=== PATIENT | male | born 1955 | race Caucasian/White ===

== ENCOUNTER 2022-07-20 16:48 | Inpatient (IN) | payer BC, SELFPAY ==
--- NOTE | ~2022-07-20 | US_ITS ---
EXAMINATION: ULTRASOUND-GUIDED PARACENTESIS CLINICAL INFORMATION: Ascites COMPARISON: Previous abdominal ultrasound 07/21/2022 TECHNIQUE: Procedure and risks and benefits including bleeding and infection were discussed with the patient and informed consent was obtained. The right lower quadrant was prepped and draped in the usual sterile fashion. The skin and soft tissues were anesthetized with 1% lidocaine plain. Using ultrasound guidance and a 4 [place] one-stick system, access to the ascitic fluid was obtained. 4.9 L of clear yellow fluid was removed. Diagnostic specimen was sent as requested by the ordering physician. FINDINGS: There is a moderate to large amount of ascites. US/US paracentesis abd w/image IMPRESSION: Ultrasound-guided paracentesis.
--- NOTE | ~2022-07-20 | US_ITS ---
EXAMINATION: US VENOUS WITH DOPPLER UPPER EXTREMITY, LEFT CLINICAL INFORMATION: Swelling. COMPARISON: None. TECHNIQUE: Ultrasound of the upper extremity is performed using compression sonography and color and pulse Doppler flow with assessment of augmentation of flow. There is also imaging and Doppler assessment of the jugular and subclavian veins. Spectral analysis with color-flow imaging is performed. FINDINGS: Respiratory variation, normal compression, and augmented flow are noted throughout the upper extremity including the axillary, brachial, cubital, and radial and ulnar veins. There is normal flow in the internal jugular and subclavian veins. There is no visible deep or superficial thrombophlebitis. There is extensive edema of the soft tissues of the arm. US/US venous duplex UE LT IMPRESSION: No DVT demonstrated in the left upper extremity.
--- NOTE | ~2022-07-20 | XR_ITS ---
EXAMINATION: XR CHEST CLINICAL INFORMATION: Shortness of breath COMPARISON: 07/31/2015 TECHNIQUE: 2 views of the chest were obtained. FINDINGS: No significant abnormality is noted involving the heart, lungs, mediastinum, bony thorax or soft tissues. There is blunting of right costophrenic angle and pleural thickening on the right XR/XR chest 2V IMPRESSION: Pleural thickening on the right possibly small pleural effusion.
--- NOTE | ~2022-07-20 | US_ITS ---
EXAMINATION: US ABDOMEN COMPLETE CLINICAL INFORMATION: Abnormal swelling. COMPARISON: No similar priors. TECHNIQUE: Real-time imaging of the abdominal viscera. FINDINGS: PANCREAS: The body and tail are obscured by overlying bowel gas. The visualized head is within normal limits. ABDOMINAL AORTA: The proximal, mid, and distal segments are normal in caliber. INFERIOR VENA CAVA: Visualized portions are normal. LIVER: Cirrhotic morphology of the liver with 2 anechoic well-defined simple appearing cysts measuring 0.6 cm in the left lobe and 1.1 cm in the right lobe. Moderate to large volume of ascites. GALLBLADDER: Layering sludge. Nonspecific gallbladder wall thickening (0.5 cm) in the setting of cirrhosis. Nonspecific pericholecystic free fluid in the setting of ascites. Negative Meier's sign. COMMON BILE DUCT: Normal in caliber measuring 0.4 cm in diameter. RIGHT KIDNEY: Normal. No hydronephrosis. No renal calculi or focal parenchymal lesions. The kidney measures 10.7 cm in maximum dimension. LEFT KIDNEY: Normal. No hydronephrosis. No renal calculi or focal parenchymal lesions. The kidney measures 9.7 cm in maximum dimension. SPLEEN: Normal. The spleen measures 8.9 cm in maximum dimension. FREE FLUID: Moderate to large volume of ascites. Partially imaged right-sided pleural effusion. US/US abdomen complete IMPRESSION: 1. Cirrhotic morphology of the liver with moderate to large volume of ascites. 2. Gallbladder sludge with nonspecific gallbladder wall thickening and pericholecystic free fluid in the setting of cirrhosis and ascites. Negative Meier's sign. 3. Partially imaged right-sided pleural effusion.
--- NOTE | ~2022-07-20 | IR_ITS ---
PROCEDURE: IR INSERTION OF CENTRAL VENOUS CATHETER CLINICAL INFORMATION: Need for dialysis. COMPARISON: None. TECHNIQUE: Ultrasound and fluoroscopic-guided placement of right internal jugular temporary dialysis catheter. All elements of maximal sterile barrier technique followed including use of cap, mask, sterile gown, sterile gloves, a sterile full body drape and hand hygiene. Also followed skin preparation with 2% chlorhexidine for cutaneous antisepsis, and sterile ultrasound preparation with sterile gel and probe cover when applicable. FINDINGS: Informed consent was obtained from the patient's sister prior to the procedure. During this process, the procedure and potential alternatives were explained, along with the intended outcome and benefits. The risks of the procedure, as well as the risk of not doing the procedure, were discussed. The patient's sister was given the opportunity to ask questions regarding the procedure and appeared competent to make medical decisions. A signed consent form which documents this discussion was placed in the medical record. With ultrasound guidance, a needle was placed into the right jugular vein with hardcopy ultrasound image obtained. Guidewire was then placed into the right atrium and a 5 [place] AccuStick catheter placed. Through the AccuStick, a 0.035 inch guidewire was placed and advanced into the inferior vena cava. Following fascial dilatation, a 12 [place] non-tunneled dialysis catheter was placed with tip in the right distal superior vena cava. Catheter was sutured to skin and the 2 dialysis ports were loaded with 1 mL of 1000 units of heparin per milliliter. Patient tolerated the procedure without difficulty. IR/IR cvc insert non tunnel IMPRESSION: Placement of right internal jugular temporary dialysis catheter as described. Fluoroscopy Time: 0.3 minutes. Number of Images: 2. DAP: 54 cGy-cm2.
--- NOTE | ~2022-07-20 | XR_ITS ---
EXAMINATION: XR CHEST CLINICAL INFORMATION: Hypoxia COMPARISON: 07/20/2022 TECHNIQUE: Frontal apical lordotic projection view of the chest was obtained. FINDINGS: EKG leads overlie the chest. Mild bibasilar atelectasis. Blunting of the bilateral costophrenic sulci may be due to trace pleural effusions or pleural parenchymal scarring. Normal pulmonary vasculature. No pulmonary edema. Trace fluid is within normal limits in size. Osteoarthritis is present in the acromioclavicular and glenohumeral joints. Probable chronic left rotator cuff tear. Degenerative spondylosis in the thoracic spine. XR/XR chest 1V IMPRESSION: Mild bibasilar atelectasis. Trace pleural effusions versus pleural parenchymal scarring at the costophrenic sulci. No pulmonary edema. No acute pulmonary findings.
--- NOTE | 2022-07-20 16:51 | ECG_ITS ---
Test Reason : SOB Blood Pressure : / mmHG Vent. Rate : 093 BPM Atrial Rate : 000 BPM P-R Int : 000 ms QRS Dur : 098 ms QT Int : 372 ms P-R-T Axes : 000 015 135 degrees QTc Int : 462 ms Atrial fibrillation Low voltage QRS Nonspecific T wave abnormality Intra-ventricular conduction delay Abnormal ECG When compared with ECG of 30-JUL-2015 22:55, Atrial fibrillation is new Nonspecific T wave abnormality is new Referred By: Yashira Cleaning Electronically Signed By:KEON AC MD
--- NOTE | 2022-07-20 16:51 | ED.SOB ---
HPI - SOB/Dyspnea General Chief Complaint: Dyspnea Stated Complaint: sob ,extremities swollen Time Seen by Provider: 07/20/22 17:49 Related Data Home Medications Medication Instructions Recorded Confirmed naproxen 220 mg-diphenhydramine 25 1 tab PO BEDTIME PRN Pain (Scale 07/21/22 07/21/22 mg tablet (Aleve PM) Score 1-3) Allergies Allergy/AdvReac Type Severity Reaction Status Date / Time No Known Allergies Allergy Verified 07/20/22 16:57 [facility] Past Medical History Medical History Afib Alcoholic cirrhosis HCV (hepatitis C virus) Surgical History (Updated 07/23/22 @ 16:18 by Indu Olson MD) History of orthopedic surgery Social History Social History (Updated 07/23/22 @ 16:21 by Indu Olson MD) Household Members: None Housing: Apartment Do you presently have visiting nurse or other home services: No Alcohol intake: current Alcohol intake frequency: former alcohol drinker Alcohol type: hard liquor Patient Tobacco Use Status: Never used Tobacco Substance Use Type: Marijuana service: No Physical Exam Vital Signs: Vital Signs: Last Vital Signs Temp 98.8 F 07/23/22 17:45 Pulse 86 07/23/22 17:45 Resp 16 07/23/22 17:45 BP 93/42 L 07/23/22 17:45 Pulse Ox 98 07/23/22 17:45 O2 Del Method 07/23/22 17:45 O2 Flow Rate 2 07/23/22 17:45 BMI result Body Mass Index 31.5 Course Reevaluation(s) Reevaluation #1: RME - 67-year-old male presenting to the ED with complaints of cough, shortness of breath, dyspnea on exertion, orthopnea with upper and lower extremity edema over the past 2 weeks worse today. Reports he has a past medical history of HTN and alcoholism although he has been sober for a month. Pt noted to have edema to all 4 extremities/abd distention. Plan: Will obtain labs, chest x-ray, EKG. Patient's vital signs are stable. He will be sent back to the waiting room for further evaluation treatment in the main ED. Time: 16:54 Medications Administered Generic Name Dose Route Start Last Admin Trade Name Freq PRN Reason Stop Dose Admin Folic Acid 5 mg 11/14/22 09:00 07/23/22 08:03 Folic Acid 1 Mg Tablet PO 5 mg DAILY LANDON Administration Furosemide 200 mg/ Sodium 100 mls @ 2.5 mls/hr 07/22/22 12:00 07/23/22 10:36 Chloride IVCONT Infused .Q24H LANDON Infusion 5 MG/HR Albumin Human 100 mls @ 100 mls/hr 07/23/22 10:00 07/23/22 16:24 Kedbumin 25 % IV 07/23/22 22:59 Infused Q6H LANDON Infusion Octreotide Acetate 500 mcg/ 501 mls @ 50.1 mls/hr 07/23/22 10:15 07/23/22 11:57 Sodium Chloride IVCONT 50 mcg/hr .Q10H LANDON 50.1 mls/hr Administration 50 MCG/HR Ceftriaxone Sodium 1 gm/ 50 mls @ 100 mls/hr 07/23/22 11:00 07/23/22 11:05 Sodium Chloride IV Infused Q24H LANDON Infusion Metoprolol Tartrate 25 mg 07/22/22 15:15 07/23/22 08:06 Metoprolol Tartrate 25 Mg Tablet PO Not Given BID LANDON Protocol Midodrine 5 mg 07/23/22 15:00 07/23/22 14:07 Midodrine Hcl 5 Mg Tablet PO 5 mg TID LANDON Administration Pantoprazole Sodium 40 mg 07/23/22 10:15 07/23/22 15:22 Pantoprazole Sodium 40 Mg/10 Ml Vial IVPUSH 40 mg BID@0630,1630 LANDON Administration Sodium Chloride 3 ml 07/21/22 00:00 07/23/22 15:23 0.9 % Sodium Chloride Flush 3 Ml Syringe IVFLUSH 3 ml QSHIFT LANDON Administration Spironolactone 25 mg 07/22/22 12:00 07/23/22 08:03 Spironolactone 25 Mg Tablet PO 25 mg DAILY LANDON Administration Protocol Discontinued Medications Generic Name Dose Route Start Last Admin Trade Name Freq PRN Reason Stop Dose Admin Furosemide 40 mg 07/21/22 00:20 07/22/22 07:40 Furosemide 40 Mg/4 Ml Vial IVPUSH 40 mg BID LANDON Administration Protocol Albumin Human 100 mls @ 100 mls/hr 07/22/22 08:00 07/22/22 10:14 Kedbumin 25 % IV 07/22/22 09:59 Infused Q1H LANDON Infusion Albumin Human 100 mls @ 100 mls/hr 07/22/22 12:00 07/22/22 15:04 Kedbumin 25 % IV 07/22/22 13:59 Infused Q1H LANDON Infusion Phytonadione 10 mg/ Sodium 51 mls @ 51 mls/hr 07/22/22 16:45 07/22/22 19:53 Chloride IV 07/22/22 17:44 Infused ONCE ONE Infusion Lactated Ringer's 1,000 mls @ 50 mls/hr 07/23/22 16:45 07/23/22 18:27 Lr IVCONT Not Given .Q20H LANDON Lorazepam 0.5 mg 07/22/22 12:55 07/22/22 13:01 Lorazepam 0.5 Mg Tablet PO 07/22/22 12:56 0.5 mg ONCE ONE Administration Melatonin 6 mg 07/20/22 23:58 07/21/22 19:57 Melatonin 3 Mg Tablet PO 6 mg BEDTIME PRN Administration Insomnia Phytonadione 10 mg 07/21/22 08:11 07/21/22 08:26 Phytonadione (Vit K1) Oral 10 Mg/Ml Ampul PO 07/21/22 08:12 10 mg ONCE ONE Administration MDM - SOB/Dyspnea Lab Data Result diagrams: 07/23/22 14:57 07/23/22 06:40 Labs: Lab Results 07/20/22 07/20/22 07/20/22 Range/Units 17:19 17:19 17:19 WBC 7.1 (4.8-10.8) X10*3/uL RBC 1.49 L (4.60-5.80) X10*6/uL Hgb 4.0 L* (14.0-18.0) g/dl Hct 14.4 L* (42.0-52.0) % MCV 96.6 (80.0-98.0) fL MCH 26.8 L (27.0-33.0) pg MCHC 27.8 L (31.0-36.0) g/dl RDW 16.9 H (11.0-16.0) % Plt Count 111 L (160-400) X10*3/uL MPV 11.6 (9.4-12.4) fL Immature Gran % (Auto) 0.6 H (0.0-0.4) % Neut % (Auto) 66.9 (45-73) % Lymph % (Auto) 20.0 (20-40) % Caldwell % (Auto) 10.9 (2-11) % Eos % (Auto) 1.0 (0-4) % Baso % (Auto) 0.6 (0-2) % Lymph # (Auto) 1.4 (1.2-4.9) X10*3/uL Caldwell # (Auto) 0.8 (0.1-1.2) X10*3/uL Eos # (Auto) 0.1 (0.0-0.4) X10*3/uL Baso # (Auto) 0.0 (0.0-0.2) X10*3/uL Abs Immat Gran (auto) 0.04 H (0.00-0.03) X10*3/uL Absolute Neuts (auto) 4.7 (2.0-8.3) x10*3/uL Absolute Nucleated RBC 0.020 H (0.0-0.012) X10*3/uL Nucleated RBC % (auto) 0.3 H (0.0-0.2) /100WBC Smear Path Review SEE NOTE Absolute Retic Percent Retic Immature Retic Fraction Retic Hgb Equivalent PT 28.8 H (10.0-13.1) SEC INR 2.4 H (0.9-1.1) Sodium 134 L (135-145) mmol/L Potassium 3.7 (3.3-5.1) mmol/L Chloride 101 (96-108) mmol/L Carbon Dioxide 17 L (22-29) mmol/L Anion Gap 20 (12-20) BUN 27 H (9-16) mg/dL Creatinine 2.28 H (0.5-1.4) mg/dL Estim Creat Clear Calc 36.7 Estimated GFR 29 Random Glucose 126 H (60-115) mg/dL Calcium 7.7 L (8.4-10.2) mg/dL Magnesium 2.0 (1.6-2.6) mg/dL Iron (45-160) mcg/dL TIBC (228-428) mcg/dL % Saturation (15-50) % Unsat Iron Binding ug/dL Total Bilirubin 3.1 H (0.0-1.0) mg/dL Direct Bilirubin (0.0-0.5) mg/dL AST 31 (5-37) U/L ALT 15 (0-40) U/L Alkaline Phosphatase 66 (39-117) U/L Lactate Dehydrogenase (118-273) U/L Troponin I High Sens (<3.5-35.0) ng/L B-Natriuretic Peptide (<100) pg/mL Total Protein 8.4 H (6.5-8.0) g/dL Albumin 1.8 L (3.5-5.0) g/dL Lipase (8-78) U/L Vitamin B12 (200-900) pg/mL Folate (> or = 4.0) ng/mL Ethyl Alcohol mg/dL Blood Type Antibody Screen TRAVIS, Polyspecific Positive TRAVIS Work-up Crossmatch 07/20/22 07/20/22 07/20/22 Range/Units 17:19 17:19 17:19 WBC (4.8-10.8) X10*3/uL RBC (4.60-5.80) X10*6/uL Hgb (14.0-18.0) g/dl Hct (42.0-52.0) % MCV (80.0-98.0) fL MCH (27.0-33.0) pg MCHC (31.0-36.0) g/dl RDW (11.0-16.0) % Plt Count (160-400) X10*3/uL MPV (9.4-12.4) fL Immature Gran % (Auto) (0.0-0.4) % Neut % (Auto) (45-73) % Lymph % (Auto) (20-40) % Caldwell % (Auto) (2-11) % Eos % (Auto) (0-4) % Baso % (Auto) (0-2) % Lymph # (Auto) (1.2-4.9) X10*3/uL Caldwell # (Auto) (0.1-1.2) X10*3/uL Eos # (Auto) (0.0-0.4) X10*3/uL Baso # (Auto) (0.0-0.2) X10*3/uL Abs Immat Gran (auto) (0.00-0.03) X10*3/uL Absolute Neuts (auto) (2.0-8.3) x10*3/uL Absolute Nucleated RBC (0.0-0.012) X10*3/uL Nucleated RBC % (auto) (0.0-0.2) /100WBC Smear Path Review Absolute Retic Percent Retic Immature Retic Fraction Retic Hgb Equivalent PT (10.0-13.1) SEC INR (0.9-1.1) Sodium (135-145) mmol/L Potassium (3.3-5.1) mmol/L Chloride (96-108) mmol/L Carbon Dioxide (22-29) mmol/L Anion Gap (12-20) BUN (9-16) mg/dL Creatinine (0.5-1.4) mg/dL Estim Creat Clear Calc Estimated GFR Random Glucose (60-115) mg/dL Calcium (8.4-10.2) mg/dL Magnesium (1.6-2.6) mg/dL Iron (45-160) mcg/dL TIBC (228-428) mcg/dL % Saturation (15-50) % Unsat Iron Binding ug/dL Total Bilirubin (0.0-1.0) mg/dL Direct Bilirubin (0.0-0.5) mg/dL AST (5-37) U/L ALT (0-40) U/L Alkaline Phosphatase (39-117) U/L Lactate Dehydrogenase (118-273) U/L Troponin I High Sens 11.0 (<3.5-35.0) ng/L B-Natriuretic Peptide 450 H (<100) pg/mL Total Protein (6.5-8.0) g/dL Albumin (3.5-5.0) g/dL Lipase (8-78) U/L Vitamin B12 (200-900) pg/mL Folate (> or = 4.0) ng/mL Ethyl Alcohol < 10 mg/dL Blood Type Antibody Screen TRAVIS, Polyspecific Positive TRAVIS Work-up Crossmatch 07/20/22 07/20/22 07/20/22 Range/Units 17:19 17:19 17:19 WBC (4.8-10.8) X10*3/uL RBC (4.60-5.80) X10*6/uL Hgb (14.0-18.0) g/dl Hct (42.0-52.0) % MCV (80.0-98.0) fL MCH (27.0-33.0) pg MCHC (31.0-36.0) g/dl RDW (11.0-16.0) % Plt Count (160-400) X10*3/uL MPV (9.4-12.4) fL Immature Gran % (Auto) (0.0-0.4) % Neut % (Auto) (45-73) % Lymph % (Auto) (20-40) % Caldwell % (Auto) (2-11) % Eos % (Auto) (0-4) % Baso % (Auto) (0-2) % Lymph # (Auto) (1.2-4.9) X10*3/uL Caldwell # (Auto) (0.1-1.2) X10*3/uL Eos # (Auto) (0.0-0.4) X10*3/uL Baso # (Auto) (0.0-0.2) X10*3/uL Abs Immat Gran (auto) (0.00-0.03) X10*3/uL Absolute Neuts (auto) (2.0-8.3) x10*3/uL Absolute Nucleated RBC (0.0-0.012) X10*3/uL Nucleated RBC % (auto) (0.0-0.2) /100WBC Smear Path Review Absolute Retic Cancelled Percent Retic Cancelled Immature Retic Fraction Cancelled Retic Hgb Equivalent Cancelled PT (10.0-13.1) SEC INR (0.9-1.1) Sodium (135-145) mmol/L Potassium (3.3-5.1) mmol/L Chloride (96-108) mmol/L Carbon Dioxide (22-29) mmol/L Anion Gap (12-20) BUN (9-16) mg/dL Creatinine (0.5-1.4) mg/dL Estim Creat Clear Calc Estimated GFR Random Glucose (60-115) mg/dL Calcium (8.4-10.2) mg/dL Magnesium (1.6-2.6) mg/dL Iron 25 L (45-160) mcg/dL TIBC 289 (228-428) mcg/dL % Saturation 9 L (15-50) % Unsat Iron Binding 264 ug/dL Total Bilirubin (0.0-1.0) mg/dL Direct Bilirubin (0.0-0.5) mg/dL AST (5-37) U/L ALT (0-40) U/L Alkaline Phosphatase (39-117) U/L Lactate Dehydrogenase 144 (118-273) U/L Troponin I High Sens (<3.5-35.0) ng/L B-Natriuretic Peptide (<100) pg/mL Total Protein (6.5-8.0) g/dL Albumin (3.5-5.0) g/dL Lipase (8-78) U/L Vitamin B12 > 2000 H (200-900) pg/mL Folate 3.1 L (> or = 4.0) ng/mL Ethyl Alcohol mg/dL Blood Type Antibody Screen TRAVIS, Polyspecific Positive TRAVIS Work-up Crossmatch 07/20/22 07/20/22 07/20/22 Range/Units 20:54 20:54 22:03 WBC (4.8-10.8) X10*3/uL RBC (4.60-5.80) X10*6/uL Hgb (14.0-18.0) g/dl Hct (42.0-52.0) % MCV (80.0-98.0) fL MCH (27.0-33.0) pg MCHC (31.0-36.0) g/dl RDW (11.0-16.0) % Plt Count (160-400) X10*3/uL MPV (9.4-12.4) fL Immature Gran % (Auto) (0.0-0.4) % Neut % (Auto) (45-73) % Lymph % (Auto) (20-40) % Caldwell % (Auto) (2-11) % Eos % (Auto) (0-4) % Baso % (Auto) (0-2) % Lymph # (Auto) (1.2-4.9) X10*3/uL Caldwell # (Auto) (0.1-1.2) X10*3/uL Eos # (Auto) (0.0-0.4) X10*3/uL Baso # (Auto) (0.0-0.2) X10*3/uL Abs Immat Gran (auto) (0.00-0.03) X10*3/uL Absolute Neuts (auto) (2.0-8.3) x10*3/uL Absolute Nucleated RBC (0.0-0.012) X10*3/uL Nucleated RBC % (auto) (0.0-0.2) /100WBC Smear Path Review Absolute Retic Percent Retic Immature Retic Fraction Retic Hgb Equivalent PT (10.0-13.1) SEC INR (0.9-1.1) Sodium 132 L (135-145) mmol/L Potassium 3.9 (3.3-5.1) mmol/L Chloride 100 (96-108) mmol/L Carbon Dioxide 20 L (22-29) mmol/L Anion Gap 16 (12-20) BUN 26 H (9-16) mg/dL Creatinine 2.18 H (0.5-1.4) mg/dL Estim Creat Clear Calc 38.3 Estimated GFR 30 Random Glucose 101 (60-115) mg/dL Calcium 7.8 L (8.4-10.2) mg/dL Magnesium (1.6-2.6) mg/dL Iron (45-160) mcg/dL TIBC (228-428) mcg/dL % Saturation (15-50) % Unsat Iron Binding ug/dL Total Bilirubin 2.8 H (0.0-1.0) mg/dL Direct Bilirubin 1.8 H (0.0-0.5) mg/dL AST 37 (5-37) U/L ALT 16 (0-40) U/L Alkaline Phosphatase 67 (39-117) U/L Lactate Dehydrogenase (118-273) U/L Troponin I High Sens 9.8 (<3.5-35.0) ng/L B-Natriuretic Peptide (<100) pg/mL Total Protein 8.7 H (6.5-8.0) g/dL Albumin 1.8 L (3.5-5.0) g/dL Lipase 36 (8-78) U/L Vitamin B12 (200-900) pg/mL Folate (> or = 4.0) ng/mL Ethyl Alcohol mg/dL Blood Type B Positive Antibody Screen NEGATIVE TRAVIS, Polyspecific NEGATIVE Positive TRAVIS Work-up TNP Crossmatch See Detail Discharge Plan Discharge Clinical Impression: Anemia Patient Disposition: Admitted As Inpatient Interventions: Admission Worksheet (ED) Last Done: 07/21/22 18:01 Discharge Date/Time: 07/21/22 18:02
[2022-07-20 16:52] VITALS: BP 114/36; PULSE 96; RESP 16; TEMP 36; O2SAT 98; BMI 31.5
[2022-07-20 17:33] LABS: MANUAL DIFF FLAG NO
[2022-07-20 17:35] LABS: Basophils Percent Auto 0.6 % (0-2); Eosinophils Absolute Auto 0.1 X10*3/uL (0.0-0.4); Imm Gran Abs Auto 0.04 X10*3/uL (0.00-0.03); Imm Gran Pct Auto 0.6 % (0.0-0.4); Lymphocytes Absolute Auto 1.4 X10*3/uL (1.2-4.9); Mean Corpuscular HGB Conc 27.8 g/dl (31.0-36.0); Mean Corpuscular Hemoglobin 26.8 pg (27.0-33.0); Mean Corpuscular Volume 96.6 fL (80.0-98.0); Mean Platelet Volume 11.6 fL (9.4-12.4); Monocytes Absolute Auto 0.8 X10*3/uL (0.1-1.2); Monocytes Percent Auto 10.9 % (2-11); NRBC Pct Auto 0.3 /100WBC (0.0-0.2); Neutrophils Absolute Auto 4.7 x10*3/uL (2.0-8.3); Neutrophils Percent Auto 66.9 % (45-73); Platelet Count 111 X10*3/uL (160-400); Red Blood Count 1.49 X10*6/uL (4.60-5.80); Red Cell Distribution Width 16.9 % (11.0-16.0); White Blood Count 7.1 X10*3/uL (4.8-10.8)
[2022-07-20 17:43] LABS: Hematocrit 14.4 % (42.0-52.0)
[2022-07-20 17:46] LABS: INTERNATIONAL NORM RATIO 2.4 (0.9-1.1); Prothrombin Time 28.8 SEC (10.0-13.1)
[2022-07-20 17:51] LABS: Ethanol < 10 mg/dL
[2022-07-20 17:54] LABS: Alanine Aminotransferase 15 U/L (0-40); Albumin Level 1.8 g/dL (3.5-5.0); Alkaline Phosphatase 66 U/L (39-117); Anion Gap 20 (12-20); Aspartate Amino Transferase 31 U/L (5-37); Bilirubin Total 3.1 mg/dL (0.0-1.0); Blood Urea Nitrogen 27 mg/dL (9-16); Calcium 7.7 mg/dL (8.4-10.2); Carbon Dioxide 17 mmol/L (22-29); Chloride 101 mmol/L (96-108); Creatinine Clr Calc Pharmacy 36.7; Estimated Glomerular Filt Rate 29; Glucose Random 126 mg/dL (60-115); Potassium 3.7 mmol/L (3.3-5.1); Sodium 134 mmol/L (135-145); Total Protein 8.4 g/dL (6.5-8.0)
[2022-07-20 18:00] LABS: B Type Natriuretic Peptide 450 pg/mL (<100)
--- NOTE | 2022-07-20 18:23 | ED_ITS ---
HPI - SOB/Dyspnea General Chief Complaint: Dyspnea Stated Complaint: sob ,extremities swollen Time Seen by Provider: 07/20/22 17:49 Source: patient and EMS History of Present Illness HPI Narrative: 67-year-old male with shortness of breath and swelling for an undetermined period of time. The patient has not seen a physician for probably 12/13 years, and called an ambulance this evening because of significant swelling and difficulty breathing. This has been going on for at least several days, progressively worsening. The patient also states that he has had some lightheadedness and dizziness. Denies chest pain or palpitations. MD elicited complaint: shortness of breath Onset (ago): day(s) Context: medication noncompliance Timing: constant and progressively worsening Severity: severe Exacerbating factors: movement Relieving factors: nothing Treatment prior to arrival: none Related Data Previous Rx's Medication Instructions Recorded omeprazole 40 mg capsule,delayed 40 mg PO BID@0630,1630 #14 caps 08/08/22 release spironolactone 25 mg tablet 25 mg PO DAILY #14 tabs 08/08/22 tamsulosin 0.4 mg capsule 0.4 mg PO DAILY #14 caps 08/08/22 walker #1 ea 08/08/22 prednisolone 15 mg/5 mL oral 30 mg (10 mL) PO DAILY 43 days 08/09/22 solution #430 mL walker #1 ea 08/09/22 Allergies Allergy/AdvReac Type Severity Reaction Status Date / Time No Known Allergies Allergy Verified 07/20/22 16:57 Review of Systems Review of Systems: Yes all other systems are reviewed and are negative Constitutional: Constitutional: Denies chills, Denies fever(s) and Reports lethargy Eyes: Eyes: Reports no additional eye complaints ENT: Reports system reviewed and no additional complaints, except as documented and Reports dizziness Cardiovascular: Cardiovascular: Denies chest pain, Denies chest pain at rest, Denies chest pain with activity, Denies rapid heart rate, Reports pedal edema, Reports edema, Reports leg edema, Reports dyspnea and Reports dyspnea on exertion Respiratory: Respiratory: Reports as per HPI, Denies cough, Reports dyspnea and Reports dyspnea on exertion Gastrointestinal: Gastrointestinal: Denies abdominal pain, Denies diarrhea, Denies nausea and Denies vomiting Genitourinary: Genitourinary: Reports no additional male genitourinary complaints Musculoskeletal: Musculoskeletal: Reports muscle weakness, Denies numbness and Denies tingling Neurologic: Denies Abnormal speech present, Denies confusion, Reports dizziness, Denies numbness and Denies tingling Psychiatric: Psychiatric: Denies confusion, Denies depression and Denies hopelessness Hematologic/Lymphatic: Hematologic/Lymphatic: Reports no additional hemat ologic/lymphatic complaints [facility] Past Medical History Attestation statement: The following information was validated with the patient. [facility] Narrative: The patient denies any known past medical history. Medical History (Updated 08/17/22 @ 00:03 by Marcia Paz) Acute on chronic kidney failure Afib Alcoholic cirrhosis Anasarca Coagulopathy Debility HCV (hepatitis C virus) Hematemesis Surgical History History of orthopedic surgery Social History Social History (Updated 07/23/22 @ 16:21 by Indu Olson MD) Household Members: None Housing: Apartment Do you presently have visiting nurse or other home services: No Alcohol intake: current Alcohol intake frequency: other Alcohol type: hard liquor Patient Tobacco Use Status: Never used Tobacco Substance Use Type: Marijuana service: No Physical Exam Vital Signs: Vital Signs: Last Vital Signs Temp 97.8 F 08/09/22 07:25 Pulse 75 08/09/22 07:25 Resp 18 08/09/22 07:25 BP 119/67 08/09/22 07:25 Pulse Ox 99 08/09/22 07:25 O2 Del Method Room Air 08/09/22 07:25 O2 Flow Rate 2 08/05/22 07:15 BMI result Body Mass Index 31.5 Vital signs noted to be normal Const: General: cooperative, acute distress mild and ill appearing; No confusion Nutritional Appearance: Edematous Orientation/consciousness: patient oriented x3 and No confusion HEENT: Head: Yes normal to inspection, Yes normocephalic and Yes atraumatic Ears: hearing grossly normal bilaterally and external ears normal General nose exam: Normal external nose present Face and sinus: Yes normal facial exam Eyes: Conjunctivae: conjunctivae normal Sclerae: sclerae normal Pupils: Equal, round and reactive pupils present EOM: EOMs intact bilaterally Neck: Neck: Yes normal visual inspection and Yes full ROM Chest: Chest palpation & inspection: normal inspection of the chest and no masses Resp: Effort & Inspection: abnormal respiratory effort, no cough, labored (Slightly), no retractions and not tachypneic Cardio: Rate: regular rate Rhythm: regular rhythm GI: Inspection: Yes Abdominal wall edema Percussion: Yes normal to percussion Back/Spine/Pelvis: Cervical Spine: normal cervical lordosis and cervical ROM normal Coccyx: swelling Skin: General skin exam: no rashes or lesions noted, no ecchymosis and pallor Neuro: General: patient oriented x3, No confusion and Unable to assess gait Cranial nerves: Yes CN's II-XII intact bilaterally and Yes Equal, round and reactive pupils present Cognition (Neuro): normal cognition Speech: No Abnormal speech present Gait exam (Neuro): Unable to assess gait Extrem: General: No no pedal edema, No cyanosis and Yes edema Medications Administered Discontinued Medications Generic Name Dose Route Start Last Admin Trade Name Freq PRN Reason Stop Dose Admin Folic Acid 5 mg 07/22/22 09:00 07/26/22 09:00 Folic Acid 1 Mg Tablet PO 5 mg DAILY [facility]ON Administration Folic Acid 5 mg 07/31/22 09:00 08/09/22 07:50 Folic Acid 1 Mg Tablet PO 5 mg DAILY [facility] Administration Furosemide 40 mg 07/21/22 00:20 07/22/22 07:40 Furosemide 40 Mg/4 Ml Vial IVPUSH 40 mg BID [facility]ON Administration Protocol Furosemide 20 mg 08/02/22 18:55 08/02/22 19:15 Furosemide 20 Mg/2 Ml Vial IVPUSH 08/02/22 18:56 20 mg ONCE ONE Administration Protocol Furosemide 40 mg 08/02/22 21:49 08/03/22 01:30 Furosemide 40 Mg/4 Ml Vial IVPUSH 08/02/22 21:50 40 mg ONCE ONE Administration Protocol Heparin Sodium (Porcine) 2,000 unit 07/25/22 12:58 07/25/22 12:58 Heparin Sodium,Porcine 1,000 Unit/Ml Vial IV 07/25/22 12:59 2,000 unit ONCE ONE Administration Albumin Human 100 mls @ 100 mls/hr 07/22/22 08:00 07/22/22 10:14 Kedbumin 25 % IV 07/22/22 09:59 Infused Q1H [facility] Infusion Furosemide 200 mg/ Sodium 100 mls @ 2.5 mls/hr 07/22/22 12:00 07/23/22 10:36 Chloride IVCONT Infused .Q24H [facility] Infusion 5 MG/HR Albumin Human 100 mls @ 100 mls/hr 07/22/22 12:00 07/22/22 15:04 Kedbumin 25 % IV 07/22/22 13:59 Infused Q1H [facility] Infusion Phytonadione 10 mg/ Sodium 51 mls @ 51 mls/hr 07/22/22 16:45 07/22/22 19:53 Chloride IV 07/22/22 17:44 Infused ONCE ONE Infusion Albumin Human 100 mls @ 100 mls/hr 07/23/22 10:00 07/23/22 22:50 Kedbumin 25 % IV 07/23/22 22:59 Infused Q6H [facility] Infusion Octreotide Acetate 500 mcg/ 501 mls @ 50.1 mls/hr 07/23/22 10:15 07/24/22 20:34 Sodium Chloride IVCONT Not Given .Q10H L[facility]ON 50 MCG/HR Ceftriaxone Sodium 1 gm/ 50 mls @ 100 mls/hr 07/23/22 11:00 07/26/22 11:47 Sodium Chloride IV Infused Q24H [facility] Infusion Lactated Ringer's 1,000 mls @ 50 mls/hr 07/23/22 16:45 07/23/22 18:27 Lr IVCONT Not Given .Q20H [facility] Albumin Human 100 mls @ 100 mls/hr 07/24/22 11:15 07/25/22 08:31 Kedbumin 25 % IV 07/25/22 06:14 Infused Q6H [facility] Infusion Octreotide Acetate 500 mcg/ 501 mls @ 50.1 mls/hr 07/24/22 20:30 07/25/22 08:32 Sodium Chloride IVCONT Infused .Q10H [facility] Infusion 50 MCG/HR Albumin Human 100 mls @ 100 mls/hr 07/25/22 08:30 07/26/22 03:55 Kedbumin 25 % IV 07/26/22 03:29 Infused Q6H [facility] Infusion Octreotide Acetate 500 mcg/ 501 mls @ 50.1 mls/hr 07/25/22 15:15 07/25/22 22:49 Sodium Chloride IVCONT Not Given .Q10H [facility] 50 MCG/HR Phytonadione 10 mg/ Sodium 51 mls @ 51 mls/hr 07/25/22 15:22 07/25/22 22:49 Chloride IV 07/25/22 16:21 Infused ONCE ONE Infusion Octreotide Acetate 500 mcg/ 501 mls @ 50.1 mls/hr 07/25/22 22:00 07/26/22 17:26 Sodium Chloride IVCONT Infused .Q10H [facility] Infusion 50 MCG/HR Desmopressin Acetate 20 mcg/ 55 mls @ 100 mls/hr 07/26/22 12:51 07/26/22 14:48 Sodium Chloride IV 07/26/22 13:25 Infused ONCE ONE Infusion Octreotide Acetate 500 mcg/ 501 mls @ 25.05 mls/hr 08/02/22 08:30 08/02/22 12:22 Sodium Chloride IVCONT Infused .Q20H [facility] Infusion 25 MCG/HR Phytonadione 10 mg/ Sodium 51 mls @ 51 mls/hr 08/02/22 22:06 08/03/22 00:53 Chloride IV 08/02/22 23:05 Infused ONCE ONE Infusion Lidocaine HCl 5 ml 07/24/22 16:00 07/24/22 16:57 Lidocaine Hcl 1 % 20 Ml Vial SUBCUT 07/24/22 16:01 5 ml ONCE ONE Administration Lidocaine HCl 10 ml 07/25/22 12:56 07/25/22 12:56 Lidocaine Hcl 1 % Mpf 5 Ml Vial SUBCUT 07/25/22 12:57 10 ml ONCE ONE Administration Lorazepam 0.5 mg 07/22/22 12:55 07/22/22 13:01 Lorazepam 0.5 Mg Tablet PO 07/22/22 12:56 0.5 mg ONCE ONE Administration Lorazepam 0.5 mg 07/26/22 16:40 07/30/22 22:26 Lorazepam 0.5 Mg Tablet PO 0.5 mg Q4H PRN Administration anxiety/restlessness Melatonin 6 mg 07/20/22 23:58 07/21/22 19:57 Melatonin 3 Mg Tablet PO 6 mg BEDTIME PRN Administration Insomnia Melatonin 3 mg 07/30/22 21:00 08/08/22 19:56 Melatonin 3 Mg Tablet PO 3 mg BEDTIME [facility] Administration Metoprolol Tartrate 25 mg 07/22/22 15:15 07/26/22 09:02 Metoprolol Tartrate 25 Mg Tablet PO 25 mg BID [facility] Administration Protocol Midodrine 5 mg 07/23/22 15:00 07/24/22 07:36 Midodrine Hcl 5 Mg Tablet PO 5 mg TID [facility] Administration Midodrine 10 mg 07/24/22 15:00 07/26/22 17:25 Midodrine Hcl 10 Mg Tablet PO Not Given TID [facility] Omeprazole 40 mg 07/25/22 16:30 08/02/22 05:56 Omeprazole 40 Mg Capsule. PO 40 mg BID@0630,1630 [facility] Administration Omeprazole 40 mg 08/04/22 16:30 08/09/22 05:43 Omeprazole 40 Mg Capsule.Dr PO 40 mg BID@0630,1630 [facility] Administration Ondansetron HCl 4 mg 07/20/22 23:58 07/30/22 16:16 Ondansetron Hcl 4 Mg/2 Ml Vial IVPUSH 4 mg Q8H PRN Administration Nausea and Vomiting Pantoprazole Sodium 40 mg 07/23/22 10:15 07/25/22 06:46 Pantoprazole Sodium 40 Mg/10 Ml Vial IVPUSH 40 mg BID@0630,1630 [facility] Administration Pantoprazole Sodium 40 mg 08/02/22 08:30 08/04/22 05:21 Pantoprazole Sodium 40 Mg/10 Ml Vial IVPUSH 40 mg BID@0630,1630 [facility] Administration Phytonadione 10 mg 07/21/22 08:11 07/21/22 08:26 Phytonadione (Vit K1) Oral 10 Mg/Ml Ampul PO 07/21/22 08:12 10 mg ONCE ONE Administration Prednisolone Sodium Phosphate 30 mg 07/28/22 11:55 08/03/22 09:53 Prednisolone Sodium Phosphate 15 Mg/5 Ml Solution PO Not Given DAILY [facility] Prednisone 30 mg 08/03/22 10:40 08/09/22 07:50 Prednisone 10 Mg Tablet PO 30 mg DAILY [facility] Administration Sodium Chloride 3 ml 07/21/22 00:00 08/09/22 07:53 0.9 % Sodium Chloride Flush 3 Ml Syringe IVFLUSH 3 ml QSHIFT [facility] Administration Sodium Chloride 5 ml 07/25/22 16:00 08/09/22 07:55 0.9 % Sodium Chloride Flush 10 Ml Syringe IVFLUSH Not Given QSHIFT [facility] Spironolactone 25 mg 07/22/22 12:00 07/24/22 07:36 Spironolactone 25 Mg Tablet PO 25 mg DAILY [facility] Administration Protocol Spironolactone 25 mg 07/30/22 10:00 08/09/22 07:50 Spironolactone 25 Mg Tablet PO 25 mg DAILY [facility] Administration Protocol Sucralfate 1 gm 07/25/22 11:30 07/26/22 17:25 Sucralfate 1 Gm Tablet PO Not Given QIDACHS [facility] Tamsulosin HCl 0.4 mg 07/24/22 11:15 08/09/22 07:50 Tamsulosin Hcl 0.4 Mg Capsule PO 0.4 mg DAILY [facility] Administration MDM - SOB/Dyspnea Lab Data Lab results narrative: Abnormal labs include a H/H of 4.0 and 14.4, creatinine of 2.28, and INR 2.4, bilirubin 3.1, BNP of 450 08/08/22 05:15 08/08/22 05:15 Labs: Lab Results 07/20/22 07/20/22 07/20/22 Range/Units 17:19 17:19 17:19 WBC 7.1 (4.8-10.8) X10*3/uL RBC 1.49 L (4.60-5.80) X10*6/uL Hgb 4.0 L* (14.0-18.0) g/dl Hct 14.4 L* (42.0-52.0) % MCV 96.6 (80.0-98.0) fL MCH 26.8 L (27.0-33.0) pg MCHC 27.8 L (31.0-36.0) g/dl RDW 16.9 H (11.0-16.0) % Plt Count 111 L (160-400) X10*3/uL MPV 11.6 (9.4-12.4) fL Immature Gran % (Auto) 0.6 H (0.0-0.4) % Neut % (Auto) 66.9 (45-73) % Lymph % (Auto) 20.0 (20-40) % [place] % (Auto) 10.9 (2-11) % Eos % (Auto) 1.0 (0-4) % Baso % (Auto) 0.6 (0-2) % Lymph # (Auto) 1.4 (1.2-4.9) X10*3/uL [place] # (Auto) 0.8 (0.1-1.2) X10*3/uL Eos # (Auto) 0.1 (0.0-0.4) X10*3/uL Baso # (Auto) 0.0 (0.0-0.2) X10*3/uL Abs Immat Gran (auto) 0.04 H (0.00-0.03) X10*3/uL Absolute Neuts (auto) 4.7 (2.0-8.3) x10*3/uL Absolute Nucleated RBC 0.020 H (0.0-0.012) X10*3/uL Nucleated RBC % (auto) 0.3 H (0.0-0.2) /100WBC Smear Path Review SEE NOTE Absolute Retic Percent Retic Immature Retic Fraction Retic Hgb Equivalent Haptoglobin (43-212) mg/dL PT 28.8 H (10.0-13.1) SEC INR 2.4 H (0.9-1.1) Sodium 134 L (135-145) mmol/L Potassium 3.7 (3.3-5.1) mmol/L Chloride 101 (96-108) mmol/L Carbon Dioxide 17 L (22-29) mmol/L Anion Gap 20 (12-20) BUN 27 H (9-16) mg/dL Creatinine 2.28 H (0.5-1.4) mg/dL Estim Creat Clear Calc 36.7 Estimated GFR 29 Random Glucose 126 H (60-115) mg/dL Calcium 7.7 L (8.4-10.2) mg/dL Magnesium 2.0 (1.6-2.6) mg/dL Iron (45-160) mcg/dL TIBC (228-428) mcg/dL % Saturation (15-50) % Unsat Iron Binding ug/dL Total Bilirubin 3.1 H (0.0-1.0) mg/dL Direct Bilirubin (0.0-0.5) mg/dL AST 31 (5-37) U/L ALT 15 (0-40) U/L Alkaline Phosphatase 66 (39-117) U/L Lactate Dehydrogenase (118-273) U/L Troponin I High Sens (<3.5-35.0) ng/L B-Natriuretic Peptide (<100) pg/mL Total Protein 8.4 H (6.5-8.0) g/dL Albumin 1.8 L (3.5-5.0) g/dL Lipase (8-78) U/L Vitamin B12 (200-900) pg/mL Folate (> or = 4.0) ng/mL Ethyl Alcohol mg/dL Blood Type Antibody Screen TRAVIS, Polyspecific Positive TRAVIS Work-up Crossmatch 07/20/22 07/20/22 07/20/22 Range/Units 17:19 17:19 17:19 WBC (4.8-10.8) X10*3/uL RBC (4.60-5.80) X10*6/uL Hgb (14.0-18.0) g/dl Hct (42.0-52.0) % MCV (80.0-98.0) fL MCH (27.0-33.0) pg MCHC (31.0-36.0) g/dl RDW (11.0-16.0) % Plt Count (160-400) X10*3/uL MPV (9.4-12.4) fL Immature Gran % (Auto) (0.0-0.4) % Neut % (Auto) (45-73) % Lymph % (Auto) (20-40) % [place] % (Auto) (2-11) % Eos % (Auto) (0-4) % Baso % (Auto) (0-2) % Lymph # (Auto) (1.2-4.9) X10*3/uL [place] # (Auto) (0.1-1.2) X10*3/uL Eos # (Auto) (0.0-0.4) X10*3/uL Baso # (Auto) (0.0-0.2) X10*3/uL Abs Immat Gran (auto) (0.00-0.03) X10*3/uL Absolute Neuts (auto) (2.0-8.3) x10*3/uL Absolute Nucleated RBC (0.0-0.012) X10*3/uL Nucleated RBC % (auto) (0.0-0.2) /100WBC Smear Path Review Absolute Retic Percent Retic Immature Retic Fraction Retic Hgb Equivalent Haptoglobin (43-212) mg/dL PT (10.0-13.1) SEC INR (0.9-1.1) Sodium (135-145) mmol/L Potassium (3.3-5.1) mmol/L Chloride (96-108) mmol/L Carbon Dioxide (22-29) mmol/L Anion Gap (12-20) BUN (9-16) mg/dL Creatinine (0.5-1.4) mg/dL Estim Creat Clear Calc Estimated GFR Random Glucose (60-115) mg/dL Calcium (8.4-10.2) mg/dL Magnesium (1.6-2.6) mg/dL Iron (45-160) mcg/dL TIBC (228-428) mcg/dL % Saturation (15-50) % Unsat Iron Binding ug/dL Total Bilirubin (0.0-1.0) mg/dL Direct Bilirubin (0.0-0.5) mg/dL AST (5-37) U/L ALT (0-40) U/L Alkaline Phosphatase (39-117) U/L Lactate Dehydrogenase (118-273) U/L Troponin I High Sens 11.0 (<3.5-35.0) ng/L B-Natriuretic Peptide 450 H (<100) pg/mL Total Protein (6.5-8.0) g/dL Albumin (3.5-5.0) g/dL Lipase (8-78) U/L Vitamin B12 (200-900) pg/mL Folate (> or = 4.0) ng/mL Ethyl Alcohol < 10 mg/dL Blood Type Antibody Screen TRAVIS, Polyspecific Positive TRAVIS Work-up Crossmatch 07/20/22 07/20/22 07/20/22 Range/Units 17:19 17:19 17:19 WBC (4.8-10.8) X10*3/uL RBC (4.60-5.80) X10*6/uL Hgb (14.0-18.0) g/dl Hct (42.0-52.0) % MCV (80.0-98.0) fL MCH (27.0-33.0) pg MCHC (31.0-36.0) g/dl RDW (11.0-16.0) % Plt Count (160-400) X10*3/uL MPV (9.4-12.4) fL Immature Gran % (Auto) (0.0-0.4) % Neut % (Auto) (45-73) % Lymph % (Auto) (20-40) % [place] % (Auto) (2-11) % Eos % (Auto) (0-4) % Baso % (Auto) (0-2) % Lymph # (Auto) (1.2-4.9) X10*3/uL [place] # (Auto) (0.1-1.2) X10*3/uL Eos # (Auto) (0.0-0.4) X10*3/uL Baso # (Auto) (0.0-0.2) X10*3/uL Abs Immat Gran (auto) (0.00-0.03) X10*3/uL Absolute Neuts (auto) (2.0-8.3) x10*3/uL Absolute Nucleated RBC (0.0-0.012) X10*3/uL Nucleated RBC % (auto) (0.0-0.2) /100WBC Smear Path Review Absolute Retic Cancelled Percent Retic Cancelled Immature Retic Fraction Cancelled Retic Hgb Equivalent Cancelled Haptoglobin 40 L (43-212) mg/dL PT (10.0-13.1) SEC INR (0.9-1.1) Sodium (135-145) mmol/L Potassium (3.3-5.1) mmol/L Chloride (96-108) mmol/L Carbon Dioxide (22-29) mmol/L Anion Gap (12-20) BUN (9-16) mg/dL Creatinine (0.5-1.4) mg/dL Estim Creat Clear Calc Estimated GFR Random Glucose (60-115) mg/dL Calcium (8.4-10.2) mg/dL Magnesium (1.6-2.6) mg/dL Iron 25 L (45-160) mcg/dL TIBC 289 (228-428) mcg/dL % Saturation 9 L (15-50) % Unsat Iron Binding 264 ug/dL Total Bilirubin (0.0-1.0) mg/dL Direct Bilirubin (0.0-0.5) mg/dL AST (5-37) U/L ALT (0-40) U/L Alkaline Phosphatase (39-117) U/L Lactate Dehydrogenase 144 (118-273) U/L Troponin I High Sens (<3.5-35.0) ng/L B-Natriuretic Peptide (<100) pg/mL Total Protein (6.5-8.0) g/dL Albumin (3.5-5.0) g/dL Lipase (8-78) U/L Vitamin B12 (200-900) pg/mL Folate (> or = 4.0) ng/mL Ethyl Alcohol mg/dL Blood Type Antibody Screen TRAVIS, Polyspecific Positive TRAVIS Work-up Crossmatch 07/20/22 07/20/22 07/20/22 Range/Units 17:19 20:54 20:54 WBC (4.8-10.8) X10*3/uL RBC (4.60-5.80) X10*6/uL Hgb (14.0-18.0) g/dl Hct (42.0-52.0) % MCV (80.0-98.0) fL MCH (27.0-33.0) pg MCHC (31.0-36.0) g/dl RDW (11.0-16.0) % Plt Count (160-400) X10*3/uL MPV (9.4-12.4) fL Immature Gran % (Auto) (0.0-0.4) % Neut % (Auto) (45-73) % Lymph % (Auto) (20-40) % [place] % (Auto) (2-11) % Eos % (Auto) (0-4) % Baso % (Auto) (0-2) % Lymph # (Auto) (1.2-4.9) X10*3/uL [place] # (Auto) (0.1-1.2) X10*3/uL Eos # (Auto) (0.0-0.4) X10*3/uL Baso # (Auto) (0.0-0.2) X10*3/uL Abs Immat Gran (auto) (0.00-0.03) X10*3/uL Absolute Neuts (auto) (2.0-8.3) x10*3/uL Absolute Nucleated RBC (0.0-0.012) X10*3/uL Nucleated RBC % (auto) (0.0-0.2) /100WBC Smear Path Review Absolute Retic Percent Retic Immature Retic Fraction Retic Hgb Equivalent Haptoglobin (43-212) mg/dL PT (10.0-13.1) SEC INR (0.9-1.1) Sodium 132 L (135-145) mmol/L Potassium 3.9 (3.3-5.1) mmol/L Chloride 100 (96-108) mmol/L Carbon Dioxide 20 L (22-29) mmol/L Anion Gap 16 (12-20) BUN 26 H (9-16) mg/dL Creatinine 2.18 H (0.5-1.4) mg/dL Estim Creat Clear Calc 38.3 Estimated GFR 30 Random Glucose 101 (60-115) mg/dL Calcium 7.8 L (8.4-10.2) mg/dL Magnesium (1.6-2.6) mg/dL Iron (45-160) mcg/dL TIBC (228-428) mcg/dL % Saturation (15-50) % Unsat Iron Binding ug/dL Total Bilirubin 2.8 H (0.0-1.0) mg/dL Direct Bilirubin 1.8 H (0.0-0.5) mg/dL AST 37 (5-37) U/L ALT 16 (0-40) U/L Alkaline Phosphatase 67 (39-117) U/L Lactate Dehydrogenase (118-273) U/L Troponin I High Sens 9.8 (<3.5-35.0) ng/L B-Natriuretic Peptide (<100) pg/mL Total Protein 8.7 H (6.5-8.0) g/dL Albumin 1.8 L (3.5-5.0) g/dL Lipase 36 (8-78) U/L Vitamin B12 > 2000 H (200-900) pg/mL Folate 3.1 L (> or = 4.0) ng/mL Ethyl Alcohol mg/dL Blood Type Antibody Screen TRAVIS, Polyspecific Positive TRAVIS Work-up Crossmatch 07/20/22 Range/Units 22:03 WBC (4.8-10.8) X10*3/uL RBC (4.60-5.80) X10*6/uL Hgb (14.0-18.0) g/dl Hct (42.0-52.0) % MCV (80.0-98.0) fL MCH (27.0-33.0) pg MCHC (31.0-36.0) g/dl RDW (11.0-16.0) % Plt Count (160-400) X10*3/uL MPV (9.4-12.4) fL Immature Gran % (Auto) (0.0-0.4) % Neut % (Auto) (45-73) % Lymph % (Auto) (20-40) % [place] % (Auto) (2-11) % Eos % (Auto) (0-4) % Baso % (Auto) (0-2) % Lymph # (Auto) (1.2-4.9) X10*3/uL [place] # (Auto) (0.1-1.2) X10*3/uL Eos # (Auto) (0.0-0.4) X10*3/uL Baso # (Auto) (0.0-0.2) X10*3/uL Abs Immat Gran (auto) (0.00-0.03) X10*3/uL Absolute Neuts (auto) (2.0-8.3) x10*3/uL Absolute Nucleated RBC (0.0-0.012) X10*3/uL Nucleated RBC % (auto) (0.0-0.2) /100WBC Smear Path Review Absolute Retic Percent Retic Immature Retic Fraction Retic Hgb Equivalent Haptoglobin (43-212) mg/dL PT (10.0-13.1) SEC INR (0.9-1.1) Sodium (135-145) mmol/L Potassium (3.3-5.1) mmol/L Chloride (96-108) mmol/L Carbon Dioxide (22-29) mmol/L Anion Gap (12-20) BUN (9-16) mg/dL Creatinine (0.5-1.4) mg/dL Estim Creat Clear Calc Estimated GFR Random Glucose (60-115) mg/dL Calcium (8.4-10.2) mg/dL Magnesium (1.6-2.6) mg/dL Iron (45-160) mcg/dL TIBC (228-428) mcg/dL % Saturation (15-50) % Unsat Iron Binding ug/dL Total Bilirubin (0.0-1.0) mg/dL Direct Bilirubin (0.0-0.5) mg/dL AST (5-37) U/L ALT (0-40) U/L Alkaline Phosphatase (39-117) U/L Lactate Dehydrogenase (118-273) U/L Troponin I High Sens (<3.5-35.0) ng/L B-Natriuretic Peptide (<100) pg/mL Total Protein (6.5-8.0) g/dL Albumin (3.5-5.0) g/dL Lipase (8-78) U/L Vitamin B12 (200-900) pg/mL Folate (> or = 4.0) ng/mL Ethyl Alcohol mg/dL Blood Type B Positive Antibody Screen NEGATIVE TRAVIS, Polyspecific NEGATIVE Positive TRAVIS Work-up TNP Crossmatch See Detail Imaging Data Chest x-ray: Radiologist's impression: IMPRESSION: Pleural thickening on the right possibly small pleural effusion. ECG Data Attestation: I personally reviewed and interpreted this ECG as follows: ECG interpretation date: 07/20/22 ECG interpretation time: 18:00 Prior ECG tracings: available for review Interpretation: Atrial fibrillation at a rate of 93, with a normal axis and no ST-T-wave changes. Compared to her previous EKG from 2015, the atrial fibrillation is new Discharge Plan Discharge Clinical Impression: Anemia Patient Disposition: Admitted As Inpatient Interventions: Admission Worksheet (ED) Last Done: 07/21/22 18:01 Discharge Date/Time: 07/21/22 18:02
[2022-07-20 21:19] LABS: Troponin-I High Sensitivity 9.8 ng/L (<3.5-35.0)
[2022-07-20 21:20] LABS: Alanine Aminotransferase 16 U/L (0-40); Albumin Level 1.8 g/dL (3.5-5.0); Alkaline Phosphatase 67 U/L (39-117); Anion Gap 16 (12-20); Aspartate Amino Transferase 37 U/L (5-37); Bilirubin Direct 1.8 mg/dL (0.0-0.5); Bilirubin Total 2.8 mg/dL (0.0-1.0); Blood Urea Nitrogen 26 mg/dL (9-16); Calcium 7.8 mg/dL (8.4-10.2); Carbon Dioxide 20 mmol/L (22-29); Chloride 100 mmol/L (96-108); Creatinine Clr Calc Pharmacy 38.3; Estimated Glomerular Filt Rate 30; Glucose Random 101 mg/dL (60-115); Lipase 36 U/L (8-78); Potassium 3.9 mmol/L (3.3-5.1); Sodium 132 mmol/L (135-145); Total Protein 8.7 g/dL (6.5-8.0)
[2022-07-20 23:09] VITALS: BP 118/51; PULSE 87; RESP 16; TEMP 36.5
[2022-07-20 23:11] VITALS: BP 118/51; PULSE 89; RESP 18; TEMP 36.5; O2SAT 98
[2022-07-20 23:25] VITALS: BP 105/54; PULSE 84; RESP 16; TEMP 36.5
[2022-07-21] VITALS (13 sets, daily range): BP systolic 107–130; BP diastolic 35–71; PULSE 73–85; RESP 13–18; TEMP 36.4–36.6; O2SAT 93–96; BMI 31.6
--- NOTE | 2022-07-21 00:03 | PM.IMHP ---
History of Present Illness Date of Service: 07/21/22 Chief Complaint: Edema This is a 67-year-old male who is not on any prescription medications and has not seen a doctor in over 15 years, presents to the emergency department for evaluation of dyspnea and generalized swelling. Patient states he does not know of any significant medical history and was never on any prescription medications. He presents today for dyspnea, worse with exertion and progressive in onset. He states he feels short of breath after walking for short distance. He has also noticed progressively worse swelling of his bilateral upper and lower extremities. Patient denies fever, chills, chest discomfort, palpitations, abdominal pain, changes in urinary or bowel habits. He denies hematemesis, hematuria, melena or hematochezia. States this has never happened to him before. Denies history of hypertension, diabetes, cancer, stroke, CHF or any other pertinent past medical history. He does have orthopnea and PND. Does have history of alcoholism but has been sober for over a month. In the ER, patient's Hb found to be 4 Review of Systems Constitutional: Constitutional: Reports fatigue Cardiovascular: Cardiovascular: Reports Abdominal Distension, Reports edema, Reports dyspnea on exertion and Reports orthopnea Respiratory: Respiratory: Reports dyspnea on exertion Endocrine: Endocrine: Reports fatigue Hematologic/Lymphatic: Hematologic/Lymphatic: Reports no additional hematologic/lymphatic complaints PMFSH Social History Advance Directives: No Advance Directives Information Provided: No Meds Allergies Allergy/AdvReac Type Severity Reaction Status Date / Time No Known Allergies Allergy Verified 07/20/22 16:57 Physical Exam Vital Signs and Narrative: Vital Signs: Last Vital Signs Temp 97.7 F 07/20/22 23:25 Pulse 84 07/20/22 23:25 Resp 16 07/20/22 23:25 BP 105/54 L 07/20/22 23:25 Pulse Ox 98 07/20/22 23:11 O2 Del Method 07/20/22 16:52 BMI result Body Mass Index 31.5 Middle-aged male lying in bed in no distress Neck supple Regular rate and rhythm, S1-S2 heard Regular breath sounds bilaterally, no wheezing or crackles appreciated Abdomen firm and distended with pre-sacral edema Patient is awake, alert and oriented to self, place, time and person ; no focal motor deficit Psych: Normal mood Significant +2 extremity edema Results Labs CBC and Chem 7: 07/20/22 17:19 07/20/22 20:54 Labs: Laboratory Results - last 24 hr 07/20/22 07/20/22 07/20/22 17:19 17:19 17:19 MCV 96.6 MCH 26.8 L MCHC 27.8 L RDW 16.9 H Plt Count 111 L MPV 11.6 Immature Gran % (Auto) 0.6 H Neut % (Auto) 66.9 Lymph % (Auto) 20.0 [place] % (Auto) 10.9 Eos % (Auto) 1.0 Baso % (Auto) 0.6 Lymph # (Auto) 1.4 [place] # (Auto) 0.8 Eos # (Auto) 0.1 Baso # (Auto) 0.0 Abs Immat Gran (auto) 0.04 H Absolute Neuts (auto) 4.7 Absolute Nucleated RBC 0.020 H Nucleated RBC % (auto) 0.3 H PT 28.8 H INR 2.4 H Anion Gap 20 Estim Creat Clear Calc 36.7 Estimated GFR 29 Random Glucose 126 H Calcium 7.7 L Magnesium 2.0 Total Bilirubin 3.1 H Direct Bilirubin AST 31 ALT 15 Alkaline Phosphatase 66 Troponin I High Sens B-Natriuretic Peptide Total Protein 8.4 H Albumin 1.8 L Lipase Ethyl Alcohol Blood Type Antibody Screen Crossmatch 07/20/22 07/20/22 07/20/22 17:19 17:19 17:19 MCV MCH MCHC RDW Plt Count MPV Immature Gran % (Auto) Neut % (Auto) Lymph % (Auto) [place] % (Auto) Eos % (Auto) Baso % (Auto) Lymph # (Auto) [place] # (Auto) Eos # (Auto) Baso # (Auto) Abs Immat Gran (auto) Absolute Neuts (auto) Absolute Nucleated RBC Nucleated RBC % (auto) PT INR Anion Gap Estim Creat Clear Calc Estimated GFR Random Glucose Calcium Magnesium Total Bilirubin Direct Bilirubin AST ALT Alkaline Phosphatase Troponin I High Sens 11.0 B-Natriuretic Peptide 450 H Total Protein Albumin Lipase Ethyl Alcohol < 10 Blood Type Antibody Screen Crossmatch 07/20/22 07/20/22 07/20/22 20:54 20:54 22:03 MCV MCH MCHC RDW Plt Count MPV Immature Gran % (Auto) Neut % (Auto) Lymph % (Auto) [place] % (Auto) Eos % (Auto) Baso % (Auto) Lymph # (Auto) [place] # (Auto) Eos # (Auto) Baso # (Auto) Abs Immat Gran (auto) Absolute Neuts (auto) Absolute Nucleated RBC Nucleated RBC % (auto) PT INR Anion Gap 16 Estim Creat Clear Calc 38.3 Estimated GFR 30 Random Glucose 101 Calcium 7.8 L Magnesium Total Bilirubin 2.8 H Direct Bilirubin 1.8 H AST 37 ALT 16 Alkaline Phosphatase 67 Troponin I High Sens 9.8 B-Natriuretic Peptide Total Protein 8.7 H Albumin 1.8 L Lipase 36 Ethyl Alcohol Blood Type B Positive Antibody Screen NEGATIVE Crossmatch See Detail Imaging Radiologist's Impressions: Impressions Chest X-Ray 07/20/22 18:00 IMPRESSION: Pleural thickening on the right possibly small pleural effusion. Assessment and Plan (1) Anemia: Status: Acute (2) Anasarca: Status: Acute (3) Coagulopathy: Status: Acute Plan This is a 67-year-old male who is not on any prescription medications and has not seen a doctor in over 15 years, presents to the emergency department for evaluation of dyspnea and generalized swelling. #. Symptomatic anemia -Unclear etiology and unspecified chronicity. No evidence of blood loss. Stool Occult blood test pending. MCV normal, will rule out hemolysis. Ordered iron panel, vitamin B12, folate, haptoglobin, retic count, LDH, Tab test. Smear review pending. UA pending. 3 unit pRBC ordered in the ER. Monitor H&H. Specialist consult based on work up #. Anasarca -concern for CHF, ordered lasix 40mg IV BID. Ordered echo. UA pending to look for proteinuria. Ultrasound abdomen to rule out cirrhosis/liver disease. TSH pending. -dose have hypoalbuminemia #. Elevated creatinine -unclear baseline. YADI versus CKD. Monitor creatinine and urine output with Lasix. Avoid nephrotoxins. #. Thrombocytopenia - workup as above with ultrasound abdomen to look at spleen and rule out hemolysis. Also has h/o alcoholism which can lower platelets #. Coagulopathy -hepatic congestion vs liver disease. Monitor INR DVT prophylaxis: Hold anticoagulation is INR is supratherapuetic Low sodium diet with ensure Full code Admit as inpatient and will require two night minimum hospital stay for evaluation of generalized swelling and severe anemia. Quality Stroke Does the patient have a stroke diagnosis?: No VTE Prior VTE?: No VTE Risk Level:: Medical - moderate - high VTE Device Contraindication: Treatment Not Indicated VTE Drug Contraindication: Treatment Not Indicated
[2022-07-21 00:46] LABS: Iron 25 mcg/dL (45-160); Lactate Dehydrogenase 144 U/L (118-273); Percent Iron Saturation 9 % (15-50); Total Iron Binding Capacity 289 mcg/dL (228-428); Unsaturated Iron Binding 264 ug/dL
[2022-07-21 02:17] LABS: COVID-19 Test Negative (Negative); IDNOW Serial# 16C4AD1C
[2022-07-21] MEDS: 0.9 % Sodium Chloride Flush 3 ML SYRINGE IVFLUSH ×4 (02:29→19:39)
--- NOTE | 2022-07-21 03:19 | PC.NURSE ---
Phil Kendall Patient iv infiltrated needs 2 more units of RBC's cannot get another IV. Also needs lasix 40mg iv push. Awaiting response
--- NOTE | 2022-07-21 03:59 | PC.NURSE ---
Assumed care of patient. IV access not established. Blood not hung at this time. Lasix not given at this time. Delay in med administration and blood transfusion due to difficulty obtaining IV access. Provider notified and currently waiting for provider to obtain IV access.
[2022-07-21] MEDS: Furosemide 40 MG/4 ML VIAL IVPUSH ×3 (04:24→19:39)
--- NOTE | 2022-07-21 04:32 | PC.NURSE ---
Spoke to provider and instructed to give Lasix first and follow with blood transfusion.
--- NOTE | 2022-07-21 04:33 | PC.NURSE ---
Administered lasix per MAR
--- NOTE | 2022-07-21 04:47 | PC.NURSE ---
Pt bed linen changed. Pt gown changed and pericare given. Pt placed on Condom Catheter. Pt given warm blankets and call hannah.
--- NOTE | 2022-07-21 05:33 | PC.NURSE ---
Pt was bladder scanned. Bladder scan showed the pt was reatining 411 mL. Hospitalist notified via [employer].
--- NOTE | 2022-07-21 05:37 | PC.NURSE ---
Three minute delay in transfusion due to need for second nurse for verification.
--- NOTE | 2022-07-21 05:40 | PC.NURSE ---
Addendum entered by Gali Huffman 07/21/22 06:20: Hospitalist notified via [employer]. Original Note: Pt voided ([place] cath) 200mL
--- NOTE | 2022-07-21 05:47 | PC.NURSE ---
Pt denies SOB, cough, or chest pain. Pt states he is experiencing some anxiety due to being in the hospital.
[2022-07-21 06:26] LABS: Appearance Urine Clear; Color Urine Dark Yellow; Glucose Urine UA Negative (Negative); Leukocyte Esterase Urine Small (1+) (Negative); Nitrite Urine Negative (Negative); Specific Gravity - Urine 1.015 (1.005-1.025); UMIC TRIGGER UACC YES; Urine Blood Moderate (2+) (Negative); Urine Ketones Trace mg/dL (Negative); Urine Protein Negative (Neg-Trace)
--- NOTE | 2022-07-21 06:31 | PC.NURSE ---
Addendum entered by Gali Huffman 07/21/22 06:34: Pt is weeping from upper extremities due to third spacing. Pos CMS, 4+ pitting edema; blood is still transfusing at this time. VS remain stable, pt is showing no signs of respiratory distress. Provider is aware. Original Note: Pt is weeping from upper extremities due to third spacing. Pos CMS, 4+ pitting edema; blood is still transfusing at this time. VS remain stable, pt is showing no signs of respiratory distress.
[2022-07-21 06:38] LABS: Bacteria Urine None Seen (None Seen); Granular Casts Urine Present; UACC Culture Trigger YES
[2022-07-21 06:41] LABS: Amphetamine Screen Urine Not Detected (Not Detect); Barbiturates, Urine Not Detected (Not Detect); Benzodiazepines Screen Urine Not Detected (Not Detect); Cannabinoid Screen Urine POSITIVE (Not Detect); Cocaine Screen Urine Not Detected (Not Detect); Fentanyl, urine Not Detected (Not Detect); Opiate Screen Urine Not Detected (Not Detect); Phencyclidine Screen Urine Not Detected (Not Detect)
[2022-07-21 06:43] LABS: INTERNATIONAL NORM RATIO 2.2 (0.9-1.1); Prothrombin Time 26.3 SEC (10.0-13.1)
[2022-07-21 07:02] LABS: Alanine Aminotransferase 15 U/L (0-40); Albumin Level 1.8 g/dL (3.5-5.0); Alkaline Phosphatase 66 U/L (39-117); Anion Gap 14 (12-20); Aspartate Amino Transferase 46 U/L (5-37); Bilirubin Total 4.9 mg/dL (0.0-1.0); Blood Urea Nitrogen 27 mg/dL (9-16); Calcium 7.7 mg/dL (8.4-10.2); Carbon Dioxide 22 mmol/L (22-29); Chloride 101 mmol/L (96-108); Creatinine Clr Calc Pharmacy 37.6; Estimated Glomerular Filt Rate 30; Glucose Random 91 mg/dL (60-115); Potassium 4.2 mmol/L (3.3-5.1); Sodium 133 mmol/L (135-145); Total Protein 8.6 g/dL (6.5-8.0)
--- NOTE | 2022-07-21 07:44 | PHA.MEDREC ---
Pharmacy Consult ? Medication Reconciliation Pharmacy has completed the medication reconciliation.Spoke with patient- he is currently not taking any maintence medications. He takes Aleve PM if needed at night
--- NOTE | 2022-07-21 08:00 | PC.NURSE ---
patient a/ox4 . radhaa . heart rate regular at 87 beats per minute . upper air way clear , lower lobes slightly diminished . breathing even and unlaboraded . patient reports a non productive cough at times . bilateral weeping and non pitting edema noted in upper extremities . abdomen distended , belly button protruding . Positive bowel sounds throughout . patient utilizing [place] catheter currently putting out small amount amounts of urine . Patient currently has third unit of R.B.C running , tolerating well no signs or symptoms of reactions noted patient aware of plan of care for admission .
--- NOTE | 2022-07-21 08:00 | HO.PM.IMPN ---
Subjective Subjective Date of Service: 07/21/22 Interval History: f/u symptoamtic anemia, anasarca, coagulopathy interval history: feels better, no sob, Review of Systems no sob swelling in legs Physical Exam Vital Signs: Vital Signs: Last Vital Signs Temp 97.5 F 07/21/22 07:50 Pulse 77 07/21/22 07:50 Resp 16 07/21/22 07:50 BP 125/64 07/21/22 07:50 Pulse Ox 96 07/21/22 04:26 O2 Del Method 07/21/22 04:26 BMI result Body Mass Index 31.5 Const: Other: ?Middle-aged male lying in bed in no distress Neck supple Regular rate and rhythm, S1-S2 heard Regular breath sounds bilaterally, no wheezing or crackles appreciated Abdomen firm and distended with pre-sacral edema Patient is awake, alert and oriented to self, place, time and person ; no focal motor deficit Psych: Normal mood Significant +2 extremity edema Objective Data Active Medications Acetaminophen (Acetaminophen 325 Mg Tablet) 650 mg PO Q6H PRN PRN Reason: Pain, Mild (Pain Scale 1-3) Furosemide (Furosemide 40 Mg/4 Ml Vial) 40 mg IVPUSH BID [facility]; Protocol Last Admin: 07/21/22 04:24 Dose: 40 mg Documented By: REYNA Melatonin (Melatonin 3 Mg Tablet) 6 mg PO BEDTIME PRN PRN Reason: Insomnia Ondansetron HCl (Ondansetron Hcl 4 Mg/2 Ml Vial) 4 mg IVPUSH Q8H PRN PRN Reason: Nausea and Vomiting Sodium Chloride (0.9 % Sodium Chloride Flush 3 Ml Syringe) [facility] Last Admin: 07/21/22 02:29 Dose: 3 ml Documented By: JOSETTE Labs CBC & Chem 7: 07/20/22 17:19 07/21/22 06:32 Labs: Laboratory Results - last 24 hr 07/20/22 07/20/22 07/20/22 17:19 17:19 17:19 MCV 96.6 MCH 26.8 L MCHC 27.8 L RDW 16.9 H Plt Count 111 L MPV 11.6 Immature Gran % (Auto) 0.6 H Neut % (Auto) 66.9 Lymph % (Auto) 20.0 [place] % (Auto) 10.9 Eos % (Auto) 1.0 Baso % (Auto) 0.6 Lymph # (Auto) 1.4 [place] # (Auto) 0.8 Eos # (Auto) 0.1 Baso # (Auto) 0.0 Abs Immat Gran (auto) 0.04 H Absolute Neuts (auto) 4.7 Absolute Nucleated RBC 0.020 H Nucleated RBC % (auto) 0.3 H Absolute Retic Percent Retic Immature Retic Fraction Retic Hgb Equivalent PT 28.8 H INR 2.4 H Anion Gap 20 Estim Creat Clear Calc 36.7 Estimated GFR 29 Random Glucose 126 H Calcium 7.7 L Magnesium 2.0 Iron TIBC % Saturation Unsat Iron Binding Total Bilirubin 3.1 H Direct Bilirubin AST 31 ALT 15 Alkaline Phosphatase 66 Lactate Dehydrogenase Troponin I High Sens B-Natriuretic Peptide Total Protein 8.4 H Albumin 1.8 L Lipase Urine Color Urine Appearance Urine pH Ur Specific [place] Urine Protein Urine Glucose (UA) Urine Ketones Urine Blood Urine Nitrite Ur Leukocyte Esterase Urine RBC Urine WBC Ur Squamous Epith Cells Urine Bacteria Hyaline Casts Granular Casts Urine Opiates Screen Urine Fentanyl Screen Ur Barbiturates Screen Ur Phencyclidine Scrn Ur Amphetamines Screen U Benzodiazepines Scrn Urine Cocaine Screen U Marijuana (THC) Screen Ethyl Alcohol COVID-19 (ROBY) COVID-19 Clin Com Blood Type Antibody Screen TRAVIS, Polyspecific Positive TRAVIS Work-up Crossmatch 07/20/22 07/20/22 07/20/22 17:19 17:19 17:19 MCV MCH MCHC RDW Plt Count MPV Immature Gran % (Auto) Neut % (Auto) Lymph % (Auto) [place] % (Auto) Eos % (Auto) Baso % (Auto) Lymph # (Auto) [place] # (Auto) Eos # (Auto) Baso # (Auto) Abs Immat Gran (auto) Absolute Neuts (auto) Absolute Nucleated RBC Nucleated RBC % (auto) Absolute Retic Percent Retic Immature Retic Fraction Retic Hgb Equivalent PT INR Anion Gap Estim Creat Clear Calc Estimated GFR Random Glucose Calcium Magnesium Iron TIBC % Saturation Unsat Iron Binding Total Bilirubin Direct Bilirubin AST ALT Alkaline Phosphatase Lactate Dehydrogenase Troponin I High Sens 11.0 B-Natriuretic Peptide 450 H Total Protein Albumin Lipase Urine Color Urine Appearance Urine pH Ur Specific [place] Urine Protein Urine Glucose (UA) Urine Ketones Urine Blood Urine Nitrite Ur Leukocyte Esterase Urine RBC Urine WBC Ur Squamous Epith Cells Urine Bacteria Hyaline Casts Granular Casts Urine Opiates Screen Urine Fentanyl Screen Ur Barbiturates Screen Ur Phencyclidine Scrn Ur Amphetamines Screen U Benzodiazepines Scrn Urine Cocaine Screen U Marijuana (THC) Screen Ethyl Alcohol < 10 COVID-19 (ROBY) COVID-19 Clin Com Blood Type Antibody Screen TRAVIS, Polyspecific Positive TRAVIS Work-up Crossmatch 07/20/22 07/20/22 07/20/22 17:19 17:19 20:54 MCV MCH MCHC RDW Plt Count MPV Immature Gran % (Auto) Neut % (Auto) Lymph % (Auto) [place] % (Auto) Eos % (Auto) Baso % (Auto) Lymph # (Auto) [place] # (Auto) Eos # (Auto) Baso # (Auto) Abs Immat Gran (auto) Absolute Neuts (auto) Absolute Nucleated RBC Nucleated RBC % (auto) Absolute Retic Cancelled Percent Retic Cancelled Immature Retic Fraction Cancelled Retic Hgb Equivalent Cancelled PT INR Anion Gap 16 Estim Creat Clear Calc 38.3 Estimated GFR 30 Random Glucose 101 Calcium 7.8 L Magnesium Iron 25 L TIBC 289 % Saturation 9 L Unsat Iron Binding 264 Total Bilirubin 2.8 H Direct Bilirubin 1.8 H AST 37 ALT 16 Alkaline Phosphatase 67 Lactate Dehydrogenase 144 Troponin I High Sens B-Natriuretic Peptide Total Protein 8.7 H Albumin 1.8 L Lipase 36 Urine Color Urine Appearance Urine pH Ur Specific [place] Urine Protein Urine Glucose (UA) Urine Ketones Urine Blood Urine Nitrite Ur Leukocyte Esterase Urine RBC Urine WBC Ur Squamous Epith Cells Urine Bacteria Hyaline Casts Granular Casts Urine Opiates Screen Urine Fentanyl Screen Ur Barbiturates Screen Ur Phencyclidine Scrn Ur Amphetamines Screen U Benzodiazepines Scrn Urine Cocaine Screen U Marijuana (THC) Screen Ethyl Alcohol COVID-19 (ROBY) COVID-19 Clin Com Blood Type Antibody Screen TRAVIS, Polyspecific Positive TRAVIS Work-up Crossmatch 07/20/22 07/20/22 07/21/22 20:54 22:03 01:50 MCV MCH MCHC RDW Plt Count MPV Immature Gran % (Auto) Neut % (Auto) Lymph % (Auto) [place] % (Auto) Eos % (Auto) Baso % (Auto) Lymph # (Auto) [place] # (Auto) Eos # (Auto) Baso # (Auto) Abs Immat Gran (auto) Absolute Neuts (auto) Absolute Nucleated RBC Nucleated RBC % (auto) Absolute Retic Percent Retic Immature Retic Fraction Retic Hgb Equivalent PT INR Anion Gap Estim Creat Clear Calc Estimated GFR Random Glucose Calcium Magnesium Iron TIBC % Saturation Unsat Iron Binding Total Bilirubin Direct Bilirubin AST ALT Alkaline Phosphatase Lactate Dehydrogenase Troponin I High Sens 9.8 B-Natriuretic Peptide Total Protein Albumin Lipase Urine Color Urine Appearance Urine pH Ur Specific [place] Urine Protein Urine Glucose (UA) Urine Ketones Urine Blood Urine Nitrite Ur Leukocyte Esterase Urine RBC Urine WBC Ur Squamous Epith Cells Urine Bacteria Hyaline Casts Granular Casts Urine Opiates Screen Urine Fentanyl Screen Ur Barbiturates Screen Ur Phencyclidine Scrn Ur Amphetamines Screen U Benzodiazepines Scrn Urine Cocaine Screen U Marijuana (THC) Screen Ethyl Alcohol COVID-19 (ROBY) Negative COVID-19 Clin Com See Note Blood Type B Positive Antibody Screen NEGATIVE TRAVIS, Polyspecific NEGATIVE Positive TRAVIS Work-up Not Reportable Crossmatch See Detail 07/21/22 07/21/22 07/21/22 06:18 06:20 06:32 MCV MCH MCHC RDW Plt Count MPV Immature Gran % (Auto) Neut % (Auto) Lymph % (Auto) [place] % (Auto) Eos % (Auto) Baso % (Auto) Lymph # (Auto) [place] # (Auto) Eos # (Auto) Baso # (Auto) Abs Immat Gran (auto) Absolute Neuts (auto) Absolute Nucleated RBC Nucleated RBC % (auto) Absolute Retic Percent Retic Immature Retic Fraction Retic Hgb Equivalent PT INR Anion Gap 14 Estim Creat Clear Calc 37.6 Estimated GFR 30 Random Glucose 91 Calcium 7.7 L Magnesium Iron TIBC % Saturation Unsat Iron Binding Total Bilirubin 4.9 H Direct Bilirubin AST 46 H ALT 15 Alkaline Phosphatase 66 Lactate Dehydrogenase Troponin I High Sens B-Natriuretic Peptide Total Protein 8.6 H Albumin 1.8 L Lipase Urine Color Dark Yellow Urine Appearance Clear Urine pH 5.0 Ur Specific [place] 1.015 Urine Protein Negative Urine Glucose (UA) Negative Urine Ketones Trace Urine Blood Moderate (2+) H Urine Nitrite Negative Ur Leukocyte Esterase Small (1+) H Urine RBC 3-5 H Urine WBC 6-10 H Ur Squamous Epith Cells 3-5 Urine Bacteria None Seen Hyaline Casts 11-20 Granular Casts Present Urine Opiates Screen Not Detected Urine Fentanyl Screen Not Detected Ur Barbiturates Screen Not Detected Ur Phencyclidine Scrn Not Detected Ur Amphetamines Screen Not Detected U Benzodiazepines Scrn Not Detected Urine Cocaine Screen Not Detected U Marijuana (THC) Screen POSITIVE H Ethyl Alcohol COVID-19 (ROBY) COVID-19 Clin Com Blood Type Antibody Screen TRAVIS, Polyspecific Positive TRAVIS Work-up Crossmatch 07/21/22 06:32 MCV MCH MCHC RDW Plt Count MPV Immature Gran % (Auto) Neut % (Auto) Lymph % (Auto) [place] % (Auto) Eos % (Auto) Baso % (Auto) Lymph # (Auto) [place] # (Auto) Eos # (Auto) Baso # (Auto) Abs Immat Gran (auto) Absolute Neuts (auto) Absolute Nucleated RBC Nucleated RBC % (auto) Absolute Retic Percent Retic Immature Retic Fraction Retic Hgb Equivalent PT 26.3 H INR 2.2 H Anion Gap Estim Creat Clear Calc Estimated GFR Random Glucose Calcium Magnesium Iron TIBC % Saturation Unsat Iron Binding Total Bilirubin Direct Bilirubin AST ALT Alkaline Phosphatase Lactate Dehydrogenase Troponin I High Sens B-Natriuretic Peptide Total Protein Albumin Lipase Urine Color Urine Appearance Urine pH Ur Specific [place] Urine Protein Urine Glucose (UA) Urine Ketones Urine Blood Urine Nitrite Ur Leukocyte Esterase Urine RBC Urine WBC Ur Squamous Epith Cells Urine Bacteria Hyaline Casts Granular Casts Urine Opiates Screen Urine Fentanyl Screen Ur Barbiturates Screen Ur Phencyclidine Scrn Ur Amphetamines Screen U Benzodiazepines Scrn Urine Cocaine Screen U Marijuana (THC) Screen Ethyl Alcohol COVID-19 (ROBY) COVID-19 Clin Com Blood Type Antibody Screen TRAVIS, Polyspecific Positive TRAVIS Work-up Crossmatch Assessment and Plan (1) Coagulopathy: Status: Acute (2) Anemia: Status: Acute (3) Anasarca: Status: Acute Plan This is a 67-year-old male who is not on any prescription medications and has not seen a doctor in over 15 years, presents to the emergency department for evaluation of dyspnea and generalized swelling. #. Symptomatic anemia -Unclear etiology and unspecified chronicity. No evidence of blood loss.? Stool Occult blood test pending. MCV normal, will rule out hemolysis. Iron low., vitamin B12, folate (pending), haptoglobin, retic count, Tab margaret, Smear review pending. Being transfused 3 units of RBC--h/h 12/20 --> 7.12/29 now, monitor -GI consult for possible EGD, was taking Naproxen at home #. Anasarca -concern for CHF, ordered lasix 40mg IV BID. Ordered echo. UA pending to look for proteinuria. Ultrasound abdomen to rule out cirrhosis/liver disease. TSH pending. -dose have hypoalbuminemia..Cardiology consult #. Elevated creatinine -unclear baseline.? YADI versus CKD.? Monitor creatinine and urine output with Lasix.? Avoid nephrotoxins. #. Thrombocytopenia - workup as above with ultrasound abdomen to look at spleen and rule out hemolysis. Also has h/o alcoholism which can lower platelets #Cirrhosis of liver--as demonstrated on US of liver, low albumin and high INR, has advanced liver disease -diuretic therapy, GI to assess, should avoid alcohol, optimize nutrition #. Coagulopathy -hepatic congestion vs liver disease. INR 2, guv vitamin K DVT prophylaxis: Hold anticoagulation is INR is supratherapuetic Low sodium diet with ensure Full code Admit as inpatient and will require two night minimum hospital stay for evaluation of generalized swelling and severe anemia. Quality Stroke Does the patient have a stroke diagnosis?: No VTE Prior VTE?: No VTE Risk Level:: Medical - moderate - high VTE Device Contraindication: Treatment Not Indicated VTE Drug Contraindication: Treatment Not Indicated
[2022-07-21] MEDS: Phytonadione (Vit K1) Oral 10 MG/ML AMPUL PO (08:26)
--- NOTE | 2022-07-21 10:08 | MHC.CM.PN ---
Patient reports living by himself, reports still drives. No prior equipment, no prior services. He will call for his own ride at time of D/C. CM to follow.
[2022-07-21 10:58] LABS: Folate 3.1 ng/mL (> or = 4.0); Vitamin B12 > 2000 pg/mL (200-900)
--- NOTE | 2022-07-21 11:00 | P.CONCA_ITS ---
History of Present Illness History of Present Illness Date of Service: 07/21/22 Requesting physician: Cuauhtemoc Junior Chief complaint: Dyspnea Narrative: 67-year-old gentleman was not seen doctor for many many years is presenting way anasarca and shortness of breath. He has been noticed to be anemic with hemoglobin of 4. It appears he has been drinking heavily for long time. He has ascites by examination. He has diffuse edema. He is saying he has been expe riencing shortness of breath. No chest discomfort. No bleeding reported by the patient. He underwent ultrasound of his abdomen which is showing cirrhosis of liver as well as ascites. There is also right-sided pleural effusion noticed. He has an elevated INR. [facility] Social History Social History Alcohol intake: former Smoked in Last 30 Days: No Use of substances other than those prescribed or required for medical reasons: No Advance Directives: No Advance Directives Information Provided: No service: No Meds Allergies Allergy/AdvReac Type Severity Reaction Status Date / Time No Known Allergies Allergy Verified 07/20/22 16:57 Active Medications: Current Medications Acetaminophen (Acetaminophen 325 Mg Tablet) 650 mg PO Q6H PRN PRN Reason: Pain, Mild (Pain Scale 1-3) Furosemide (Furosemide 40 Mg/4 Ml Vial) 40 mg IVPUSH BID [facility]; Protocol Last Admin: 07/21/22 10:44 Dose: 40 mg Melatonin (Melatonin 3 Mg Tablet) 6 mg PO BEDTIME PRN PRN Reason: Insomnia Ondansetron HCl (Ondansetron Hcl 4 Mg/2 Ml Vial) 4 mg IVPUSH Q8H PRN PRN Reason: Nausea and Vomiting Sodium Chloride (0.9 % Sodium Chloride Flush 3 Ml Syringe) 3 ml IVFLUSH QSHIFT [facility] Last Admin: 07/21/22 08:26 Dose: 3 ml Home Medications Medication Instructions Recorded Confirmed Last Taken Type naproxen 220 mg-diphenhydramine 25 1 tab PO BEDTIME PRN Pain (Scale 07/21/22 07/21/22 Unknown History mg tablet (Aleve PM) Score 1-3) Physical Exam Vital Signs: Vital Signs: Last Vital Signs Temp 97.8 F 07/21/22 10:38 Pulse 73 11/13/22 10:38 Resp 16 07/21/22 10:38 BP 129/71 07/21/22 10:38 Pulse Ox 96 07/21/22 04:26 O2 Del Method 07/21/22 04:26 BMI result Body Mass Index 31.5 GENERAL APPEARANCE: in no acute distress, pleasant. NECK: no carotid bruit, no significant jugular venous distention. SKIN: no suspicious lesions, warm and dry. HEART: no murmurs, regular rate and rhythm. LUNGS: clear to auscultation bilaterally. ABDOMEN: Distended, nontender. EXTREMITIES: 2+ edema. PERIPHERAL PULSES: equal. NEUROLOGIC: No gross deficits, AAO X 3 Objective Labs and Meds Result diagrams: 07/21/22 11:27 07/21/22 06:32 Lab results: Laboratory Results - last 24 hr 07/20/22 07/20/22 07/20/22 17:19 17:19 17:19 WBC 7.1 RBC 1.49 L Hgb 4.0 L* Hct 14.4 L* MCV 96.6 MCH 26.8 L MCHC 27.8 L RDW 16.9 H Plt Count 111 L MPV 11.6 Immature Gran % (Auto) 0.6 H Neut % (Auto) 66.9 Lymph % (Auto) 20.0 Leslie % (Auto) 10.9 Eos % (Auto) 1.0 Baso % (Auto) 0.6 Lymph # (Auto) 1.4 Leslie # (Auto) 0.8 Eos # (Auto) 0.1 Baso # (Auto) 0.0 Abs Immat Gran (auto) 0.04 H Absolute Neuts (auto) 4.7 Absolute Nucleated RBC 0.020 H Nucleated RBC % (auto) 0.3 H Absolute Retic Percent Retic Immature Retic Fraction Retic Hgb Equivalent PT 28.8 H INR 2.4 H Sodium 134 L Potassium 3.7 Chloride 101 Carbon Dioxide 17 L Anion Gap 20 BUN 27 H Creatinine 2.28 H Estim Creat Clear Calc 36.7 Estimated GFR 29 Random Glucose 126 H Calcium 7.7 L Magnesium 2.0 Iron TIBC % Saturation Unsat Iron Binding Total Bilirubin 3.1 H Direct Bilirubin AST 31 ALT 15 Alkaline Phosphatase 66 Lactate Dehydrogenase Troponin I High Sens B-Natriuretic Peptide Total Protein 8.4 H Albumin 1.8 L Lipase Vitamin B12 Folate Urine Color Urine Appearance Urine pH Ur Specific [place] Urine Protein Urine Glucose (UA) Urine Ketones Urine Blood Urine Nitrite Ur Leukocyte Esterase Urine RBC Urine WBC Ur Squamous Epith Cells Urine Bacteria Hyaline Casts Granular Casts Urine Opiates Screen Urine Fentanyl Screen Ur Barbiturates Screen Ur Phencyclidine Scrn Ur Amphetamines Screen U Benzodiazepines Scrn Urine Cocaine Screen U Marijuana (THC) Screen Ethyl Alcohol COVID-19 (ROBY) COVID-19 Clin Com Blood Type Antibody Screen TRAVIS, Polyspecific Positive TRAVIS Work-up Crossmatch 07/20/22 07/20/22 07/20/22 17:19 17:19 17:19 WBC RBC Hgb Hct MCV MCH MCHC RDW Plt Count MPV Immature Gran % (Auto) Neut % (Auto) Lymph % (Auto) Leslie % (Auto) Eos % (Auto) Baso % (Auto) Lymph # (Auto) Leslie # (Auto) Eos # (Auto) Baso # (Auto) Abs Immat Gran (auto) Absolute Neuts (auto) Absolute Nucleated RBC Nucleated RBC % (auto) Absolute Retic Percent Retic Immature Retic Fraction Retic Hgb Equivalent PT INR Sodium Potassium Chloride Carbon Dioxide Anion Gap BUN Creatinine Estim Creat Clear Calc Estimated GFR Random Glucose Calcium Magnesium Iron TIBC % Saturation Unsat Iron Binding Total Bilirubin Direct Bilirubin AST ALT Alkaline Phosphatase Lactate Dehydrogenase Troponin I High Sens 11.0 B-Natriuretic Peptide 450 H Total Protein Albumin Lipase Vitamin B12 Folate Urine Color Urine Appearance Urine pH Ur Specific [place] Urine Protein Urine Glucose (UA) Urine Ketones Urine Blood Urine Nitrite Ur Leukocyte Esterase Urine RBC Urine WBC Ur Squamous Epith Cells Urine Bacteria Hyaline Casts Granular Casts Urine Opiates Screen Urine Fentanyl Screen Ur Barbiturates Screen Ur Phencyclidine Scrn Ur Amphetamines Screen U Benzodiazepines Scrn Urine Cocaine Screen U Marijuana (THC) Screen Ethyl Alcohol < 10 COVID-19 (ROBY) COVID-19 Clin Com Blood Type Antibody Screen TRAVIS, Polyspecific Positive TRAVIS Work-up Crossmatch 07/20/22 07/20/22 07/20/22 17:19 17:19 17:19 WBC RBC Hgb Hct MCV MCH MCHC RDW Plt Count MPV Immature Gran % (Auto) Neut % (Auto) Lymph % (Auto) Leslie % (Auto) Eos % (Auto) Baso % (Auto) Lymph # (Auto) Leslie # (Auto) Eos # (Auto) Baso # (Auto) Abs Immat Gran (auto) Absolute Neuts (auto) Absolute Nucleated RBC Nucleated RBC % (auto) Absolute Retic Cancelled Percent Retic Cancelled Immature Retic Fraction Cancelled Retic Hgb Equivalent Cancelled PT INR Sodium Potassium Chloride Carbon Dioxide Anion Gap BUN Creatinine Estim Creat Clear Calc Estimated GFR Random Glucose Calcium Magnesium Iron 25 L TIBC 289 % Saturation 9 L Unsat Iron Binding 264 Total Bilirubin Direct Bilirubin AST ALT Alkaline Phosphatase Lactate Dehydrogenase 144 Troponin I High Sens B-Natriuretic Peptide Total Protein Albumin Lipase Vitamin B12 > 2000 H Folate 3.1 L Urine Color Urine Appearance Urine pH Ur Specific [place] Urine Protein Urine Glucose (UA) Urine Ketones Urine Blood Urine Nitrite Ur Leukocyte Esterase Urine RBC Urine WBC Ur Squamous Epith Cells Urine Bacteria Hyaline Casts Granular Casts Urine Opiates Screen Urine Fentanyl Screen Ur Barbiturates Screen Ur Phencyclidine Scrn Ur Amphetamines Screen U Benzodiazepines Scrn Urine Cocaine Screen U Marijuana (THC) Screen Ethyl Alcohol COVID-19 (ROBY) COVID-19 Clin Com Blood Type Antibody Screen TRAVIS, Polyspecific Positive TRAVIS Work-up Crossmatch 07/20/22 07/20/22 07/20/22 20:54 20:54 22:03 WBC RBC Hgb Hct MCV MCH MCHC RDW Plt Count MPV Immature Gran % (Auto) Neut % (Auto) Lymph % (Auto) Leslie % (Auto) Eos % (Auto) Baso % (Auto) Lymph # (Auto) Leslie # (Auto) Eos # (Auto) Baso # (Auto) Abs Immat Gran (auto) Absolute Neuts (auto) Absolute Nucleated RBC Nucleated RBC % (auto) Absolute Retic Percent Retic Immature Retic Fraction Retic Hgb Equivalent PT INR Sodium 132 L Potassium 3.9 Chloride 100 Carbon Dioxide 20 L Anion Gap 16 BUN 26 H Creatinine 2.18 H Estim Creat Clear Calc 38.3 Estimated GFR 30 Random Glucose 101 Calcium 7.8 L Magnesium Iron TIBC % Saturation Unsat Iron Binding Total Bilirubin 2.8 H Direct Bilirubin 1.8 H AST 37 ALT 16 Alkaline Phosphatase 67 Lactate Dehydrogenase Troponin I High Sens 9.8 B-Natriuretic Peptide Total Protein 8.7 H Albumin 1.8 L Lipase 36 Vitamin B12 Folate Urine Color Urine Appearance Urine pH Ur Specific [place] Urine Protein Urine Glucose (UA) Urine Ketones Urine Blood Urine Nitrite Ur Leukocyte Esterase Urine RBC Urine WBC Ur Squamous Epith Cells Urine Bacteria Hyaline Casts Granular Casts Urine Opiates Screen Urine Fentanyl Screen Ur Barbiturates Screen Ur Phencyclidine Scrn Ur Amphetamines Screen U Benzodiazepines Scrn Urine Cocaine Screen U Marijuana (THC) Screen Ethyl Alcohol COVID-19 (ROBY) COVID-19 Clin Com Blood Type B Positive Antibody Screen NEGATIVE TRAVIS, Polyspecific NEGATIVE Positive TRAVIS Work-up Not Reportable Crossmatch See Detail 07/21/22 07/21/22 07/21/22 01:50 06:18 06:20 WBC RBC Hgb Hct MCV MCH MCHC RDW Plt Count MPV Immature Gran % (Auto) Neut % (Auto) Lymph % (Auto) Leslie % (Auto) Eos % (Auto) Baso % (Auto) Lymph # (Auto) Leslie # (Auto) Eos # (Auto) Baso # (Auto) Abs Immat Gran (auto) Absolute Neuts (auto) Absolute Nucleated RBC Nucleated RBC % (auto) Absolute Retic Percent Retic Immature Retic Fraction Retic Hgb Equivalent PT INR Sodium Potassium Chloride Carbon Dioxide Anion Gap BUN Creatinine Estim Creat Clear Calc Estimated GFR Random Glucose Calcium Magnesium Iron TIBC % Saturation Unsat Iron Binding Total Bilirubin Direct Bilirubin AST ALT Alkaline Phosphatase Lactate Dehydrogenase Troponin I High Sens B-Natriuretic Peptide Total Protein Albumin Lipase Vitamin B12 Folate Urine Color Dark Yellow Urine Appearance Clear Urine pH 5.0 Ur Specific [place] 1.015 Urine Protein Negative Urine Glucose (UA) Negative Urine Ketones Trace Urine Blood Moderate (2+) H Urine Nitrite Negative Ur Leukocyte Esterase Small (1+) H Urine RBC 3-5 H Urine WBC 6-10 H Ur Squamous Epith Cells 3-5 Urine Bacteria None Seen Hyaline Casts 11-20 Granular Casts Present Urine Opiates Screen Not Detected Urine Fentanyl Screen Not Detected Ur Barbiturates Screen Not Detected Ur Phencyclidine Scrn Not Detected Ur Amphetamines Screen Not Detected U Benzodiazepines Scrn Not Detected Urine Cocaine Screen Not Detected U Marijuana (THC) Screen POSITIVE H Ethyl Alcohol COVID-19 (ROBY) Negative COVID-19 Clin Com See Note Blood Type Antibody Screen TRAVIS, Polyspecific Positive TRAVIS Work-up Crossmatch 07/21/22 07/21/22 06:32 06:32 WBC RBC Hgb Hct MCV MCH MCHC RDW Plt Count MPV Immature Gran % (Auto) Neut % (Auto) Lymph % (Auto) Leslie % (Auto) Eos % (Auto) Baso % (Auto) Lymph # (Auto) Leslie # (Auto) Eos # (Auto) Baso # (Auto) Abs Immat Gran (auto) Absolute Neuts (auto) Absolute Nucleated RBC Nucleated RBC % (auto) Absolute Retic Percent Retic Immature Retic Fraction Retic Hgb Equivalent PT 26.3 H INR 2.2 H Sodium 133 L Potassium 4.2 Chloride 101 Carbon Dioxide 22 Anion Gap 14 BUN 27 H Creatinine 2.22 H Estim Creat Clear Calc 37.6 Estimated GFR 30 Random Glucose 91 Calcium 7.7 L Magnesium Iron TIBC % Saturation Unsat Iron Binding Total Bilirubin 4.9 H Direct Bilirubin AST 46 H ALT 15 Alkaline Phosphatase 66 Lactate Dehydrogenase Troponin I High Sens B-Natriuretic Peptide Total Protein 8.6 H Albumin 1.8 L Lipase Vitamin B12 Folate Urine Color Urine Appearance Urine pH Ur Specific [place] Urine Protein Urine Glucose (UA) Urine Ketones Urine Blood Urine Nitrite Ur Leukocyte Esterase Urine RBC Urine WBC Ur Squamous Epith Cells Urine Bacteria Hyaline Casts Granular Casts Urine Opiates Screen Urine Fentanyl Screen Ur Barbiturates Screen Ur Phencyclidine Scrn Ur Amphetamines Screen U Benzodiazepines Scrn Urine Cocaine Screen U Marijuana (THC) Screen Ethyl Alcohol COVID-19 (ROBY) COVID-19 Clin Com Blood Type Antibody Screen TRAVIS, Polyspecific Positive TRAVIS Work-up Crossmatch Imaging Radiologist's impression: Impressions Chest X-Ray 07/20/22 18:00 IMPRESSION: Pleural thickening on the right possibly small pleural effusion. Abdomen Ultrasound 07/21/22 01:15 IMPRESSION: 1. Cirrhotic morphology of the liver with moderate to large volume of ascites. 2. Gallbladder sludge with nonspecific gallbladder wall thickening and pericholecystic free fluid in the setting of cirrhosis and ascites. Negative Meier's sign. 3. Partially imaged right-sided pleural effusion. Assessment and Plan (1) Anasarca: Status: Acute (2) Anemia: Status: Acute Plan 67-year-old gentleman presenting for diffuse anasarca and anemia. His hemoglobin on presentation was for. He is not reporting any bleeding. Has been on diuretics since then. He is whole body overloaded currently. By exam he has ascites and his ultrasound of the abdomen is showing changes consistent with cirrhosis likely due to alcohol use. I think most of his dyspnea is related to anemia anasarca. We will check echocardiogram tomorrow to assess for any cardiomyopathy and pericardial effusion. I think she would be diuresed and GI should see him for liver disease. If creatinine is stable then consider adding some spironolactone. Thank you for allowing me to participate in the care of your patient. Please feel free to contact me if you have any questions. Procedures Date of Service Date of Service: 07/21/22
[2022-07-21 11:32] LABS: MANUAL DIFF FLAG NO
[2022-07-21 11:34] LABS: Basophils Absolute Auto 0.1 X10*3/uL (0.0-0.2); Basophils Percent Auto 0.9 % (0-2); Eosinophils Absolute Auto 0.2 X10*3/uL (0.0-0.4); Eosinophils Percent Auto 3.7 % (0-4); Hematocrit 23.3 % (42.0-52.0); Hemoglobin 7.4 g/dl (14.0-18.0); Imm Gran Abs Auto 0.04 X10*3/uL (0.00-0.03); Imm Gran Pct Auto 0.7 % (0.0-0.4); Immature Retic Fraction 25.1 % (2.3-13.4); Lymphocytes Absolute Auto 1.1 X10*3/uL (1.2-4.9); Lymphocytes Percent Auto 20.6 % (20-40); Mean Corpuscular HGB Conc 31.8 g/dl (31.0-36.0); Mean Corpuscular Hemoglobin 29.6 pg (27.0-33.0); Mean Corpuscular Volume 93.2 fL (80.0-98.0); Mean Platelet Volume 11.4 fL (9.4-12.4); Monocytes Absolute Auto 0.6 X10*3/uL (0.1-1.2); Monocytes Percent Auto 11.1 % (2-11); Neutrophils Absolute Auto 3.4 x10*3/uL (2.0-8.3); Retic HGB Equivalent 27.3 pg (30.0-35.0); Reticulocytes Absolute 0.075 X10*6/uL (0.026-0.095); White Blood Count 5.4 X10*3/uL (4.8-10.8)
[2022-07-21 11:36] LABS: Platelet Count 73 X10*3/uL (160-400)
--- NOTE | 2022-07-21 12:01 | PC.NURSE ---
Provider Dr Junior made aware of patients albumin level 1.8 . no new orders at this time . patient aware of care .
--- NOTE | 2022-07-21 16:07 | PC.NURSE ---
patient tolerating using [place] catheter emptied, 700ml tracy urine . patient is aware of plan of care .
--- NOTE | 2022-07-21 16:25 | PC.NURSE ---
RN to RN given to Kathryn . Patient aware of transfer to floor and plan of care .
[2022-07-21] MEDS: Melatonin 3 MG TABLET 6 MG PO (19:57)
[2022-07-22] VITALS (9 sets, daily range): BP systolic 94–148; BP diastolic 54–72; PULSE 72–128; RESP 18–20; TEMP 36–37.1; O2SAT 91–97
[2022-07-22 06:33] LABS: Thyroid Stimulating Hormone 2.23 uIU/mL (0.32-4.0)
--- NOTE | 2022-07-22 07:00 | CA_ITS ---
Transthoracic Echocardiogram Patient (Last, First, Middle): Tristen Pack, Gender: Male Date of : 1955 Age: 67 Procedure Date: 07/22/2022 Procedure Type: Transthoracic Echocardiogram Location: S3E Height: 177.8 cm Weight: 90.72 kg BSA: 2.09 m2 Heart Rate: 91 bpm BP: 116 / 58 mmHg Guest Service Supervisor: BERNADETTE Referring MD: Kyle Kendall MD Land Appraiser: Onel Joya MD Symptoms: Anasarca Study Quality: Adequate ECG Rhythm: Sinus Conclusions: - 1. Normal LV systolic function with impaired relaxation filling pattern 2. Normal cardiac valvular Dopplers 3. Normal RV systolic pressure with mildly elevated right atrial pressures 4. No gross pericardial effusion Findings Left Ventricle Normal left ventricular size, thickness, and systolic function. The visually estimated ejection fraction is between 60-65%. Spectral Doppler is indicative of an impaired relaxation filling pattern. E/E prime ratio is between 8 and 15 consistent with indeterminate filling pressures. Right Ventricle Normal right ventricular cavity size and systolic function. Atria The left atrium is normal in size. Interatrial shunt cannot be excluded. The right atrium is normal in size. Aortic Valve Normal aortic valve structure and function. There is no aortic valve stenosis. There is no aortic valve regurgitation. Mitral Valve Normal mitral valve structure and function. There is trace mitral valve regurgitation. There is no mitral valve stenosis. Pulmonic Valve The pulmonic valve was not well visualized. Tricuspid Valve Likely normal tricuspid valve structure and function. There is mild tricuspid valve regurgitation. Mildly elevated right atrial pressure. There is no evidence of pulmonary hypertension. Great Vessels All visible segments of the aorta are normal in size. The pulmonary artery was not well visualized. Venous The inferior vena cava is mildly dilated and collapses less than 50% with inspiration. Pericardium/Pleural There is no evidence of pericardial effusion. Prior Study Comparison No prior study available for comparison. Measurements 2D Linear Measurements IVSd: 1.00 0.6-0.9/0.6-1.0 cm LVIDd: 4.68 3.9-5.3/4.2-5.9 cm LVIDd Index: 2.24 2.4-3.2/2.2-3.1 cm/m2 LVIDs: 3.56 2.0-3.6 cm LVPWd: 0.92 0.7-1.1 cm LA Diam: 3.80 2.7-3.8/3.0-4.0 cm LAIDs Index: 1.82 1.5-2.3 cm/m2 LV Mass: 191.58 67-162/88-224 g LV Mass Index: 91.66 43-95/49-115 g/m2 LVOT Diam: 2.20 3.0+(-)1.3 cm 2D Systolic Function EF 4C: 60.20 >55% EF 2C: 66.00 >55% EF BiP: 62.90 >55% Mitral Valve MV Pk E: 0.95 MV PK A: 1.11 MV Decel Time: 105.00 E/A: 0.90 E'Lateral: 12.30 E'Medial: 10.00 E/E' Med: 9.50 E/E' Lat: 7.70 PHT: 31.00 MVA PHT: 7.10 Decel [place]: 9.03 Aortic Valve AoV Pk Siddharth: 1.82 AoV Mn Siddharth: 1.20 AoV VTI: 0.35 AoV Pk Grad: 13.00 Aov Mn Grad: 7.00 SHOLA Cont.VTI: 2.93 LVOT LVOT Pk Siddharth: 1.38 LVOT Mn Siddharth: 0.84 LVOT VTI: 0.27 LVOT Pk Grad: 8.00 LVOT Mn Grad: 4.00 LVOT Diam: 2.20 LVOT Area: 3.80 Diastolic Function MV Pk E: 0.95 MV Pk A: 1.11 E/A: 0.90 E'Medial: 10.00 E/E' Med: 9.50 E' Laterial: 12.30 E/E' Lat: 7.70 Right Ventricle TAPSE (mm): 22.80 TVS' Siddharth: 13.20 Tricuspid Valve TR Pk Siddharth: 2.76 TR Pk Grad: 30.00 RA Press: 8.00 RVSP: 38.00 Great Vessels Aorta Sinus of Valsalva: 3.70 2.0-3.5 cm Ao Asc: 3.70 2.1-3.4 cm Pulmonary Veins Pulm Vein S/D 1.90 Pulmonary Valve PV Pk Siddharth: 0.99 Peak PV Grad: 4.00 Updated in Other Vendor System with Status of Final Onel Joya MD electronically signed on 07/22/2022 4:17:30 PM with status of Final
[2022-07-22] MEDS: Furosemide 40 MG/4 ML VIAL IVPUSH (07:40)
[2022-07-22] MEDS: 0.9 % Sodium Chloride Flush 3 ML SYRINGE IVFLUSH ×2 (07:41→19:35)
[2022-07-22] MEDS: Folic Acid 1 MG TABLET 5 MG PO (08:10)
[2022-07-22] MEDS: Albumin Human 25 % 100 ML IV ×4 (08:10→14:00)
[2022-07-22 10:49] LABS: Alanine Aminotransferase 14 U/L (0-40); Albumin Level 1.6 g/dL (3.5-5.0); Alkaline Phosphatase 66 U/L (39-117); Anion Gap 9 (12-20); Aspartate Amino Transferase 34 U/L (5-37); Bilirubin Total 3.2 mg/dL (0.0-1.0); Blood Urea Nitrogen 25 mg/dL (9-16); Calcium 7.5 mg/dL (8.4-10.2); Carbon Dioxide 26 mmol/L (22-29); Chloride 102 mmol/L (96-108); Creatinine Clr Calc Pharmacy 43.1; Estimated Glomerular Filt Rate 35; Glucose Random 104 mg/dL (60-115); Potassium 3.9 mmol/L (3.3-5.1); Sodium 133 mmol/L (135-145); Total Protein 7.8 g/dL (6.5-8.0)
--- NOTE | 2022-07-22 10:53 | HO.PM.IMPN ---
Subjective Subjective Date of Service: 07/22/22 Interval History: cc: anasraca interval history:minimal improvement Cardiovascular Cardiovascular: Reports no additional cardiovascular complaints Respiratory Respiratory: Reports no additional respiratory complaints Physical Exam Vital Signs: Vital Signs: Last Vital Signs Temp 98 F 07/22/22 07:38 Pulse 82 07/22/22 07:38 Resp 19 07/22/22 07:38 BP 148/72 H 07/22/22 07:38 Pulse Ox 94 07/22/22 07:38 O2 Del Method 07/22/22 07:38 BMI result Body Mass Index 31.6 General: AO X 3, ill appearing, mild jaundice, anasarca Resp: CTA bilateral, no accessory muscles used CVS: S1,S2,RRR GI: soft, non tender, distended Neuro: motor grossly intact, alert Psych: appropriate affect, appropriate insight LUE erythema and swelling Objective Data Active Medications Acetaminophen (Acetaminophen 325 Mg Tablet) 650 mg PO Q6H PRN PRN Reason: Pain, Mild (Pain Scale 1-3) Folic Acid (Folic Acid 1 Mg Tablet) 5 mg PO DAILY [facility] Last Admin: 07/22/22 08:10 Dose: 5 mg Documented By: ONEAL Furosemide (Furosemide 40 Mg/4 Ml Vial) 40 mg IVPUSH BID [facility]; Protocol Last Admin: 07/22/22 07:40 Dose: 40 mg Documented By: ONEAL Ondansetron HCl (Ondansetron Hcl 4 Mg/2 Ml Vial) 4 mg IVPUSH Q8H PRN PRN Reason: Nausea and Vomiting Sodium Chloride (0.9 % Sodium Chloride Flush 3 Ml Syringe) 3 ml IVFLUSH QSHIFT [facility] Last Admin: 07/22/22 07:41 Dose: 3 ml Documented By: ONEAL Labs CBC & Chem 7: 07/21/22 11:27 07/22/22 05:15 Labs: Laboratory Results - last 24 hr 07/20/22 07/20/22 07/21/22 17:19 22:03 11:27 MCV 93.2 MCH 29.6 MCHC 31.8 RDW 15.0 Plt Count 73 L D MPV 11.4 Immature Gran % (Auto) 0.7 H Neut % (Auto) 63.0 Lymph % (Auto) 20.6 Branch % (Auto) 11.1 H Eos % (Auto) 3.7 Baso % (Auto) 0.9 Lymph # (Auto) 1.1 L Branch # (Auto) 0.6 Eos # (Auto) 0.2 Baso # (Auto) 0.1 Abs Immat Gran (auto) 0.04 H Absolute Neuts (auto) 3.4 Absolute Nucleated RBC 0.000 Nucleated RBC % (auto) 0.0 Absolute Retic 0.075 Percent Retic 3.0 H Immature Retic Fraction 25.1 H Retic Hgb Equivalent 27.3 L Anion Gap Estim Creat Clear Calc Estimated GFR Random Glucose Calcium Total Bilirubin AST ALT Alkaline Phosphatase Total Protein Albumin Vitamin B12 > 2000 H Folate 3.1 L TSH Crossmatch See Detail 07/21/22 07/22/22 11:27 05:15 MCV Cancelled MCH Cancelled MCHC Cancelled RDW Cancelled Plt Count Cancelled MPV Cancelled Immature Gran % (Auto) Neut % (Auto) Lymph % (Auto) Branch % (Auto) Eos % (Auto) Baso % (Auto) Lymph # (Auto) Branch # (Auto) Eos # (Auto) Baso # (Auto) Abs Immat Gran (auto) Absolute Neuts (auto) Absolute Nucleated RBC Cancelled Nucleated RBC % (auto) Cancelled Absolute Retic Percent Retic Immature Retic Fraction Retic Hgb Equivalent Anion Gap 9 L Estim Creat Clear Calc 43.1 Estimated GFR 35 Random Glucose 104 Calcium 7.5 L Total Bilirubin 3.2 H AST 34 ALT 14 Alkaline Phosphatase 66 Total Protein 7.8 Albumin 1.6 L Vitamin B12 Folate TSH 2.23 Crossmatch Assessment and Plan (1) Coagulopathy: Status: Acute (2) Anemia: Status: Acute (3) Anasarca: Status: Acute Plan 67-year-old male who is not on any prescription medications and has not seen a doctor in over 15 years, presents to the emergency department for evaluation of dyspnea and generalized swelling. found to have elevated creatinine, liver cirrhosis, severe anemia liver cirrhosis with anasarca likely due to etoh, follow up secondary work up gi following iv lasix, follow up echo elevated creatinine YADI vs CKD IV nephro following - lab work up ordered monitor severe anemia s/p 2 units prbc, hgb improved appropriately monitor dvt prohpylaxis - mechanical due to coagulopathy full code reason for continued hospitalization:iv diuresis Quality Stroke Does the patient have a stroke diagnosis?: No VTE Prior VTE?: No VTE Risk Level:: Medical - moderate - high VTE Device Contraindication: Treatment Not Indicated VTE Drug Contraindication: Treatment Not Indicated
[2022-07-22 11:12] LABS: Creatinine Urine 37.12 mg/dL; Microalbumin Urine < 5.0 mg/L; Total Protein Urine Random < 7 mg/dL (<12)
--- NOTE | 2022-07-22 11:57 | P.PNCA_ITS ---
Subjective Subjective Date of Service: 07/22/22 Principal diagnosis: Elevated BNP and anasarca Interval history: Patient on IV diuresis responding tepid lead to diuretics. Remains significantly volume overloaded. Continues to be short of breath. In atrial fibrillation. Continues to be significantly anemic. Denies any chest pain. Review of Systems Constitutional: Reports no additional constitutional complaints Cardiovascular: Reports Abdominal Distension, Denies chest pain, Reports edema, Denies lightheadedness, Denies Loss of Consciousness, Denies palpitations and Reports dyspnea Respiratory: Reports dyspnea Gastrointestinal: Denies no additional gastrointestinal complaints Genitourinary: Denies no additional male genitourinary complaints Musculoskeletal: Denies no additional musculoskeletal complaints Skin/Breast: Denies system reviewed and no additional complaints, except as docu Denies system reviewed and no additional complaints, except as documented Psychiatric: Denies no additional psychiatric complaints Endocrine: Denies palpitations Physical Exam Vital Signs: Last Vital Signs Temp 98 F 07/22/22 07:38 Pulse 82 07/22/22 07:38 Resp 19 07/22/22 07:38 BP 148/72 H 07/22/22 07:38 Pulse Ox 94 07/22/22 07:38 O2 Del Method 07/22/22 07:38 BMI result Body Mass Index 31.6 Const General: cooperative, in distress mild and respiratory and ill appearing Nutritional Appearance: overweight Orientation/consciousness: patient oriented x3 Neck Neck: Yes trachea midline, Yes supple and Yes JVD Resp Effort & Inspection: decreased respiratory effort Auscultation: crackles and diminished lung sounds Cardio Jugular venous distension: JVD Rhythm: abnormal rhythm irregularly irregular Heart sounds: S1 normal heart sound present, S2 normal heart sound present, no click, no gallops and no murmurs GI Inspection: Yes distended Auscultation: normal bowel sounds Skin General skin exam: no rashes or lesions noted, ecchymosis and other (Redness of the left upper extremity) Neuro General: patient oriented x3 and no focal motor deficits Extrem General: Yes other (Generalized edema) Objective Labs and Meds Result diagrams: 07/21/22 11:27 07/22/22 05:15 Lab results: Laboratory Results - last 24 hr 07/20/22 07/22/22 07/22/22 22:03 05:15 Unknown Sodium 133 L Potassium 3.9 Chloride 102 Carbon Dioxide 26 Anion Gap 9 L BUN 25 H Creatinine 1.94 H Estim Creat Clear Calc 43.1 Estimated GFR 35 Random Glucose 104 Calcium 7.5 L Total Bilirubin 3.2 H AST 34 ALT 14 Alkaline Phosphatase 66 Total Protein 7.8 Albumin 1.6 L TSH 2.23 U Random Total Protein < 7 Ur Random Sodium 94.0 Urine Creatinine 37.12 Urine Microalbumin < 5.0 Microalb/Creat Ratio TNP Crossmatch See Detail Progress Note: A&P Assessment and plan (1) Anasarca: Status: Acute Assessment and Plan: Generalized anasarca with evidence of marked fluid overload in this elderly gentleman with underlying cirrhosis and low albumin as a result most likely cause for it related to long-term alcohol use. Patient present with severe anemia and noted to be in atrial fibrillation. He also has elevated BNP most likely 5th with a component heart failure most likely right-sided heart failure which patient with cirrhosis developed portal pulmonary hypertension. Patient needs an echocardiogram which is currently pending. Agree with IV diuresis although need to closely follow his intake and output chart and high risk for cardiorenal syndrome is possible and this patient well markedly fluid overloaded with aggressive diuresis. Although out consider switching him to 5 mg of Lasix per hour drip. Strict intake and output chart. Continue to monitor renal funct ion closely. Also transfuse him to hematocrit over 30. Also give him albumin infusions to help with diuretic process and avoid cardiorenal syndrome of fully. Also start Aldactone 12.5 mg and gradually uptitrate it. Overall prognosis is guarded. Will continue to follow with you Time Spent With Patient Time: Total time spent is greater than 50% in coordination of care (as documented) at patient's floor/unit and/or counseling patient: Progress Note: Quality Stroke Does the patient have a stroke diagnosis?: No Procedures Date of Service Date of Service: 07/22/22
--- NOTE | 2022-07-22 12:05 | CONS_ITS ---
DATE OF SERVICE: 07/22/2022 REASON FOR CONSULTATION: I was asked to see patient to assist in evaluation and management of patient's renal dysfunction as reflected by creatinine of 2.2, along with generalized anasarca and severe hypoalbuminemic state with an albumin of 1.8, and anasarca. HISTORY OF PRESENT ILLNESS: In summary, the patient is a 67-year-old gentleman who has not had any medical care for over 15 years, presented to the emergency room with increasing shortness of breath and marked swelling of the legs. The patient states this has been going on for the past several weeks if not a bit longer, although he is bit vague about when that swelling developed. He has been on no prescription medications and again has not seen a doctor for over 15 years. He denies any nausea, vomiting, fever, sweats, or chills. No gross hematuria or dysuria. He was markedly anemic on admission, as well as a hemoglobin of 4.5. The patient does have a heavy alcohol history and imaging studies of the abdomen showed a cirrhotic liver. PAST MEDICAL HISTORY: Patient states that he has had no medical problems in the past. Never been on medications. SOCIAL HISTORY: Admits to alcohol use, although a bit vague. FAMILY HISTORY: No family history of significance that he is aware. REVIEW OF SYSTEMS: As noted above. ALLERGIES: HE HAS NO KNOWN DRUG ALLERGIES. CURRENT MEDICATIONS: Include now he is on IV albumin along with Lasix 40 twice a day and folate. PHYSICAL EXAMINATION: VITAL SIGNS: Blood pressure 148/70 with a heart rate in the 80s. He is on room air of 94% saturations. Unclear about his urine output. He does not have a Holly in place. HEENT: Head is atraumatic and normocephalic. Mucous membranes are moist. NECK: Supple. LUNGS: Decreased breath sounds at the bases. CARDIAC: Regular rate and rhythm without rub. ABDOMEN: Obese, soft, nontender, with ascites. EXTREMITIES: Generalized anasarca. SKIN: Shows multiple excoriations. DIAGNOSTIC DATA: He had an abdominal ultrasound, which showed the right kidney to be 10.7 cm, left to be 9.7 cm. No stones or hydro noted. He had moderate to large ascites noted. There is mention made of a right-sided pleural effusion. The liver looked morphologically like cirrhosis. LABORATORY DATA: Labs from yesterday showed hemoglobin 7.4, it was 4.0 on admission. Platelet count 73,000 it was 111,000 on admission. From yesterday, sodium 133, potassium 4.2, chloride 101, bicarb 22, BUN 27, creatinine 2.2, calcium 7.1, total bilirubin 4.9, total protein 8.6, serum albumin 1.8, TSH of 2.23. Urinalysis showed 2+ blood, 1+ leukocytes, showing 3-5 rbc's per high-power field. IMPRESSION: A 67-YEAR-OLD WITH CIRRHOSIS, PRESUMED ALCOHOL-RELATED, ADMITTED TO THE HOSPITAL WITH SEVERE ANEMIA, ANASARCA, SIGNIFICANT RENAL DYSFUNCTION OF UNCLEAR DURATION AND MARKED HYPOALBUMINEMIA. 1. Severe renal dysfunction. Most likely this is chronic kidney disease; however, he may have a component of acute kidney injury. Workup is underway with further serologic and urine studies to evaluate whether this is acute or chronic kidney disease. 2. Anasarca with marked hypoalbuminemic state. Again, workup suggests this is due to cirrhosis and malnutrition. His UA does not show any significant protein; however, serum albumin is so low, we still need to check a urine protein to creatinine ratio to rule out nephrotic syndrome. 3. Severe anemia. Most likely multifactorial with nutritional deficiency as well as question of blood loss. An underlying TMA cannot be ruled out. Further evaluation to look at peripheral smears and LDH and haptoglobin are warranted. 4. Marked hypervolemia with anasarca. He is currently getting IV albumin and Lasix and we will need to monitor his urine output and response to the combination of albumin and Lasix. 5. The question was raised whether this could be hepatorenal syndrome. His blood pressure is not low, which would go against hepatorenal syndrome. We will check urine studies to see if he is sodium avid. We will monitor his renal function and urine output, and at some point may need to add octreotide and even midodrine if his blood pressure starts to drop. SUGGESTIONS: At this time include the following. 1. Urine studies to calculate fractional excretion of sodium. 2. Additional serologies to rule out underlying myeloma. 3. Serologies rule out an acute renal parenchymal injury processes. 4. HDL, haptoglobin, and peripheral smear evaluation to help rule out a TMA. 5. We will follow the patient closely with the team as we sort out the cause of his advanced kidney dysfunction and help to manage his anasarca. MD IRAM Flood/[place] / [id number]
[2022-07-22 12:57] LABS: Lactate Dehydrogenase 177 U/L (118-273)
[2022-07-22] MEDS: Spironolactone 25 MG TABLET PO (12:57)
[2022-07-22] MEDS: LORazepam 0.5 MG TABLET PO (13:01)
[2022-07-22 13:15] LABS: HBS Num1 2.19 mIU/mL (0-7.99); HBc Num1 0.42 S/CO (0.00-0.79); HBsAGNum1 0.26 S/CO (0.00-0.99); Hepatitis B Core Antibody Nonreactive (Nonreactive); Hepatitis B Surface Antigen Negative (Negative); ~HepC Num1 9.77 S/CO (0.00-0.79); ~Hepatitis B Surface Antibody NONREACTIVE (Nonreactive); ~Hepatitis C Antibody Reactive (Nonreactive)
[2022-07-22] MEDS: Furosemide 200 MG in 0.9 % Sodium Chloride 80 ML IVCONT (15:02)
[2022-07-22] MEDS: Metoprolol Tartrate 25 MG TABLET PO (15:52)
--- NOTE | 2022-07-22 16:33 | PM.EVENT ---
Event Note Date of Service: 07/22/22 Event Note: GI consult dictated cirrhosis with ascites, likely related to alcohol anemia, with iron deficiency, multifactorial rec paracentesis follow hct check liver labs should have egd/colon at some point if he agrees (refused colonoscopy in past)
--- NOTE | 2022-07-22 16:50 | PC.NURSE ---
Addendum entered by Nubia Hall RN 07/22/22 18:48: Patient wrang hannah, patient vomited 300ccs coffee ground/black emesis. MD Jamil aware. Patient reports feeling better after vomiting. Original Note: Patient c/o of left arm pain, redness, and +3 pitting edema noted. Provider Omero aware and came to bedside to assess. Patient denies numbness tingling, having limited ROM d/t increased weight. Patient very hard stick for IV and lab draws. Patient has 1 IV access, and IV lasix is running. Provider is aware of this. Patient afib on tele 1teens and 120s, increases with exertion as well as shortness of breath with exertion. Significant anasarca noted. Holly cath placed, d/t voiding small amounts and strict I/O's. Stage 2 on left buttocks with redness, barrier cream applied, repositioned and boosted in bed frequently. Patients arms are weeping and edematous, dressings changed as needed.
[2022-07-22] MEDS: Phytonadione (Vit K1) 10 MG in 0.9 % Sodium Chloride 50 ML 51 MG IV (18:35)
--- NOTE | 2022-07-22 22:27 | MHC.CM.PN ---
Pt asked to complete a HCP. HCP/sister Jeannine Lorenzo ([phone]). Reviewed, completed and signed. Copies given. Uploaded into [employer] and [employer]. Pt also asked for his sister, Jeannine to be added to his contact list and to remove his neighbor. CM to follow for d/c needs.
[2022-07-23] VITALS (18 sets, daily range): BP systolic 84–140; BP diastolic 42–64; PULSE 79–96; RESP 14–20; TEMP 36–37.2; O2SAT 84–98
--- NOTE | 2022-07-23 03:17 | CONS_ITS ---
DATE OF SERVICE: 07/22/2022 REFERRING PHYSICIAN: Cuauhtemoc Junior MD REASON FOR CONSULTATION: Cirrhosis and anemia. HISTORY OF PRESENT ILLNESS: The patient is a 67-year-old man who was admitted to the hospital on July 21 after presenting to the emergency department with complaints of generalized swelling and shortness of breath. He states, over the last several weeks prior to admission, he has noted swelling of his abdomen, lower extremity and upper extremities associated with this. He has had shortness of breath with dyspnea on exertion. He has not noticed any rectal bleeding except for an occasional episode of rectal bright red blood that seems to be associated with a pilonidal cyst. He has never undergone colonoscopy. He does have a history of alcohol abuse and states he last had something to drink approximately 1 month prior to admission. He was evaluated in the emergency department where laboratory studies documented a hematocrit of 14 with a platelet count of 111. INR was elevated at 2.2. Chemistry studies showed elevation of his AST at 46 yesterday, which was up from admission, his bilirubin on admission was 3.1, and he was noted to have renal insufficiency with a creatinine of 2.28. Imaging studies were obtained, which are reviewed including an abdominal ultrasound which shows cirrhotic changes to the liver with moderate amount of ascites. He was transfused a total of 3 units of packed red blood cells with improvement of his hematocrit to 23.3. He has had no reported bleeding since admission. Iron studies were obtained showing a saturation of 9%. PAST MEDICAL HISTORY: Alcohol abuse. CURRENT MEDICATIONS: His current medication list is reviewed in the chart. He denies use of chronic NSAIDs. ALLERGIES: THERE ARE NONE REPORTED. FAMILY HISTORY: This is reviewed with the patient and is noncontributory. SOCIAL HISTORY: He denies substance abuse. REVIEW OF SYSTEMS: SKIN: No pruritus. HEENT: Negative. CARDIOPULMONARY: He denies shortness of breath or chest pain at this time. GASTROINTESTINAL: As above. GENITOURINARY: Negative. NEUROPSYCHIATRIC: Negative. PHYSICAL EXAMINATION: GENERAL: Shows a pleasant male, lying comfortably in bed. VITAL SIGNS: Reviewed in the electronic medical record and are stable. SKIN: Anicteric. EXTREMITIES: Some edema to the lower extremities. He refuses further examination. LABORATORY DATA: Including liver tests, chemistries, CBC, and coagulation studies are reviewed as are his imaging studies. IMPRESSION AND PLAN: Cirrhosis with ascites. His cirrhosis appears likely on the basis of alcohol abuse and I discussed with him the need to avoid alcohol. I would recommend obtaining paracentesis for diagnosis and therapeutic purposes. I would replete his vitamin K stores intravenously and monitor his hematocrit. He does have further studies pending including autoimmune markers and hepatitis serologies. He should, at some point, have upper endoscopy and colonoscopy for further evaluation of his iron-deficiency anemia and to rule out esophageal varices. If he consents for this, this can be done electively as an outpatient. Thanks for asking me to see him. I will follow him in the hospital with you. MD GISSELLE Navarrete/[place] / [id number]
--- NOTE | 2022-07-23 03:23 | PC.NURSE ---
Pt noted at 2100 with BP=98/58 H= 98 on Lasix drip at 5mg/hr, Dr. Penny notified , Metoprolol held as per same .
--- NOTE | 2022-07-23 06:23 | PC.NURSE ---
Pt had scanty hernandez output, noted with large urine saturating sheets and pads, don care done, hernandez flushed and was noted patent.
[2022-07-23 07:11] LABS: Mean Corpuscular HGB Conc 31.4 g/dl (31.0-36.0); Mean Corpuscular Hemoglobin 29.6 pg (27.0-33.0); Mean Corpuscular Volume 94.5 fL (80.0-98.0); Mean Platelet Volume 11.6 fL (9.4-12.4); Red Blood Count 1.99 X10*6/uL (4.60-5.80); Red Cell Distribution Width 15.9 % (11.0-16.0); White Blood Count 9.7 X10*3/uL (4.8-10.8)
[2022-07-23 07:31] LABS: Alanine Aminotransferase 10 U/L (0-40); Albumin Level 2.1 g/dL (3.5-5.0); Alkaline Phosphatase 35 U/L (39-117); Anion Gap 12 (12-20); Aspartate Amino Transferase 23 U/L (5-37); Bilirubin Direct 1.4 mg/dL (0.0-0.5); Bilirubin Total 2.2 mg/dL (0.0-1.0); Blood Urea Nitrogen 33 mg/dL (9-16); Calcium 7.6 mg/dL (8.4-10.2); Carbon Dioxide 25 mmol/L (22-29); Chloride 100 mmol/L (96-108); Creatinine Clr Calc Pharmacy 33.7; Estimated Glomerular Filt Rate 26; Glucose Fasting 88 mg/dL (60-99); Magnesium 1.7 mg/dL (1.6-2.6); Potassium 4.3 mmol/L (3.3-5.1); Sodium 133 mmol/L (135-145); Total Protein 6.2 g/dL (6.5-8.0)
[2022-07-23 07:55] LABS: Hemoglobin 5.9 g/dl (14.0-18.0)
[2022-07-23 07:56] LABS: Hematocrit 18.8 % (42.0-52.0); Platelet Count 63 X10*3/uL (160-400)
[2022-07-23] MEDS: Spironolactone 25 MG TABLET PO (08:03)
[2022-07-23] MEDS: Folic Acid 1 MG TABLET 5 MG PO (08:03)
[2022-07-23] MEDS: 0.9 % Sodium Chloride Flush 3 ML SYRINGE IVFLUSH ×2 (08:04→15:23)
[2022-07-23 08:19] LABS: INTERNATIONAL NORM RATIO 2.8 (0.9-1.1); Prothrombin Time 34.1 SEC (10.0-13.1)
[2022-07-23 10:07] LABS: Complement C3 25 mg/dL (82-185)
[2022-07-23] MEDS: Pantoprazole Sodium 40 MG/10 ML VIAL IVPUSH ×2 (10:24→15:22)
[2022-07-23] MEDS: Albumin Human 25 % 100 ML IV ×3 (10:29→21:49)
[2022-07-23] MEDS: cefTRIAXone sodium 1 GM in 0.9 % Sodium Chloride 50 ML IV (10:29)
--- NOTE | 2022-07-23 11:23 | PM.PNNEP ---
Subjective Subjective Date of Service: 07/23/22 Principal diagnosis: YADI/CKD and anasarca Interval history: Seen and examined Physical Exam Vital Signs: Vital Signs: Last Vital Signs Temp 98.0 F 07/23/22 11:13 Pulse 83 07/23/22 11:13 Resp 18 07/23/22 11:13 BP 98/56 L 07/23/22 11:13 Pulse Ox 95 07/23/22 10:51 O2 Del Method 07/23/22 10:51 BMI result Body Mass Index 31.6 Const: Other: ?Middle-aged male lying in bed in no distress Neck supple Regular rate and rhythm, S1-S2 heard Regular breath sounds bilaterally, no wheezing or crackles appreciated Abdomen firm and distended with pre-sacral edema Patient is awake, alert and oriented to self, place, time and person ; no focal motor deficit Psych: Normal mood Significant +2 extremity edema General: cooperative, acute distress mild, in distress mild and respiratory and ill appearing; No confusion Nutritional Appearance: overweight and Edematous Orientation/consciousness: patient oriented x3 and No confusion HEENT: Head: Yes normal to inspection, Yes normocephalic and Yes atraumatic Ears: hearing grossly normal bilaterally and external ears normal General nose exam: Normal external nose present Face and sinus: Yes normal facial exam Eyes: Conjunctivae: conjunctivae normal Sclerae: sclerae normal Pupils: Equal, round and reactive pupils present EOM: EOMs intact bilaterally Neck: Neck: Yes normal visual inspection, Yes full ROM, Yes trachea midline, Yes supple and Yes JVD Chest: Chest palpation & inspection: normal inspection of the chest and no masses Resp: Effort & Inspection: abnormal respiratory effort, no cough, decreased respiratory effort, labored (Slightly), no retractions and not tachypneic Auscultation: crackles and diminished lung sounds Cardio: Jugular venous distension: JVD Rate: regular rate Rhythm: regular rhythm and abnormal rhythm irregularly irregular Heart sounds: S1 normal heart sound present, S2 normal heart sound present, no click, no gallops and no murmurs GI: Inspection: Yes Abdominal wall edema and Yes distended Percussion: Yes normal to percussion Auscultation: normal bowel sounds Back/Spine/Pelvis: Cervical Spine: normal cervical lordosis and cervical ROM normal Coccyx: swelling Skin: General skin exam: no rashes or lesions noted, ecchymosis, pallor and other (Redness of the left upper extremity) Neuro: General: patient oriented x3, no focal motor deficits, No confusion and Unable to assess gait Cranial nerves: Yes CN's II-XII intact bilaterally and Yes Equal, round and reactive pupils present Cognition (Neuro): normal cognition Speech: No Abnormal speech present Gait exam (Neuro): Unable to assess gait Extrem: Other: L UE maerked swellng/ecchymosis General: No no pedal edema, No cyanosis, Yes edema and Yes other (Generalized edema) Objective Data Labs CBC & Chem 7: 07/23/22 06:40 07/23/22 06:40 Labs: Laboratory Results - last 24 hr 07/20/22 07/20/22 07/22/22 17:19 22:03 11:54 WBC RBC Hgb Hct MCV MCH MCHC RDW Plt Count MPV Absolute Nucleated RBC Nucleated RBC % (auto) Smear Path Review SEE NOTE PT INR Sodium Potassium Chloride Carbon Dioxide Anion Gap BUN Creatinine Estim Creat Clear Calc Estimated GFR Fasting Glucose Calcium Magnesium Total Bilirubin Direct Bilirubin AST ALT Alkaline Phosphatase Lactate Dehydrogenase 177 Total Creatine Kinase 50 Total Protein Albumin Complement C3 Complement C4 Hep Bs Antigen Hep Bs Antibody Hep B Core Total Ab Hepatitis C Ab (EIA) Blood Type B Positive Antibody Screen NEGATIVE TRAVIS, Polyspecific NEGATIVE Positive TRAVIS Work-up TNP Crossmatch See Detail 07/22/22 07/22/22 07/23/22 11:54 11:54 06:40 WBC 9.7 RBC 1.99 L D Hgb 5.9 L* D Hct 18.8 L* MCV 94.5 MCH 29.6 MCHC 31.4 RDW 15.9 Plt Count 63 L MPV 11.6 Absolute Nucleated RBC 0.000 Nucleated RBC % (auto) 0.0 Smear Path Review PT INR Sodium Potassium Chloride Carbon Dioxide Anion Gap BUN Creatinine Estim Creat Clear Calc Estimated GFR Fasting Glucose Calcium Magnesium Total Bilirubin Direct Bilirubin AST ALT Alkaline Phosphatase Lactate Dehydrogenase Total Creatine Kinase Total Protein Albumin Complement C3 25 L Complement C4 <3 L Hep Bs Antigen Negative Hep Bs Antibody NONREACTIVE Hep B Core Total Ab Nonreactive Hepatitis C Ab (EIA) Reactive H Blood Type Antibody Screen TRAVIS, Polyspecific Positive TRAVIS Work-up Crossmatch 07/23/22 07/23/22 06:40 06:40 WBC RBC Hgb Hct MCV MCH MCHC RDW Plt Count MPV Absolute Nucleated RBC Nucleated RBC % (auto) Smear Path Review PT 34.1 H INR 2.8 H Sodium 133 L Potassium 4.3 Chloride 100 Carbon Dioxide 25 Anion Gap 12 BUN 33 H Creatinine 2.48 H Estim Creat Clear Calc 33.7 Estimated GFR 26 Fasting Glucose 88 Calcium 7.6 L Magnesium 1.7 Total Bilirubin 2.2 H Direct Bilirubin 1.4 H AST 23 D ALT 10 Alkaline Phosphatase 35 L D Lactate Dehydrogenase Total Creatine Kinase Total Protein 6.2 L D Albumin 2.1 L Complement C3 Complement C4 Hep Bs Antigen Hep Bs Antibody Hep B Core Total Ab Hepatitis C Ab (EIA) Blood Type Antibody Screen TRAVIS, Polyspecific Positive TRAVIS Work-up Crossmatch Microbiology Microbiology Results: Microbiology 07/21/22 Unknown Urine clean catch - Urine rios top Urine Culture - Final Streptococcus viridans group Procedures Date of Service Date of Service: 07/23/22 Assessment & Plan Assessment and plan (1) Anasarca: Status: Acute Assessment and Plan: 1. YADI on ? CKD: w/u in progress; despite FENa > 1% still ques of HRS--krystal now that BP low; Obs r/o by U/S; other causes of YADI being r/o with sero; doubt TMA depsite low PLTs given LDH not elevated 2. CKD: no old recsbut still suspect component of CKD 3. Anasarca: d/t Liver Cirrhosis; echo result do not point to card cause and no signif Uprot excludes NSyn; Still Low alb state contributing Unclear if he is respondig to diuresis given leaking hernandez 4. LUE swollen/ecchymosis: need top r/o LUE DVT and need to watch for compartment syndrome--ques trauma vs other; consider additional LUE uimaging studies 5. Anemia: decr Hb again--GIB, bleeding into LUE 6. Cirrhosis REC: agree with starting octreotide, IV alb 1 gm/kg per day; ad start mdirdine; U/S LUE; consider urol to place a larger hernandez Willfollow clsoley with team Time Spent With Patient Time: Total time spent is greater than 50% in coordination of care (as documented) at patient's floor/unit and/or counseling patient: Progress Note: Quality Stroke Does the patient have a stroke diagnosis?: No
[2022-07-23] MEDS: Octreotide Acetate 500 MCG in 0.9 % Sodium Chloride 500 ML 50.1 MCG IVCONT ×2 (11:57→21:50)
--- NOTE | 2022-07-23 12:06 | MHC.CM.PN ---
PER PHYSICIAN ROUNDS, PATIENT IS STILL ACUTE NO PLAN FOR DISCHARGE TODAY
[2022-07-23 12:16] LABS: PTHI 72 pg/mL (16-77)
--- NOTE | 2022-07-23 12:31 | PM.PNCARD ---
Subjective Subjective Date of Service: 07/23/22 <JAN Goodson - Last Filed: 07/23/22 12:48> 07/23/22 <Onel Joya MD - Last Filed: 07/23/22 13:27> Principal diagnosis: YADI/CKD and anasarca <JAN Goodson - Last Filed: 07/23/22 12:48> Interval history: Seen at 1030. Today he is observed resting in bed without acute distress. He reports breathing is comfortable at rest but does get short of breath with movement. He has discomfort in his left arm which is worse with any movement. No chest pains, palpitations, dizziness. He believes his abdomen size is normal for him. He has generalized anasarca. Holly catheter in place however nurse reports it is leaking around the meatus. Nurse reports some coffee-ground vomit this a.m. Receiving a blood transfusion at this time. IV Lasix drip infusing at 5 milligrams/hour. traffic monitor specialist showing sinus rhythm with average rate 80s to 90s, more tachycardic at times. <JAN Goodson - Last Filed: 07/23/22 12:48> Review of Systems Review of Systems As above <JAN Goodson - Last Filed: 07/23/22 12:48> Yes all other systems are reviewed and are negative <JAN Goodson - Last Filed: 07/23/22 12:48> Physical Exam Vital Signs: Last Vital Signs Temp 97.2 F 07/23/22 11:43 Pulse 86 07/23/22 11:43 Resp 18 07/23/22 11:43 BP 103/50 L 07/23/22 11:43 Pulse Ox 95 07/23/22 10:51 O2 Del Method 07/23/22 10:51 BMI result Body Mass Index 31.6 <JAN Goodson Last Filed: 07/23/22 12:48> Const Other: Ill-appearing elderly male <JAN Goodson - Last Filed: 07/23/22 12:48> General: cooperative <JAN Goodson - Last Filed: 07/23/22 12:48> Orientation/consciousness: patient oriented x3 <Rahel Vallecillo NP-C - Last Filed: 07/23/22 12:48> Eyes Sclerae: sclerae normal <Rahel YURIY VallecilloC - Last Filed: 07/23/22 12:48> Neck Neck: Yes JVD <Rahel Vallecillo NP-C - Last Filed: 07/23/22 12:48> Resp Other: Short of breath with movement in bed [facility] - Last Filed: 07/23/22 12:48> Effort & Inspection: normal respiratory effort and able to speak in complete sentences <Rahel Avel [employer] AR[employer]ECT-C - Last Filed: 07/23/22 12:48> Auscultation: rales (Noted posteriorly), no rhonchi and no wheezes <Rahel YURIY Vallecillo-C - Last Filed: 07/23/22 12:48> Cardio Jugular venous distension: JVD <Rahel Avel [employer] ARCHITECT-C - Last Filed: 07/23/22 12:48> Rate: regular rate <Rahel YURIY VallecilloC - Last Filed: 07/23/22 12:48> Rhythm: regular rhythm <Rahel YURIY Vallecillo-C - Last Filed: 07/23/22 12:48> Heart sounds: S1 normal heart sound present, S2 normal heart sound present, no gallops, no murmurs and no rubs <Rahel YURIY Vallecillo-C - Last Filed: 07/23/22 12:48> Neuro General: patient oriented x3 <Rahel Vallecillo NPC - Last Filed: 07/23/22 12:48> Extrem Other: Gross pitting edema, generalized anasarca. Left upper extremity with red/ecchymotic appearance from shoulder to fingers. Skin intact, warm, easily palpable radial and ulnar pulse, immediate capillary refill to the nails. <Rahel Vallecillo [employer] ARCHITECT-C - Last Filed: 07/23/22 12:48> Psych Appearance: grossly normal <Rahel Avel [employer] ARCHITECT-C - Last Filed: 07/23/22 12:48> Mental Status: mental status grossly normal <Rahel Avel, [employer] ARCHITECT-C - Last Filed: 07/23/22 12:48> Objective Labs and Meds Result diagrams: : 07/23/22 06:40 07/23/22 06:40 <JAN Goodson - Last Filed: 07/23/22 12:48> Lab results: Laboratory Results - last 24 hr 07/20/22 07/20/22 07/22/22 17:19 22:03 11:54 WBC RBC Hgb Hct MCV MCH MCHC RDW Plt Count MPV Absolute Nucleated RBC Nucleated RBC % (auto) Smear Path Review SEE NOTE PT INR Sodium Potassium Chloride Carbon Dioxide Anion Gap BUN Creatinine Estim Creat Clear Calc Estimated GFR Fasting Glucose Calcium Magnesium Total Bilirubin Direct Bilirubin AST ALT Alkaline Phosphatase Lactate Dehydrogenase 177 Total Creatine Kinase 50 Total Protein Albumin PTH Intact Calcium (PTH Intact) Complement C3 Complement C4 Hep Bs Antigen Hep Bs Antibody Hep B Core Total Ab Hepatitis C Ab (EIA) Blood Type B Positive Antibody Screen NEGATIVE TRAVIS, Polyspecific NEGATIVE Positive TRAVIS Work-up TNP Crossmatch See Detail 07/22/22 07/22/22 07/22/22 11:54 11:54 11:54 WBC RBC Hgb Hct MCV MCH MCHC RDW Plt Count MPV Absolute Nucleated RBC Nucleated RBC % (auto) Smear Path Review PT INR Sodium Potassium Chloride Carbon Dioxide Anion Gap BUN Creatinine Estim Creat Clear Calc Estimated GFR Fasting Glucose Calcium Magnesium Total Bilirubin Direct Bilirubin AST ALT Alkaline Phosphatase Lactate Dehydrogenase Total Creatine Kinase Total Protein Albumin PTH Intact 72 Calcium (PTH Intact) 8.0 L Complement C3 25 L Complement C4 <3 L Hep Bs Antigen Negative Hep Bs Antibody NONREACTIVE Hep B Core Total Ab Nonreactive Hepatitis C Ab (EIA) Reactive H Blood Type Antibody Screen TRAVIS, Polyspecific Positive TRAVIS Work-up Crossmatch 07/23/22 07/23/22 07/23/22 06:40 06:40 06:40 WBC 9.7 RBC 1.99 L D Hgb 5.9 L* D Hct 18.8 L* MCV 94.5 MCH 29.6 MCHC 31.4 RDW 15.9 Plt Count 63 L MPV 11.6 Absolute Nucleated RBC 0.000 Nucleated RBC % (auto) 0.0 Smear Path Review PT 34.1 H INR 2.8 H Sodium 133 L Potassium 4.3 Chloride 100 Carbon Dioxide 25 Anion Gap 12 BUN 33 H Creatinine 2.48 H Estim Creat Clear Calc 33.7 Estimated GFR 26 Fasting Glucose 88 Calcium 7.6 L Magnesium 1.7 Total Bilirubin 2.2 H Direct Bilirubin 1.4 H AST 23 D ALT 10 Alkaline Phosphatase 35 L D Lactate Dehydrogenase Total Creatine Kinase Total Protein 6.2 L D Albumin 2.1 L PTH Intact Calcium (PTH Intact) Complement C3 Complement C4 Hep Bs Antigen Hep Bs Antibody Hep B Core Total Ab Hepatitis C Ab (EIA) Blood Type Antibody Screen TRAVIS, Polyspecific Positive TRAVIS Work-up Crossmatch <JAN Goodson - Last Filed: 07/23/22 12:48> Progress Note: A&P Assessment and plan (1) Anasarca: Status: Acute <JAN Goodson - Last Filed: 07/23/22 12:48> Assessment and Plan: Admit with generalized anasarca with underlying cirrhosis, low albumin most likely related to long-term alcohol use. Also with severe anemia and new finding of atrial fibrillation this admission. He did undergo an echocardiogram yesterday showing EF 60-65%, normal valves and the RVSP mildly increased. His fluid overload does not appear related to cardiac function. He is being diuresed with IV Lasix and being followed by Nephrology, GI, hospitalist. He has received IV albumin, blood transfusions and Aldactone has been added. Fluid balance appears to be still positive. Nurse does report some urine leaking around Holly catheter. He had some coffee-ground emesis this a.m., hemoglobin 5.9. Being transfused currently. His complex medical condition seems to be related mostly to liver cirrhosis. We will sign off. Reconsult if needed during this admission. <JAN Goodson - Last Filed: 07/23/22 12:48> Admit with generalized anasarca with underlying cirrhosis, low albumin most likely related to long-term alcohol use. Also with severe anemia and new finding of atrial fibrillation this admission. He did undergo an echocardiogram yesterday showing EF 60-65%, normal valves and the RVSP mildly increased. His fluid overload does not appear related to cardiac function. He is being diuresed with IV Lasix and being followed by Nephrology, GI, hospitalist. He has received IV albumin, blood transfusions and Aldactone has been added. Fluid balance appears to be still positive. Nurse does report some urine leaking around Holly catheter. He had some coffee-ground emesis this a.m., hemoglobin 5.9. Being transfused currently. His complex medical condition seems to be related mostly to liver cirrhosis. We will sign off. Reconsult if needed during this admission. Patient seen and examined. Case discussed with Rahel Vallecillo. With generalized anasarca related to his cirrhosis rather than any significant cardiac condition. Does not have significant pulmonary hypertension right-sided dysfunction and or LV systolic and diastolic dysfunction. Continue manage fluid status as per hospitalist team. Can continue diuresis along with Aldactone therapy. Close follow-up of her renal function. Consider GI consultation as well. Will sign of the case at this point time. <Onel Joya MD - Last Filed: 07/23/22 13:27> (2) Alcoholic cirrhosis: Status: Acute <JAN Goodson - Last Filed: 07/23/22 12:48> (3) Afib: Status: Acute <JAN Goodson - Last Filed: 07/23/22 12:48> Assessment and Plan: New finding of atrial fibrillation on hall monitor this admission. He has been started on low-dose metoprolol for rate control. traffic monitor specialist currently showing sinus rhythm with average heart rate 80s to 90. No reports of palpitations. He has thrombocytopenia with platelets 63 and significant anemia with hemoglobin 5.9. Anticoagulation is contraindicated at this time. <JAN Goodson - Last Filed: 07/23/22 12:48> New finding of atrial fibrillation on hall monitor this admission. He has been started on low-dose metoprolol for rate control. traffic monitor specialist currently showing sinus rhythm with average heart rate 80s to 90. No reports of palpitations. He has thrombocytopenia with platelets 63 and significant anemia with hemoglobin 5.9. Anticoagulation is contraindicated at this time. Patient noted to atrial fibrillation. Currently in sinus rhythm. Rate is controlled. Not a candidate for oral anticoagulation due to significant GI bleed as well as thrombocytopenia as well as continues use of alcohol. Continue monitor clinically. Will sign of the case at this point time. Thank you for allowing us to partake in his care <Onel Joya MD - Last Filed: 07/23/22 13:27> (4) Anemia: Status: Acute <JAN Goodson - Last Filed: 07/23/22 12:48> Assessment and Plan: As above <JAN Goodson - Last Filed: 07/23/22 12:48> Time Spent With Patient Time: Total time spent is greater than 50% in coordination of care (as documented) at patient's floor/unit and/or counseling patient: 24 <JAN Goodson - Last Filed: 07/23/22 12:48> Progress Note: Quality Stroke Does the patient have a stroke diagnosis?: No <JAN Goodson - Last Filed: 07/23/22 12:48> Procedures Date of Service Date of Service: 07/23/22 <JAN Goodson - Last Filed: 07/23/22 12:48>
[2022-07-23 13:47] LABS: Myeloperoxidase Antibody <1.0 AI; Proteinase 3 PR3 Antibodies <1.0 AI
[2022-07-23] MEDS: Midodrine HCl 5 MG TABLET PO ×2 (14:07→21:49)
--- NOTE | 2022-07-23 14:29 | P.PNIM_ITS ---
Subjective Subjective Date of Service: 07/23/22 Interval History: cc: maria dolores interval history:hematemesis overnight Cardiovascular Cardiovascular: Reports no additional cardiovascular complaints Respiratory Respiratory: Reports no additional respiratory complaints Physical Exam Vital Signs: Vital Signs: Last Vital Signs Temp 97.8 F 07/23/22 14:06 Pulse 93 07/23/22 14:06 Resp 18 07/23/22 14:06 BP 100/51 L 07/23/22 14:06 Pulse Ox 92 07/23/22 14:10 O2 Del Method 07/23/22 14:10 O2 Flow Rate 2 07/23/22 14:10 BMI result Body Mass Index 31.6 Const: Other: Ill-appearing elderly male General: cooperative Orientation/consciousness: patient oriented x3 Eyes: Sclerae: sclerae normal Neck: Neck: Yes JVD Resp: Other: Short of breath with movement in bed Effort & Inspection: normal respiratory effort and able to speak in complete sentences Auscultation: rales (Noted posteriorly), no rhonchi and no wheezes Cardio: Jugular venous distension: JVD Rate: regular rate Rhythm: regular rhythm Heart sounds: S1 normal heart sound present, S2 normal heart sound present, no gallops, no murmurs and no rubs Neuro: General: patient oriented x3 Extrem: Other: Gross pitting edema, generalized anasarca. Left upper extremity with red/ecchymotic appearance from shoulder to fingers. Skin intact, warm, easily palpable radial and ulnar pulse, immediate capillary refill to the nails. Psych: Appearance: grossly normal Mental Status: mental status grossly normal Objective Data Active Medications Folic Acid (Folic Acid 1 Mg Tablet) 5 mg PO DAILY [facility] Last Admin: 07/23/22 08:03 Dose: 5 mg Documented By: ONEAL Furosemide 200 mg/ Sodium (Chloride) 100 mls @ 2.5 mls/hr IVCONT .Q24H [facility] Last Infusion: 07/23/22 10:36 Dose: 0 mg/hr, 0 mls/hr Documented By: ONEAL Albumin Human (Kedbumin 25 %) 100 mls @ 100 mls/hr IV Q6H [facility] Stop: 07/23/22 22:59 Last Infusion: 07/23/22 11:33 Dose: 0 mls/hr Documented By: ONEAL Octreotide Acetate 500 mcg/ (Sodium Chloride) 501 mls @ 50.1 mls/hr IVCONT .Q10H [facility] Last Admin: 07/23/22 11:57 Dose: 50 mcg/hr, 50.1 mls/hr Documented By: ONEAL Ceftriaxone Sodium 1 gm/ (Sodium Chloride) 50 mls @ 100 mls/hr IV Q24H [facility] Last Infusion: 07/23/22 11:05 Dose: 0 mls/hr Documented By: ONEAL Metoprolol Tartrate (Metoprolol Tartrate 25 Mg Tablet) 25 mg PO BID [facility]; Protocol Last Admin: 07/23/22 08:06 Dose: Not Given Documented By: ONEAL Non-Admin Reason: Physician Held Med Midodrine (Midodrine Hcl 5 Mg Tablet) 5 mg PO TID [facility] Last Admin: 07/23/22 14:07 Dose: 5 mg Documented By: ONEAL Ondansetron HCl (Ondansetron Hcl 4 Mg/2 Ml Vial) 4 mg IVPUSH Q8H PRN PRN Reason: Nausea and Vomiting Pantoprazole Sodium (Pantoprazole Sodium 40 Mg/10 Ml Vial) 40 mg IVPUSH BID@0630,1630 [facility] Last Admin: 07/23/22 10:24 Dose: 40 mg Documented By: ONEAL Sodium Chloride (0.9 % Sodium Chloride Flush 3 Ml Syringe) 3 ml IVFLUSH QSHIFT [facility] Last Admin: 07/23/22 08:04 Dose: 3 ml Documented By: ONEAL Spironolactone (Spironolactone 25 Mg Tablet) 25 mg PO DAILY [facility]; Protocol Last Admin: 07/23/22 08:03 Dose: 25 mg Documented By: ONEAL Labs CBC & Chem 7: 07/23/22 06:40 07/23/22 06:40 Labs: Laboratory Results - last 24 hr 07/20/22 07/20/22 07/22/22 17:19 22:03 11:54 MCV MCH MCHC RDW Plt Count MPV Absolute Nucleated RBC Nucleated RBC % (auto) Smear Path Review SEE NOTE PT INR Anion Gap Estim Creat Clear Calc Estimated GFR Fasting Glucose Calcium Magnesium Total Bilirubin Direct Bilirubin AST ALT Alkaline Phosphatase Total Protein Albumin PTH Intact 72 Calcium (PTH Intact) 8.0 L Proteinase 3 (PR3) Ab Myeloperoxidase Ab Complement C3 Complement C4 Hep Bs Antigen Hep Bs Antibody Hep B Core Total Ab Hepatitis C Ab (EIA) Blood Type B Positive Antibody Screen NEGATIVE TRAVIS, Polyspecific NEGATIVE Positive TRAVIS Work-up TNP Crossmatch See Detail 07/22/22 07/22/22 07/22/22 11:54 11:54 11:54 MCV MCH MCHC RDW Plt Count MPV Absolute Nucleated RBC Nucleated RBC % (auto) Smear Path Review PT INR Anion Gap Estim Creat Clear Calc Estimated GFR Fasting Glucose Calcium Magnesium Total Bilirubin Direct Bilirubin AST ALT Alkaline Phosphatase Total Protein Albumin PTH Intact Calcium (PTH Intact) Proteinase 3 (PR3) Ab <1.0 Myeloperoxidase Ab <1.0 Complement C3 25 L Complement C4 <3 L Hep Bs Antigen Negative Hep Bs Antibody NONREACTIVE Hep B Core Total Ab Nonreactive Hepatitis C Ab (EIA) Reactive H Blood Type Antibody Screen TRAVIS, Polyspecific Positive TRAVIS Work-up Crossmatch 07/23/22 07/23/22 07/23/22 06:40 06:40 06:40 MCV 94.5 MCH 29.6 MCHC 31.4 RDW 15.9 Plt Count 63 L MPV 11.6 Absolute Nucleated RBC 0.000 Nucleated RBC % (auto) 0.0 Smear Path Review PT 34.1 H INR 2.8 H Anion Gap 12 Estim Creat Clear Calc 33.7 Estimated GFR 26 Fasting Glucose 88 Calcium 7.6 L Magnesium 1.7 Total Bilirubin 2.2 H Direct Bilirubin 1.4 H AST 23 D ALT 10 Alkaline Phosphatase 35 L D Total Protein 6.2 L D Albumin 2.1 L PTH Intact Calcium (PTH Intact) Proteinase 3 (PR3) Ab Myeloperoxidase Ab Complement C3 Complement C4 Hep Bs Antigen Hep Bs Antibody Hep B Core Total Ab Hepatitis C Ab (EIA) Blood Type Antibody Screen TRAVIS, Polyspecific Positive TRAVIS Work-up Crossmatch Microbiology Microbiology Results: Microbiology 07/21/22 Unknown Urine Culture - Final Urine clean catch - Urine rios top Streptococcus viridans group Assessment and Plan (1) Coagulopathy: Status: Acute (2) Anemia: Status: Acute (3) Anasarca: Status: Acute Plan 67-year-old male who is not on any prescription medications and has not seen a doctor in over 15 years, presents to the emergency department for evaluation of dyspnea and generalized swelling. found to have elevated creatinine, liver cirrhosis, severe anemia liver cirrhosis with anasarca due to etoh, also positive for HCV, continue follow up secondary work up gi following hematemesis with acute on chronic blood loss anemia s/p 2 units, hgb down to 5.9, transfuse another 2 units ppi, octreotide, midodrine, albumin plan for EGD today LUE swelling check US elevated creatinine YADI vs CKD IV nephro following - lab work up ordered monitor dvt prohpylaxis - mechanical due to coagulopathy full code reason for continued hospitalization:active bleed Quality Stroke Does the patient have a stroke diagnosis?: No VTE Prior VTE?: No VTE Risk Level:: Medical - moderate - high VTE Device Contraindication: Treatment Not Indicated VTE Drug Contraindication: Treatment Not Indicated
--- NOTE | 2022-07-23 15:00 | PC.NURSE ---
2 units of RBC's infused 350ccs each. No reaction noted.
[2022-07-23 15:02] LABS: Prot Elec - Albumin 1.9 g/dL (3.8-4.8); Prot Elec - Alpha1 0.2 g/dL (0.2-0.3); Prot Elec - Alpha2 0.3 g/dL (0.5-0.9); Prot Elec - Beta 1 0.4 g/dL (0.4-0.6); Prot Elec - Beta 2 0.5 g/dL (0.2-0.5); Prot Elec - Gamma 4.5 g/dL (0.8-1.7); Prot Elec - Total Protein 7.8 g/dL (6.1-8.1)
[2022-07-23 15:06] LABS: Haptoglobin 30 mg/dL (43-212)
[2022-07-23 15:18] LABS: Hematocrit 25.3 % (42.0-52.0)
--- NOTE | 2022-07-23 16:01 | P.CONAN_ITS ---
HPI - Anesthesia Eval Consult details Narrative: 67 yo male patient for EGD with gold probe PMFSH Active Problems Active Problems: All Active Problems (Updated 07/23/22 @ 16:03 by Indu Olson MD) Afib (Acute) HCV (hepatitis C virus) (Acute) Alcoholic cirrhosis (Acute) Coagulopathy (Acute) Anemia (Acute)- Hgb 4 on admission . Has received 4u PRBCs since admission. 1 unit today for Hgb 5.9 Repeat Hgb 8.0 . INR 2.8 Anasarca (Acute) Hematemesis overnight Past Medical History Medical History Afib Alcoholic cirrhosis HCV (hepatitis C virus) Family History Family history of problems with anesthesia: No Surgical History Surgical History (Updated 07/23/22 @ 16:18 by Indu Olson MD) History of orthopedic surgery History of Problems with Anesthesia: No Social History Social History (Updated 07/23/22 @ 16:21 by Indu Olson MD) Household Members: None Housing: Apartment Do you presently have visiting nurse or other home services: No Alcohol intake: current Alcohol intake frequency: former alcohol drinker Alcohol type: hard liquor Patient Tobacco Use Status: Never used Tobacco Substance Use Type: Marijuana service: No Meds Allergies Allergy/AdvReac Type Severity Reaction Status Date / Time No Known Allergies Allergy Verified 07/20/22 16:57 Active Medications: Current Medications Folic Acid (Folic Acid 1 Mg Tablet) 5 mg PO DAILY [facility] Last Admin: 07/23/22 08:03 Dose: 5 mg Furosemide 200 mg/ Sodium (Chloride) 100 mls @ 2.5 mls/hr IVCONT .Q24H [facility] Last Infusion: 07/23/22 10:36 Dose: Infused Albumin Human (Kedbumin 25 %) 100 mls @ 100 mls/hr IV Q6H [facility] Stop: 07/23/22 22:59 Last Admin: 07/23/22 15:19 Dose: 100 mls/hr Octreotide Acetate 500 mcg/ (Sodium Chloride) 501 mls @ 50.1 mls/hr IVCONT .Q10H [facility] Last Admin: 07/23/22 11:57 Dose: 50 mcg/hr, 50.1 mls/hr Ceftriaxone Sodium 1 gm/ (Sodium Chloride) 50 mls @ 100 mls/hr IV Q24H [facility] Last Infusion: 07/23/22 11:05 Dose: Infused Metoprolol Tartrate (Metoprolol Tartrate 25 Mg Tablet) 25 mg PO BID [facility]; Protocol Last Admin: 07/23/22 08:06 Dose: Not Given Midodrine (Midodrine Hcl 5 Mg Tablet) 5 mg PO TID [facility] Last Admin: 07/23/22 14:07 Dose: 5 mg Ondansetron HCl (Ondansetron Hcl 4 Mg/2 Ml Vial) 4 mg IVPUSH Q8H PRN PRN Reason: Nausea and Vomiting Pantoprazole Sodium (Pantoprazole Sodium 40 Mg/10 Ml Vial) 40 mg IVPUSH BID@0630,1630 [facility] Last Admin: 07/23/22 15:22 Dose: 40 mg Sodium Chloride (0.9 % Sodium Chloride Flush 3 Ml Syringe) 3 ml IVFLUSH QSHIFT [facility] Last Admin: 07/23/22 15:23 Dose: 3 ml Spironolactone (Spironolactone 25 Mg Tablet) 25 mg PO DAILY [facility]; Protocol Last Admin: 07/23/22 08:03 Dose: 25 mg Home Medications Medication Instructions Recorded Confirmed Last Taken Type naproxen 220 mg-diphenhydramine 25 1 tab PO BEDTIME PRN Pain (Scale 07/21/22 07/21/22 Unknown History mg tablet (Aleve PM) Score 1-3) Exam Exam Date and Time: July 23, 2022 1601 Height,Weight and Vital Signs: Height 5 ft 10 in Weight 99.8 kg Last Vital Signs Temp 98.7 F 07/23/22 15:48 Pulse 87 07/23/22 15:48 Resp 18 07/23/22 15:48 BP 96/54 L 07/23/22 15:48 Pulse Ox 96 07/23/22 15:48 O2 Del Method 07/23/22 15:48 O2 Flow Rate 2 07/23/22 14:10 Pertinent Lab Results Pertinent Lab Results: Laboratory Tests 07/20/22 07/20/22 07/20/22 17:19 17:19 17:19 WBC 7.1 RBC 1.49 L Hgb 4.0 L* Hct 14.4 L* MCV 96.6 MCH 26.8 L MCHC 27.8 L RDW 16.9 H Plt Count 111 L MPV 11.6 Immature Gran % (Auto) 0.6 H Neut % (Auto) 66.9 Lymph % (Auto) 20.0 [place] % (Auto) 10.9 Eos % (Auto) 1.0 Baso % (Auto) 0.6 Lymph # (Auto) 1.4 [place] # (Auto) 0.8 Eos # (Auto) 0.1 Baso # (Auto) 0.0 Abs Immat Gran (auto) 0.04 H Absolute Neuts (auto) 4.7 Absolute Nucleated RBC 0.020 H Nucleated RBC % (auto) 0.3 H Smear Path Review SEE NOTE Absolute Retic Percent Retic Immature Retic Fraction Retic Hgb Equivalent Haptoglobin PT 28.8 H INR 2.4 H Sodium 134 L Potassium 3.7 Chloride 101 Carbon Dioxide 17 L Anion Gap 20 BUN 27 H Creatinine 2.28 H Estim Creat Clear Calc 36.7 Estimated GFR 29 Random Glucose 126 H Fasting Glucose Calcium 7.7 L Magnesium 2.0 Iron TIBC % Saturation Unsat Iron Binding Total Bilirubin 3.1 H Direct Bilirubin AST 31 ALT 15 Alkaline Phosphatase 66 Lactate Dehydrogenase Total Creatine Kinase Troponin I High Sens B-Natriuretic Peptide Total Protein 8.4 H Total Protein (PEP) Albumin 1.8 L Albumin (PEP) Gfnvz-7-Fixzeeuyn Gjovi-8-Qisffpzne Qimk-3-Tzkyysmb Cjtc-2-Lzxtuehm Gamma Globulins PEP Interpretation Lipase Vitamin B12 Folate TSH PTH Intact Calcium (PTH Intact) Urine Color Urine Appearance Urine pH Ur Specific [place] Urine Protein Urine Glucose (UA) Urine Ketones Urine Blood Urine Nitrite Ur Leukocyte Esterase Urine RBC Urine WBC Ur Squamous Epith Cells Urine Bacteria Hyaline Casts Granular Casts U Random Total Protein Ur Random Sodium Urine Creatinine Urine Microalbumin Microalb/Creat Ratio Urine Opiates Screen Urine Fentanyl Screen Ur Barbiturates Screen Ur Phencyclidine Scrn Ur Amphetamines Screen U Benzodiazepines Scrn Urine Cocaine Screen U Marijuana (THC) Screen Ethyl Alcohol Proteinase 3 (PR3) Ab Myeloperoxidase Ab Complement C3 Complement C4 COVID-19 ([facility]) COVID-19 Clin Com Hep Bs Antigen Hep Bs Antibody Hep B Core Total Ab Hepatitis C Ab (EIA) Blood Type Antibody Screen TRAVIS, Polyspecific Positive TRAVIS Work-up Crossmatch 07/20/22 07/20/22 07/20/22 17:19 17:19 17:19 WBC RBC Hgb Hct MCV MCH MCHC RDW Plt Count MPV Immature Gran % (Auto) Neut % (Auto) Lymph % (Auto) [place] % (Auto) Eos % (Auto) Baso % (Auto) Lymph # (Auto) [place] # (Auto) Eos # (Auto) Baso # (Auto) Abs Immat Gran (auto) Absolute Neuts (auto) Absolute Nucleated RBC Nucleated RBC % (auto) Smear Path Review Absolute Retic Percent Retic Immature Retic Fraction Retic Hgb Equivalent Haptoglobin PT INR Sodium Potassium Chloride Carbon Dioxide Anion Gap BUN Creatinine Estim Creat Clear Calc Estimated GFR Random Glucose Fasting Glucose Calcium Magnesium Iron TIBC % Saturation Unsat Iron Binding Total Bilirubin Direct Bilirubin AST ALT Alkaline Phosphatase Lactate Dehydrogenase Total Creatine Kinase Troponin I High Sens 11.0 B-Natriuretic Peptide 450 H Total Protein Total Protein (PEP) Albumin Albumin (PEP) Rhote-6-Gondgishe Qocpp-3-Clvzaruln Esht-8-Tfriqruw Miga-0-Duqckwhu Gamma Globulins PEP Interpretation Lipase Vitamin B12 Folate TSH PTH Intact Calcium (PTH Intact) Urine Color Urine Appearance Urine pH Ur Specific [place] Urine Protein Urine Glucose (UA) Urine Ketones Urine Blood Urine Nitrite Ur Leukocyte Esterase Urine RBC Urine WBC Ur Squamous Epith Cells Urine Bacteria Hyaline Casts Granular Casts U Random Total Protein Ur Random Sodium Urine Creatinine Urine Microalbumin Microalb/Creat Ratio Urine Opiates Screen Urine Fentanyl Screen Ur Barbiturates Screen Ur Phencyclidine Scrn Ur Amphetamines Screen U Benzodiazepines Scrn Urine Cocaine Screen U Marijuana (THC) Screen Ethyl Alcohol < 10 Proteinase 3 (PR3) Ab Myeloperoxidase Ab Complement C3 Complement C4 COVID-19 (ROBY) COVID-19 Clin Com Hep Bs Antigen Hep Bs Antibody Hep B Core Total Ab Hepatitis C Ab (EIA) Blood Type Antibody Screen TRAVIS, Polyspecific Positive TRAVIS Work-up Crossmatch 07/20/22 07/20/22 07/20/22 17:19 17:19 17:19 WBC RBC Hgb Hct MCV MCH MCHC RDW Plt Count MPV Immature Gran % (Auto) Neut % (Auto) Lymph % (Auto) [place] % (Auto) Eos % (Auto) Baso % (Auto) Lymph # (Auto) [place] # (Auto) Eos # (Auto) Baso # (Auto) Abs Immat Gran (auto) Absolute Neuts (auto) Absolute Nucleated RBC Nucleated RBC % (auto) Smear Path Review Absolute Retic Cancelled Percent Retic Cancelled Immature Retic Fraction Cancelled Retic Hgb Equivalent Cancelled Haptoglobin PT INR Sodium Potassium Chloride Carbon Dioxide Anion Gap BUN Creatinine Estim Creat Clear Calc Estimated GFR Random Glucose Fasting Glucose Calcium Magnesium Iron 25 L TIBC 289 % Saturation 9 L Unsat Iron Binding 264 Total Bilirubin Direct Bilirubin AST ALT Alkaline Phosphatase Lactate Dehydrogenase 144 Total Creatine Kinase Troponin I High Sens B-Natriuretic Peptide Total Protein Total Protein (PEP) Albumin Albumin (PEP) Sgmku-6-Pmtslaxvg Kckoh-0-Efhihdpgo Wuay-1-Yqbxbwmg Lsic-1-Qsqeroxw Gamma Globulins PEP Interpretation Lipase Vitamin B12 > 2000 H Folate 3.1 L TSH PTH Intact Calcium (PTH Intact) Urine Color Urine Appearance Urine pH Ur Specific [place] Urine Protein Urine Glucose (UA) Urine Ketones Urine Blood Urine Nitrite Ur Leukocyte Esterase Urine RBC Urine WBC Ur Squamous Epith Cells Urine Bacteria Hyaline Casts Granular Casts U Random Total Protein Ur Random Sodium Urine Creatinine Urine Microalbumin Microalb/Creat Ratio Urine Opiates Screen Urine Fentanyl Screen Ur Barbiturates Screen Ur Phencyclidine Scrn Ur Amphetamines Screen U Benzodiazepines Scrn Urine Cocaine Screen U Marijuana (THC) Screen Ethyl Alcohol Proteinase 3 (PR3) Ab Myeloperoxidase Ab Complement C3 Complement C4 COVID-19 (ROBY) COVID-19 Clin Com Hep Bs Antigen Hep Bs Antibody Hep B Core Total Ab Hepatitis C Ab (EIA) Blood Type Antibody Screen TRAVIS, Polyspecific Positive TRAVIS Work-up Crossmatch 07/20/22 07/20/22 07/20/22 20:54 20:54 22:03 WBC RBC Hgb Hct MCV MCH MCHC RDW Plt Count MPV Immature Gran % (Auto) Neut % (Auto) Lymph % (Auto) [place] % (Auto) Eos % (Auto) Baso % (Auto) Lymph # (Auto) [place] # (Auto) Eos # (Auto) Baso # (Auto) Abs Immat Gran (auto) Absolute Neuts (auto) Absolute Nucleated RBC Nucleated RBC % (auto) Smear Path Review Absolute Retic Percent Retic Immature Retic Fraction Retic Hgb Equivalent Haptoglobin PT INR Sodium 132 L Potassium 3.9 Chloride 100 Carbon Dioxide 20 L Anion Gap 16 BUN 26 H Creatinine 2.18 H Estim Creat Clear Calc 38.3 Estimated GFR 30 Random Glucose 101 Fasting Glucose Calcium 7.8 L Magnesium Iron TIBC % Saturation Unsat Iron Binding Total Bilirubin 2.8 H Direct Bilirubin 1.8 H AST 37 ALT 16 Alkaline Phosphatase 67 Lactate Dehydrogenase Total Creatine Kinase Troponin I High Sens 9.8 B-Natriuretic Peptide Total Protein 8.7 H Total Protein (PEP) Albumin 1.8 L Albumin (PEP) Hpkad-7-Nonoodzbq Rtnox-1-Qfuahbqmg Cmqp-9-Ddwzprfg Rbau-0-Babcsyqv Gamma Globulins PEP Interpretation Lipase 36 Vitamin B12 Folate TSH PTH Intact Calcium (PTH Intact) Urine Color Urine Appearance Urine pH Ur Specific [place] Urine Protein Urine Glucose (UA) Urine Ketones Urine Blood Urine Nitrite Ur Leukocyte Esterase Urine RBC Urine WBC Ur Squamous Epith Cells Urine Bacteria Hyaline Casts Granular Casts U Random Total Protein Ur Random Sodium Urine Creatinine Urine Microalbumin Microalb/Creat Ratio Urine Opiates Screen Urine Fentanyl Screen Ur Barbiturates Screen Ur Phencyclidine Scrn Ur Amphetamines Screen U Benzodiazepines Scrn Urine Cocaine Screen U Marijuana (THC) Screen Ethyl Alcohol Proteinase 3 (PR3) Ab Myeloperoxidase Ab Complement C3 Complement C4 COVID-19 ([facility]OBY) COVID-19 Clin Com Hep Bs Antigen Hep Bs Antibody Hep B Core Total Ab Hepatitis C Ab (EIA) Blood Type B Positive Antibody Screen NEGATIVE TRAVIS, Polyspecific NEGATIVE Positive TRAVIS Work-up TNP Crossmatch See Detail 07/21/22 07/21/22 07/21/22 01:50 06:18 06:20 WBC RBC Hgb Hct MCV MCH MCHC RDW Plt Count MPV Immature Gran % (Auto) Neut % (Auto) Lymph % (Auto) [place] % (Auto) Eos % (Auto) Baso % (Auto) Lymph # (Auto) [place] # (Auto) Eos # (Auto) Baso # (Auto) Abs Immat Gran (auto) Absolute Neuts (auto) Absolute Nucleated RBC Nucleated RBC % (auto) Smear Path Review Absolute Retic Percent Retic Immature Retic Fraction Retic Hgb Equivalent Haptoglobin PT INR Sodium Potassium Chloride Carbon Dioxide Anion Gap BUN Creatinine Estim Creat Clear Calc Estimated GFR Random Glucose Fasting Glucose Calcium Magnesium Iron TIBC % Saturation Unsat Iron Binding Total Bilirubin Direct Bilirubin AST ALT Alkaline Phosphatase Lactate Dehydrogenase Total Creatine Kinase Troponin I High Sens B-Natriuretic Peptide Total Protein Total Protein (PEP) Albumin Albumin (PEP) Vqjzv-8-Sjnmaozzr Pqhir-2-Lhtdpfesl Ycpq-3-Ivqiowzi Mjyy-5-Kouplqmr Gamma Globulins PEP Interpretation Lipase Vitamin B12 Folate TSH PTH Intact Calcium (PTH Intact) Urine Color Dark Yellow Urine Appearance Clear Urine pH 5.0 Ur Specific [place] 1.015 Urine Protein Negative Urine Glucose (UA) Negative Urine Ketones Trace Urine Blood Moderate (2+) H Urine Nitrite Negative Ur Leukocyte Esterase Small (1+) H Urine RBC 3-5 H Urine WBC 6-10 H Ur Squamous Epith Cells 3-5 Urine Bacteria None Seen Hyaline Casts 11-20 Granular Casts Present U Random Total Protein Ur Random Sodium Urine Creatinine Urine Microalbumin Microalb/Creat Ratio Urine Opiates Screen Not Detected Urine Fentanyl Screen Not Detected Ur Barbiturates Screen Not Detected Ur Phencyclidine Scrn Not Detected Ur Amphetamines Screen Not Detected U Benzodiazepines Scrn Not Detected Urine Cocaine Screen Not Detected U Marijuana (THC) Screen POSITIVE H Ethyl Alcohol Proteinase 3 (PR3) Ab Myeloperoxidase Ab Complement C3 Complement C4 COVID-19 ([facility]OBY) Negative COVID-19 Clin Com See Note Hep Bs Antigen Hep Bs Antibody Hep B Core Total Ab Hepatitis C Ab (EIA) Blood Type Antibody Screen TRAVIS, Polyspecific Positive TRAVIS Work-up Crossmatch 07/21/22 07/21/22 07/21/22 06:32 06:32 11:27 WBC 5.4 RBC 2.50 L D Hgb 7.4 L D Hct 23.3 L D MCV 93.2 MCH 29.6 MCHC 31.8 RDW 15.0 Plt Count 73 L D MPV 11.4 Immature Gran % (Auto) 0.7 H Neut % (Auto) 63.0 Lymph % (Auto) 20.6 [place] % (Auto) 11.1 H Eos % (Auto) 3.7 Baso % (Auto) 0.9 Lymph # (Auto) 1.1 L [place] # (Auto) 0.6 Eos # (Auto) 0.2 Baso # (Auto) 0.1 Abs Immat Gran (auto) 0.04 H Absolute Neuts (auto) 3.4 Absolute Nucleated RBC 0.000 Nucleated RBC % (auto) 0.0 Smear Path Review Absolute Retic 0.075 Percent Retic 3.0 H Immature Retic Fraction 25.1 H Retic Hgb Equivalent 27.3 L Haptoglobin PT 26.3 H INR 2.2 H Sodium 133 L Potassium 4.2 Chloride 101 Carbon Dioxide 22 Anion Gap 14 BUN 27 H Creatinine 2.22 H Estim Creat Clear Calc 37.6 Estimated GFR 30 Random Glucose 91 Fasting Glucose Calcium 7.7 L Magnesium Iron TIBC % Saturation Unsat Iron Binding Total Bilirubin 4.9 H Direct Bilirubin AST 46 H ALT 15 Alkaline Phosphatase 66 Lactate Dehydrogenase Total Creatine Kinase Troponin I High Sens B-Natriuretic Peptide Total Protein 8.6 H Total Protein (PEP) Albumin 1.8 L Albumin (PEP) Iahsu-5-Fvyhlycfl Qesna-3-Rnojzldyt Wozi-0-Rwgudvga Bnrg-0-Vewngpto Gamma Globulins PEP Interpretation Lipase Vitamin B12 Folate TSH PTH Intact Calcium (PTH Intact) Urine Color Urine Appearance Urine pH Ur Specific [place] Urine Protein Urine Glucose (UA) Urine Ketones Urine Blood Urine Nitrite Ur Leukocyte Esterase Urine RBC Urine WBC Ur Squamous Epith Cells Urine Bacteria Hyaline Casts Granular Casts U Random Total Protein Ur Random Sodium Urine Creatinine Urine Microalbumin Microalb/Creat Ratio Urine Opiates Screen Urine Fentanyl Screen Ur Barbiturates Screen Ur Phencyclidine Scrn Ur Amphetamines Screen U Benzodiazepines Scrn Urine Cocaine Screen U Marijuana (THC) Screen Ethyl Alcohol Proteinase 3 (PR3) Ab Myeloperoxidase Ab Complement C3 Complement C4 COVID-19 ([facility]OBY) COVID-19 Clin Com Hep Bs Antigen Hep Bs Antibody Hep B Core Total Ab Hepatitis C Ab (EIA) Blood Type Antibody Screen TRAVIS, Polyspecific Positive TRAVIS Work-up Crossmatch 07/21/22 07/22/22 07/22/22 11:27 05:15 05:15 WBC Cancelled RBC Cancelled Hgb Cancelled Hct Cancelled MCV Cancelled MCH Cancelled MCHC Cancelled RDW Cancelled Plt Count Cancelled MPV Cancelled Immature Gran % (Auto) Neut % (Auto) Lymph % (Auto) [place] % (Auto) Eos % (Auto) Baso % (Auto) Lymph # (Auto) [place] # (Auto) Eos # (Auto) Baso # (Auto) Abs Immat Gran (auto) Absolute Neuts (auto) Absolute Nucleated RBC Cancelled Nucleated RBC % (auto) Cancelled Smear Path Review Absolute Retic Percent Retic Immature Retic Fraction Retic Hgb Equivalent Haptoglobin PT INR Sodium 133 L Potassium 3.9 Chloride 102 Carbon Dioxide 26 Anion Gap 9 L BUN 25 H Creatinine 1.94 H Estim Creat Clear Calc 43.1 Estimated GFR 35 Random Glucose 104 Fasting Glucose Calcium 7.5 L Magnesium Iron TIBC % Saturation Unsat Iron Binding Total Bilirubin 3.2 H Direct Bilirubin AST 34 ALT 14 Alkaline Phosphatase 66 Lactate Dehydrogenase Total Creatine Kinase Troponin I High Sens B-Natriuretic Peptide Total Protein 7.8 Total Protein (PEP) 7.8 Albumin 1.6 L Albumin (PEP) 1.9 L Wbogy-8-Bevarpiss 0.2 Jxirt-1-Nemgfkcxd 0.3 L Gmxa-7-Cjiujmiz 0.4 Klgr-9-Pztyxfzi 0.5 Gamma Globulins 4.5 H PEP Interpretation SEE NOTE Lipase Vitamin B12 Folate TSH 2.23 PTH Intact Calcium (PTH Intact) Urine Color Urine Appearance Urine pH Ur Specific [place] Urine Protein Urine Glucose (UA) Urine Ketones Urine Blood Urine Nitrite Ur Leukocyte Esterase Urine RBC Urine WBC Ur Squamous Epith Cells Urine Bacteria Hyaline Casts Granular Casts U Random Total Protein Ur Random Sodium Urine Creatinine Urine Microalbumin Microalb/Creat Ratio Urine Opiates Screen Urine Fentanyl Screen Ur Barbiturates Screen Ur Phencyclidine Scrn Ur Amphetamines Screen U Benzodiazepines Scrn Urine Cocaine Screen U Marijuana (THC) Screen Ethyl Alcohol Proteinase 3 (PR3) Ab Myeloperoxidase Ab Complement C3 Complement C4 COVID-19 ([facility]) COVID-19 Clin Com Hep Bs Antigen Hep Bs Antibody Hep B Core Total Ab Hepatitis C Ab (EIA) Blood Type Antibody Screen TRAVIS, Polyspecific Positive TRAVIS Work-up Crossmatch 07/22/22 07/22/22 07/22/22 11:54 11:54 11:54 WBC RBC Hgb Hct MCV MCH MCHC RDW Plt Count MPV Immature Gran % (Auto) Neut % (Auto) Lymph % (Auto) [place] % (Auto) Eos % (Auto) Baso % (Auto) Lymph # (Auto) [place] # (Auto) Eos # (Auto) Baso # (Auto) Abs Immat Gran (auto) Absolute Neuts (auto) Absolute Nucleated RBC Nucleated RBC % (auto) Smear Path Review Absolute Retic Percent Retic Immature Retic Fraction Retic Hgb Equivalent Haptoglobin 30 L PT INR Sodium Potassium Chloride Carbon Dioxide Anion Gap BUN Creatinine Estim Creat Clear Calc Estimated GFR Random Glucose Fasting Glucose Calcium Magnesium Iron TIBC % Saturation Unsat Iron Binding Total Bilirubin Direct Bilirubin AST ALT Alkaline Phosphatase Lactate Dehydrogenase 177 Total Creatine Kinase 50 Troponin I High Sens B-Natriuretic Peptide Total Protein Total Protein (PEP) Albumin Albumin (PEP) Nbzdu-0-Ldcbyurpy Kpuad-2-Zqqxtxznh Rbwg-9-Zzrcinjx Hwvr-0-Vuhtenni Gamma Globulins PEP Interpretation Lipase Vitamin B12 Folate TSH PTH Intact 72 Calcium (PTH Intact) 8.0 L Urine Color Urine Appearance Urine pH Ur Specific [place] Urine Protein Urine Glucose (UA) Urine Ketones Urine Blood Urine Nitrite Ur Leukocyte Esterase Urine RBC Urine WBC Ur Squamous Epith Cells Urine Bacteria Hyaline Casts Granular Casts U Random Total Protein Ur Random Sodium Urine Creatinine Urine Microalbumin Microalb/Creat Ratio Urine Opiates Screen Urine Fentanyl Screen Ur Barbiturates Screen Ur Phencyclidine Scrn Ur Amphetamines Screen U Benzodiazepines Scrn Urine Cocaine Screen U Marijuana (THC) Screen Ethyl Alcohol Proteinase 3 (PR3) Ab <1.0 Myeloperoxidase Ab <1.0 Complement C3 Complement C4 COVID-19 (ROBY) COVID-19 Clin Com Hep Bs Antigen Hep Bs Antibody Hep B Core Total Ab Hepatitis C Ab (EIA) Blood Type Antibody Screen TRAVIS, Polyspecific Positive TRAVIS Work-up Crossmatch 07/22/22 07/22/22 07/22/22 11:54 11:54 Unknown WBC RBC Hgb Hct MCV MCH MCHC RDW Plt Count MPV Immature Gran % (Auto) Neut % (Auto) Lymph % (Auto) [place] % (Auto) Eos % (Auto) Baso % (Auto) Lymph # (Auto) [place] # (Auto) Eos # (Auto) Baso # (Auto) Abs Immat Gran (auto) Absolute Neuts (auto) Absolute Nucleated RBC Nucleated RBC % (auto) Smear Path Review Absolute Retic Percent Retic Immature Retic Fraction Retic Hgb Equivalent Haptoglobin PT INR Sodium Potassium Chloride Carbon Dioxide Anion Gap BUN Creatinine Estim Creat Clear Calc Estimated GFR Random Glucose Fasting Glucose Calcium Magnesium Iron TIBC % Saturation Unsat Iron Binding Total Bilirubin Direct Bilirubin AST ALT Alkaline Phosphatase Lactate Dehydrogenase Total Creatine Kinase Troponin I High Sens B-Natriuretic Peptide Total Protein Total Protein (PEP) Albumin Albumin (PEP) Eujjm-9-Xbwosagjp Plokl-9-Yxvaxqwli Rhcp-5-Zscuxqwm Yiex-4-Bmqfkkiv Gamma Globulins PEP Interpretation Lipase Vitamin B12 Folate TSH PTH Intact Calcium (PTH Intact) Urine Color Urine Appearance Urine pH Ur Specific [place] Urine Protein Urine Glucose (UA) Urine Ketones Urine Blood Urine Nitrite Ur Leukocyte Esterase Urine RBC Urine WBC Ur Squamous Epith Cells Urine Bacteria Hyaline Casts Granular Casts U Random Total Protein < 7 Ur Random Sodium 94.0 Urine Creatinine 37.12 Urine Microalbumin < 5.0 Microalb/Creat Ratio TNP Urine Opiates Screen Urine Fentanyl Screen Ur Barbiturates Screen Ur Phencyclidine Scrn Ur Amphetamines Screen U Benzodiazepines Scrn Urine Cocaine Screen U Marijuana (THC) Screen Ethyl Alcohol Proteinase 3 (PR3) Ab Myeloperoxidase Ab Complement C3 25 L Complement C4 <3 L COVID-19 (ROBY) COVID-19 Clin Com Hep Bs Antigen Negative Hep Bs Antibody NONREACTIVE Hep B Core Total Ab Nonreactive Hepatitis C Ab (EIA) Reactive H Blood Type Antibody Screen TRAVIS, Polyspecific Positive TRAVIS Work-up Crossmatch 07/23/22 07/23/22 07/23/22 06:40 06:40 06:40 WBC 9.7 RBC 1.99 L D Hgb 5.9 L* D Hct 18.8 L* MCV 94.5 MCH 29.6 MCHC 31.4 RDW 15.9 Plt Count 63 L MPV 11.6 Immature Gran % (Auto) Neut % (Auto) Lymph % (Auto) [place] % (Auto) Eos % (Auto) Baso % (Auto) Lymph # (Auto) [place] # (Auto) Eos # (Auto) Baso # (Auto) Abs Immat Gran (auto) Absolute Neuts (auto) Absolute Nucleated RBC 0.000 Nucleated RBC % (auto) 0.0 Smear Path Review Absolute Retic Percent Retic Immature Retic Fraction Retic Hgb Equivalent Haptoglobin PT 34.1 H INR 2.8 H Sodium 133 L Potassium 4.3 Chloride 100 Carbon Dioxide 25 Anion Gap 12 BUN 33 H Creatinine 2.48 H Estim Creat Clear Calc 33.7 Estimated GFR 26 Random Glucose Fasting Glucose 88 Calcium 7.6 L Magnesium 1.7 Iron TIBC % Saturation Unsat Iron Binding Total Bilirubin 2.2 H Direct Bilirubin 1.4 H AST 23 D ALT 10 Alkaline Phosphatase 35 L D Lactate Dehydrogenase Total Creatine Kinase Troponin I High Sens B-Natriuretic Peptide Total Protein 6.2 L D Total Protein (PEP) Albumin 2.1 L Albumin (PEP) Aipck-3-Nvdpzcsnu Xaebi-1-Xsegwawjn Qrck-9-Jeqazwdx Abon-2-Rtnkqxpx Gamma Globulins PEP Interpretation Lipase Vitamin B12 Folate TSH PTH Intact Calcium (PTH Intact) Urine Color Urine Appearance Urine pH Ur Specific [place] Urine Protein Urine Glucose (UA) Urine Ketones Urine Blood Urine Nitrite Ur Leukocyte Esterase Urine RBC Urine WBC Ur Squamous Epith Cells Urine Bacteria Hyaline Casts Granular Casts U Random Total Protein Ur Random Sodium Urine Creatinine Urine Microalbumin Microalb/Creat Ratio Urine Opiates Screen Urine Fentanyl Screen Ur Barbiturates Screen Ur Phencyclidine Scrn Ur Amphetamines Screen U Benzodiazepines Scrn Urine Cocaine Screen U Marijuana (THC) Screen Ethyl Alcohol Proteinase 3 (PR3) Ab Myeloperoxidase Ab Complement C3 Complement C4 COVID-19 (ROBY) COVID-19 Clin Com Hep Bs Antigen Hep Bs Antibody Hep B Core Total Ab Hepatitis C Ab (EIA) Blood Type Antibody Screen TRAVIS, Polyspecific Positive TRAVIS Work-up Crossmatch 07/23/22 14:57 WBC RBC Hgb 8.0 L D Hct 25.3 L D MCV MCH MCHC RDW Plt Count MPV Immature Gran % (Auto) Neut % (Auto) Lymph % (Auto) [place] % (Auto) Eos % (Auto) Baso % (Auto) Lymph # (Auto) [place] # (Auto) Eos # (Auto) Baso # (Auto) Abs Immat Gran (auto) Absolute Neuts (auto) Absolute Nucleated RBC Nucleated RBC % (auto) Smear Path Review Absolute Retic Percent Retic Immature Retic Fraction Retic Hgb Equivalent Haptoglobin PT INR Sodium Potassium Chloride Carbon Dioxide Anion Gap BUN Creatinine Estim Creat Clear Calc Estimated GFR Random Glucose Fasting Glucose Calcium Magnesium Iron TIBC % Saturation Unsat Iron Binding Total Bilirubin Direct Bilirubin AST ALT Alkaline Phosphatase Lactate Dehydrogenase Total Creatine Kinase Troponin I High Sens B-Natriuretic Peptide Total Protein Total Protein (PEP) Albumin Albumin (PEP) Lmsnm-0-Lavrpausd Optvr-6-Duqlcmxns Puom-2-Xpmobgsm Dwcy-5-Dqjpztmm Gamma Globulins PEP Interpretation Lipase Vitamin B12 Folate TSH PTH Intact Calcium (PTH Intact) Urine Color Urine Appearance Urine pH Ur Specific [place] Urine Protein Urine Glucose (UA) Urine Ketones Urine Blood Urine Nitrite Ur Leukocyte Esterase Urine RBC Urine WBC Ur Squamous Epith Cells Urine Bacteria Hyaline Casts Granular Casts U Random Total Protein Ur Random Sodium Urine Creatinine Urine Microalbumin Microalb/Creat Ratio Urine Opiates Screen Urine Fentanyl Screen Ur Barbiturates Screen Ur Phencyclidine Scrn Ur Amphetamines Screen U Benzodiazepines Scrn Urine Cocaine Screen U Marijuana (THC) Screen Ethyl Alcohol Proteinase 3 (PR3) Ab Myeloperoxidase Ab Complement C3 Complement C4 COVID-19 (ROBY) COVID-19 Clin Com Hep Bs Antigen Hep Bs Antibody Hep B Core Total Ab Hepatitis C Ab (EIA) Blood Type Antibody Screen TRAVIS, Polyspecific Positive TRAVIS Work-up Crossmatch Narrative Narrative: Left upper extremity extremely swollen and red Airway Mallampati Class: III (Small mouth) TM Dist: >3cm Neck ROM: Full Loose/Missing/Broken Teeth: Yes (Some missing. Denies broken or loose teeth) Heart: RRR Lungs: CTAB Assessment and Plan Assessment Anesthesia Assessment: Anesthesia Plan Discussed and Chart Reviewed Final Anesthetic Review Family History of Problems with Anesthesia: No History of Problems with Anesthesia: No NPO: Yes ASA Class: IV and Emergency Final Preanesthetic Review: No Changes in Pt Med Stat, Meds/Allgs Chart Reviewed, Consent Obtained/Reviewed and Anes Risks/Benef Reviewed Patient Risk: High Procedure Risk: Intermediate Assessment/Block/Sedation in SS: Assess/Block/Sedation-SS Anesthetic Plan Anesthetic Plan: GA and MAC: Disposition: Standard PACU and Inp. Admit - Standard Bed
--- NOTE | 2022-07-23 16:01 | PM.EVENT ---
Event Note Date of Service: 07/23/22 Event Note: GI pt seen and examined, discussed with Dr Jamil he had a reported episode of hematemesis last pm hct down this am requiring blood transfusion inr worse despite vitamin k ffp ordered plan is for egd later today as he ate breakfast he is aware of risks and benefits and agrees to proceed
--- NOTE | 2022-07-23 17:23 | PM.EVENT ---
Event Note Date of Service: 07/23/22 Event Note: EGD note dictated erosive esophagitis small hiatal hernia mild portal hypertensive gastropathy and gastritis nl duodenum no varices no bleeding rec cont ppi follow hct/inr advance diet
--- NOTE | 2022-07-23 17:26 | P.BOP_ITS ---
Brief Operative Note Date of Service: 07/23/22 Pre-op diagnosis: gi bleed Post-op diagnosis: same Procedure: egd Surgeon: Daljit Tan Anesthesia: MAC Was an Graphic Art Designer used for this Procedure?: No Estimated blood loss (mL): 0 Pathology: none sent Condition: stable Disposition: PACU
--- NOTE | 2022-07-23 22:57 | OP_ITS ---
SURGEON: Daljit Tan MD INDICATIONS: Upper GI bleeding. PREOPERATIVE DIAGNOSIS: POSTOPERATIVE DIAGNOSIS: PROCEDURE PERFORMED: Upper endoscopy on 07/23/22, ESTIMATED BLOOD LOSS: COMPLICATIONS: ANESTHESIA: Monitored anesthesia care. ASSISTANTS: SPECIMENS: DESCRIPTION OF PROCEDURE: History and physical was performed. The risks and benefits of the procedure were explained to the patient. Informed consent was obtained. The patient was placed in the left lateral decubitus position. The Olympus video gastroscope was introduced into the esophagus, stomach, and duodenum. Examination was performed. The scope was removed. He tolerated the procedure well and was taken to recovery in stable condition. FINDINGS: Esophagus: No varices were present. There was erosive esophagitis over the distal 1/3 of the esophagus with no active bleeding. There was a small hiatal hernia. Stomach: The stomach showed mild changes of portal hypertensive gastropathy and some mild gastritis, but no active bleeding. Duodenum: The bulb and second portion were normal. IMPRESSION: 1. Erosive esophagitis. 2. Portal hypertensive gastropathy. 3. Gastritis. RECOMMENDATIONS: 1. Continue supportive care. 2. Proton pump inhibitor. 3. Monitor hematocrit and coagulopathy. MD GISSELLE Navarrete/SOLED[place] / [phone] MTDD
[2022-07-24 03:09] VITALS: BP 101/53; PULSE 77; RESP 14; TEMP 36; O2SAT 98
[2022-07-24] MEDS: Pantoprazole Sodium 40 MG/10 ML VIAL IVPUSH ×2 (05:34→16:52)
[2022-07-24 07:06] VITALS: BP 111/59; PULSE 75; RESP 20; TEMP 37; O2SAT 99
[2022-07-24] MEDS: Spironolactone 25 MG TABLET PO (07:36)
[2022-07-24] MEDS: Folic Acid 1 MG TABLET 5 MG PO (07:36)
[2022-07-24] MEDS: Midodrine HCl 5 MG TABLET PO (07:36)
[2022-07-24] MEDS: Metoprolol Tartrate 25 MG TABLET PO (07:36)
[2022-07-24] MEDS: Octreotide Acetate 500 MCG in 0.9 % Sodium Chloride 500 ML 50.1 MCG IVCONT ×2 (07:37→22:31)
[2022-07-24] MEDS: 0.9 % Sodium Chloride Flush 3 ML SYRINGE IVFLUSH ×3 (07:37→20:08)
[2022-07-24 08:46] LABS: Hematocrit 24.3 % (42.0-52.0); Hemoglobin 7.4 g/dl (14.0-18.0); Mean Corpuscular HGB Conc 30.5 g/dl (31.0-36.0); Mean Corpuscular Hemoglobin 28.4 pg (27.0-33.0); Mean Corpuscular Volume 93.1 fL (80.0-98.0); Mean Platelet Volume 12.5 fL (9.4-12.4); Red Blood Count 2.61 X10*6/uL (4.60-5.80); Red Cell Distribution Width 18.6 % (11.0-16.0); White Blood Count 8.7 X10*3/uL (4.8-10.8)
[2022-07-24 08:49] LABS: Platelet Count 52 X10*3/uL (160-400)
[2022-07-24 08:51] LABS: Haptoglobin 40 mg/dL (43-212)
[2022-07-24 08:53] LABS: INTERNATIONAL NORM RATIO 2.3 (0.9-1.1); Prothrombin Time 26.8 SEC (10.0-13.1)
[2022-07-24 09:27] LABS: Alanine Aminotransferase 8 U/L (0-40); Albumin Level 2.8 g/dL (3.5-5.0); Alkaline Phosphatase 40 U/L (39-117); Anion Gap 12 (12-20); Aspartate Amino Transferase 17 U/L (5-37); Bilirubin Direct 1.6 mg/dL (0.0-0.5); Bilirubin Total 3.4 mg/dL (0.0-1.0); Blood Urea Nitrogen 43 mg/dL (9-16); Calcium 7.9 mg/dL (8.4-10.2); Carbon Dioxide 26 mmol/L (22-29); Chloride 99 mmol/L (96-108); Creatinine Clr Calc Pharmacy 24.8; Estimated Glomerular Filt Rate 18; Glucose Fasting 124 mg/dL (60-99); Potassium 4.3 mmol/L (3.3-5.1); Sodium 133 mmol/L (135-145); Total Protein 6.5 g/dL (6.5-8.0)
--- NOTE | 2022-07-24 10:57 | PM.PNNEP ---
Subjective Subjective Date of Service: 07/24/22 Principal diagnosis: YADI/CKD and anasarca Interval history: Seen and examined, events noted SCr signif incr past 24 hrs UOP??--hernandez leak Physical Exam Vital Signs: Vital Signs: Last Vital Signs Temp 98.6 F 07/24/22 07:06 Pulse 75 07/24/22 07:06 Resp 20 07/24/22 07:06 BP 111/59 L 07/24/22 07:06 Pulse Ox 99 07/24/22 07:06 O2 Del Method 07/24/22 07:06 O2 Flow Rate 2 07/24/22 07:06 BMI result Body Mass Index 31.6 Const: Other: ?Middle-aged male lying in bed in no distress Neck supple Regular rate and rhythm, S1-S2 heard Regular breath sounds bilaterally, no wheezing or crackles appreciated Abdomen firm and distended with pre-sacral edema Patient is awake, alert and oriented to self, place, time and person ; no focal motor deficit Psych: Normal mood Significant +2 extremity edema General: cooperative, acute distress mild, in distress mild and respiratory and ill appearing; No confusion Nutritional Appearance: overweight and Edematous Orientation/consciousness: patient oriented x3 and No confusion HEENT: Head: Yes normal to inspection, Yes normocephalic and Yes atraumatic Ears: hearing grossly normal bilaterally and external ears normal General nose exam: Normal external nose present Face and sinus: Yes normal facial exam Eyes: Conjunctivae: conjunctivae normal Sclerae: sclerae normal Pupils: Equal, round and reactive pupils present EOM: EOMs intact bilaterally Neck: Neck: Yes normal visual inspection, Yes full ROM, Yes trachea midline, Yes supple and Yes JVD Chest: Chest palpation & inspection: normal inspection of the chest and no masses Resp: Effort & Inspection: abnormal respiratory effort, no cough, decreased respiratory effort, labored (Slightly), no retractions and not tachypneic Auscultation: crackles and diminished lung sounds Cardio: Jugular venous distension: JVD Rate: regular rate Rhythm: regular rhythm and abnormal rhythm irregularly irregular Heart sounds: S1 normal heart sound present, S2 normal heart sound present, no click, no gallops and no murmurs GI: Inspection: Yes Abdominal wall edema and Yes distended Percussion: Yes normal to percussion Auscultation: normal bowel sounds Back/Spine/Pelvis: Cervical Spine: normal cervical lordosis and cervical ROM normal Coccyx: swelling Skin: General skin exam: no rashes or lesions noted, ecchymosis, pallor and other (Redness of the left upper extremity) Neuro: General: patient oriented x3, no focal motor deficits, No confusion and Unable to assess gait Cranial nerves: Yes CN's II-XII intact bilaterally and Yes Equal, round and reactive pupils present Cognition (Neuro): normal cognition Speech: No Abnormal speech present Gait exam (Neuro): Unable to assess gait Extrem: Other: L UE maerked swellng/ecchymosis General: No no pedal edema, No cyanosis, Yes edema and Yes other (Generalized edema) Objective Data Labs CBC & Chem 7: 07/24/22 08:31 07/24/22 08:31 Labs: Laboratory Results - last 24 hr 07/20/22 07/20/22 07/22/22 17:19 22:03 05:15 WBC RBC Hgb Hct MCV MCH MCHC RDW Plt Count MPV Absolute Nucleated RBC Nucleated RBC % (auto) Haptoglobin 40 L PT INR Sodium Potassium Chloride Carbon Dioxide Anion Gap BUN Creatinine Estim Creat Clear Calc Estimated GFR Fasting Glucose Calcium Total Bilirubin Direct Bilirubin AST ALT Alkaline Phosphatase Total Protein Total Protein (PEP) 7.8 Albumin Albumin (PEP) 1.9 L Kdjzm-1-Gtmgotgmx 0.2 Djstm-6-Mccibzapn 0.3 L Nvhf-2-Mblbqdbw 0.4 Vtpn-1-Veulkqtj 0.5 Gamma Globulins 4.5 H PEP Interpretation SEE NOTE PTH Intact Calcium (PTH Intact) Proteinase 3 (PR3) Ab Myeloperoxidase Ab Blood Type B Positive Antibody Screen NEGATIVE TRAVIS, Polyspecific NEGATIVE Positive TRAVIS Work-up TNP Crossmatch See Detail 07/22/22 07/22/22 07/23/22 11:54 11:54 14:57 WBC RBC Hgb 8.0 L D Hct 25.3 L D MCV MCH MCHC RDW Plt Count MPV Absolute Nucleated RBC Nucleated RBC % (auto) Haptoglobin 30 L PT INR Sodium Potassium Chloride Carbon Dioxide Anion Gap BUN Creatinine Estim Creat Clear Calc Estimated GFR Fasting Glucose Calcium Total Bilirubin Direct Bilirubin AST ALT Alkaline Phosphatase Total Protein Total Protein (PEP) Albumin Albumin (PEP) Ilwro-5-Ybxqikzrx Dfala-1-Pxsnphrln Gskr-1-Weshsjdy Oxkl-9-Ilgvqhqq Gamma Globulins PEP Interpretation PTH Intact 72 Calcium (PTH Intact) 8.0 L Proteinase 3 (PR3) Ab <1.0 Myeloperoxidase Ab <1.0 Blood Type Antibody Screen TRAVIS, Polyspecific Positive TRAVIS Work-up Crossmatch 07/24/22 07/24/22 07/24/22 08:31 08:31 08:31 WBC 8.7 RBC 2.61 L D Hgb 7.4 L Hct 24.3 L MCV 93.1 MCH 28.4 MCHC 30.5 L RDW 18.6 H Plt Count 52 L MPV 12.5 H Absolute Nucleated RBC 0.000 Nucleated RBC % (auto) 0.0 Haptoglobin PT 26.8 H INR 2.3 H Sodium 133 L Potassium 4.3 Chloride 99 Carbon Dioxide 26 Anion Gap 12 BUN 43 H Creatinine 3.37 H Estim Creat Clear Calc 24.8 Estimated GFR 18 Fasting Glucose 124 H D Calcium 7.9 L Total Bilirubin 3.4 H Direct Bilirubin 1.6 H AST 17 ALT 8 Alkaline Phosphatase 40 Total Protein 6.5 Total Protein (PEP) Albumin 2.8 L D Albumin (PEP) Dnoos-7-Pbcjzkxzy Tztyv-8-Dpqcvrbmr Wdwb-5-Uqlmmvec Xxvd-4-Vuwgqrxj Gamma Globulins PEP Interpretation PTH Intact Calcium (PTH Intact) Proteinase 3 (PR3) Ab Myeloperoxidase Ab Blood Type Antibody Screen TRAVIS, Polyspecific Positive TRAVIS Work-up Crossmatch Microbiology Microbiology Results: Microbiology 07/21/22 Unknown Urine clean catch - Urine rios top Urine Culture - Final Streptococcus viridans group Procedures Date of Service Date of Service: 07/24/22 Assessment & Plan Assessment and plan (1) Anasarca: Status: Acute Assessment and Plan: 1. YADI: signif incr Scr past 24 hrs 2.3--> 3.3 is concerning and most c/w HRS type 1 Other poss: Obs: r/o by hernandez and no hydro on u/s multifact ATN TMA: despite low PLTs and low Hapto the LDH is not elevated and no shistocytesd makes this unlikley 2. CKD: no old recs but still suspect component of CKD 3. Anasarca: d/t Liver Cirrhosis; echo result do not point to card cause and no signif Uprot excludes NSyn; Still Low alb state contributing Unclear if he is respondig to diuresis given leaking hernandez 4. LUE swollen/ecchymosis; DVT r/o 5. Anemia: decr Hb again--GIB, bleeding into LUE 6. Cirrhosis REC: hold diuretics; cont octreotide, IV alb 1 gm/kg per day; mdirdine; consider urol to place a larger hernandez will follow clsoley with team Willfollow clsoley with team Time Spent With Patient Time: Total time spent is greater than 50% in coordination of care (as documented) at patient's floor/unit and/or counseling patient: Progress Note: Quality Stroke Does the patient have a stroke diagnosis?: No
[2022-07-24 10:58] VITALS: BP 105/54; PULSE 60; RESP 19; TEMP 35.5; O2SAT 100
[2022-07-24 11:12] VITALS: BMI 31.6
[2022-07-24] MEDS: Tamsulosin HCL 0.4 MG CAPSULE PO (11:39)
[2022-07-24] MEDS: cefTRIAXone sodium 1 GM in 0.9 % Sodium Chloride 50 ML IV (11:39)
--- NOTE | 2022-07-24 11:55 | HO.PM.IMPN ---
Subjective Subjective Date of Service: 07/24/22 Interval History: the patient was seen and evaluated this morning Laying in bed, feels little better with decreased swelling in his lower extremities Creatinine continue to increase No reported other overnight events. Systemic review: No fever, chills or weakness No chest pain, palpitation Improving shortness of breath or coughing No abdominal pain, nausea or vomiting No urinary symptoms No reported rash Physical Exam Vital Signs: Vital Signs: Last Vital Signs Temp 96 F L 07/24/22 10:58 Pulse 60 07/24/22 10:58 Resp 19 07/24/22 10:58 BP 105/54 L 07/24/22 10:58 Pulse Ox 100 07/24/22 10:58 O2 Del Method 07/24/22 10:58 O2 Flow Rate 2 07/24/22 10:58 BMI result Body Mass Index 31.6 Const: Other: Constitutional : Awake, interactive, not in distress Neck : Normal inspection, Supple Cardiovascular : RRR, no JVP, no lower extremity edema Respiratory : Fair bilateral air entry, no crackles, wheezes or rhonchi Gastrointestinal: soft, lax, Normal bowel sounds, distended abdomen with no tenderness Skin : Warm, Dry Neurological : Alert & oriented x3, No focal deficit Objective Data Active Medications Folic Acid (Folic Acid 1 Mg Tablet) 5 mg PO DAILY [facility] Last Admin: 07/24/22 07:36 Dose: 5 mg Documented By: ARNALDO Octreotide Acetate 500 mcg/ (Sodium Chloride) 501 mls @ 50.1 mls/hr IVCONT .Q10H [facility] Last Admin: 07/24/22 07:37 Dose: 50 mcg/hr, 50.1 mls/hr Documented By: ARNALDO Ceftriaxone Sodium 1 gm/ (Sodium Chloride) 50 mls @ 100 mls/hr IV Q24H [facility] Last Admin: 07/24/22 11:39 Dose: 100 mls/hr Documented By: ARNALDO Albumin Human (Kedbumin 25 %) 100 mls @ 100 mls/hr IV Q6H [facility] Stop: 07/25/22 06:14 Metoprolol Tartrate (Metoprolol Tartrate 25 Mg Tablet) 25 mg PO BID [facility]; Protocol Last Admin: 07/24/22 07:36 Dose: 25 mg Documented By: ARNALDO Midodrine (Midodrine Hcl 10 Mg Tablet) 10 mg PO TID [facility] Ondansetron HCl (Ondansetron Hcl 4 Mg/2 Ml Vial) 4 mg IVPUSH Q8H PRN PRN Reason: Nausea and Vomiting Pantoprazole Sodium (Pantoprazole Sodium 40 Mg/10 Ml Vial) 40 mg IVPUSH BID@0630,1630 [facility] Last Admin: 07/24/22 05:34 Dose: 40 mg Documented By: KALPANA Sodium Chloride (0.9 % Sodium Chloride Flush 3 Ml Syringe) 3 ml IVFLUSH QSHIFT [facility] Last Admin: 07/24/22 07:37 Dose: 3 ml Documented By: ARNALDO Tamsulosin HCl (Tamsulosin Hcl 0.4 Mg Capsule) 0.4 mg PO DAILY [facility] Last Admin: 07/24/22 11:39 Dose: 0.4 mg Documented By: ARNALDO Labs CBC & Chem 7: 07/24/22 08:31 07/24/22 08:31 Labs: Laboratory Results - last 24 hr 07/20/22 07/20/22 07/22/22 17:19 22:03 05:15 MCV MCH MCHC RDW Plt Count MPV Absolute Nucleated RBC Nucleated RBC % (auto) Haptoglobin 40 L PT INR Anion Gap Estim Creat Clear Calc Estimated GFR Fasting Glucose Calcium Total Bilirubin Direct Bilirubin AST ALT Alkaline Phosphatase Total Protein Total Protein (PEP) 7.8 Albumin Albumin (PEP) 1.9 L Tcxrw-9-Bxisdvjsb 0.2 Okkbk-6-Aoevdtsuc 0.3 L Hlvj-9-Qxqcwznj 0.4 Lazv-1-Xjxsudbe 0.5 Gamma Globulins 4.5 H PEP Interpretation SEE NOTE PTH Intact Calcium (PTH Intact) Proteinase 3 (PR3) Ab Myeloperoxidase Ab Blood Type B Positive Antibody Screen NEGATIVE TRAVIS, Polyspecific NEGATIVE Positive TRAVIS Work-up TNP Crossmatch See Detail 07/22/22 07/22/22 07/24/22 11:54 11:54 08:31 MCV 93.1 MCH 28.4 MCHC 30.5 L RDW 18.6 H Plt Count 52 L MPV 12.5 H Absolute Nucleated RBC 0.000 Nucleated RBC % (auto) 0.0 Haptoglobin 30 L PT INR Anion Gap Estim Creat Clear Calc Estimated GFR Fasting Glucose Calcium Total Bilirubin Direct Bilirubin AST ALT Alkaline Phosphatase Total Protein Total Protein (PEP) Albumin Albumin (PEP) Jmari-3-Htsastoeo Zzrhj-5-Gzgswlpmn Cwvk-5-Chrbnych Vqke-1-Dffkexaj Gamma Globulins PEP Interpretation PTH Intact 72 Calcium (PTH Intact) 8.0 L Proteinase 3 (PR3) Ab <1.0 Myeloperoxidase Ab <1.0 Blood Type Antibody Screen TRAVIS, Polyspecific Positive TRAVIS Work-up Crossmatch 07/24/22 07/24/22 08:31 08:31 MCV MCH MCHC RDW Plt Count MPV Absolute Nucleated RBC Nucleated RBC % (auto) Haptoglobin PT 26.8 H INR 2.3 H Anion Gap 12 Estim Creat Clear Calc 24.8 Estimated GFR 18 Fasting Glucose 124 H D Calcium 7.9 L Total Bilirubin 3.4 H Direct Bilirubin 1.6 H AST 17 ALT 8 Alkaline Phosphatase 40 Total Protein 6.5 Total Protein (PEP) Albumin 2.8 L D Albumin (PEP) Jyups-3-Effftkkhc Hfgpp-3-Oqnrmwqct Spkq-4-Vdnrbgec Hdpc-2-Avdpzxhb Gamma Globulins PEP Interpretation PTH Intact Calcium (PTH Intact) Proteinase 3 (PR3) Ab Myeloperoxidase Ab Blood Type Antibody Screen TRAVIS, Polyspecific Positive TRAVIS Work-up Crossmatch Assessment and Plan (1) Alcoholic cirrhosis: Status: Acute (2) Coagulopathy: Status: Acute (3) Anasarca: Status: Acute Plan 67-year-old male who is not on any prescription medications and has not seen a doctor in over 15 years, presents to the emergency department for evaluation of dyspnea and generalized swelling. found to have elevated creatinine, liver cirrhosis, severe anemia Anasarca 2/2 liver cirrhosis due to etoh, also positive for HCV continue follow up secondary work up GI input appreciated Restrict fluid intake Hold Lasix drip for worsening kidney function hematemesis with acute on chronic blood loss anemia s/p for units, Hb 7.4 EGD showed evidence of erosive esophagitis and atrophic gastritis Continue IV ceftriaxone Continue ppi, octreotide, midodrine, albumin LUE swelling Negative Doppler for DVT YADI on CKD IV nephro following - hold Lasix for now Monitor intake and output Stage II right buttock to pressure injury Foam dressing applied dvt prohpylaxis mechanical due to coagulopathy full code reason for continued hospitalization: Anasarca on IV Lasix, hematemesis on after it diet, worsened with kidney injury pending safe discharge plan Quality Stroke Does the patient have a stroke diagnosis?: No VTE Prior VTE?: No VTE Risk Level:: Medical - moderate - high VTE Device Contraindication: Treatment Not Indicated VTE Drug Contraindication: Treatment Not Indicated
[2022-07-24] MEDS: Albumin Human 25 % 100 ML IV ×3 (12:15→23:34)
[2022-07-24 12:59] VITALS: BP 105/54; PULSE 60; O2SAT 94
--- NOTE | 2022-07-24 14:00 | MHC.CM.PN ---
Per MD rounds, no plan for d/c today. CM will continue to follow for d/c planning needs.
[2022-07-24] MEDS: Midodrine HCl 10 MG TABLET PO ×2 (15:26→20:08)
--- NOTE | 2022-07-24 15:30 | PM.GIPN ---
Subjective Subjective Date of Service: 07/24/22 Interval History: no complaints of hematemesis Critical Care Time (minutes): 0 Physical Exam Vital Signs: Vital Signs: Last Vital Signs Temp 96 F L 07/24/22 10:58 Pulse 60 07/24/22 12:59 Resp 19 07/24/22 10:58 BP 105/54 L 07/24/22 12:59 Pulse Ox 94 07/24/22 12:59 O2 Del Method 07/24/22 10:58 O2 Flow Rate 2 07/24/22 10:58 BMI result Body Mass Index 31.6 GI: Other: abdomen is soft and nontender Objective Data Labs CBC & Chem 7: 07/24/22 08:31 07/24/22 08:31 Labs: Laboratory Results - last 24 hr 07/20/22 07/20/22 07/24/22 17:19 22:03 08:31 WBC 8.7 RBC 2.61 L D Hgb 7.4 L Hct 24.3 L MCV 93.1 MCH 28.4 MCHC 30.5 L RDW 18.6 H Plt Count 52 L MPV 12.5 H Absolute Nucleated RBC 0.000 Nucleated RBC % (auto) 0.0 Haptoglobin 40 L PT INR Sodium Potassium Chloride Carbon Dioxide Anion Gap BUN Creatinine Estim Creat Clear Calc Estimated GFR Fasting Glucose Calcium Total Bilirubin Direct Bilirubin AST ALT Alkaline Phosphatase Total Protein Albumin Blood Type B Positive Antibody Screen NEGATIVE TRAVIS, Polyspecific NEGATIVE Positive TRAVIS Work-up TNP Crossmatch See Detail 07/24/22 07/24/22 08:31 08:31 WBC RBC Hgb Hct MCV MCH MCHC RDW Plt Count MPV Absolute Nucleated RBC Nucleated RBC % (auto) Haptoglobin PT 26.8 H INR 2.3 H Sodium 133 L Potassium 4.3 Chloride 99 Carbon Dioxide 26 Anion Gap 12 BUN 43 H Creatinine 3.37 H Estim Creat Clear Calc 24.8 Estimated GFR 18 Fasting Glucose 124 H D Calcium 7.9 L Total Bilirubin 3.4 H Direct Bilirubin 1.6 H AST 17 ALT 8 Alkaline Phosphatase 40 Total Protein 6.5 Albumin 2.8 L D Blood Type Antibody Screen TRAVIS, Polyspecific Positive TRAVIS Work-up Crossmatch Microbiology Microbiology Results: Microbiology 07/21/22 Unknown Urine clean catch - Urine rios top Urine Culture - Final Streptococcus viridans group Procedures Date of Service Date of Service: 11/16/22 Progress Note: A&P Assessment and plan (1) Hematemesis: Status: Acute Assessment and Plan: gi bleeding appears to have stopped inr stabilized does not need octreotide from gi standpoint paracentesis pending. Time Spent With Patient Time: Total time spent is greater than 50% in coordination of care (as documented) at patient's floor/unit and/or counseling patient: Quality Stroke Does the patient have a stroke diagnosis?: No VTE Prior VTE?: No VTE Risk Level:: Medical - moderate - high VTE Device Contraindication: Treatment Not Indicated VTE Drug Contraindication: Treatment Not Indicated
--- NOTE | 2022-07-24 16:04 | HO.RADPN ---
RADIOLOGY Narrative Narrative: RUQ paracentesis using 4 fr catheter. Clear yellow fluid removed. Diagnostic specimen sent.
--- NOTE | 2022-07-24 16:15 | HO.POSTANES ---
Post Anesthesia Evaluation Post Anesthesia Evaluation Vital Signs: Vital Signs Temp Pulse Resp BP Pulse Ox O2 Del Method O2 Flow Rate 07/24/22 12:59 60 105/54 L 94 07/24/22 10:58 96 F L 60 19 105/54 L 100 Nasal Cannula 2 07/24/22 07:06 98.6 F 75 20 111/59 L 99 Nasal Cannula 2 Anesthesia: Monitored Mental Status: Awake Pain Control: Satisfactory Nausea/Vomiting: None Hydration: Adequate Anesthesia-Related Issues: No Anes. Related Issues
[2022-07-24] MEDS: Lidocaine HCl 1 % 20 ML VIAL 5 ML SUBCUT (16:57)
[2022-07-24 17:16] LABS: MN% 74.6 %; PMN% 25.4 %; WBC Peritoneal Fluid 0.062 X10*3/uL
[2022-07-24 17:25] LABS: RBC Peritoneal Fluid < 0.002 X10*6/uL
[2022-07-24 18:20] LABS: BF Shift QC OK YES; Lymphocyte Peritoneal Fl 22 %; Monocytes Peritoneal Fl 35 %; Neutrophils Peritoneal Fluid 20 %; Other Peritioneal Fl 23 %
[2022-07-24 19:26] VITALS: BP 98/50; PULSE 61; RESP 18; TEMP 37; O2SAT 98
[2022-07-24 20:41] LABS: Albumin Peritoneal Fluid 0.7 GM/DL
[2022-07-25] VITALS: BP 97/52; PULSE 57; RESP 18; TEMP 36.1; O2SAT 100
[2022-07-25] MEDS: Pantoprazole Sodium 40 MG/10 ML VIAL IVPUSH (06:46)
[2022-07-25] MEDS: Albumin Human 25 % 100 ML IV ×3 (06:54→14:39)
[2022-07-25 07:11] LABS: Hematocrit 27.3 % (42.0-52.0); Hemoglobin 8.2 g/dl (14.0-18.0); Mean Corpuscular Hemoglobin 28.6 pg (27.0-33.0); Mean Corpuscular Volume 95.1 fL (80.0-98.0); Red Blood Count 2.87 X10*6/uL (4.60-5.80); Red Cell Distribution Width 18.7 % (11.0-16.0); White Blood Count 8.6 X10*3/uL (4.8-10.8)
[2022-07-25 07:17] LABS: Platelet Count 51 X10*3/uL (160-400)
[2022-07-25 07:27] LABS: Alanine Aminotransferase 8 U/L (0-40); Alkaline Phosphatase 38 U/L (39-117); Aspartate Amino Transferase 15 U/L (5-37); Bilirubin Direct 1.2 mg/dL (0.0-0.5); Total Protein 6.7 g/dL (6.5-8.0)
--- NOTE | 2022-07-25 07:27 | PC.NURSE ---
Pt's LANDON dose of Metoprolol at bedtime was not given due to low blood pressure of 98/50. This nurse notified the MD Heller of the pt's low blood pressure. This nure held the Metoprolol. Will continue to monitor the pt's blood pressure.
[2022-07-25 07:30] LABS: Anion Gap 10 (12-20); Blood Urea Nitrogen 51 mg/dL (9-16); Calcium 7.8 mg/dL (8.4-10.2); Carbon Dioxide 29 mmol/L (22-29); Chloride 99 mmol/L (96-108); Creatinine Clr Calc Pharmacy 19.8; Estimated Glomerular Filt Rate 14; Glucose Random 113 mg/dL (60-115); Potassium 4.1 mmol/L (3.3-5.1); Sodium 134 mmol/L (135-145)
--- NOTE | 2022-07-25 07:37 | PC.NURSE ---
pt's IV to the right AC started to leak early this morning around 05:15. This nurse asked fellow colleague to look for a new site but was unable to find one. The pt's left arm was off limit due to swollen, redness, and weeping. This nurse notified the nursing kennel supervisor of the situation. The nursing kennel supervisor was able to get a new IV to the pt's left foot at 06:30. This nurse notified the MD Heller of the situation and how the nursing kennel supervisor was able to get one to the foot. This nurse suggested to the MD about a possible PICC line for the pt. Will continue to monitor the pt's new IV.
[2022-07-25 07:50] VITALS: BP 99/52; PULSE 58; RESP 20; TEMP 36.3; O2SAT 99
[2022-07-25] MEDS: Folic Acid 1 MG TABLET 5 MG PO (08:15)
[2022-07-25] MEDS: Tamsulosin HCL 0.4 MG CAPSULE PO (08:15)
[2022-07-25] MEDS: Midodrine HCl 10 MG TABLET PO ×3 (08:15→21:27)
[2022-07-25] MEDS: 0.9 % Sodium Chloride Flush 3 ML SYRINGE IVFLUSH ×3 (08:16→21:41)
[2022-07-25] MEDS: Octreotide Acetate 500 MCG in 0.9 % Sodium Chloride 500 ML 50.1 MCG IVCONT ×2 (08:20→22:44)
--- NOTE | 2022-07-25 10:06 | PM.PNNEP ---
Subjective Subjective Date of Service: 07/25/22 Principal diagnosis: YADI/CKD and anasarca Interval history: Seen adsundar huston, thong noted SCr cont to incr daily Physical Exam Vital Signs: Vital Signs: Last Vital Signs Temp 97.3 F 07/25/22 07:50 Pulse 58 07/25/22 07:50 Resp 20 07/25/22 07:50 BP 99/52 L 07/25/22 07:50 Pulse Ox 99 07/25/22 07:50 O2 Del Method 07/25/22 07:50 O2 Flow Rate 2 07/25/22 07:50 BMI result Body Mass Index 31.6 Const: Other: ?Middle-aged male lying in bed in no distress Neck supple Regular rate and rhythm, S1-S2 heard Regular breath sounds bilaterally, no wheezing or crackles appreciated Abdomen firm and distended with pre-sacral edema Patient is awake, alert and oriented to self, place, time and person ; no focal motor deficit Psych: Normal mood Significant +2 extremity edema General: cooperative, acute distress mild, in distress mild and respiratory and ill appearing; No confusion Nutritional Appearance: overweight and Edematous Orientation/consciousness: patient oriented x3 and No confusion HEENT: Head: Yes normal to inspection, Yes normocephalic and Yes atraumatic Ears: hearing grossly normal bilaterally and external ears normal General nose exam: Normal external nose present Face and sinus: Yes normal facial exam Eyes: Conjunctivae: conjunctivae normal Sclerae: sclerae normal Pupils: Equal, round and reactive pupils present EOM: EOMs intact bilaterally Neck: Neck: Yes normal visual inspection, Yes full ROM, Yes trachea midline, Yes supple and Yes JVD Chest: Chest palpation & inspection: normal inspection of the chest and no masses Resp: Effort & Inspection: abnormal respiratory effort, no cough, decreased respiratory effort, labored (Slightly), no retractions and not tachypneic Auscultation: crackles and diminished lung sounds Cardio: Jugular venous distension: JVD Rate: regular rate Rhythm: regular rhythm and abnormal rhythm irregularly irregular Heart sounds: S1 normal heart sound present, S2 normal heart sound present, no click, no gallops and no murmurs GI: Inspection: Yes Abdominal wall edema and Yes distended Percussion: Yes normal to percussion Auscultation: normal bowel sounds Back/Spine/Pelvis: Cervical Spine: normal cervical lordosis and cervical ROM normal Coccyx: swelling Skin: General skin exam: no rashes or lesions noted, ecchymosis, pallor and other (Redness of the left upper extremity) Neuro: General: patient oriented x3, no focal motor deficits, No confusion and Unable to assess gait Cranial nerves: Yes CN's II-XII intact bilaterally and Yes Equal, round and reactive pupils present Cognition (Neuro): normal cognition Speech: No Abnormal speech present Gait exam (Neuro): Unable to assess gait Extrem: Other: L UE maerked swellng/ecchymosis General: No no pedal edema, No cyanosis, Yes edema and Yes other (Generalized edema) Objective Data Labs CBC & Chem 7: 07/25/22 06:07 07/25/22 06:07 Labs: Laboratory Results - last 24 hr 07/22/22 07/24/22 07/24/22 10:00 16:00 16:00 WBC RBC Hgb Hct MCV MCH MCHC RDW Plt Count MPV Absolute Nucleated RBC Nucleated RBC % (auto) PT INR Sodium Potassium Chloride Carbon Dioxide Anion Gap BUN Creatinine Estim Creat Clear Calc Estimated GFR Random Glucose Calcium Total Bilirubin Direct Bilirubin AST ALT Alkaline Phosphatase Total Protein Albumin Peritoneal WBC 0.062 Peritoneal RBC < 0.002 Periton Neutrophils 20 Periton Lymphocytes 22 Peritoneal Monocytes 35 Peritoneal Other Cells 23 Peritoneal Albumin 0.7 Urine Immunofixation SEE NOTE 07/25/22 07/25/22 07/25/22 06:07 06:07 06:07 WBC 8.6 RBC 2.87 L Hgb 8.2 L Hct 27.3 L MCV 95.1 MCH 28.6 MCHC 30.0 L RDW 18.7 H Plt Count 51 L MPV 12.0 Absolute Nucleated RBC 0.000 Nucleated RBC % (auto) 0.0 PT INR Sodium 134 L Potassium 4.1 Chloride 99 Carbon Dioxide 29 Anion Gap 10 L BUN 51 H Creatinine 4.22 H* Estim Creat Clear Calc 19.8 Estimated GFR 14 Random Glucose 113 Calcium 7.8 L Total Bilirubin 3.0 H Direct Bilirubin 1.2 H AST 15 ALT 8 Alkaline Phosphatase 38 L Total Protein 6.7 Albumin 3.0 L Peritoneal WBC Peritoneal RBC Periton Neutrophils Periton Lymphocytes Peritoneal Monocytes Peritoneal Other Cells Peritoneal Albumin Urine Immunofixation 07/25/22 06:07 WBC RBC Hgb Hct MCV MCH MCHC RDW Plt Count MPV Absolute Nucleated RBC Nucleated RBC % (auto) PT 24.0 H INR 2.0 H Sodium Potassium Chloride Carbon Dioxide Anion Gap BUN Creatinine Estim Creat Clear Calc Estimated GFR Random Glucose Calcium Total Bilirubin Direct Bilirubin AST ALT Alkaline Phosphatase Total Protein Albumin Peritoneal WBC Peritoneal RBC Periton Neutrophils Periton Lymphocytes Peritoneal Monocytes Peritoneal Other Cells Peritoneal Albumin Urine Immunofixation Microbiology Microbiology Results: Microbiology 07/24/22 16:00 Ascites Fluid Gram Stain - Final 07/24/22 16:00 Ascites Fluid Anaerobic Culture - Preliminary No growth to date. 07/24/22 16:00 Ascites Fluid Body Fluid Culture - Preliminary No growth to date. 07/21/22 Unknown Urine clean catch - Urine rios top Urine Culture - Final Streptococcus viridans group Procedures Date of Service Date of Service: 07/25/22 Assessment & Plan Assessment and plan (1) Anasarca: Status: Acute Assessment and Plan: 1. YADI: signif incr Scr past 48 hrs 2.3--> 3.3 ---> 4.4 is concerning and most c/w HRS type 1 Other poss: Obs: r/o by hernandez and no hydro on u/s multifact ATN TMA: despite low PLTs and low Hapto the LDH is not elevated and no shistocytes makes this unlikley 2. CKD: no old recs but still suspect component of CKD 3. Anasarca: d/t Liver Cirrhosis; echo result do not point to card cause and no signif Uprot excludes NSyn; Still Low alb state contributing Unclear if he is respondig to diuresis given leaking hernandez 4. LUE swollen/ecchymosis; DVT r/o 5. Anemia: decr Hb again--GIB, bleeding into LUE 6. Cirrhosis Disc: overall grim prognosis given HRS 1 not responding to med treatemnt and now consideration for LAYER OUT PLATE GLASS---jessica will need LAYER OUT PLATE GLASS in next 24-72 hrs if cont full aggressive care so therefore needs a temp HD catheter placed by IR tomorrow Also ok to place PIC line in RUE given severity of his medical issues its doubtful he will survive long enough to be a candidate for AVF REC: cont ot hold diuretics; cont octreotide, IV alb 1 gm/kg per day; mdirdine; no need for LAYER OUT PLATE GLASS today but ask IR to place temp HD catheter 07/26 and will re-eval for possible LAYER OUT PLATE GLASS in am D/W Hosp team will follow clsoley with team Time Spent With Patient Time: Total time spent is greater than 50% in coordination of care (as documented) at patient's floor/unit and/or counseling patient: Progress Note: Quality Stroke Does the patient have a stroke diagnosis?: No
--- NOTE | 2022-07-25 10:26 | PM.GIPN ---
Subjective Subjective Date of Service: 07/25/22 Interval History: no c/o abd pain Critical Care Time (minutes): 0 Physical Exam Vital Signs: Vital Signs: Last Vital Signs Temp 97.3 F 07/25/22 07:50 Pulse 58 07/25/22 07:50 Resp 20 07/25/22 07:50 BP 99/52 L 07/25/22 07:50 Pulse Ox 99 07/25/22 07:50 O2 Del Method 07/25/22 07:50 O2 Flow Rate 2 07/25/22 07:50 BMI result Body Mass Index 31.6 GI: Other: abdomen is soft and nontender Objective Data Labs CBC & Chem 7: 07/25/22 06:07 07/25/22 06:07 Labs: Laboratory Results - last 24 hr 07/22/22 07/24/22 07/24/22 10:00 16:00 16:00 WBC RBC Hgb Hct MCV MCH MCHC RDW Plt Count MPV Absolute Nucleated RBC Nucleated RBC % (auto) PT INR Sodium Potassium Chloride Carbon Dioxide Anion Gap BUN Creatinine Estim Creat Clear Calc Estimated GFR Random Glucose Calcium Total Bilirubin Direct Bilirubin AST ALT Alkaline Phosphatase Total Protein Albumin Peritoneal WBC 0.062 Peritoneal RBC < 0.002 Periton Neutrophils 20 Periton Lymphocytes 22 Peritoneal Monocytes 35 Peritoneal Other Cells 23 Peritoneal Albumin 0.7 Urine Immunofixation SEE NOTE 07/25/22 07/25/22 07/25/22 06:07 06:07 06:07 WBC 8.6 RBC 2.87 L Hgb 8.2 L Hct 27.3 L MCV 95.1 MCH 28.6 MCHC 30.0 L RDW 18.7 H Plt Count 51 L MPV 12.0 Absolute Nucleated RBC 0.000 Nucleated RBC % (auto) 0.0 PT INR Sodium 134 L Potassium 4.1 Chloride 99 Carbon Dioxide 29 Anion Gap 10 L BUN 51 H Creatinine 4.22 H* Estim Creat Clear Calc 19.8 Estimated GFR 14 Random Glucose 113 Calcium 7.8 L Total Bilirubin 3.0 H Direct Bilirubin 1.2 H AST 15 ALT 8 Alkaline Phosphatase 38 L Total Protein 6.7 Albumin 3.0 L Peritoneal WBC Peritoneal RBC Periton Neutrophils Periton Lymphocytes Peritoneal Monocytes Peritoneal Other Cells Peritoneal Albumin Urine Immunofixation 07/25/22 06:07 WBC RBC Hgb Hct MCV MCH MCHC RDW Plt Count MPV Absolute Nucleated RBC Nucleated RBC % (auto) PT 24.0 H INR 2.0 H Sodium Potassium Chloride Carbon Dioxide Anion Gap BUN Creatinine Estim Creat Clear Calc Estimated GFR Random Glucose Calcium Total Bilirubin Direct Bilirubin AST ALT Alkaline Phosphatase Total Protein Albumin Peritoneal WBC Peritoneal RBC Periton Neutrophils Periton Lymphocytes Peritoneal Monocytes Peritoneal Other Cells Peritoneal Albumin Urine Immunofixation Microbiology Microbiology Results: Microbiology 07/24/22 16:00 Ascites Fluid Gram Stain - Final 07/24/22 16:00 Ascites Fluid Anaerobic Culture - Preliminary No growth to date. 07/24/22 16:00 Ascites Fluid Body Fluid Culture - Preliminary No growth to date. 07/21/22 Unknown Urine clean catch - Urine rios top Urine Culture - Final Streptococcus viridans group Procedures Date of Service Date of Service: 07/25/22 Progress Note: A&P Assessment and plan (1) Alcoholic cirrhosis: Status: Acute Plan s/p paracentesis, no SBP by cell counts SAAG is c/w cirrhosis renal function deteriorating continue supportive care. Time Spent With Patient Time: Total time spent is greater than 50% in coordination of care (as documented) at patient's floor/unit and/or counseling patient: Quality Stroke Does the patient have a stroke diagnosis?: No VTE Prior VTE?: No VTE Risk Level:: Medical - moderate - high VTE Device Contraindication: Treatment Not Indicated VTE Drug Contraindication: Treatment Not Indicated
[2022-07-25] MEDS: cefTRIAXone sodium 1 GM in 0.9 % Sodium Chloride 50 ML IV (10:32)
[2022-07-25 11:26] LABS: PEU-Protein Creat Ratio Rand 0.085 (0.025-0.148); PEU-Rand. Prot/Creat Ratio 85 mg/g creat (25-148); PEU-Random Ur. Gamma Globulin 0 %; PEU-Random Urine A1 Globulin 0 %; PEU-Random Urine A2 Globulin 0 %; PEU-Random Urine Albumin 100 %; PEU-Random Urine Beta Globulin 0 %; PEU-Random Urine Creatinine 47 mg/dL (20-320); PEU-Random Urine Protein 4 mg/dL (5-25)
[2022-07-25 12:25] LABS: IgA 858 mg/dL (70-320); IgG 4624 mg/dL (600-1540); IgM 282 mg/dL (50-300)
[2022-07-25] MEDS: Lidocaine HCl 1 % MPF 5 ML VIAL 10 ML SUBCUT (12:56)
[2022-07-25] MEDS: Heparin Sodium,Porcine 1,000 UNIT/ML VIAL 2000 UNIT IV (12:58)
--- NOTE | 2022-07-25 14:54 | HO.PM.IMPN ---
Subjective Subjective Date of Service: 07/25/22 Interval History: the patient was seen and evaluated this morning Laying in bed, decreased swelling in his lower extremities Creatinine continue to increase with almost no urine output No reported other overnight events. Systemic review: No fever, chills or weakness No chest pain, palpitation Improving shortness of breath or coughing No abdominal pain, nausea or vomiting No urinary symptoms LE swelling Physical Exam Vital Signs: Vital Signs: Last Vital Signs Temp 97.3 F 07/25/22 07:50 Pulse 58 07/25/22 07:50 Resp 20 07/25/22 07:50 BP 99/52 L 07/25/22 07:50 Pulse Ox 99 07/25/22 07:50 O2 Del Method 07/25/22 07:50 O2 Flow Rate 2 07/25/22 07:50 BMI result Body Mass Index 31.6 Const: Other: Constitutional : Awake, interactive, not in distress Neck : Normal inspection, Supple Cardiovascular : RRR, no JVP, +2 lower extremity edema Respiratory : Fair bilateral air entry, no crackles, wheezes or rhonchi Gastrointestinal: soft, lax, Normal bowel sounds, distended abdomen with no tenderness Skin : Warm, Dry Neurological : Alert & oriented to self and place, No focal deficit Objective Data Active Medications Folic Acid (Folic Acid 1 Mg Tablet) 5 mg PO DAILY [facility] Last Admin: 07/25/22 08:15 Dose: 5 mg Documented By: JESUS Ceftriaxone Sodium 1 gm/ (Sodium Chloride) 50 mls @ 100 mls/hr IV Q24H [facility] Last Infusion: 07/25/22 11:09 Dose: 0 mls/hr Documented By: JESUS Albumin Human (Kedbumin 25 %) 100 mls @ 100 mls/hr IV Q6H [facility] Stop: 07/26/22 03:29 Last Admin: 07/25/22 14:39 Dose: 100 mls/hr Documented By: JESUS Metoprolol Tartrate (Metoprolol Tartrate 25 Mg Tablet) 25 mg PO BID [facility]; Protocol Last Admin: 07/25/22 08:04 Dose: Not Given Documented By: JESUS Non-Admin Reason: Decreased Heart Rate Midodrine (Midodrine Hcl 10 Mg Tablet) 10 mg PO TID [facility] Last Admin: 07/25/22 14:39 Dose: 10 mg Documented By: JESUS Omeprazole (Omeprazole 40 Mg Capsule.Dr) 40 mg PO BID@0630,1630 [facility] Ondansetron HCl (Ondansetron Hcl 4 Mg/2 Ml Vial) 4 mg IVPUSH Q8H PRN PRN Reason: Nausea and Vomiting Sodium Chloride (0.9 % Sodium Chloride Flush 3 Ml Syringe) 3 ml IVFLUSH QSHIFT [facility] Last Admin: 07/25/22 08:16 Dose: 3 ml Documented By: JESUS Sucralfate (Sucralfate 1 Gm Tablet) 1 gm PO QIDACHS [facility] Last Admin: 07/25/22 13:58 Dose: Not Given Documented By: JESUS Non-Admin Reason: In IR Tamsulosin HCl (Tamsulosin Hcl 0.4 Mg Capsule) 0.4 mg PO DAILY [facility] Last Admin: 07/25/22 08:15 Dose: 0.4 mg Documented By: JESUS Labs CBC & Chem 7: 07/25/22 06:07 07/25/22 06:07 Labs: Laboratory Results - last 24 hr 07/20/22 07/22/22 07/22/22 22:03 05:15 10:00 MCV MCH MCHC RDW Plt Count MPV Absolute Nucleated RBC Nucleated RBC % (auto) PT INR Anion Gap Estim Creat Clear Calc Estimated GFR Random Glucose Calcium Total Bilirubin Direct Bilirubin AST ALT Alkaline Phosphatase Total Protein Albumin U [place] Prot/Creat Ratio 0.085 Ur Creatinine mg/dL 47 U Total Protein mg/dL 4 L Protein/Creatinin Ratio 85 Urine Albumin (%) 100 U Gkmlu-0-Nvrmcoeu (%) 0 U Ayssw-4-Lkrzylsc (%) 0 U Beta Globulin (%) 0 U Gamma Globulin (%) 0 Urine PEP Interpret SEE NOTE Peritoneal WBC Peritoneal RBC Periton Neutrophils Periton Lymphocytes Peritoneal Monocytes Peritoneal Other Cells Peritoneal Albumin IgG Total 4624 H IgA Total 858 H IgM 282 [place] Interpretation Urine Immunofixation SEE NOTE Blood Type B Positive Antibody Screen NEGATIVE TRAVIS, Polyspecific NEGATIVE Positive TRAVIS Work-up TNP Crossmatch See Detail 07/24/22 07/24/22 07/25/22 16:00 16:00 06:07 MCV MCH MCHC RDW Plt Count MPV Absolute Nucleated RBC Nucleated RBC % (auto) PT INR Anion Gap Estim Creat Clear Calc Estimated GFR Random Glucose Calcium Total Bilirubin 3.0 H Direct Bilirubin 1.2 H AST 15 ALT 8 Alkaline Phosphatase 38 L Total Protein 6.7 Albumin 3.0 L U [place] Prot/Creat Ratio Ur Creatinine mg/dL U Total Protein mg/dL Protein/Creatinin Ratio Urine Albumin (%) U Xzufo-5-Mueyxefc (%) U Csuvu-4-Hskqpior (%) U Beta Globulin (%) U Gamma Globulin (%) Urine PEP Interpret Peritoneal WBC 0.062 Peritoneal RBC < 0.002 Periton Neutrophils 20 Periton Lymphocytes 22 Peritoneal Monocytes 35 Peritoneal Other Cells 23 Peritoneal Albumin 0.7 IgG Total IgA Total IgM [place] Interpretation Urine Immunofixation Blood Type Antibody Screen TRAVIS, Polyspecific Positive TRAVIS Work-up Crossmatch 07/25/22 07/25/22 07/25/22 06:07 06:07 06:07 MCV 95.1 MCH 28.6 MCHC 30.0 L RDW 18.7 H Plt Count 51 L MPV 12.0 Absolute Nucleated RBC 0.000 Nucleated RBC % (auto) 0.0 PT 24.0 H INR 2.0 H Anion Gap 10 L Estim Creat Clear Calc 19.8 Estimated GFR 14 Random Glucose 113 Calcium 7.8 L Total Bilirubin Direct Bilirubin AST ALT Alkaline Phosphatase Total Protein Albumin U [place] Prot/Creat Ratio Ur Creatinine mg/dL U Total Protein mg/dL Protein/Creatinin Ratio Urine Albumin (%) U Fkajk-7-Uokgcesd (%) U Axtay-2-Rmewzedc (%) U Beta Globulin (%) U Gamma Globulin (%) Urine PEP Interpret Peritoneal WBC Peritoneal RBC Periton Neutrophils Periton Lymphocytes Peritoneal Monocytes Peritoneal Other Cells Peritoneal Albumin IgG Total IgA Total IgM [place] Interpretation Urine Immunofixation Blood Type Antibody Screen TRAVIS, Polyspecific Positive TRAVIS Work-up Crossmatch Microbiology Microbiology Results: Microbiology 07/24/22 16:00 Gram Stain - Final Ascites Fluid Anaerobic Culture - Preliminary No growth to date. Body Fluid Culture - Preliminary No growth to date. Assessment and Plan (1) Hematemesis: Status: Acute (2) Acute on chronic kidney failure: Status: Acute (3) Alcoholic cirrhosis: Status: Acute (4) Anasarca: Status: Acute Plan 67-year-old male who is not on any prescription medications and has not seen a doctor in over 15 years, presents to the emergency department for evaluation of dyspnea and generalized swelling. found to have elevated creatinine, liver cirrhosis, severe anemia YADI on CKD IV 2/2 HRS Creatinine continue to worsen, anuric at this point Placement of dialysis catheter with a plan for dialysis tomorrow Nephro following - hold Lasix for now Monitor intake and output Anasarca 2/2 liver cirrhosis due to etoh, also positive for HCV continue follow up secondary work up GI input appreciated , SAAG is c/w cirrhosis Restrict fluid intake Hold Lasix for worsening kidney function hematemesis with acute on chronic blood loss anemia s/p for units, Hb 8.2 EGD showed evidence of erosive esophagitis and atrophic gastritis Continue IV ceftriaxone Continue ppi, octreotide, midodrine Continue albumin LUE swelling Negative Doppler for DVT Stage II right buttock to pressure injury Foam dressing applied dvt prohpylaxis mechanical due to coagulopathy full code reason for continued hospitalization: Anasarca on IV Lasix, hematemesis on after it diet, worsened with kidney injury pending safe discharge plan Quality Stroke Does the patient have a stroke diagnosis?: No VTE Prior VTE?: No VTE Risk Level:: Medical - moderate - high VTE Device Contraindication: Treatment Not Indicated VTE Drug Contraindication: Treatment Not Indicated
[2022-07-25 15:36] VITALS: BP 99/52; PULSE 59; RESP 16; TEMP 36.4; O2SAT 93
[2022-07-25 15:41] VITALS: BP 99/52; PULSE 59; O2SAT 90
[2022-07-25] MEDS: Phytonadione (Vit K1) 10 MG in 0.9 % Sodium Chloride 50 ML 51 MG IV (16:11)
[2022-07-25 18:15] VITALS: BP 113/56; PULSE 61; RESP 16; TEMP 36.4; O2SAT 97
[2022-07-25 18:32] LABS: ANA Titer 2 1:40 titer; Anti Nuclear Antibody Screen POSITIVE (NEGATIVE); Anti Nuclear Antibody Titer 1:40 titer
[2022-07-25] MEDS: Omeprazole 40 MG CAPSULE.DR PO (18:57)
[2022-07-25] MEDS: Sucralfate 1 GM TABLET PO ×2 (18:58→21:27)
[2022-07-25] MEDS: Metoprolol Tartrate 25 MG TABLET PO (21:27)
[2022-07-25] MEDS: 0.9 % Sodium Chloride Flush 10 ML SYRINGE 5 ML IVFLUSH (21:41)
[2022-07-25 23:55] VITALS: BP 113/55; PULSE 62; RESP 18; TEMP 36.1; O2SAT 95
[2022-07-26] VITALS (8 sets, daily range): BP systolic 99–134; BP diastolic 52–88; PULSE 55–98; RESP 18–20; TEMP 36.1–37; O2SAT 96–98
[2022-07-26] MEDS: Albumin Human 25 % 100 ML IV (02:44)
[2022-07-26 06:41] LABS: INTERNATIONAL NORM RATIO 2.2 (0.9-1.1); Prothrombin Time 25.7 SEC (10.0-13.1)
--- NOTE | 2022-07-26 07:23 | PC.NURSE ---
At midnight, the pt's foot IV got pulled out with movement. This nurse notified the nursing eligibility supervisor about the situation. A nurse from the ED came up to assist with finding a new IV for pt. The pt ended up with a new IV to his R AC. This nurse was able to continue his IV Octreoide. Throughout the shift, the pt has been lethargic, restless, resistive to care, pulling out O2, and teley leads. Pt has in room camera and sitter in AM shift. MD Kendall was notifed of the new IV and recent behavior changes to pt. Will continue to moniotr the pt's behavior and new IV site.
[2022-07-26 07:33] LABS: Hemoglobin 7.3 g/dl (14.0-18.0); Mean Corpuscular HGB Conc 30.4 g/dl (31.0-36.0); Mean Corpuscular Hemoglobin 29.3 pg (27.0-33.0); Mean Corpuscular Volume 96.4 fL (80.0-98.0); PLT CLUMP 1; Red Blood Count 2.49 X10*6/uL (4.60-5.80); Red Cell Distribution Width 19.4 % (11.0-16.0)
[2022-07-26 07:34] LABS: Platelet Count 31 X10*3/uL (160-400); White Blood Count 5.7 X10*3/uL (4.8-10.8)
[2022-07-26 07:36] LABS: Alanine Aminotransferase 6 U/L (0-40); Albumin Level 2.9 g/dL (3.5-5.0); Alkaline Phosphatase 33 U/L (39-117); Anion Gap 14 (12-20); Aspartate Amino Transferase 20 U/L (5-37); Bilirubin Direct 1.1 mg/dL (0.0-0.5); Bilirubin Total 3.1 mg/dL (0.0-1.0); Blood Urea Nitrogen 60 mg/dL (9-16); Calcium 7.6 mg/dL (8.4-10.2); Carbon Dioxide 21 mmol/L (22-29); Chloride 102 mmol/L (96-108); Creatinine Clr Calc Pharmacy 18.1; Estimated Glomerular Filt Rate 13; Glucose Random 91 mg/dL (60-115); Potassium 4.6 mmol/L (3.3-5.1); Sodium 132 mmol/L (135-145); Total Protein 6.2 g/dL (6.5-8.0)
[2022-07-26] MEDS: Folic Acid 1 MG TABLET 5 MG PO (09:00)
[2022-07-26] MEDS: Sucralfate 1 GM TABLET PO ×2 (09:02→11:50)
[2022-07-26] MEDS: Midodrine HCl 10 MG TABLET PO (09:02)
[2022-07-26] MEDS: Metoprolol Tartrate 25 MG TABLET PO (09:02)
[2022-07-26] MEDS: Omeprazole 40 MG CAPSULE.DR PO (09:04)
[2022-07-26] MEDS: Tamsulosin HCL 0.4 MG CAPSULE PO (09:04)
[2022-07-26] MEDS: 0.9 % Sodium Chloride Flush 3 ML SYRINGE IVFLUSH ×3 (10:06→20:10)
[2022-07-26] MEDS: cefTRIAXone sodium 1 GM in 0.9 % Sodium Chloride 50 ML IV (11:00)
[2022-07-26] MEDS: Octreotide Acetate 500 MCG in 0.9 % Sodium Chloride 500 ML 50.1 MCG IVCONT (11:44)
--- NOTE | 2022-07-26 12:33 | MHC.CM.PN ---
PATIENT STILL ACUTE NO PLAN FOR DC.
--- NOTE | 2022-07-26 13:16 | P.PNIM_ITS ---
Subjective Subjective Date of Service: 07/26/22 Interval History: the patient was seen and evaluated this morning Patient looks comfortable, having breakfast with assistance Creatinine continue to increase with no urine output Dialysis catheter had to be removed for excessive bleeding per IR No reported other overnight events. Systemic review: No fever, chills or weakness No chest pain, palpitation Improving shortness of breath or coughing No abdominal pain, nausea or vomiting No urinary symptoms LE swelling Physical Exam Vital Signs: Vital Signs: Last Vital Signs Temp 97 F 07/26/22 12:02 Pulse 55 07/26/22 12:02 Resp 18 07/26/22 12:02 BP 105/52 L 07/26/22 12:02 Pulse Ox 98 07/26/22 12:02 O2 Del Method 07/26/22 12:02 O2 Flow Rate 2 07/26/22 12:02 BMI result Body Mass Index 31.6 Const: Other: Constitutional : Awake, interactive, not in distress Neck : Normal inspection, Supple, dialysis catheter site covered with dressing Cardiovascular : RRR, no JVP, +2 lower extremity edema Respiratory : Fair bilateral air entry, no crackles, wheezes or rhonchi Gastrointestinal: soft, lax, Normal bowel sounds, distended abdomen with no tenderness Skin : Warm, Dry Neurological : Alert & oriented to self and place, No focal deficit Objective Data Active Medications Folic Acid (Folic Acid 1 Mg Tablet) 5 mg PO DAILY ON LICENSE OF [facility] Last Admin: 07/26/22 09:00 Dose: 5 mg Documented By: YANIRA Ceftriaxone Sodium 1 gm/ (Sodium Chloride) 50 mls @ 100 mls/hr IV Q24H ON LICENSE OF [facility] Last Infusion: 07/26/22 11:47 Dose: 0 mls/hr Documented By: ARNALDO Octreotide Acetate 500 mcg/ (Sodium Chloride) 501 mls @ 50.1 mls/hr IVCONT .Q10H [facility] Last Admin: 07/26/22 11:44 Dose: 50 mcg/hr, 50.1 mls/hr Documented By: ARNALDO Desmopressin Acetate 20 mcg/ (Sodium Chloride) 55 mls @ 100 mls/hr IV ONCE ONE Stop: 07/26/22 13:25 Metoprolol Tartrate (Metoprolol Tartrate 25 Mg Tablet) 25 mg PO BID ON LICENSE OF [facility]; Protocol Last Admin: 07/26/22 09:02 Dose: 25 mg Documented By: YANIRA Midodrine (Midodrine Hcl 10 Mg Tablet) 10 mg PO TID ON LICENSE OF [facility] Last Admin: 07/26/22 09:02 Dose: 10 mg Documented By: YANIRA Omeprazole (Omeprazole 40 Mg Capsule.Dr) 40 mg PO BID@0630,1630 ON LICENSE OF [facility] Last Admin: 07/26/22 09:04 Dose: 40 mg Documented By: YANIRA Ondansetron HCl (Ondansetron Hcl 4 Mg/2 Ml Vial) 4 mg IVPUSH Q8H PRN PRN Reason: Nausea and Vomiting Sodium Chloride (0.9 % Sodium Chloride Flush 3 Ml Syringe) 3 ml IVFLUSH [facility] Last Admin: 07/26/22 10:06 Dose: 3 ml Documented By: ARNALDO Sodium Chloride (0.9 % Sodium Chloride Flush 10 Ml Syringe) 5 ml IVFLUSH [facility] Last Admin: 07/26/22 10:06 Dose: Not Given Documented By: ARNALDO Non-Admin Reason: no central port Sucralfate (Sucralfate 1 Gm Tablet) 1 gm PO QIDACHS ON LICENSE OF [facility] Last Admin: 07/26/22 11:50 Dose: 1 gm Documented By: ARNALDO Tamsulosin HCl (Tamsulosin Hcl 0.4 Mg Capsule) 0.4 mg PO DAILY ON LICENSE OF [facility] Last Admin: 07/26/22 09:04 Dose: 0.4 mg Documented By: YANIRA Labs CBC & Chem 7: 07/26/22 05:58 07/26/22 05:58 Labs: Laboratory Results - last 24 hr 07/22/22 07/22/22 07/22/22 05:15 10:00 11:54 MCV MCH MCHC RDW Plt Count MPV Absolute Nucleated RBC Nucleated RBC % (auto) PT INR Anion Gap Estim Creat Clear Calc Estimated GFR Random Glucose Calcium Magnesium Total Bilirubin Direct Bilirubin AST ALT Alkaline Phosphatase Total Protein Albumin Abnorm Protein Band 1 TNP Abnorm Protein Band 2 TNP Abnorm Protein Band 3 TNP U Abnormal Prot Band 1 TNP U Abnormal Prot Band 2 TNP U Abnormal Prot Band 3 TNP JENN Screen POSITIVE A JENN Titer 1:40 H JENN Titer 2 1:40 H JENN Titer 3 TNP JENN Pattern A JENN Pattern 2 A JENN Pattern 3 TNP 07/26/22 07/26/22 07/26/22 05:58 05:58 05:58 MCV 96.4 MCH 29.3 MCHC 30.4 L RDW 19.4 H Plt Count 31 L D MPV Not Reportable Absolute Nucleated RBC 0.000 Nucleated RBC % (auto) 0.0 PT 25.7 H INR 2.2 H Anion Gap Cancelled Estim Creat Clear Calc Cancelled Estimated GFR Cancelled Random Glucose Cancelled Calcium Cancelled Magnesium Total Bilirubin Direct Bilirubin AST ALT Alkaline Phosphatase Total Protein Albumin Abnorm Protein Band 1 Abnorm Protein Band 2 Abnorm Protein Band 3 U Abnormal Prot Band 1 U Abnormal Prot Band 2 U Abnormal Prot Band 3 JENN Screen JENN Titer JENN Titer 2 JENN Titer 3 JENN Pattern JENN Pattern 2 JENN Pattern 3 07/26/22 05:58 MCV MCH MCHC RDW Plt Count MPV Absolute Nucleated RBC Nucleated RBC % (auto) PT INR Anion Gap 14 Estim Creat Clear Calc 18.1 Estimated GFR 13 Random Glucose 91 Calcium 7.6 L Magnesium 2.0 Total Bilirubin 3.1 H Direct Bilirubin 1.1 H AST 20 ALT 6 Alkaline Phosphatase 33 L Total Protein 6.2 L Albumin 2.9 L Abnorm Protein Band 1 Abnorm Protein Band 2 Abnorm Protein Band 3 U Abnormal Prot Band 1 U Abnormal Prot Band 2 U Abnormal Prot Band 3 JENN Screen JENN Titer JENN Titer 2 JENN Titer 3 JENN Pattern JENN Pattern 2 JENN Pattern 3 Microbiology Microbiology Results: Microbiology 07/24/22 16:00 Gram Stain - Final Ascites Fluid Anaerobic Culture - Preliminary No growth to date. Body Fluid Culture - Preliminary No growth after 1 day Assessment and Plan (1) Acute on chronic kidney failure: Status: Acute (2) Hematemesis: Status: Acute (3) Alcoholic cirrhosis: Status: Acute (4) Anasarca: Status: Acute Plan 67-year-old male who is not on any prescription medications and has not seen a doctor in over 15 years, presents to the emergency department for evaluation of dyspnea and generalized swelling. found to have elevated creatinine, liver cirrhosis, severe anemia YADI on CKD IV Likely a 2/2 HRS Creatinine continue to worsen, anuric at this point Check cryoglobin for low C3-C4 Had a bleeding at the site of dialysis catheter and had to be discontinued overnight by IR, patient need for dialysis per nephrology team Plan for Placement of a 2nd temporary dialysis catheter after extensive discussions with Lise Bates Pavlov, [place] and myself as placing catheter by IR is the safest approach given his high risk of bleeding as he will receive fresh frozen plasma, platelets and desmopressin with a plan to be monitored in ICU for dialysis. Discussed with patient and his HCP who understood and agreed. Monitor intake and output Anasarca 2/2 liver cirrhosis, hepatitis-C infection Pending anti mitochondrial antibodies Low C3-C4, elevated JENN screen GI input appreciated , SAAG is c/w cirrhosis Restrict fluid intake Hold Lasix for worsening kidney function hematemesis with acute on chronic blood loss anemia s/p 4 units, Hb 7.3, no major bleeding but likely dilution and with no urine output EGD showed evidence of erosive esophagitis and atrophic gastritis Continue IV ceftriaxone Continue ppi, octreotide, midodrine Continue albumin LUE swelling Negative Doppler for DVT Stage II right buttock to pressure injury Foam dressing applied dvt prohpylaxis mechanical due to coagulopathy full code reason for continued hospitalization: Anasarca with Yadi I for dialysis, cirrhosis requiring IV medications, pending safe discharge plan Quality Stroke Does the patient have a stroke diagnosis?: No VTE Prior VTE?: No VTE Risk Level:: Medical - moderate - high VTE Device Contraindication: Treatment Not Indicated VTE Drug Contraindication: Treatment Not Indicated
[2022-07-26 13:36] LABS: Mitochondrial Antibodies NEGATIVE (NEGATIVE)
[2022-07-26] MEDS: Desmopressin Acetate 20 MCG in 0.9 % Sodium Chloride 50 ML 100 MCG IV (13:39)
--- NOTE | 2022-07-26 13:58 | MHC.CLN ---
NUTRITION DIET=REGULAR, 1500ML FLUID RESTRICTION, ENSURE CLEAR TID. SUPPLEMENT PROVIDES ADDITIONAL 720 KCALS, 24 G PROTEIN. SUPPLEMENT AND FLUID RESTRICTION PER MD. PATIENT WITH WORSENING BUN AND CR. PLAN FOR PORT PLACEMENT AND START DIALYSIS. SKIN WITH STAGE II TO BUTTOCK. CURRENT INTAKE APPEARS POOR, WITH MOST MEALS 0-25%. FOLLOW FOR INTAKE, LABS, AND SKIN.
--- NOTE | 2022-07-26 14:23 | PM.PNNEP ---
Subjective Subjective Date of Service: 07/26/22 Principal diagnosis: YADI/CKD and anasarca Interval history: Pt seen; friend is at bedside. Events of last night reviewed: IJ mahurkur placed but pt had bleediing from exit site and IR removed it? Pt remains oliguric. Creat up a bit. He is alert, he is oriented to place, person and recognizes his friend Physical Exam Vital Signs: Vital Signs: Last Vital Signs Temp 97 F 07/26/22 12:02 Pulse 55 07/26/22 12:02 Resp 18 07/26/22 12:02 BP 105/52 L 07/26/22 12:02 Pulse Ox 98 07/26/22 12:02 O2 Del Method 07/26/22 12:02 O2 Flow Rate 2 07/26/22 12:02 BMI result Body Mass Index 31.6 Const: Other: Constitutional : Awake, interactive, not in distress Neck : Normal inspection, Supple, dialysis catheter site covered with dressing Cardiovascular : RRR, no JVP, +2 lower extremity edema Respiratory : Fair bilateral air entry, no crackles, wheezes or rhonchi Gastrointestinal: soft, lax, Normal bowel sounds, distended abdomen with no tenderness Skin : Warm, Dry Neurological : Alert & oriented to self and place, No focal deficit General: cooperative, acute distress mild, in distress mild and respiratory and ill appearing; No confusion Nutritional Appearance: overweight and Edematous Orientation/consciousness: patient oriented x3 and No confusion Limitations: No language barrier HEENT: Head: Yes normal to inspection, Yes normocephalic and Yes atraumatic Ears: hearing grossly normal bilaterally and external ears normal General nose exam: Normal external nose present Face and sinus: Yes normal facial exam Eyes: Conjunctivae: conjunctivae normal Sclerae: sclerae normal Pupils: Equal, round and reactive pupils present EOM: EOMs intact bilaterally Neck: Neck: Yes normal visual inspection, Yes full ROM, Yes trachea midline, Yes supple and Yes JVD Chest: Chest palpation & inspection: normal inspection of the chest and no masses Resp: Other: Short of breath with movement in bed Effort & Inspection: abnormal respiratory effort, able to speak in complete sentences, no cough, decreased respiratory effort, labored (Slightly), no retractions and not tachypneic Auscultation: crackles, rales (Noted posteriorly), no rhonchi, no wheezes and diminished lung sounds Cardio: Jugular venous distension: JVD Rate: regular rate Rhythm: regular rhythm and abnormal rhythm irregularly irregular Heart sounds: S1 normal heart sound present, S2 normal heart sound present, no click, no gallops, no murmurs and no rubs GI: Other: abdomen is soft and nontender Inspection: Yes Abdominal wall edema and Yes distended Percussion: Yes normal to percussion Auscultation: normal bowel sounds Back/Spine/Pelvis: Cervical Spine: normal cervical lordosis and cervical ROM normal Coccyx: swelling Skin: General skin exam: no rashes or lesions noted, ecchymosis, pallor and other (Redness of the left upper extremity) Neuro: General: patient oriented x3, no focal motor deficits, No confusion and Unable to assess gait Cranial nerves: Yes CN's II-XII intact bilaterally and Yes Equal, round and reactive pupils present Cognition (Neuro): normal cognition Speech: No Abnormal speech present Gait exam (Neuro): Unable to assess gait Extrem: Other: L UE maerked swellng/ecchymosis Bilateral leg edema General: No no pedal edema, No cyanosis, Yes edema and Yes other (Generalized edema) Psych: Appearance: grossly normal Mental Status: mental status grossly normal Objective Data Labs CBC & Chem 7: 07/26/22 05:58 07/26/22 05:58 Labs: Laboratory Results - last 24 hr 07/22/22 07/22/22 07/22/22 05:15 10:00 11:54 WBC RBC Hgb Hct MCV MCH MCHC RDW Plt Count MPV Absolute Nucleated RBC Nucleated RBC % (auto) PT INR Sodium Potassium Chloride Carbon Dioxide Anion Gap BUN Creatinine Estim Creat Clear Calc Estimated GFR Random Glucose Calcium Magnesium Total Bilirubin Direct Bilirubin AST ALT Alkaline Phosphatase Total Protein Albumin Abnorm Protein Band 1 TNP Abnorm Protein Band 2 TNP Abnorm Protein Band 3 TNP U Abnormal Prot Band 1 TNP U Abnormal Prot Band 2 TNP U Abnormal Prot Band 3 TNP JENN Screen POSITIVE A JENN Titer 1:40 H JENN Titer 2 1:40 H JENN Titer 3 TNP JENN Pattern A JENN Pattern 2 A JENN Pattern 3 TNP Anti-Mitochondrial Ab 07/23/22 07/26/22 07/26/22 06:40 05:58 05:58 WBC 5.7 RBC 2.49 L Hgb 7.3 L Hct 24.0 L MCV 96.4 MCH 29.3 MCHC 30.4 L RDW 19.4 H Plt Count 31 L D MPV Not Reportable Absolute Nucleated RBC 0.000 Nucleated RBC % (auto) 0.0 PT INR Sodium Cancelled Potassium Cancelled Chloride Cancelled Carbon Dioxide Cancelled Anion Gap Cancelled BUN Cancelled Creatinine Cancelled Estim Creat Clear Calc Cancelled Estimated GFR Cancelled Random Glucose Cancelled Calcium Cancelled Magnesium Total Bilirubin Direct Bilirubin AST ALT Alkaline Phosphatase Total Protein Albumin Abnorm Protein Band 1 Abnorm Protein Band 2 Abnorm Protein Band 3 U Abnormal Prot Band 1 U Abnormal Prot Band 2 U Abnormal Prot Band 3 JENN Screen JENN Titer JENN Titer 2 JENN Titer 3 JENN Pattern JENN Pattern 2 JENN Pattern 3 Anti-Mitochondrial Ab NEGATIVE 07/26/22 07/26/22 05:58 05:58 WBC RBC Hgb Hct MCV MCH MCHC RDW Plt Count MPV Absolute Nucleated RBC Nucleated RBC % (auto) PT 25.7 H INR 2.2 H Sodium 132 L Potassium 4.6 Chloride 102 Carbon Dioxide 21 L Anion Gap 14 BUN 60 H Creatinine 4.61 H* Estim Creat Clear Calc 18.1 Estimated GFR 13 Random Glucose 91 Calcium 7.6 L Magnesium 2.0 Total Bilirubin 3.1 H Direct Bilirubin 1.1 H AST 20 ALT 6 Alkaline Phosphatase 33 L Total Protein 6.2 L Albumin 2.9 L Abnorm Protein Band 1 Abnorm Protein Band 2 Abnorm Protein Band 3 U Abnormal Prot Band 1 U Abnormal Prot Band 2 U Abnormal Prot Band 3 JENN Screen JENN Titer JENN Titer 2 JENN Titer 3 JENN Pattern JENN Pattern 2 JENN Pattern 3 Anti-Mitochondrial Ab Microbiology Microbiology Results: Microbiology 07/24/22 16:00 Ascites Fluid Gram Stain - Final 07/24/22 16:00 Ascites Fluid Anaerobic Culture - Preliminary No growth to date. 07/24/22 16:00 Ascites Fluid Body Fluid Culture - Preliminary No growth after 1 day 07/21/22 Unknown Urine clean catch - Urine rios top Urine Culture - Final Streptococcus viridans group Procedures Date of Service Date of Service: 07/26/22 Assessment & Plan Assessment and plan (1) Acute on chronic kidney failure: Status: Acute Assessment and Plan: This pt has cirrhosis with ascites and portal hypertensive, hypersplenism with thrombocytopenia. His UA shows hematuria, pyuria He has very low complements and positive Hep C antibody. DDX includes possible hep C assoc GN/cryoglobulinemia; secondary IgA nephropathy, postinfectious GN (wound), and HRS. Please check urine sodium, creat and cryoglobulins and IgA level He is oliguric. He will likely come to need dialysis though he has no absolute indication at this moment. I agree with getting a line in as we approach the weekend if we can do it safely. Recommend platelet transfusion FFP and DDAVP to optimize coagulation to reduce risk of bleeding (2) Alcoholic cirrhosis: Status: Acute (3) Anasarca: Status: Acute Plan See above Check cryos Check IgA check FeNA Platelets, DDAVP prior to line placement Anticipate need for diaysis tomorrow unless UO improves. Time Spent With Patient Time: Total time spent is greater than 50% in coordination of care (as documented) at patient's floor/unit and/or counseling patient: Progress Note: Quality Stroke Does the patient have a stroke diagnosis?: No
--- NOTE | 2022-07-26 14:42 | PM.GIPN ---
Subjective Subjective Date of Service: 07/26/22 Interval History: states no pain Critical Care Time (minutes): 0 Physical Exam Vital Signs: Vital Signs: Last Vital Signs Temp 97 F 07/26/22 12:02 Pulse 55 07/26/22 12:02 Resp 18 07/26/22 12:02 BP 105/52 L 07/26/22 12:02 Pulse Ox 98 07/26/22 12:02 O2 Del Method 07/26/22 12:02 O2 Flow Rate 2 07/26/22 12:02 BMI result Body Mass Index 31.6 Const: Other: sleepy GI: Other: abdomen is soft and nontender Objective Data Labs CBC & Chem 7: 07/26/22 05:58 07/26/22 05:58 Labs: Laboratory Results - last 24 hr 07/22/22 07/22/22 07/22/22 05:15 10:00 11:54 WBC RBC Hgb Hct MCV MCH MCHC RDW Plt Count MPV Absolute Nucleated RBC Nucleated RBC % (auto) PT INR Sodium Potassium Chloride Carbon Dioxide Anion Gap BUN Creatinine Estim Creat Clear Calc Estimated GFR Random Glucose Calcium Magnesium Total Bilirubin Direct Bilirubin AST ALT Alkaline Phosphatase Total Protein Albumin Abnorm Protein Band 1 TNP Abnorm Protein Band 2 TNP Abnorm Protein Band 3 TNP U Abnormal Prot Band 1 TNP U Abnormal Prot Band 2 TNP U Abnormal Prot Band 3 TNP JENN Screen POSITIVE A JENN Titer 1:40 H JENN Titer 2 1:40 H JENN Titer 3 TNP JENN Pattern A JENN Pattern 2 A JENN Pattern 3 TNP Anti-Mitochondrial Ab 07/23/22 07/26/22 07/26/22 06:40 05:58 05:58 WBC 5.7 RBC 2.49 L Hgb 7.3 L Hct 24.0 L MCV 96.4 MCH 29.3 MCHC 30.4 L RDW 19.4 H Plt Count 31 L D MPV Not Reportable Absolute Nucleated RBC 0.000 Nucleated RBC % (auto) 0.0 PT INR Sodium Cancelled Potassium Cancelled Chloride Cancelled Carbon Dioxide Cancelled Anion Gap Cancelled BUN Cancelled Creatinine Cancelled Estim Creat Clear Calc Cancelled Estimated GFR Cancelled Random Glucose Cancelled Calcium Cancelled Magnesium Total Bilirubin Direct Bilirubin AST ALT Alkaline Phosphatase Total Protein Albumin Abnorm Protein Band 1 Abnorm Protein Band 2 Abnorm Protein Band 3 U Abnormal Prot Band 1 U Abnormal Prot Band 2 U Abnormal Prot Band 3 JENN Screen JENN Titer JENN Titer 2 JENN Titer 3 JENN Pattern JENN Pattern 2 JENN Pattern 3 Anti-Mitochondrial Ab NEGATIVE 07/26/22 07/26/22 05:58 05:58 WBC RBC Hgb Hct MCV MCH MCHC RDW Plt Count MPV Absolute Nucleated RBC Nucleated RBC % (auto) PT 25.7 H INR 2.2 H Sodium 132 L Potassium 4.6 Chloride 102 Carbon Dioxide 21 L Anion Gap 14 BUN 60 H Creatinine 4.61 H* Estim Creat Clear Calc 18.1 Estimated GFR 13 Random Glucose 91 Calcium 7.6 L Magnesium 2.0 Total Bilirubin 3.1 H Direct Bilirubin 1.1 H AST 20 ALT 6 Alkaline Phosphatase 33 L Total Protein 6.2 L Albumin 2.9 L Abnorm Protein Band 1 Abnorm Protein Band 2 Abnorm Protein Band 3 U Abnormal Prot Band 1 U Abnormal Prot Band 2 U Abnormal Prot Band 3 JENN Screen JENN Titer JENN Titer 2 JENN Titer 3 JENN Pattern JENN Pattern 2 JENN Pattern 3 Anti-Mitochondrial Ab Microbiology Microbiology Results: Microbiology 07/24/22 16:00 Ascites Fluid Gram Stain - Final 07/24/22 16:00 Ascites Fluid Anaerobic Culture - Preliminary No growth to date. 07/24/22 16:00 Ascites Fluid Body Fluid Culture - Preliminary No growth after 1 day 07/21/22 Unknown Urine clean catch - Urine rios top Urine Culture - Final Streptococcus viridans group Procedures Date of Service Date of Service: 07/26/22 Progress Note: A&P Assessment and plan (1) Alcoholic cirrhosis: Status: Acute Assessment and Plan: No further gi bleeding ascites culture neg so far, cytology pending if these are negative, start prednisolone 30 mg/daily for alcoholic hepatitis. Time Spent With Patient Time: Total time spent is greater than 50% in coordination of care (as documented) at patient's floor/unit and/or counseling patient: Quality Stroke Does the patient have a stroke diagnosis?: No VTE Prior VTE?: No VTE Risk Level:: Medical - moderate - high VTE Device Contraindication: Treatment Not Indicated VTE Drug Contraindication: Treatment Not Indicated
[2022-07-26] MEDS: 0.9 % Sodium Chloride Flush 10 ML SYRINGE 5 ML IVFLUSH (20:11)
[2022-07-27] VITALS: RESP 17
[2022-07-27 04:00] VITALS: RESP 17
[2022-07-27] MEDS: Omeprazole 40 MG CAPSULE.DR PO ×2 (06:12→16:23)
[2022-07-27 06:55] LABS: INTERNATIONAL NORM RATIO 1.8 (0.9-1.1); Prothrombin Time 21.4 SEC (10.0-13.1)
[2022-07-27 08:00] VITALS: BP 122/58; PULSE 69; RESP 18; TEMP 36.3; O2SAT 98
[2022-07-27] MEDS: Tamsulosin HCL 0.4 MG CAPSULE PO (08:42)
[2022-07-27] MEDS: 0.9 % Sodium Chloride Flush 3 ML SYRINGE IVFLUSH ×3 (08:47→19:54)
[2022-07-27 12:00] VITALS: BP 107/58; TEMP 36.3
--- NOTE | 2022-07-27 12:29 | P.PNIM_ITS ---
Subjective Subjective Date of Service: 07/27/22 Interval History: Seen and evaluated this morning Feels comfortable, reported lower extremity swelling No other overnight events Physical Exam Vital Signs: Vital Signs: Last Vital Signs Temp 97.4 F 07/27/22 08:00 Pulse 69 07/27/22 08:00 Resp 18 07/27/22 08:00 BP 122/58 L 07/27/22 08:00 Pulse Ox 98 07/27/22 08:00 O2 Del Method 07/27/22 08:00 O2 Flow Rate 3 07/27/22 08:00 BMI result Body Mass Index 31.6 Const: Other: Comfort measure only Objective Data Active Medications Lorazepam (Lorazepam 0.5 Mg Tablet) 0.5 mg PO Q4H PRN PRN Reason: anxiety/restlessness Morphine Sulfate (Morphine Sulfate Oral Sherry 10 Mg/5 Ml Solution) 5 mg SUBLI NGUAL Q4H PRN PRN Reason: Pain, Severe (Pain Scale 7-10) Omeprazole (Omeprazole 40 Mg Capsule.Dr) 40 mg PO BID@0630,1630 [facility] Last Admin: 07/27/22 06:12 Dose: 40 mg Documented By: ANI Ondansetron HCl (Ondansetron Hcl 4 Mg/2 Ml Vial) 4 mg IVPUSH Q8H PRN PRN Reason: Nausea and Vomiting Sodium Chloride (0.9 % Sodium Chloride Flush 3 Ml Syringe) 3 ml IVFLUSH [facility] Last Admin: 07/27/22 11:36 Dose: 3 ml Documented By: BETY Sodium Chloride (0.9 % Sodium Chloride Flush 10 Ml Syringe) 5 ml IVFLUSH [facility] Last Admin: 07/27/22 11:36 Dose: Not Given Documented By: BETY Non-Admin Reason: n/a Tamsulosin HCl (Tamsulosin Hcl 0.4 Mg Capsule) 0.4 mg PO DAILY [facility] Last Admin: 07/27/22 08:42 Dose: 0.4 mg Documented By: BETY Labs CBC & Chem 7: 07/26/22 05:58 07/26/22 05:58 Labs: Laboratory Results - last 24 hr 07/20/22 07/23/22 07/26/22 22:03 06:40 13:16 PT INR Anti-Mitochondrial Ab NEGATIVE Blood Type B Positive Antibody Screen NEGATIVE Crossmatch See Detail 07/27/22 06:16 PT 21.4 H INR 1.8 H Anti-Mitochondrial Ab Blood Type Antibody Screen Crossmatch Microbiology Microbiology Results: Microbiology 07/24/22 16:00 Gram Stain - Final Ascites Fluid Anaerobic Culture - Preliminary No growth to date. Body Fluid Culture - Final No growth after 2 days Assessment and Plan (1) Acute on chronic kidney failure: Status: Acute (2) Hematemesis: Status: Acute (3) Alcoholic cirrhosis: Status: Acute (4) Anasarca: Status: Acute Plan 67-year-old male who is not on any prescription medications and has not seen a doctor in over 15 years, presents to the emergency department for evaluation of dyspnea and generalized swelling. found to have elevated creatinine, liver cirrhosis, severe anemia. Treated for anasarca secondary to liver cirrhosis and hepatitis-C infection. Received blood transfusion for blood loss anemia. Developed acute kidney injury on top of CKD stage 4 likely due to an hepatorenal syndrome. Nephrology followed and recommended starting dialysis but his HCP decided not to do dialysis and to go for comfort measures as the patient lacked capacity to take medical decisions. Acute kidney injury on CKD4 in need for dialysis Anasarca secondary to liver cirrhosis, hepatitis-C Blood-loss anemia secondary to GI bleed On comfort measures only now To address capacity issue as the patient more alert by psychiatry team evaluation Morphine for pain Ativan for anxiety To get hospice team evaluation once psych evaluation is done Quality Stroke Does the patient have a stroke diagnosis?: No VTE Prior VTE?: No VTE Risk Level:: Medical - moderate - high VTE Device Contraindication: Treatment Not Indicated VTE Drug Contraindication: Treatment Not Indicated
[2022-07-27 15:34] VITALS: BP 110/54; PULSE 68; RESP 17; TEMP 36.4; O2SAT 97
--- NOTE | 2022-07-27 16:02 | P.CNPS_ITS ---
History of Present Illness Date of Service: 07/27/2022 Chief Complaint: Dyspnea Reason for Consult: Capacity ref dialysis Discussed with referring provider: Yes Sources of Information: patient interviewed and chart reviewed HPI Narrative: As per medicine notes: 67-year-old male who is not on any prescription medications and has not seen a doctor in over 15 years, presents to the emergency department for evaluation of dyspnea and generalized swelling. found to have elevated creatinine, liver cirrhosis, severe anemia.? Treated for anasarca secondary to liver cirrhosis and hepatitis-C infection.? Received blood transfusion for blood loss anemia.? Developed acute kidney injury on top of CKD stage 4 likely due to an hepatorenal syndrome.? Nephrology followed and recommended starting dialysis Patient admitted 07/21/2022. No clear evidence from the chart of delirium her cognitive impairment, however healthcare proxy (sister) was invoked yesterday. Today team feel like patient is understanding of treatment team's recommendations along with risks and benefits of accepting and declining. As per team patient reports wanting to dialysis, which appears to contradict what healthcare proxy believes patient would want. Spoke with team and they report there has been some confusion in the evenings for example confused about where he is, otherwise no notable issues. Reports there has been difficulty with getting access for dialysis- related to medical risk. Patient was working with HOSPICE MANAGER when pattern chart writer went to evaluate him. He was correctly instructing the HOSPICE MANAGER to take blood pressures from his legs rather than his arms. CN 8 was thankful for same as they were not actually aware of that. Patient aware that he has been in the hospital for 5-6 days. Reports he was here because of lots of swelling and difficulty moving. Aware of the date, place, Thanksgiving coming up. Aware of who his healthcare proxy was. Denied depression, paranoia. [place] he was getting good care. Sleep okay. Aware that he was on oxygen because his breathing was impaired and he was able to connect this with limb swelling. Aware that he had liver damage and it was alcohol related. Reports his last drink was approximately 5 weeks ago, which is consistent with the record. Reports longest sobriety has been a few months at a time. Regarding kidneys, aware that they are in failure. Asked about dialysis and he had some understanding of this because a friend's mother had dialysis and aware she had to go for dialysis and number of times per week. When asked his opinion on dialysis is better than the alternative , when asked to clarify . Background lives alone. Single. 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 42-year-old daughter living locally. Great relationship with his sister who is healthcare proxy. Denied any psychiatric history. Reported 1 time getting Ativan when he was in the hospital for anxiety but this was a 1 time thing. Past Psychiatric History: None Medical Evaluation Reviewed: Yes Personal & Social History: retired darkroom worker. Lives alone. Single. 42-year-old daughter living locally. Good relationship with his sister who is his healthcare proxy [facility] Medical History (Updated 07/25/22 @ 15:07 by Linda Robles MD) Afib Alcoholic cirrhosis HCV (hepatitis C virus) Surgical History History of orthopedic surgery Diagnostics Vital Signs (24Hr): Vital Signs - 24 hr 07/26/22 20:25 07/27/22 00:00 07/27/22 04:00 Temperature 97.4 F Pulse Rate 74 Respiratory Rate 18 17 17 Blood Pressure 134/64 Pulse Oximetry 97 Oxygen Delivery Method Room Air Oxygen Flow Rate 07/27/22 08:00 07/27/22 12:00 07/27/22 15:34 Temperature 97.4 F 97.3 F 97.5 F Pulse Rate 69 68 Respiratory Rate 18 17 Blood Pressure 122/58 L 107/58 L 110/54 L Pulse Oximetry 98 97 Oxygen Delivery Method Nasal Cannula Nasal Cannula Oxygen Flow Rate 3 2.0 07/27/22 19:14 Temperature 97.7 F Pulse Rate 69 Respiratory Rate 18 Blood Pressure 114/56 L Pulse Oximetry 98 Oxygen Delivery Method Nasal Cannula Oxygen Flow Rate 2.0 BMI result Body Mass Index 31.6 Labs Results: 07/26/22 05:58 07/26/22 05:58 Labs: Laboratory Results - last 48 hr 07/20/22 07/22/22 07/22/22 22:03 05:15 10:00 WBC RBC Hgb Hct MCV MCH MCHC RDW Plt Count MPV Absolute Nucleated RBC Nucleated RBC % (auto) PT INR Sodium Potassium Chloride Carbon Dioxide Anion Gap BUN Creatinine Estim Creat Clear Calc Estimated GFR Random Glucose Calcium Magnesium Total Bilirubin Direct Bilirubin AST ALT Alkaline Phosphatase Total Protein Albumin Abnorm Protein Band 1 TNP Abnorm Protein Band 2 TNP Abnorm Protein Band 3 TNP U Abnormal Prot Band 1 TNP U Abnormal Prot Band 2 TNP U Abnormal Prot Band 3 TNP JENN Titer 3 JENN Pattern 3 Anti-Mitochondrial Ab Blood Type Antibody Screen Crossmatch See Detail 07/22/22 07/23/22 07/26/22 11:54 06:40 05:58 WBC 5.7 RBC 2.49 L Hgb 7.3 L Hct 24.0 L MCV 96.4 MCH 29.3 MCHC 30.4 L RDW 19.4 H Plt Count 31 L D MPV Not Reportable Absolute Nucleated RBC 0.000 Nucleated RBC % (auto) 0.0 PT INR Sodium Potassium Chloride Carbon Dioxide Anion Gap BUN Creatinine Estim Creat Clear Calc Estimated GFR Random Glucose Calcium Magnesium Total Bilirubin Direct Bilirubin AST ALT Alkaline Phosphatase Total Protein Albumin Abnorm Protein Band 1 Abnorm Protein Band 2 Abnorm Protein Band 3 U Abnormal Prot Band 1 U Abnormal Prot Band 2 U Abnormal Prot Band 3 JENN Titer 3 TNP JENN Pattern 3 TNP Anti-Mitochondrial Ab NEGATIVE Blood Type Antibody Screen Crossmatch 07/26/22 07/26/22 07/26/22 05:58 05:58 05:58 WBC RBC Hgb Hct MCV MCH MCHC RDW Plt Count MPV Absolute Nucleated RBC Nucleated RBC % (auto) PT 25.7 H INR 2.2 H Sodium Cancelled 132 L Potassium Cancelled 4.6 Chloride Cancelled 102 Carbon Dioxide Cancelled 21 L Anion Gap Cancelled 14 BUN Cancelled 60 H Creatinine Cancelled 4.61 H* Estim Creat Clear Calc Cancelled 18.1 Estimated GFR Cancelled 13 Random Glucose Cancelled 91 Calcium Cancelled 7.6 L Magnesium 2.0 Total Bilirubin 3.1 H Direct Bilirubin 1.1 H AST 20 ALT 6 Alkaline Phosphatase 33 L Total Protein 6.2 L Albumin 2.9 L Abnorm Protein Band 1 Abnorm Protein Band 2 Abnorm Protein Band 3 U Abnormal Prot Band 1 U Abnormal Prot Band 2 U Abnormal Prot Band 3 JENN Titer 3 JENN Pattern 3 Anti-Mitochondrial Ab Blood Type Antibody Screen Crossmatch 07/26/22 07/27/22 13:16 06:16 WBC RBC Hgb Hct MCV MCH MCHC RDW Plt Count MPV Absolute Nucleated RBC Nucleated RBC % (auto) PT 21.4 H INR 1.8 H Sodium Potassium Chloride Carbon Dioxide Anion Gap BUN Creatinine Estim Creat Clear Calc Estimated GFR Random Glucose Calcium Magnesium Total Bilirubin Direct Bilirubin AST ALT Alkaline Phosphatase Total Protein Albumin Abnorm Protein Band 1 Abnorm Protein Band 2 Abnorm Protein Band 3 U Abnormal Prot Band 1 U Abnormal Prot Band 2 U Abnormal Prot Band 3 JENN Titer 3 JENN Pattern 3 Anti-Mitochondrial Ab Blood Type B Positive Antibody Screen NEGATIVE Crossmatch Imaging Radiology Impressions: ITS Impressions Chest X-Ray 07/20/22 18:00 IMPRESSION: Pleural thickening on the right possibly small pleural effusion. Abdomen Ultrasound 07/21/22 01:15 IMPRESSION: 1. Cirrhotic morphology of the liver with moderate to large volume of ascites. 2. Gallbladder sludge with nonspecific gallbladder wall thickening and pericholecystic free fluid in the setting of cirrhosis and ascites. Negative Meier's sign. 3. Partially imaged right-sided pleural effusion. Venous Duplex 07/23/22 12:26 IMPRESSION: No DVT demonstrated in the left upper extremity. Paracentesis Ultrasound 07/24/22 16:30 IMPRESSION: Ultrasound-guided paracentesis. Insertion Non-Tunneled Catheter 07/25/22 12:54 IMPRESSION: Placement of right internal jugular temporary dialysis catheter as described. Fluoroscopy Time: 0.3 minutes. Number of Images: 2. DAP: 54 cGy-cm2. Mental Status Exam Mental Status Exam Narrative: pleasant. Engaged. Alert and oriented. No cognitive issues noted. Did appear to have an understanding of his current situation. No depression. No evidence of SI HI psychosis agitation or delirium. Medications Medications Current Medications Lorazepam (Lorazepam 0.5 Mg Tablet) 0.5 mg PO Q4H PRN PRN Reason: anxiety/restlessness Morphine Sulfate (Morphine Sulfate Oral Sherry 10 Mg/5 Ml Solution) 5 mg SUBLINGUAL Q4H PRN PRN Reason: Pain, Severe (Pain Scale 7-10) Omeprazole (Omeprazole 40 Mg Capsule.Dr) 40 mg PO BID@0630,1630 [facility] Last Admin: 07/27/22 16:23 Dose: 40 mg Ondansetron HCl (Ondansetron Hcl 4 Mg/2 Ml Vial) 4 mg IVPUSH Q8H PRN PRN Reason: Nausea and Vomiting Sodium Chloride (0.9 % Sodium Chloride Flush 3 Ml Syringe) 3 ml IVFLUSH [facility] Last Admin: 07/27/22 11:36 Dose: 3 ml Sodium Chloride (0.9 % Sodium Chloride Flush 10 Ml Syringe) 5 ml IVFLUSH [facility] Last Admin: 07/27/22 16:18 Dose: Not Given Tamsulosin HCl (Tamsulosin Hcl 0.4 Mg Capsule) 0.4 mg PO DAILY [facility] Last Admin: 07/27/22 08:42 Dose: 0.4 mg Allergies Allergies Allergy/AdvReac Type Severity Reaction Status Date / Time No Known Allergies Allergy Verified 07/20/22 16:57 Assessment & Plan Assessment & Plan (1) Acute on chronic kidney failure: Status: Acute Code(s): N17.9 - Acute kidney failure, unspecified; N18.9 - Chronic kidney disease, unspecified Assessment and Plan: Regarding capacity in dialysis, he does appear to have an understanding around same. Given case complexity, would like to see this on a consistent basis and will re-evaluate tomorrow. Discussed with team. I spent minutes with the patient and/or on the patient floor today, greater than?50% of which was spent counseling/coordinating care. Patient educated on: other (capacity evaluation) Informed Consent: understands
[2022-07-27 19:14] VITALS: BP 114/56; PULSE 69; RESP 18; TEMP 36.5; O2SAT 98
[2022-07-27] MEDS: 0.9 % Sodium Chloride Flush 10 ML SYRINGE 5 ML IVFLUSH (19:53)
[2022-07-28] VITALS (7 sets, daily range): BP systolic 124–165; BP diastolic 59–74; PULSE 74–81; RESP 14–19; TEMP 36.6–36.9; O2SAT 93–96
[2022-07-28] MEDS: Omeprazole 40 MG CAPSULE.DR PO ×2 (05:42→17:30)
[2022-07-28 06:28] LABS: INTERNATIONAL NORM RATIO 1.9 (0.9-1.1); Prothrombin Time 22.9 SEC (10.0-13.1)
[2022-07-28] MEDS: 0.9 % Sodium Chloride Flush 3 ML SYRINGE IVFLUSH ×2 (07:38→15:23)
[2022-07-28] MEDS: Tamsulosin HCL 0.4 MG CAPSULE PO (07:38)
[2022-07-28 09:08] LABS: MANUAL DIFF FLAG NO
[2022-07-28 09:09] LABS: Basophils Percent Auto 0.4 % (0-2); Eosinophils Absolute Auto 0.3 X10*3/uL (0.0-0.4); Eosinophils Percent Auto 5.8 % (0-4); Hemoglobin 7.2 g/dl (14.0-18.0); Imm Gran Abs Auto 0.06 X10*3/uL (0.00-0.03); Imm Gran Pct Auto 1.3 % (0.0-0.4); Lymphocytes Percent Auto 20.4 % (20-40); Mean Corpuscular HGB Conc 31.3 g/dl (31.0-36.0); Mean Corpuscular Hemoglobin 28.8 pg (27.0-33.0); Mean Platelet Volume 11.9 fL (9.4-12.4); Monocytes Absolute Auto 0.7 X10*3/uL (0.1-1.2); Monocytes Percent Auto 14.8 % (2-11); NRBC Pct Auto 0.4 /100WBC (0.0-0.2); Neutrophils Absolute Auto 2.7 x10*3/uL (2.0-8.3); Neutrophils Percent Auto 57.3 % (45-73); Red Cell Distribution Width 19.4 % (11.0-16.0); White Blood Count 4.7 X10*3/uL (4.8-10.8)
[2022-07-28 09:10] LABS: Platelet Count 46 X10*3/uL (160-400)
[2022-07-28 09:21] LABS: Alanine Aminotransferase 10 U/L (0-40); Albumin Level 2.7 g/dL (3.5-5.0); Alkaline Phosphatase 42 U/L (39-117); Anion Gap 13 (12-20); Aspartate Amino Transferase 22 U/L (5-37); Bilirubin Direct 1.1 mg/dL (0.0-0.5); Bilirubin Total 1.9 mg/dL (0.0-1.0); Blood Urea Nitrogen 68 mg/dL (9-16); Calcium 7.7 mg/dL (8.4-10.2); Carbon Dioxide 24 mmol/L (22-29); Chloride 100 mmol/L (96-108); Creatinine Clr Calc Pharmacy 19.1; Estimated Glomerular Filt Rate 14; Glucose Random 124 mg/dL (60-115); Potassium 3.9 mmol/L (3.3-5.1); Sodium 133 mmol/L (135-145); Total Protein 6.7 g/dL (6.5-8.0)
--- NOTE | 2022-07-28 11:32 | HO.PM.IMPN ---
Subjective Subjective Date of Service: 07/28/22 Interval History: The patient was seen and evaluated this morning He was his bed having breakfast Reported feeling overall better Discussed the need of dialysis with him. Patient agrees to do dialysis if it is only way to save his life Discussed goals of care with him as he does not want to be comfort measures at this point and would like to be treated and keep his status as DNR DNI Review of Systems No fever, chills or weakness No chest pain, palpitation Improving shortness of breath or coughing No abdominal pain, nausea or vomiting No urinary symptoms Bilateral LE swelling Physical Exam Vital Signs: Vital Signs: Last Vital Signs Temp 97.7 F 07/27/22 19:14 Pulse 69 07/27/22 19:14 Resp 14 07/28/22 03:29 BP 114/56 L 07/27/22 19:14 Pulse Ox 95 07/28/22 08:00 O2 Del Method 07/28/22 08:00 O2 Flow Rate 2.0 07/27/22 19:14 BMI result Body Mass Index 31.6 Const: Other: Constitutional : Awake, interactive, not in distress Neck : Normal inspection, Supple, dialysis catheter site covered with dressing Cardiovascular : RRR, no JVP, +1 lower extremity edema Respiratory :? Fair bilateral air entry,? no crackles, wheezes or rhonchi Gastrointestinal:? soft, lax, Normal bowel sounds, distended abdomen with no tenderness Skin : Warm, Dry Urology: Scrotal edema Neurological : Alert & oriented to self and place, No focal deficit Objective Data Active Medications Lorazepam (Lorazepam 0.5 Mg Tablet) 0.5 mg PO Q4H PRN PRN Reason: anxiety/restlessness Morphine Sulfate (Morphine Sulfate Oral Sherry 10 Mg/5 Ml Solution) 5 mg SUBLINGUAL Q4H PRN PRN Reason: Pain, Severe (Pain Scale 7-10) Omeprazole (Omeprazole 40 Mg Capsule.) 40 mg PO BID@0630,1630 [facility] Last Admin: 07/28/22 05:42 Dose: 40 mg Documented By: ANI Ondansetron HCl (Ondansetron Hcl 4 Mg/2 Ml Vial) 4 mg IVPUSH Q8H PRN PRN Reason: Nausea and Vomiting Sodium Chloride (0.9 % Sodium Chloride Flush 3 Ml Syringe) 3 ml IVFLUSH QSHIFT [facility] Last Admin: 07/28/22 07:38 Dose: 3 ml Documented By: BETY Sodium Chloride (0.9 % Sodium Chloride Flush 10 Ml Syringe) 5 ml IVFLUSH QSHIFT [facility] Last Admin: 07/28/22 10:15 Dose: Not Given Documented By: BETY Non-Admin Reason: n/a Tamsulosin HCl (Tamsulosin Hcl 0.4 Mg Capsule) 0.4 mg PO DAILY [facility] Last Admin: 07/28/22 07:38 Dose: 0.4 mg Documented By: BETY Labs CBC & Chem 7: 07/28/22 06:12 07/28/22 Unknown Labs: Laboratory Results - last 24 hr 07/28/22 07/28/22 07/28/22 06:12 06:12 Unknown MCV 92.0 MCH 28.8 MCHC 31.3 RDW 19.4 H Plt Count 46 L D MPV 11.9 Immature Gran % (Auto) 1.3 H Neut % (Auto) 57.3 Lymph % (Auto) 20.4 Fisher % (Auto) 14.8 H Eos % (Auto) 5.8 H Baso % (Auto) 0.4 Lymph # (Auto) 1.0 L Fisher # (Auto) 0.7 Eos # (Auto) 0.3 Baso # (Auto) 0.0 Abs Immat Gran (auto) 0.06 H Absolute Neuts (auto) 2.7 Absolute Nucleated RBC 0.020 H Nucleated RBC % (auto) 0.4 H PT 22.9 H INR 1.9 H Anion Gap 13 Estim Creat Clear Calc 19.1 Estimated GFR 14 Random Glucose 124 H Calcium 7.7 L Total Bilirubin 1.9 H Direct Bilirubin 1.1 H AST 22 ALT 10 Alkaline Phosphatase 42 Total Protein 6.7 Albumin 2.7 L Microbiology Microbiology Results: Microbiology 07/24/22 16:00 Gram Stain - Final Ascites Fluid Anaerobic Culture - Preliminary No growth to date. Body Fluid Culture - Final No growth after 2 days Assessment and Plan (1) Acute on chronic kidney failure: Status: Acute (2) Hematemesis: Status: Acute (3) Anasarca: Status: Acute Plan 67-year-old male who is not on any prescription medications and has not seen a doctor in over 15 years, presents to the emergency department for evaluation of dyspnea and generalized swelling. found to have elevated creatinine, liver cirrhosis, severe anemia Capacity evaluation Patient seen by psychiatrist who believe E has capacity to take decisions about his medical care Discussed the need of dialysis with him. Patient agrees to do dialysis if it is only way to save his life Discussed goals of care with him as he does not want to be comfort measures at this point and would like to be treated and keep his status as DNR DNI YADI on CKD IV Likely 2/2 HRS, investigating other possibilities Creatinine stabilized, making small amount of urine Pending cryoglobin for low C3-C4 I\O To discuss with Nephrology about the need of dialysis before placing new line Monitor intake and output Anasarca 2/2 liver cirrhosis, hepatitis-C infection Negative anti mitochondrial antibodies No malignant cells identified ?GI input appreciated , SAAG is c/w cirrhosis, start prednisone 30 mg daily Restrict fluid intake Hold Lasix for worsening kidney function hematemesis with acute on chronic blood loss anemia s/p 4 units, Hb 7.2, no major bleeding but likely dilution and with no urine output EGD showed evidence of erosive esophagitis and atrophic gastritis Continue IV ceftriaxone Continue ppi, octreotide, midodrine Continue albumin LUE swelling Negative Doppler for DVT Stage II right buttock to pressure injury Foam dressing applied dvt prohpylaxis mechanical due to coagulopathy full code reason for continued hospitalization:? Anasarca with Yadi I for possible dialysis pending nephrology follow-up and safe discharge plan Quality Stroke Does the patient have a stroke diagnosis?: No VTE Prior VTE?: No VTE Risk Level:: Medical - moderate - high VTE Device Contraindication: Treatment Not Indicated VTE Drug Contraindication: Treatment Not Indicated
[2022-07-28] MEDS: prednisoLONE sodium phosphate 15 MG/5 ML SOLUTION 30 MG PO (12:49)
--- NOTE | 2022-07-28 12:54 | PM.PSYCN ---
History of Present Illness Date of Service: 07/28/2022 Chief Complaint: Dyspnea Reason for Consult: Capacity Sources of Information: patient interviewed and chart reviewed HPI Narrative: Follow-up consult from 07/27/2022 around capacity evaluation for dialysis. Please see initial consult on 07/27/2022 for more detail in background. Spoke with hospitalist. Patient pleasant with card writer hand and remembered him from yesterday's evaluation without difficulty. Was watching the movie jaws on television with good attention and understanding. Patient continues to express a clear wish for dialysis and understands risks benefits of getting dialysis along with the need for venous access and also the consequences of not accepting dialysis I am not ready to punch out quite yet . Aware that there is a workup regarding same and some additional blood testing. Past Psychiatric History: None [facility] Medical History (Updated 07/25/22 @ 15:07 by Linda Robles MD) Afib Alcoholic cirrhosis HCV (hepatitis C virus) Surgical History History of orthopedic surgery Diagnostics Vital Signs (24Hr): Vital Signs - 24 hr 07/27/22 15:34 07/27/22 19:14 07/28/22 00:00 Temperature 97.5 F 97.7 F Pulse Rate 68 69 Respiratory Rate 17 18 14 Blood Pressure 110/54 L 114/56 L Pulse Oximetry 97 98 Oxygen Delivery Method Nasal Cannula Nasal Cannula Oxygen Flow Rate 2.0 2.0 07/28/22 03:29 07/28/22 08:00 Temperature Pulse Rate Respiratory Rate 14 Blood Pressure Pulse Oximetry 95 Oxygen Delivery Method Room Air Oxygen Flow Rate BMI result Body Mass Index 31.6 Labs Results: 07/28/22 06:12 07/28/22 Unknown Labs: Laboratory Results - last 48 hr 07/20/22 07/23/22 07/26/22 22:03 06:40 13:16 WBC RBC Hgb Hct MCV MCH MCHC RDW Plt Count MPV Immature Gran % (Auto) Neut % (Auto) Lymph % (Auto) Wallace % (Auto) Eos % (Auto) Baso % (Auto) Lymph # (Auto) Wallace # (Auto) Eos # (Auto) Baso # (Auto) Abs Immat Gran (auto) Absolute Neuts (auto) Absolute Nucleated RBC Nucleated RBC % (auto) PT INR Sodium Potassium Chloride Carbon Dioxide Anion Gap BUN Creatinine Estim Creat Clear Calc Estimated GFR Random Glucose Calcium Total Bilirubin Direct Bilirubin AST ALT Alkaline Phosphatase Total Protein Albumin Anti-Mitochondrial Ab NEGATIVE Blood Type B Positive Antibody Screen NEGATIVE Crossmatch See Detail 07/27/22 07/28/22 07/28/22 06:16 06:12 06:12 WBC 4.7 L RBC 2.50 L Hgb 7.2 L Hct 23.0 L MCV 92.0 MCH 28.8 MCHC 31.3 RDW 19.4 H Plt Count 46 L D MPV 11.9 Immature Gran % (Auto) 1.3 H Neut % (Auto) 57.3 Lymph % (Auto) 20.4 Wallace % (Auto) 14.8 H Eos % (Auto) 5.8 H Baso % (Auto) 0.4 Lymph # (Auto) 1.0 L Wallace # (Auto) 0.7 Eos # (Auto) 0.3 Baso # (Auto) 0.0 Abs Immat Gran (auto) 0.06 H Absolute Neuts (auto) 2.7 Absolute Nucleated RBC 0.020 H Nucleated RBC % (auto) 0.4 H PT 21.4 H 22.9 H INR 1.8 H 1.9 H Sodium Potassium Chloride Carbon Dioxide Anion Gap BUN Creatinine Estim Creat Clear Calc Estimated GFR Random Glucose Calcium Total Bilirubin Direct Bilirubin AST ALT Alkaline Phosphatase Total Protein Albumin Anti-Mitochondrial Ab Blood Type Antibody Screen Crossmatch 07/28/22 Unknown WBC RBC Hgb Hct MCV MCH MCHC RDW Plt Count MPV Immature Gran % (Auto) Neut % (Auto) Lymph % (Auto) Wallace % (Auto) Eos % (Auto) Baso % (Auto) Lymph # (Auto) Wallace # (Auto) Eos # (Auto) Baso # (Auto) Abs Immat Gran (auto) Absolute Neuts (auto) Absolute Nucleated RBC Nucleated RBC % (auto) PT INR Sodium 133 L Potassium 3.9 Chloride 100 Carbon Dioxide 24 Anion Gap 13 BUN 68 H Creatinine 4.38 H* Estim Creat Clear Calc 19.1 Estimated GFR 14 Random Glucose 124 H Calcium 7.7 L Total Bilirubin 1.9 H Direct Bilirubin 1.1 H AST 22 ALT 10 Alkaline Phosphatase 42 Total Protein 6.7 Albumin 2.7 L Anti-Mitochondrial Ab Blood Type Antibody Screen Crossmatch Imaging Radiology Impressions: ITS Impressions Chest X-Ray 07/20/22 18:00 IMPRESSION: Pleural thickening on the right possibly small pleural effusion. Abdomen Ultrasound 07/21/22 01:15 IMPRESSION: 1. Cirrhotic morphology of the liver with moderate to large volume of ascites. 2. Gallbladder sludge with nonspecific gallbladder wall thickening and pericholecystic free fluid in the setting of cirrhosis and ascites. Negative Meier's sign. 3. Partially imaged right-sided pleural effusion. Venous Duplex 07/23/22 12:26 IMPRESSION: No DVT demonstrated in the left upper extremity. Paracentesis Ultrasound 07/24/22 16:30 IMPRESSION: Ultrasound-guided paracentesis. Insertion Non-Tunneled Catheter 07/25/22 12:54 IMPRESSION: Placement of right internal jugular temporary dialysis catheter as described. Fluoroscopy Time: 0.3 minutes. Number of Images: 2. DAP: 54 cGy-cm2. Mental Status Exam Mental Status Exam Narrative: Alert. Oriented. Engaged. Organized. Euthymic. No SI. No HI. No cognitive issues. Insight and judgment good Medications Medications Current Medications Lorazepam (Lorazepam 0.5 Mg Tablet) 0.5 mg PO Q4H PRN PRN Reason: anxiety/restlessness Morphine Sulfate (Morphine Sulfate Oral Sherry 10 Mg/5 Ml Solution) 5 mg SUBLINGUAL Q4H PRN PRN Reason: Pain, Severe (Pain Scale 7-10) Omeprazole (Omeprazole 40 Mg Capsule.) 40 mg PO BID@0630,1630 [facility] Last Admin: 07/28/22 05:42 Dose: 40 mg Ondansetron HCl (Ondansetron Hcl 4 Mg/2 Ml Vial) 4 mg IVPUSH Q8H PRN PRN Reason: Nausea and Vomiting Prednisolone Sodium Phosphate (Prednisolone Sodium Phosphate 15 Mg/5 Ml Solution) 30 mg PO DAILY [facility] Last Admin: 07/28/22 12:49 Dose: 30 mg Sodium Chloride (0.9 % Sodium Chloride Flush 3 Ml Syringe) 3 ml IVFLUSH QSHIFT [facility] Last Admin: 07/28/22 07:38 Dose: 3 ml Sodium Chloride (0.9 % Sodium Chloride Flush 10 Ml Syringe) 5 ml IVFLUSH QSHIFT [facility] Last Admin: 07/28/22 10:15 Dose: Not Given Tamsulosin HCl (Tamsulosin Hcl 0.4 Mg Capsule) 0.4 mg PO DAILY [facility] Last Admin: 07/28/22 07:38 Dose: 0.4 mg Allergies Allergies Allergy/AdvReac Type Severity Reaction Status Date / Time No Known Allergies Allergy Verified 07/20/22 16:57 Assessment & Plan Assessment & Plan (1) Acute on chronic kidney failure: Status: Acute Code(s): N17.9 - Acute kidney failure, unspecified; N18.9 - Chronic kidney disease, unspecified Plan Overall patient has expressed a consistent wish around dialysis and has a clear understanding regarding same i.e. has capacity regarding dialysis. No cognitive issues noted and presentation consistent on 07/27 and 07/28. Team will also review MOLST form with patient. Sign off case. Please reconsult if needed. I spent minutes with the patient and/or on the patient floor today, greater than?50% of which was spent counseling/coordinating care.
--- NOTE | 2022-07-28 14:25 | P.PNNP_ITS ---
Subjective Subjective Date of Service: 07/28/22 Principal diagnosis: YADI/CKD and anasarca Interval history: The patient was seen and evaluated this morning He was his bed having breakfast Reported feeling overall better Discussed case yesterday and he was [employer]. Now pt has been deemed competent and is deciding he would accept acute dialysis if indicated. His UA is abnormal arguing against HRS. he is making nearly a liter of urine and at present has no absolute indication for dialysis. Physical Exam Vital Signs: Vital Signs: Last Vital Signs Temp 98.0 F 07/28/22 12:00 Pulse 74 07/28/22 12:00 Resp 16 07/28/22 12:00 BP 124/74 07/28/22 12:00 Pulse Ox 93 07/28/22 12:00 O2 Del Method 07/28/22 12:00 O2 Flow Rate 2.0 07/27/22 19:14 BMI result Body Mass Index 31.6 Const: Other: Constitutional : Awake, interactive, not in distress Neck : Normal inspection, Supple, dialysis catheter site covered with dressing Cardiovascular : RRR, no JVP, +1 lower extremity edema Respiratory :? Fair bilateral air entry,? no crackles, wheezes or rhonchi Gastrointestinal:? soft, lax, Normal bowel sounds, distended abdomen with no tenderness Skin : Warm, Dry Urology: Scrotal edema Neurological : Alert & oriented to self and place, No focal deficit Objective Data Labs CBC & Chem 7: 07/28/22 06:12 07/28/22 Unknown Labs: Laboratory Results - last 24 hr 07/28/22 07/28/22 07/28/22 06:12 06:12 Unknown WBC 4.7 L RBC 2.50 L Hgb 7.2 L Hct 23.0 L MCV 92.0 MCH 28.8 MCHC 31.3 RDW 19.4 H Plt Count 46 L D MPV 11.9 Immature Gran % (Auto) 1.3 H Neut % (Auto) 57.3 Lymph % (Auto) 20.4 [place] % (Auto) 14.8 H Eos % (Auto) 5.8 H Baso % (Auto) 0.4 Lymph # (Auto) 1.0 L [place] # (Auto) 0.7 Eos # (Auto) 0.3 Baso # (Auto) 0.0 Abs Immat Gran (auto) 0.06 H Absolute Neuts (auto) 2.7 Absolute Nucleated RBC 0.020 H Nucleated RBC % (auto) 0.4 H PT 22.9 H INR 1.9 H Sodium 133 L Potassium 3.9 Chloride 100 Carbon Dioxide 24 Anion Gap 13 BUN 68 H Creatinine 4.38 H* Estim Creat Clear Calc 19.1 Estimated GFR 14 Random Glucose 124 H Calcium 7.7 L Total Bilirubin 1.9 H Direct Bilirubin 1.1 H AST 22 ALT 10 Alkaline Phosphatase 42 Total Protein 6.7 Albumin 2.7 L Microbiology Microbiology Results: Microbiology 07/24/22 16:00 Ascites Fluid Gram Stain - Final 07/24/22 16:00 Ascites Fluid Anaerobic Culture - Preliminary No growth to date. 07/24/22 16:00 Ascites Fluid Body Fluid Culture - Final No growth after 2 days 07/21/22 Unknown Urine clean catch - Urine rios top Urine Culture - Final Streptococcus viridans group Procedures Date of Service Date of Service: 07/28/22 Assessment & Plan Assessment and plan (1) Acute on chronic kidney failure: Status: Acute (2) Alcoholic cirrhosis: Status: Acute (3) Anasarca: Status: Acute Plan YADI is nonoliguric with abnormal UA; unclear this is truly HRS. He is Hep C positive. DDX includes possible GN due to hep C vs. IgA His creat is slightly better. Would consider him a dialysis candidate since we are unsure this is HRS. At present, fortunately, there is no absolute indication for dialysis. He agrees to accept it should it come to that. For now, conservative management; no further IVF or albumin, avoid contrast, ne phrotoxins Time Spent With Patient Time: Total time spent is greater than 50% in coordination of care (as documented) at patient's floor/unit and/or counseling patient: Progress Note: Quality Stroke Does the patient have a stroke diagnosis?: No
[2022-07-28 14:31] LABS: Smooth Muscle Antibody 26 U (<20)
[2022-07-28] MEDS: LORazepam 0.5 MG TABLET PO (21:56)
[2022-07-29] VITALS (7 sets, daily range): BP systolic 125–174; BP diastolic 59–82; PULSE 75–85; RESP 16–18; TEMP 36.1–36.4; O2SAT 93–98
[2022-07-29] MEDS: 0.9 % Sodium Chloride Flush 3 ML SYRINGE IVFLUSH ×4 (01:24→21:04)
[2022-07-29] MEDS: Omeprazole 40 MG CAPSULE.DR PO ×2 (05:17→17:03)
[2022-07-29 06:39] LABS: Hematocrit 24.7 % (42.0-52.0); Hemoglobin 7.9 g/dl (14.0-18.0); Mean Corpuscular Hemoglobin 29.4 pg (27.0-33.0); Mean Corpuscular Volume 91.8 fL (80.0-98.0); Mean Platelet Volume 12.5 fL (9.4-12.4); Red Blood Count 2.69 X10*6/uL (4.60-5.80); Red Cell Distribution Width 19.8 % (11.0-16.0); White Blood Count 4.7 X10*3/uL (4.8-10.8)
[2022-07-29 06:40] LABS: Platelet Count 50 X10*3/uL (160-400)
[2022-07-29 07:08] LABS: Alanine Aminotransferase 11 U/L (0-40); Albumin Level 2.7 g/dL (3.5-5.0); Alkaline Phosphatase 43 U/L (39-117); Aspartate Amino Transferase 20 U/L (5-37); Bilirubin Direct 1.1 mg/dL (0.0-0.5); Bilirubin Total 2.1 mg/dL (0.0-1.0); Total Protein 7.2 g/dL (6.5-8.0)
[2022-07-29 07:09] LABS: Anion Gap 12 (12-20); Blood Urea Nitrogen 66 mg/dL (9-16); Calcium 7.8 mg/dL (8.4-10.2); Carbon Dioxide 25 mmol/L (22-29); Chloride 101 mmol/L (96-108); Creatinine Clr Calc Pharmacy 24.3; Estimated Glomerular Filt Rate 18; Glucose Random 128 mg/dL (60-115); Potassium 4.5 mmol/L (3.3-5.1); Sodium 133 mmol/L (135-145)
[2022-07-29] MEDS: Tamsulosin HCL 0.4 MG CAPSULE PO (09:24)
[2022-07-29] MEDS: prednisoLONE sodium phosphate 15 MG/5 ML SOLUTION 30 MG PO (09:24)
--- NOTE | 2022-07-29 10:24 | PM.PNNEP ---
Subjective Subjective Date of Service: 07/30/22 Principal diagnosis: YADI/CKD and anasarca Interval history: Events noted Had dialysis catheter inserted last week and removed due to excessive bleeding Physical Exam Vital Signs: Vital Signs: Last Vital Signs Temp 97.1 F 07/29/22 07:17 Pulse 75 07/29/22 07:17 Resp 18 07/29/22 07:17 BP 138/62 07/29/22 07:17 Pulse Ox 98 07/29/22 07:17 O2 Del Method 07/29/22 07:17 O2 Flow Rate 2.0 07/27/22 19:14 BMI result Body Mass Index 31.6 Const: Other: Constitutional : Awake, interactive, not in distress Neck : Normal inspection, Supple, dialysis catheter site covered with dressing Cardiovascular : RRR, no JVP, +1 lower extremity edema Respiratory :? Fair bilateral air entry,? no crackles, wheezes or rhonchi Gastrointestinal:? soft, lax, Normal bowel sounds, distended abdomen with no tenderness Skin : Warm, Dry Urology: Scrotal edema Neurological : Alert & oriented to self and place, No focal deficit Objective Data Labs CBC & Chem 7: 07/30/22 05:56 07/30/22 05:56 Labs: Laboratory Results - last 24 hr 07/23/22 07/29/22 07/29/22 06:40 05:39 05:39 WBC 4.7 L RBC 2.69 L Hgb 7.9 L Hct 24.7 L MCV 91.8 MCH 29.4 MCHC 32.0 RDW 19.8 H Plt Count 50 L MPV 12.5 H Absolute Nucleated RBC 0.000 Nucleated RBC % (auto) 0.0 PT 23.0 H INR 2.0 H Sodium Potassium Chloride Carbon Dioxide Anion Gap BUN Creatinine Estim Creat Clear Calc Estimated GFR Random Glucose Calcium Total Bilirubin Direct Bilirubin AST ALT Alkaline Phosphatase Total Protein Albumin Mitochondrial AB Titer TNP Anti-Smooth Muscle Ab 26 H 07/29/22 07/29/22 05:39 05:39 WBC RBC Hgb Hct MCV MCH MCHC RDW Plt Count MPV Absolute Nucleated RBC Nucleated RBC % (auto) PT INR Sodium 133 L Potassium 4.5 Chloride 101 Carbon Dioxide 25 Anion Gap 12 BUN 66 H Creatinine 3.44 H Estim Creat Clear Calc 24.3 Estimated GFR 18 Random Glucose 128 H Calcium 7.8 L Total Bilirubin 2.1 H Direct Bilirubin 1.1 H AST 20 ALT 11 Alkaline Phosphatase 43 Total Protein 7.2 Albumin 2.7 L Mitochondrial AB Titer Anti-Smooth Muscle Ab Microbiology Microbiology Results: Microbiology 07/24/22 16:00 Ascites Fluid Gram Stain - Final 07/24/22 16:00 Ascites Fluid Anaerobic Culture - Final NO GROWTH AFTER 5 DAYS 07/24/22 16:00 Ascites Fluid Body Fluid Culture - Final No growth after 2 days 07/21/22 Unknown Urine clean catch - Urine rios top Urine Culture - Final Streptococcus viridans group Procedures Date of Service Date of Service: 07/29/22 Assessment & Plan Assessment and plan (1) Acute on chronic kidney failure: Status: Acute (2) Alcoholic cirrhosis: Status: Acute (3) Anasarca: Status: Acute Plan YADI is nonoliguric with abnormal UA; unclear this is truly HRS. He is Hep C positive. DDX includes possible GN due to hep C vs. IgA His creatinine is slightly better. no absolute indication for dialysis today. He agrees to accept it should it come to that. Agree with conservative management; no further IVF or albumin, avoid contrast, nephrotoxins Keep O > I Watch HCT Progress Note: Quality Stroke Does the patient have a stroke diagnosis?: No
--- NOTE | 2022-07-29 10:49 | MHC.CLN ---
F/U DIET=REGULAR, 1500ML FLUID RESTRICTION, ENSURE CLEAR TID. SUPPLEMENT PROVIDES ADDITIONAL 720 KCALS, 24 G PROTEIN. SUPPLEMENT AND FLUID RESTRICTION PER MD. PER NEPHROLOGY NOTE, NO DIALYSIS AT THIS TIME. SKIN WITH STAGE II TO BUTTOCK. CURRENT INTAKE APPEARS IMPROVED, 50-100%. FOLLOW FOR INTAKE, LABS, AND SKIN.
--- NOTE | 2022-07-29 12:52 | HO.PM.IMPN ---
Subjective Subjective Date of Service: 07/29/22 Interval History: The patient was seen and evaluated this morning He was his bed having breakfast Reported feeling overall better making more urine No clear indication of dialysis now. Patient agrees to do dialysis if it is only way to save his life Review of Systems No fever, chills or weakness No chest pain, palpitation Improving shortness of breath or coughing No abdominal pain, nausea or vomiting No urinary symptoms Bilateral LE swelling Physical Exam Vital Signs: Vital Signs: Last Vital Signs Temp 97.3 F 07/29/22 11:09 Pulse 85 07/29/22 11:09 Resp 18 07/29/22 11:09 BP 142/82 H 07/29/22 11:09 Pulse Ox 95 07/29/22 11:09 O2 Del Method 07/29/22 11:09 O2 Flow Rate 2.0 07/27/22 19:14 BMI result Body Mass Index 31.6 Const: Other: Constitutional : Awake, interactive, not in distress Neck : Normal inspection, Supple, dialysis catheter site covered with dressing Cardiovascular : RRR, no JVP, +1 lower extremity edema Respiratory :? Fair bilateral air entry,? no crackles, wheezes or rhonchi Gastrointestinal:? soft, lax, Normal bowel sounds, distended abdomen with no tenderness Skin : Warm, Dry Urology: Scrotal edema, Neurological : Alert & oriented to self and place, No focal deficit Objective Data Active Medications Lorazepam (Lorazepam 0.5 Mg Tablet) 0.5 mg PO Q4H PRN PRN Reason: anxiety/restlessness Last Admin: 07/28/22 21:56 Dose: 0.5 mg Documented By: VICKI Morphine Sulfate (Morphine Sulfate Oral Sherry 10 Mg/5 Ml Solution) 5 mg SUBLINGUAL Q4H PRN PRN Reason: Pain, Severe (Pain Scale 7-10) Omeprazole (Omeprazole 40 Mg Capsule.Dr) 40 mg PO BID@0630,1630 [facility] Last Admin: 07/29/22 05:17 Dose: 40 mg Documented By: VICKI Ondansetron HCl (Ondansetron Hcl 4 Mg/2 Ml Vial) 4 mg IVPUSH Q8H PRN PRN Reason: Nausea and Vomiting Prednisolone Sodium Phosphate (Prednisolone Sodium Phosphate 15 Mg/5 Ml Solution) 30 mg PO DAILY [facility] Last Admin: 07/29/22 09:24 Dose: 30 mg Documented By: DARRELL Sodium Chloride (0.9 % Sodium Chloride Flush 3 Ml Syringe) 3 ml IVFLUSH QSHIFT [facility] Last Admin: 07/29/22 01:24 Dose: 3 ml Documented By: VICKI Sodium Chloride (0.9 % Sodium Chloride Flush 10 Ml Syringe) 5 ml IVFLUSH QSHIFT [facility] Last Admin: 07/29/22 09:23 Dose: Not Given Documented By: DARRELL Non-Admin Reason: n/a Tamsulosin HCl (Tamsulosin Hcl 0.4 Mg Capsule) 0.4 mg PO DAILY [facility] Last Admin: 07/29/22 09:24 Dose: 0.4 mg Documented By: DARRELL Labs CBC & Chem 7: 07/29/22 05:39 07/29/22 05:39 Labs: Laboratory Results - last 24 hr 07/23/22 07/29/22 07/29/22 06:40 05:39 05:39 MCV 91.8 MCH 29.4 MCHC 32.0 RDW 19.8 H Plt Count 50 L MPV 12.5 H Absolute Nucleated RBC 0.000 Nucleated RBC % (auto) 0.0 PT 23.0 H INR 2.0 H Anion Gap Estim Creat Clear Calc Estimated GFR Random Glucose Calcium Total Bilirubin Direct Bilirubin AST ALT Alkaline Phosphatase Total Protein Albumin Mitochondrial AB Titer TNP Anti-Smooth Muscle Ab 26 H 07/29/22 07/29/22 05:39 05:39 MCV MCH MCHC RDW Plt Count MPV Absolute Nucleated RBC Nucleated RBC % (auto) PT INR Anion Gap 12 Estim Creat Clear Calc 24.3 Estimated GFR 18 Random Glucose 128 H Calcium 7.8 L Total Bilirubin 2.1 H Direct Bilirubin 1.1 H AST 20 ALT 11 Alkaline Phosphatase 43 Total Protein 7.2 Albumin 2.7 L Mitochondrial AB Titer Anti-Smooth Muscle Ab Microbiology Microbiology Results: Microbiology 07/24/22 16:00 Gram Stain - Final Ascites Fluid Anaerobic Culture - Final NO GROWTH AFTER 5 DAYS Body Fluid Culture - Final No growth after 2 days Assessment and Plan (1) Acute on chronic kidney failure: Status: Acute (2) Hematemesis: Status: Acute (3) HCV (hepatitis C virus): Status: Acute (4) Alcoholic cirrhosis: Status: Acute (5) Anasarca: Status: Acute Plan 67-year-old male who is not on any prescription medications and has not seen a doctor in over 15 years, presents to the emergency department for evaluation of dyspnea and generalized swelling. 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, Hep C, IgA related Creatinine improving, making small amount of urine Pending cryoglobin for low C3-C4 I\O No indication for HD at this point nephrology following Monitor intake and output Anasarca 2/2 liver cirrhosis, hepatitis-C infection Negative anti mitochondrial antibodies No malignant cells identified GI input appreciated , SAAG is c/w cirrhosis, start prednisone 30 mg daily Restrict fluid intake Hold Lasix for worsening kidney function Capacity evaluation Patient seen by psychiatrist who believe E has capacity to take decisions about his medical care Discussed goals of care with him as he does not want to be comfort measures at this point and would like to be treated and keep his status as DNR DNI hematemesis with acute on chronic blood loss anemia, stable s/p 4 units, Hb 7.9 EGD showed evidence of erosive esophagitis and atrophic gastritis Finished IV ceftriaxone Continue ppi, DC midodrine DC albumin LUE swelling Negative Doppler for DVT Stage II right buttock to pressure injury Foam dressing applied dvt prohpylaxis mechanical due to coagulopathy full code reason for continued hospitalization:? Anasarca with Yadi I pending progression for possible need of HD , pending PT eval for follow-up and safe discharge plan Quality Stroke Does the patient have a stroke diagnosis?: No VTE Prior VTE?: No VTE Risk Level:: Medical - moderate - high VTE Device Contraindication: Treatment Not Indicated VTE Drug Contraindication: Treatment Not Indicated
--- NOTE | 2022-07-29 13:41 | MHC.CM.PN ---
Addendum entered by Enriqueta Reynoso RN 07/29/22 15:19: REFERRALS UPDATED TO INCLUDE [facility] NO SNF BENEFIT ON HIS FEDERAL INSURANCE Original Note: REFERRAL TO [facility] AND [facility]ILL[facility] IN THE EVENT THAT PATIENT NEEDS STR. PATIENT HAS A FEDERAL INSURANCE WHICH OFTEN DOES NOT HAVE A SNF BENEFIT. CASE MANAGEMENT INQUIRING TO FACILITIES.
--- NOTE | 2022-07-29 14:10 | MHC.CM.PN ---
PATIENT LIVES ALONE. 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 SHE HAS BEEN COVID VACCINATED RELIES ON A WALKER FOR AMBULATION. IMM 07/29 IN CHART PATIENT CURRENTLY UNDERGOING ECHO WITH HELP OF JAVA MANAGER, PATIENT AGREES TO IMM DELIVERY AND T/W SIGNING ON HER BEHALF.
[2022-07-29] MEDS: LORazepam 0.5 MG TABLET PO (21:02)
[2022-07-30] VITALS (7 sets, daily range): BP systolic 131–162; BP diastolic 65–75; PULSE 76–89; RESP 16–20; TEMP 36.1–36.6; O2SAT 92–97
[2022-07-30] MEDS: Omeprazole 40 MG CAPSULE.DR PO ×2 (05:44→16:01)
[2022-07-30 06:49] LABS: Anion Gap 12 (12-20); Blood Urea Nitrogen 65 mg/dL (9-16); Carbon Dioxide 25 mmol/L (22-29); Chloride 102 mmol/L (96-108); Creatinine Clr Calc Pharmacy 31.1; Estimated Glomerular Filt Rate 24; Glucose Random 115 mg/dL (60-115); Hematocrit 24.4 % (42.0-52.0); Hemoglobin 7.7 g/dl (14.0-18.0); Mean Corpuscular HGB Conc 31.6 g/dl (31.0-36.0); Mean Corpuscular Hemoglobin 29.4 pg (27.0-33.0); Mean Corpuscular Volume 93.1 fL (80.0-98.0); Mean Platelet Volume 12.9 fL (9.4-12.4); Potassium 4.5 mmol/L (3.3-5.1); Red Blood Count 2.62 X10*6/uL (4.60-5.80); Red Cell Distribution Width 20.3 % (11.0-16.0); Sodium 134 mmol/L (135-145); White Blood Count 5.7 X10*3/uL (4.8-10.8)
[2022-07-30 06:51] LABS: Alanine Aminotransferase 10 U/L (0-40); Albumin Level 2.6 g/dL (3.5-5.0); Alkaline Phosphatase 42 U/L (39-117); Aspartate Amino Transferase 18 U/L (5-37); Bilirubin Direct 0.9 mg/dL (0.0-0.5); Bilirubin Total 1.8 mg/dL (0.0-1.0); Platelet Count 65 X10*3/uL (160-400); Total Protein 6.9 g/dL (6.5-8.0)
[2022-07-30 07:00] LABS: INTERNATIONAL NORM RATIO 1.9 (0.9-1.1); Prothrombin Time 22.5 SEC (10.0-13.1)
[2022-07-30] MEDS: prednisoLONE sodium phosphate 15 MG/5 ML SOLUTION 30 MG PO (07:42)
[2022-07-30] MEDS: Tamsulosin HCL 0.4 MG CAPSULE PO (07:42)
[2022-07-30] MEDS: 0.9 % Sodium Chloride Flush 3 ML SYRINGE IVFLUSH ×3 (07:43→20:03)
--- NOTE | 2022-07-30 10:36 | P.PNNP_ITS ---
Subjective Subjective Date of Service: 07/31/22 Principal diagnosis: YADI/CKD and anasarca Interval history: Events noted Physical Exam Vital Signs: Vital Signs: Last Vital Signs Temp 97.8 F 07/30/22 07:32 Pulse 79 07/30/22 07:32 Resp 20 07/30/22 07:32 BP 148/69 H 07/30/22 07:32 Pulse Ox 96 07/30/22 07:32 O2 Del Method 07/30/22 07:32 O2 Flow Rate 2.0 07/27/22 19:14 BMI result Body Mass Index 31.6 Const: Other: Constitutional : Awake, interactive, not in distress Neck : Normal inspection, Supple, dialysis catheter site covered with dressing Cardiovascular : RRR, no JVP, +1 lower extremity edema Respiratory :? Fair bilateral air entry,? no crackles, wheezes or rhonchi Gastrointestinal:? soft, lax, Normal bowel sounds, distended abdomen with no t enderness Skin : Warm, Dry Urology: Scrotal edema Neurological : Alert & oriented to self and place, No focal deficit Objective Data Labs CBC & Chem 7: 07/30/22 05:56 07/31/22 06:57 Labs: Laboratory Results - last 24 hr 07/30/22 07/30/22 07/30/22 05:56 05:56 05:56 WBC 5.7 RBC 2.62 L Hgb 7.7 L Hct 24.4 L MCV 93.1 MCH 29.4 MCHC 31.6 RDW 20.3 H Plt Count 65 L D MPV 12.9 H Absolute Nucleated RBC 0.000 Nucleated RBC % (auto) 0.0 PT 22.5 H INR 1.9 H Sodium 134 L Potassium 4.5 Chloride 102 Carbon Dioxide 25 Anion Gap 12 BUN 65 H Creatinine 2.69 H Estim Creat Clear Calc 31.1 Estimated GFR 24 Random Glucose 115 Calcium 8.0 L Total Bilirubin Direct Bilirubin AST ALT Alkaline Phosphatase Total Protein Albumin 07/30/22 05:56 WBC RBC Hgb Hct MCV MCH MCHC RDW Plt Count MPV Absolute Nucleated RBC Nucleated RBC % (auto) PT INR Sodium Potassium Chloride Carbon Dioxide Anion Gap BUN Creatinine Estim Creat Clear Calc Estimated GFR Random Glucose Calcium Total Bilirubin 1.8 H Direct Bilirubin 0.9 H AST 18 ALT 10 Alkaline Phosphatase 42 Total Protein 6.9 Albumin 2.6 L Microbiology Microbiology Results: Microbiology 07/24/22 16:00 Ascites Fluid Gram Stain - Final 07/24/22 16:00 Ascites Fluid Anaerobic Culture - Final NO GROWTH AFTER 5 DAYS 07/24/22 16:00 Ascites Fluid Body Fluid Culture - Final No growth after 2 days 07/21/22 Unknown Urine clean catch - Urine rios top Urine Culture - Final Streptococcus viridans group Procedures Date of Service Date of Service: 07/30/22 Assessment & Plan Assessment and plan (1) Acute on chronic kidney failure: Status: Acute (2) Alcoholic cirrhosis: Status: Acute (3) Anasarca: Status: Acute Plan YADI is nonoliguric with abnormal UA; unclear this is truly HRS. He is Hep C positive. DDX includes possible GN due to hep C vs. IgA His creatinine is rending down ! no absolute indication for dialysis today. He agrees to accept it should it come to that. Agree with conservative management; no further IVF or albumin, avoid contrast, nephrotoxins Keep O > I Watch HCT Time Spent With Patient Time: Total time spent is greater than 50% in coordination of care (as documented) at patient's floor/unit and/or counseling patient: Progress Note: Quality Stroke Does the patient have a stroke diagnosis?: No
[2022-07-30] MEDS: Spironolactone 25 MG TABLET PO (11:18)
--- NOTE | 2022-07-30 11:56 | P.PNIM_ITS ---
Subjective Subjective Date of Service: 07/30/22 Interval History: The patient was seen and evaluated this morning Feels more comfortable Creatinine trending down making more urine No reported other overnight events Review of Systems No fever, chills or weakness No chest pain, palpitation Improving shortness of breath or coughing No abdominal pain, nausea or vomiting No urinary symptoms Bilateral LE swelling Physical Exam Vital Signs: Vital Signs: Last Vital Signs Temp 97.3 F 07/30/22 11:19 Pulse 76 07/30/22 11:19 Resp 18 07/30/22 11:19 BP 131/65 07/30/22 11:19 Pulse Ox 97 07/30/22 11:19 O2 Del Method 07/30/22 11:19 O2 Flow Rate 2.0 07/27/22 19:14 BMI result Body Mass Index 31.6 Const: Other: Constitutional : Awake, interactive, not in distress Neck : Normal inspection, Supple, dialysis catheter site covered with dressing Cardiovascular : RRR, no JVP, +1 lower extremity edema Respiratory :? Fair bilateral air entry,? no crackles, wheezes or rhonchi Gastrointestinal:? soft, lax, Normal bowel sounds, distended abdomen with no tenderness Skin : Warm, Dry Urology: Scrotal edema, Neurological : Alert & oriented to self and place, No focal deficit Objective Data Active Medications Lorazepam (Lorazepam 0.5 Mg Tablet) 0.5 mg PO Q4H PRN PRN Reason: anxiety/restlessness Last Admin: 07/29/22 21:02 Dose: 0.5 mg Documented By: CHRIS Morphine Sulfate (Morphine Sulfate Oral Sherry 10 Mg/5 Ml Solution) 5 mg SUBLINGUAL Q4H PRN PRN Reason: Pain, Severe (Pain Scale 7-10) Omeprazole (Omeprazole 40 Mg Capsule.) 40 mg PO BID@0630,1630 [facility] Last Admin: 07/30/22 05:44 Dose: 40 mg Documented By: CHRIS Ondansetron HCl (Ondansetron Hcl 4 Mg/2 Ml Vial) 4 mg IVPUSH Q8H PRN PRN Reason: Nausea and Vomiting Prednisolone Sodium Phosphate (Prednisolone Sodium Phosphate 15 Mg/5 Ml Solu tion) 30 mg PO DAILY [facility] Last Admin: 07/30/22 07:42 Dose: 30 mg Documented By: DARRELL Sodium Chloride (0.9 % Sodium Chloride Flush 3 Ml Syringe) 3 ml IVFLUSH QSHIFT [facility] Last Admin: 07/30/22 07:43 Dose: 3 ml Documented By: DARRELL Sodium Chloride (0.9 % Sodium Chloride Flush 10 Ml Syringe) 5 ml IVFLUSH QSAKFT [facility] Last Admin: 07/30/22 07:35 Dose: Not Given Documented By: DARRELL Non-Admin Reason: n/a Spironolactone (Spironolactone 25 Mg Tablet) 25 mg PO DAILY [facility]; Protocol Last Admin: 07/30/22 11:18 Dose: 25 mg Documented By: DARRELL Tamsulosin HCl (Tamsulosin Hcl 0.4 Mg Capsule) 0.4 mg PO DAILY [facility] Last Admin: 07/30/22 07:42 Dose: 0.4 mg Documented By: DARRELL Labs CBC & Chem 7: 07/30/22 05:56 07/30/22 05:56 Labs: Laboratory Results - last 24 hr 07/30/22 07/30/22 07/30/22 05:56 05:56 05:56 MCV 93.1 MCH 29.4 MCHC 31.6 RDW 20.3 H Plt Count 65 L D MPV 12.9 H Absolute Nucleated RBC 0.000 Nucleated RBC % (auto) 0.0 PT 22.5 H INR 1.9 H Anion Gap 12 Estim Creat Clear Calc 31.1 Estimated GFR 24 Random Glucose 115 Calcium 8.0 L Total Bilirubin Direct Bilirubin AST ALT Alkaline Phosphatase Total Protein Albumin 07/30/22 05:56 MCV MCH MCHC RDW Plt Count MPV Absolute Nucleated RBC Nucleated RBC % (auto) PT INR Anion Gap Estim Creat Clear Calc Estimated GFR Random Glucose Calcium Total Bilirubin 1.8 H Direct Bilirubin 0.9 H AST 18 ALT 10 Alkaline Phosphatase 42 Total Protein 6.9 Albumin 2.6 L Microbiology Microbiology Results: Microbiology 07/24/22 16:00 Gram Stain - Final Ascites Fluid Anaerobic Culture - Final NO GROWTH AFTER 5 DAYS Body Fluid Culture - Final No growth after 2 days Assessment and Plan (1) Acute on chronic kidney failure: Status: Acute (2) Hematemesis: Status: Acute (3) Alcoholic cirrhosis: Status: Acute (4) Anasarca: Status: Acute Plan 67-year-old male who is not on any prescription medications and has not seen a doctor in over 15 years, presents to the emergency department for evaluation of dyspnea and generalized swelling. 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 Restrict fluid intake Start spironolactone 25 mg daily Capacity evaluation Patient seen by psychiatrist who believe the patient has capacity to take decisions about his medical care Discussed goals of care with him as he does not want to be comfort measures at this point and would like to be treated and keep his status as DNR DNI hematemesis with acute on chronic blood loss anemia, stable s/p 4 units, Hb 7.7 EGD showed evidence of erosive esophagitis and atrophic gastritis Finished IV ceftriaxone Continue ppi, DC midodrine DC albumin LUE swelling Negative Doppler for DVT Stage II right buttock to pressure injury Foam dressing applied dvt prohpylaxis mechanical due to coagulopathy full code reason for continued hospitalization:? Anasarca with Yadi I pending improvement in function, pending PT eval for follow-up and safe discharge plan Quality Stroke Does the patient have a stroke diagnosis?: No VTE Prior VTE?: No VTE Risk Level:: Medical - moderate - high VTE Device Contraindication: Treatment Not Indicated VTE Drug Contraindication: Treatment Not Indicated
--- NOTE | 2022-07-30 15:37 | MHC.CM.PN ---
Addendum entered by Enriqueta Reynoso RN 07/30/22 15:42: [facility] NOT SUCCESSFUL WITH SECURING PAYMENT FOR A BED OFFER. PATIENT MADE AWARE Original Note: [facility] TRYING TO SECURE PAYMENT AND OFFER A BED. LIAISON HAS A CONTACT AT [facility] AND WILL UPDATE CM ONCE SHE HAS AN ANSWER. PATIENT IS AWARE OF PLAN
[2022-07-30] MEDS: ondansetron HCL 4 MG/2 ML VIAL IVPUSH (16:16)
--- NOTE | 2022-07-30 16:53 | PM.GIPN ---
Subjective Subjective Date of Service: 07/30/22 Interval History: feels better Critical Care Time (minutes): 0 Physical Exam Vital Signs: Vital Signs: Last Vital Signs Temp 97.0 F 07/30/22 15:21 Pulse 77 07/30/22 15:21 Resp 16 07/30/22 15:21 BP 141/67 H 07/30/22 15:21 Pulse Ox 96 07/30/22 15:21 O2 Del Method 07/30/22 15:21 O2 Flow Rate 2.0 07/27/22 19:14 BMI result Body Mass Index 31.6 Const: Other: more alert GI: Other: soft with ascites Objective Data Labs CBC & Chem 7: 07/30/22 05:56 07/30/22 05:56 Labs: Laboratory Results - last 24 hr 07/30/22 07/30/22 07/30/22 05:56 05:56 05:56 WBC 5.7 RBC 2.62 L Hgb 7.7 L Hct 24.4 L MCV 93.1 MCH 29.4 MCHC 31.6 RDW 20.3 H Plt Count 65 L D MPV 12.9 H Absolute Nucleated RBC 0.000 Nucleated RBC % (auto) 0.0 PT 22.5 H INR 1.9 H Sodium 134 L Potassium 4.5 Chloride 102 Carbon Dioxide 25 Anion Gap 12 BUN 65 H Creatinine 2.69 H Estim Creat Clear Calc 31.1 Estimated GFR 24 Random Glucose 115 Calcium 8.0 L Total Bilirubin Direct Bilirubin AST ALT Alkaline Phosphatase Total Protein Albumin 07/30/22 05:56 WBC RBC Hgb Hct MCV MCH MCHC RDW Plt Count MPV Absolute Nucleated RBC Nucleated RBC % (auto) PT INR Sodium Potassium Chloride Carbon Dioxide Anion Gap BUN Creatinine Estim Creat Clear Calc Estimated GFR Random Glucose Calcium Total Bilirubin 1.8 H Direct Bilirubin 0.9 H AST 18 ALT 10 Alkaline Phosphatase 42 Total Protein 6.9 Albumin 2.6 L Microbiology Microbiology Results: Microbiology 07/24/22 16:00 Ascites Fluid Gram Stain - Final 07/24/22 16:00 Ascites Fluid Anaerobic Culture - Final NO GROWTH AFTER 5 DAYS 07/24/22 16:00 Ascites Fluid Body Fluid Culture - Final No growth after 2 days 07/21/22 Unknown Urine clean catch - Urine rios top Urine Culture - Final Streptococcus viridans group Procedures Date of Service Date of Service: 07/30/22 Progress Note: A&P Assessment and plan (1) Alcoholic cirrhosis: Status: Acute Assessment and Plan: no further bleeding lfts improving continue supportive care. Time Spent With Patient Time: Total time spent is greater than 50% in coordination of care (as documented) at patient's floor/unit and/or counseling patient: Quality Stroke Does the patient have a stroke diagnosis?: No VTE Prior VTE?: No VTE Risk Level:: Medical - moderate - high VTE Device Contraindication: Treatment Not Indicated VTE Drug Contraindication: Treatment Not Indicated
[2022-07-30] MEDS: Melatonin 3 MG TABLET PO (20:02)
[2022-07-30] MEDS: LORazepam 0.5 MG TABLET PO (22:26)
[2022-07-31 03:13] VITALS: BP 134/60; PULSE 84; RESP 18; TEMP 36.5; O2SAT 92
[2022-07-31] MEDS: Omeprazole 40 MG CAPSULE.DR PO ×2 (06:09→16:52)
[2022-07-31 07:28] VITALS: BP 121/59; PULSE 73; RESP 18; TEMP 36.3; O2SAT 94
[2022-07-31 08:24] LABS: Alanine Aminotransferase 13 U/L (0-40); Albumin Level 2.8 g/dL (3.5-5.0); Alkaline Phosphatase 48 U/L (39-117); Anion Gap 13 (12-20); Aspartate Amino Transferase 22 U/L (5-37); Bilirubin Direct 0.9 mg/dL (0.0-0.5); Bilirubin Total 1.8 mg/dL (0.0-1.0); Blood Urea Nitrogen 65 mg/dL (9-16); Calcium 8.2 mg/dL (8.4-10.2); Carbon Dioxide 25 mmol/L (22-29); Chloride 103 mmol/L (96-108); Estimated Glomerular Filt Rate 26; Glucose Random 94 mg/dL (60-115); Potassium 4.5 mmol/L (3.3-5.1); Sodium 136 mmol/L (135-145); Total Protein 7.4 g/dL (6.5-8.0)
[2022-07-31] MEDS: Tamsulosin HCL 0.4 MG CAPSULE PO (09:28)
[2022-07-31] MEDS: Folic Acid 1 MG TABLET 5 MG PO (09:28)
[2022-07-31] MEDS: 0.9 % Sodium Chloride Flush 3 ML SYRINGE IVFLUSH ×2 (09:29→16:52)
[2022-07-31] MEDS: Spironolactone 25 MG TABLET PO (09:29)
[2022-07-31] MEDS: prednisoLONE sodium phosphate 15 MG/5 ML SOLUTION 30 MG PO (09:29)
[2022-07-31 10:10] VITALS: PULSE 84; O2SAT 92
--- NOTE | 2022-07-31 11:24 | MHC.CLN ---
F/U REVIEW OF SKIN DOCUMENTATION SHOWS WOUND STAGE I TO R BUTTOCK. DIET=REGULAR, ENSURE CLEAR TID, 1500 M FLUID RESTRICTION. INTAKE USUALLY 75-100%. RD TO FOLLOW WEEKLY.
[2022-07-31 11:33] VITALS: BP 129/67; PULSE 73; RESP 18; TEMP 36.3; O2SAT 93
--- NOTE | 2022-07-31 11:48 | MHC.CM.PN ---
PLAN IS HOME FRIDAY WITH NEW NA SERVICES
--- NOTE | 2022-07-31 11:53 | PM.PNNEP ---
Subjective Subjective Date of Service: 08/08/22 Principal diagnosis: YADI/CKD and anasarca Interval history: Events noted Physical Exam Vital Signs: Vital Signs: Last Vital Signs Temp 97.3 F 07/31/22 11:33 Pulse 73 07/31/22 11:33 Resp 18 07/31/22 11:33 BP 129/67 07/31/22 11:33 Pulse Ox 93 07/31/22 11:33 O2 Del Method 07/31/22 11:33 O2 Flow Rate 2.0 07/27/22 19:14 BMI result Body Mass Index 31.6 Const: Other: Constitutional : Awake, interactive, not in distress Neck : Normal inspection, Supple, dialysis catheter site covered with dressing Cardiovascular : RRR, no JVP, +1 lower extremity edema Respiratory :? Fair bilateral air entry,? no crackles, wheezes or rhonchi Gastrointestinal:? soft, lax, Normal bowel sounds, distended abdomen with no tenderness Skin : Warm, Dry Urology: Scrotal edema Neurological : Alert & oriented to self and place, No focal deficit Objective Data Labs CBC & Chem 7: 08/08/22 05:15 08/08/22 05:15 Labs: Laboratory Results - last 24 hr 07/31/22 07/31/22 06:57 06:57 Sodium 136 Potassium 4.5 Chloride 103 Carbon Dioxide 25 Anion Gap 13 BUN 65 H D Creatinine 2.46 H Estim Creat Clear Calc 34.0 Estimated GFR 26 Random Glucose 94 Calcium 8.2 L Total Bilirubin 1.8 H Direct Bilirubin 0.9 H AST 22 ALT 13 Alkaline Phosphatase 48 Total Protein 7.4 Albumin 2.8 L Microbiology Microbiology Results: Microbiology 07/24/22 16:00 Ascites Fluid Gram Stain - Final 07/24/22 16:00 Ascites Fluid Anaerobic Culture - Final NO GROWTH AFTER 5 DAYS 07/24/22 16:00 Ascites Fluid Body Fluid Culture - Final No growth after 2 days 07/21/22 Unknown Urine clean catch - Urine rios top Urine Culture - Final Streptococcus viridans group Procedures Date of Service Date of Service: 08/30/22 Assessment & Plan Assessment and plan (1) Acute on chronic kidney failure: Status: Acute (2) Alcoholic cirrhosis: Status: Acute (3) Anasarca: Status: Acute Plan YADI is nonoliguric with abnormal UA; unclear this is truly HRS. He is Hep C positive. DDX includes possible GN due to hep C Await cryos May need kidney biopsy His creatinine is trending down with steroids no absolute indication for dialysis today. He agrees to accept it should it come to that. Agree with conservative management; no further IVF or albumin, avoid contrast, nephrotoxins Keep O > I Watch HCT Time Spent With Patient Time: Total time spent is greater than 50% in coordination of care (as documented) at patient's floor/unit and/or counseling patient: Progress Note: Quality Stroke Does the patient have a stroke diagnosis?: No
--- NOTE | 2022-07-31 12:50 | P.PNIM_ITS ---
Subjective Subjective Date of Service: 07/31/22 Interval History: cC: weakness, anasarca interval history:still weak but overall much improved Cardiovascular Cardiovascular: Reports no additional cardiovascular complaints Respiratory Respiratory: Reports no additional respiratory complaints Physical Exam Vital Signs: Vital Signs: Last Vital Signs Temp 97.3 F 07/31/22 11:33 Pulse 73 07/31/22 11:33 Resp 18 07/31/22 11:33 BP 129/67 07/31/22 11:33 Pulse Ox 93 07/31/22 11:33 O2 Del Method 07/31/22 11:33 O2 Flow Rate 2.0 07/27/22 19:14 BMI result Body Mass Index 31.6 General: AO X 3, no acute distress Resp: CTA bilateral, no accessory muscles used CVS: S1,S2,RRR GI: soft, non tender, non distended Neuro: motor grossly intact, alert Psych: appropriate affect, appropriate insight LUE edema echymosis most promin Objective Data Active Medications Folic Acid (Folic Acid 1 Mg Tablet) 5 mg PO DAILY [facility] Last Admin: 07/31/22 09:28 Dose: 5 mg Documented By: BETY Lorazepam (Lorazepam 0.5 Mg Tablet) 0.5 mg PO Q4H PRN PRN Reason: anxiety/restlessness Last Admin: 07/30/22 22:26 Dose: 0.5 mg Documented By: JASON Melatonin (Melatonin 3 Mg Tablet) 3 mg PO BEDTIME [facility] Last Admin: 07/30/22 20:02 Dose: 3 mg Documented By: JASON Morphine Sulfate (Morphine Sulfate Oral Sherry 10 Mg/5 Ml Solution) 5 mg SUBLINGUAL Q4H PRN PRN Reason: Pain, Severe (Pain Scale 7-10) Omeprazole (Omeprazole 40 Mg Capsule.Dr) 40 mg PO BID@0630,1630 [facility] Last Admin: 07/31/22 06:09 Dose: 40 mg Documented By: ALEJANDRO Ondansetron HCl (Ondansetron Hcl 4 Mg/2 Ml Vial) 4 mg IVPUSH Q8H PRN PRN Reason: Nausea and Vomiting Last Admin: 07/30/22 16:16 Dose: 4 mg Documented By: DARRELL Prednisolone Sodium Phosphate (Prednisolone Sodium Phosphate 15 Mg/5 Ml Solution) 30 mg PO DAILY [facility] Last Admin: 07/31/22 09:29 Dose: 30 mg Documented By: BETY Sodium Chloride (0.9 % Sodium Chloride Flush 3 Ml [facility]) [facility] Last Admin: 07/31/22 09:29 Dose: 3 ml Documented By: BETY Sodium Chloride (0.9 % Sodium Chloride Flush 10 Ml Syringe) 5 ml IVFLUSH [facility] Last Admin: 07/31/22 09:29 Dose: Not Given Documented By: BETY Non-Admin Reason: No Access Spironolactone (Spironolactone 25 Mg Tablet) 25 mg PO DAILY [facility]; Protocol Last Admin: 07/31/22 09:29 Dose: 25 mg Documented By: BETY Tamsulosin HCl (Tamsulosin Hcl 0.4 Mg Capsule) 0.4 mg PO DAILY [facility] Last Admin: 07/31/22 09:28 Dose: 0.4 mg Documented By: BETY Labs CBC & Chem 7: 07/30/22 05:56 07/31/22 06:57 Labs: Laboratory Results - last 24 hr 07/31/22 07/31/22 06:57 06:57 Anion Gap 13 Estim Creat Clear Calc 34.0 Estimated GFR 26 Random Glucose 94 Calcium 8.2 L Total Bilirubin 1.8 H Direct Bilirubin 0.9 H AST 22 ALT 13 Alkaline Phosphatase 48 Total Protein 7.4 Albumin 2.8 L Assessment and Plan (1) Acute on chronic kidney failure: Status: Acute (2) Hematemesis: Status: Acute (3) Alcoholic cirrhosis: Status: Acute (4) Anasarca: Status: Acute Plan 67-year-old male who is not on any prescription medications and has not seen a doctor in over 15 years, presents to the emergency department for evaluation of dyspnea and generalized swelling. found to have elevated creatinine, liver cirrhosis, severe anemia YADI differential diagnosis includes hepatorenal syndrome vs Glomerulonephritis, (Hep C, IgA related) Creatinine improving since starting prednisilone, making urine Pending cryoglobin for low C3-C4 No indication for HD at this point nephrology following Monitor intake and output Anasarca 2/2 liver cirrhosis, hepatitis-C infection Negative anti mitochondrial antibodies No malignant cells identified GI input appreciated , SAAG is c/w cirrhosis, continue prednisilone 30 mg daily for total of 2 months until 09/27/2022. Restrict fluid intake Start spironolactone 25 mg daily Capacity evaluation Patient seen by psychiatrist who believe the patient has capacity to take decisions about his medical care Discussed goals of care with him as he does not want to be comfort measures at this point and would like to be treated and keep his status as DNR DNI hematemesis with acute on chronic blood loss anemia, stable s/p 4 units, Hb 7.7 EGD showed evidence of erosive esophagitis and atrophic gastritis Finished IV ceftriaxone Continue ppi, DC midodrine DC albumin LUE swelling Negative Doppler for DVT Stage II right buttock to pressure injury Foam dressing applied dvt prohpylaxis mechanical due to coagulopathy full code reason for continued hospitalization:? Anasarca with Yadi I pending improvement in function Quality Stroke Does the patient have a stroke diagnosis?: No VTE Prior VTE?: No VTE Risk Level:: Medical - moderate - high VTE Device Contraindication: Treatment Not Indicated VTE Drug Contraindication: Treatment Not Indicated
[2022-07-31 15:37] VITALS: BP 133/63; PULSE 74; RESP 18; TEMP 36.2; O2SAT 96
[2022-07-31 19:43] VITALS: BP 142/64; PULSE 79; RESP 14; TEMP 36.8; O2SAT 94
[2022-07-31] MEDS: Melatonin 3 MG TABLET PO (21:23)
[2022-08-01] VITALS: BP 127/59; PULSE 76; RESP 16; TEMP 36.6; O2SAT 92
[2022-08-01] MEDS: 0.9 % Sodium Chloride Flush 3 ML SYRINGE IVFLUSH ×4 (00:51→21:01)
[2022-08-01 04:00] VITALS: BP 118/57; PULSE 73; RESP 16; TEMP 36.1; O2SAT 93
[2022-08-01] MEDS: Omeprazole 40 MG CAPSULE.DR PO ×2 (05:30→16:09)
[2022-08-01 05:59] LABS: Hematocrit 26.8 % (42.0-52.0); Hemoglobin 8.3 g/dl (14.0-18.0); Mean Corpuscular Hemoglobin 29.5 pg (27.0-33.0); Mean Corpuscular Volume 95.4 fL (80.0-98.0); Mean Platelet Volume 12.1 fL (9.4-12.4); Platelet Count 76 X10*3/uL (160-400); Red Blood Count 2.81 X10*6/uL (4.60-5.80); Red Cell Distribution Width 21.5 % (11.0-16.0); White Blood Count 6.2 X10*3/uL (4.8-10.8)
[2022-08-01 06:13] LABS: Alanine Aminotransferase 15 U/L (0-40); Albumin Level 2.7 g/dL (3.5-5.0); Alkaline Phosphatase 45 U/L (39-117); Anion Gap 11 (12-20); Aspartate Amino Transferase 22 U/L (5-37); Bilirubin Direct 0.9 mg/dL (0.0-0.5); Bilirubin Total 1.8 mg/dL (0.0-1.0); Blood Urea Nitrogen 64 mg/dL (9-16); Calcium 8.3 mg/dL (8.4-10.2); Carbon Dioxide 25 mmol/L (22-29); Chloride 104 mmol/L (96-108); Estimated Glomerular Filt Rate 29; Glucose Fasting 95 mg/dL (60-99); Magnesium 1.8 mg/dL (1.6-2.6); Potassium 4.7 mmol/L (3.3-5.1); Sodium 135 mmol/L (135-145); Total Protein 7.3 g/dL (6.5-8.0)
[2022-08-01 07:47] VITALS: BP 135/63; PULSE 79; RESP 16; TEMP 36; O2SAT 92
--- NOTE | 2022-08-01 08:04 | PM.PNNEP ---
Subjective Subjective Date of Service: 08/01/22 Principal diagnosis: HASMUKH/CKD and anasarca Interval history: cC: weakness, anasarca interval history:still weak but overall much improved Physical Exam Vital Signs: Vital Signs: Last Vital Signs Temp 96.8 F 08/01/22 07:47 Pulse 79 08/01/22 07:47 Resp 16 08/01/22 07:47 BP 135/63 08/01/22 07:47 Pulse Ox 92 08/01/22 07:47 O2 Del Method 08/01/22 07:47 O2 Flow Rate 2.0 07/27/22 19:14 BMI result Body Mass Index 31.6 Const: Other: Constitutional : Awake, interactive, not in distress Neck : Normal inspection, Supple, dialysis catheter site covered with dressing Cardiovascular : RRR, no JVP, +1 lower extremity edema Respiratory :? Fair bilateral air entry,? no crackles, wheezes or rhonchi Gastrointestinal:? soft, lax, Normal bowel sounds, distended abdomen with no tenderness Skin : Warm, Dry Urology: Scrotal edema Neurological : Alert & oriented to self and place, No focal deficit General: cooperative, acute distress mild, in distress mild and respiratory and ill appearing; No confusion Nutritional Appearance: overweight and Edematous Orientation/consciousness: patient oriented x3 and No confusion Limitations: No language barrier HEENT: Head: Yes normal to inspection, Yes normocephalic and Yes atraumatic Ears: hearing grossly normal bilaterally and external ears normal General nose exam: Normal external nose present Face and sinus: Yes normal facial exam Eyes: Conjunctivae: conjunctivae normal Sclerae: sclerae normal Pupils: Equal, round and reactive pupils present EOM: EOMs intact bilaterally Neck: Neck: Yes normal visual inspection, Yes full ROM, Yes trachea midline, Yes supple and Yes JVD Chest: Chest palpation & inspection: normal inspection of the chest and no masses Resp: Effort & Inspection: abnormal respiratory effort, able to speak in complete sentences, no cough, decreased respiratory effort, labored (Slightly), no retractions and not tachypneic Auscultation: crackles, rales (Noted posteriorly), no rhonchi, no wheezes and diminished lung sounds Cardio: Jugular venous distension: JVD Rate: regular rate Rhythm: regular rhythm and abnormal rhythm irregularly irregular Heart sounds: S1 normal heart sound present, S2 normal heart sound present, no click, no gallops, no murmurs and no rubs GI: Other: soft with ascites Inspection: Yes Abdominal wall edema and Yes distended Percussion: Yes normal to percussion Auscultation: normal bowel sounds Back/Spine/Pelvis: Cervical Spine: normal cervical lordosis and cervical ROM normal Coccyx: swelling Skin: General skin exam: no rashes or lesions noted, ecchymosis, pallor and other (Redness of the left upper extremity) Neuro: General: patient oriented x3, no focal motor deficits, No confusion and Unable to assess gait Cranial nerves: Yes CN's II-XII intact bilaterally and Yes Equal, round and reactive pupils present Cognition (Neuro): normal cognition Speech: No Abnormal speech present Gait exam (Neuro): Unable to assess gait Extrem: General: No no pedal edema, No cyanosis, Yes edema and Yes other (Generalized edema) Psych: Appearance: grossly normal Mental Status: mental status grossly normal Objective Data Labs CBC & Chem 7: 08/01/22 05:16 08/01/22 05:16 Labs: Laboratory Results - last 24 hr 07/31/22 07/31/22 08/01/22 06:57 06:57 05:16 WBC 6.2 RBC 2.81 L Hgb 8.3 L Hct 26.8 L MCV 95.4 MCH 29.5 MCHC 31.0 RDW 21.5 H Plt Count 76 L MPV 12.1 Absolute Nucleated RBC 0.000 Nucleated RBC % (auto) 0.0 Sodium 136 Potassium 4.5 Chloride 103 Carbon Dioxide 25 Anion Gap 13 BUN 65 H D Creatinine 2.46 H Estim Creat Clear Calc 34.0 Estimated GFR 26 Random Glucose 94 Fasting Glucose Calcium 8.2 L Magnesium Total Bilirubin 1.8 H Direct Bilirubin 0.9 H AST 22 ALT 13 Alkaline Phosphatase 48 Total Protein 7.4 Albumin 2.8 L 08/01/22 05:16 WBC RBC Hgb Hct MCV MCH MCHC RDW Plt Count MPV Absolute Nucleated RBC Nucleated RBC % (auto) Sodium 135 Potassium 4.7 Chloride 104 Carbon Dioxide 25 Anion Gap 11 L BUN 64 H Creatinine 2.26 H Estim Creat Clear Calc 37.0 Estimated GFR 29 Random Glucose Fasting Glucose 95 Calcium 8.3 L Magnesium 1.8 Total Bilirubin 1.8 H Direct Bilirubin 0.9 H AST 22 ALT 15 Alkaline Phosphatase 45 Total Protein 7.3 Albumin 2.7 L Microbiology Microbiology Results: Microbiology 07/24/22 16:00 Ascites Fluid Gram Stain - Final 07/24/22 16:00 Ascites Fluid Anaerobic Culture - Final NO GROWTH AFTER 5 DAYS 07/24/22 16:00 Ascites Fluid Body Fluid Culture - Final No growth after 2 days 07/21/22 Unknown Urine clean catch - Urine rios top Urine Culture - Final Streptococcus viridans group Procedures Date of Service Date of Service: 08/01/22 Assessment & Plan Assessment and plan (1) Acute on chronic kidney failure: Status: Acute (2) Hematemesis: Status: Acute (3) Alcoholic cirrhosis: Status: Acute (4) Anasarca: Status: Acute Plan 67-year-old male who is not on any prescription medications and has not seen a doctor in over 15 years, presents to the emergency department for evaluation of dyspnea and generalized swelling. found to have elevated creatinine, liver cirrhosis, severe anemia HASMUKH differential diagnosis includes Creatinine improving since starting prednisolone, making urine Pending cryoglobin for low C3-C4 Anasarca 2/2 liver cirrhosis, hepatitis-C infection Negative anti mitochondrial antibodies No malignant cells identified GI input appreciated , SAAG is c/w cirrhosis, continue prednisilone 30 mg daily for total of 2 months until 09/27/2022. Restrict fluid intake Start spironolactone 25 mg daily reason for continued hospitalization:? Anasarca with Hasmukh improvement in function no evidence of AGN urine benign IEP neg cryo pending Progress Note: Quality Stroke Does the patient have a stroke diagnosis?: No
[2022-08-01] MEDS: Spironolactone 25 MG TABLET PO (08:30)
[2022-08-01] MEDS: Folic Acid 1 MG TABLET 5 MG PO (08:30)
[2022-08-01] MEDS: Tamsulosin HCL 0.4 MG CAPSULE PO (08:31)
[2022-08-01] MEDS: prednisoLONE sodium phosphate 15 MG/5 ML SOLUTION 30 MG PO (08:32)
--- NOTE | 2022-08-01 09:44 | HO.PM.IMPN ---
Subjective Subjective Date of Service: 08/01/22 Interval History: cC: weakness, anasarca interval history:still weak but overall much improved Cardiovascular Cardiovascular: Reports no additional cardiovascular complaints Respiratory Respiratory: Reports no additional respiratory complaints Neurologic Neurologic: Denies Abnormal speech present and Denies confusion Psychiatric Psychiatric: Denies confusion Physical Exam Vital Signs: Vital Signs: Last Vital Signs Temp 96.8 F 08/01/22 07:47 Pulse 79 08/01/22 07:47 Resp 16 08/01/22 07:47 BP 135/63 08/01/22 07:47 Pulse Ox 92 08/01/22 07:47 O2 Del Method 08/01/22 07:47 O2 Flow Rate 2.0 07/27/22 19:14 BMI result Body Mass Index 31.6 Const: Other: Constitutional : Awake, interactive, not in distress Neck : Normal inspection, Supple, dialysis catheter site covered with dressing Cardiovascular : RRR, no JVP, +1 lower extremity edema Respiratory :? Fair bilateral air entry,? no crackles, wheezes or rhonchi Gastrointestinal:? soft, lax, Normal bowel sounds, distended abdomen with no tenderness Skin : Warm, Dry Urology: Scrotal edema Neurological : Alert & oriented to self and place, No focal deficit General: cooperative, acute distress mild, in distress mild and respiratory and ill appearing; No confusion Nutritional Appearance: overweight and Edematous Orientation/consciousness: patient oriented x3 and No confusion Limitations: No language barrier HEENT: Head: Yes normal to inspection, Yes normocephalic and Yes atraumatic Ears: hearing grossly normal bilaterally and external ears normal General nose exam: Normal external nose present Face and sinus: Yes normal facial exam Eyes: Conjunctivae: conjunctivae normal Sclerae: sclerae normal Pupils: Equal, round and reactive pupils present EOM: EOMs intact bilaterally Neck: Neck: Yes normal visual inspection, Yes full ROM, Yes trachea midline, Yes supple and Yes JVD Chest: Chest palpation & inspection: normal inspection of the chest and no masses Resp: Effort & Inspection: abnormal respiratory effort, able to speak in complete sentences, no cough, decreased respiratory effort, labored (Slightly), no retractions and not tachypneic Auscultation: crackles, rales (Noted posteriorly), no rhonchi, no wheezes and diminished lung sounds Cardio: Jugular venous distension: JVD Rate: regular rate Rhythm: regular rhythm and abnormal rhythm irregularly irregular Heart sounds: S1 normal heart sound present, S2 normal heart sound present, no click, no gallops, no murmurs and no rubs GI: Other: soft with ascites Inspection: Yes Abdominal wall edema and Yes distended Percussion: Yes normal to percussion Auscultation: normal bowel sounds Back/Spine/Pelvis: Cervical Spine: normal cervical lordosis and cervical ROM normal Coccyx: swelling Skin: General skin exam: no rashes or lesions noted, ecchymosis, pallor and other (Redness of the left upper extremity) Neuro: General: patient oriented x3, no focal motor deficits, No confusion and Unable to assess gait Cranial nerves: Yes CN's II-XII intact bilaterally and Yes Equal, round and reactive pupils present Cognition (Neuro): normal cognition Speech: No Abnormal speech present Gait exam (Neuro): Unable to assess gait Extrem: General: No no pedal edema, No cyanosis, Yes edema and Yes other (Generalized edema) Psych: Appearance: grossly normal Mental Status: mental status grossly normal Objective Data Active Medications Folic Acid (Folic Acid 1 Mg Tablet) 5 mg PO DAILY [facility] Last Admin: 08/01/22 08:30 Dose: 5 mg Documented By: BETY Melatonin (Melatonin 3 Mg Tablet) 3 mg PO BEDTIME [facility] Last Admin: 07/31/22 21:23 Dose: 3 mg Documented By: VIOLETTA Omeprazole (Omeprazole 40 Mg Capsule.Dr) 40 mg PO BID@0630,1630 [facility] Last Admin: 08/01/22 05:30 Dose: 40 mg Documented By: ALEJANDRO Ondansetron HCl (Ondansetron Hcl 4 Mg/2 Ml Vial) 4 mg IVPUSH Q8H PRN PRN Reason: Nausea and Vomiting Last Admin: 07/30/22 16:16 Dose: 4 mg Documented By: DARRELL Prednisolone Sodium Phosphate (Prednisolone Sodium Phosphate 15 Mg/5 Ml Solution) 30 mg PO DAILY [facility] Last Admin: 08/01/22 08:32 Dose: 30 mg Documented By: BETY Sodium Chloride (0.9 % Sodium Chloride Flush 3 Ml Syringe) 3 ml IVFLUSH QSHIFT [facility] Last Admin: 08/01/22 00:51 Dose: 3 ml Documented By: ALEJANDRO Sodium Chloride (0.9 % Sodium Chloride Flush 10 Ml Syringe) 5 ml IVFLUSH QSHIFT [facility] Last Admin: 08/01/22 00:51 Dose: Not Given Documented By: ALEJANDRO Non-Admin Reason: no dialysis cath Spironolactone (Spironolactone 25 Mg Tablet) 25 mg PO DAILY [facility]; Protocol Last Admin: 08/01/22 08:30 Dose: 25 mg Documented By: BETY Tamsulosin HCl (Tamsulosin Hcl 0.4 Mg Capsule) 0.4 mg PO DAILY [facility] Last Admin: 08/01/22 08:31 Dose: 0.4 mg Documented By: BETY Labs CBC & Chem 7: 08/01/22 05:16 08/01/22 05:16 Labs: Laboratory Results - last 24 hr 08/01/22 08/01/22 05:16 05:16 MCV 95.4 MCH 29.5 MCHC 31.0 RDW 21.5 H Plt Count 76 L MPV 12.1 Absolute Nucleated RBC 0.000 Nucleated RBC % (auto) 0.0 Anion Gap 11 L Estim Creat Clear Calc 37.0 Estimated GFR 29 Fasting Glucose 95 Calcium 8.3 L Magnesium 1.8 Total Bilirubin 1.8 H Direct Bilirubin 0.9 H AST 22 ALT 15 Alkaline Phosphatase 45 Total Protein 7.3 Albumin 2.7 L Assessment and Plan (1) Acute on chronic kidney failure: Status: Acute (2) Hematemesis: Status: Acute (3) Alcoholic cirrhosis: Status: Acute (4) Anasarca: Status: Acute Plan 67-year-old male who is not on any prescription medications and has not seen a doctor in over 15 years, presents to the emergency department for evaluation of dyspnea and generalized swelling. found to have elevated creatinine, liver cirrhosis, severe anemia YADI differential diagnosis includes hepatorenal syndrome vs Glomerulonephritis, (Hep C, IgA related) Creatinine improving since starting prednisilone, making urine Pending cryoglobin for low C3-C4 No indication for HD at this point nephrology following Monitor intake and output Anasarca 2/2 liver cirrhosis, hepatitis-C infection Negative anti mitochondrial antibodies No malignant cells identified GI input appreciated , SAAG is c/w cirrhosis, continue prednisilone 30 mg daily for total of 2 months until 09/27/2022. Restrict fluid intake Started spironolactone 25 mg daily Capacity evaluation Patient seen by psychiatrist who believe the patient has capacity to take decisions about his medical care Discussed goals of care with him as he does not want to be comfort measures at this point and would like to be treated and keep his status as DNR DNI hematemesis with acute on chronic blood loss anemia, stable s/p 4 units, Hb 7.7 EGD showed evidence of erosive esophagitis and atrophic gastritis Finished IV ceftriaxone Continue ppi, DC midodrine LUE swelling Negative Doppler for DVT Stage II right buttock to pressure injury Foam dressing applied dvt prohpylaxis mechanical due to coagulopathy full code reason for continued hospitalization:? Anasarca with Yadi I pending improvement in function Quality Stroke Does the patient have a stroke diagnosis?: No VTE Prior VTE?: No VTE Risk Level:: Medical - moderate - high VTE Device Contraindication: Treatment Not Indicated VTE Drug Contraindication: Treatment Not Indicated
[2022-08-01 11:38] VITALS: BP 125/59; PULSE 77; RESP 18; TEMP 36.1; O2SAT 92
[2022-08-01 16:10] VITALS: BP 127/58; PULSE 81; RESP 17; TEMP 36.3; O2SAT 95
--- NOTE | 2022-08-01 16:11 | PC.NURSE ---
report received from morning RN. Pt A+O, no c/o pain. 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 Call hannah within reach, saftey precautions taken.
[2022-08-01 20:00] VITALS: BP 100/62; PULSE 70; RESP 17; TEMP 36.2; O2SAT 95
[2022-08-01] MEDS: Melatonin 3 MG TABLET PO (21:01)
[2022-08-02] VITALS (19 sets, daily range): BP systolic 89–129; BP diastolic 51–70; PULSE 82–95; RESP 16–20; TEMP 36.1–36.7; O2SAT 89–97
[2022-08-02] MEDS: Omeprazole 40 MG CAPSULE.DR PO (05:56)
[2022-08-02] MEDS: Pantoprazole Sodium 40 MG/10 ML VIAL IVPUSH ×2 (09:01→15:54)
[2022-08-02] MEDS: Octreotide Acetate 500 MCG in 0.9 % Sodium Chloride 500 ML 25.05 MCG IVCONT (09:06)
[2022-08-02] MEDS: 0.9 % Sodium Chloride Flush 3 ML SYRINGE IVFLUSH ×5 (09:07→21:04)
--- NOTE | 2022-08-02 09:44 | HO.PM.IMPN ---
Subjective Subjective Date of Service: 08/02/22 Interval History: cC: weakness, anasarca interval history:coffee ground emesis Cardiovascular Cardiovascular: Reports no additional cardiovascular complaints Respiratory Respiratory: Reports no additional respiratory complaints Neurologic Neurologic: Denies Abnormal speech present and Denies confusion Psychiatric Psychiatric: Denies confusion Physical Exam Vital Signs: Vital Signs: Last Vital Signs Temp 98.0 F 08/02/22 08:00 Pulse 95 08/02/22 08:00 Resp 17 08/02/22 08:00 BP 119/56 L 08/02/22 08:00 Pulse Ox 89 L 08/02/22 08:00 O2 Del Method 08/02/22 08:00 O2 Flow Rate 2.0 08/02/22 08:00 BMI result Body Mass Index 31.6 General: AO X 3, ill appearing, actively vomiting coffee ground Resp: Crackles bilateral, no accessory muscles used CVS: S1,S2,RRR GI: soft, non tender, distended Neuro: motor grossly intact, alert Psych: appropriate affect, appropriate insight lue edema Const: General: No confusion Orientation/consciousness: No confusion Neuro: General: No confusion Speech: No Abnormal speech present Objective Data Active Medications Folic Acid (Folic Acid 1 Mg Tablet) 5 mg PO DAILY [facility] Last Admin: 08/01/22 08:30 Dose: 5 mg Documented By: BETY Octreotide Acetate 500 mcg/ (Sodium Chloride) 501 mls @ 25.05 mls/hr IVCONT .Q20H [facility] Last Admin: 08/02/22 09:06 Dose: 25 mcg/hr, 25.05 mls/hr Documented By: BETY Melatonin (Melatonin 3 Mg Tablet) 3 mg PO BEDTIME [facility] Last Admin: 08/01/22 21:01 Dose: 3 mg Documented By: VICKI Ondansetron HCl (Ondansetron Hcl 4 Mg/2 Ml Vial) 4 mg IVPUSH Q8H PRN PRN Reason: Nausea and Vomiting Last Admin: 07/30/22 16:16 Dose: 4 mg Documented By: DARRELL Pantoprazole Sodium (Pantoprazole Sodium 40 Mg/10 Ml Vial) 40 mg IVPUSH BID@0630,1630 [facility] Last Admin: 08/02/22 09:01 Dose: 40 mg Documented By: BETY Prednisolone Sodium Phosphate (Prednisolone Sodium Phosphate 15 Mg/5 Ml Solution) 30 mg PO DAILY [facility] Last Admin: 08/01/22 08:32 Dose: 30 mg Documented By: BETY Sodium Chloride (0.9 % Sodium Chloride Flush 3 Ml Syringe) 3 ml IVFLUSH [facility] Last Admin: 08/02/22 09:07 Dose: 3 ml Documented By: BETY Sodium Chloride (0.9 % Sodium Chloride Flush 10 Ml Syringe) 5 ml IVFLUSH [facility] Last Admin: 08/02/22 09:07 Dose: Not Given Documented By: BETY Non-Admin Reason: No Access Spironolactone (Spironolactone 25 Mg Tablet) 25 mg PO DAILY [facility]; Protocol Last Admin: 08/01/22 08:30 Dose: 25 mg Documented By: BETY Tamsulosin HCl (Tamsulosin Hcl 0.4 Mg Capsule) 0.4 mg PO DAILY [facility] Last Admin: 08/01/22 08:31 Dose: 0.4 mg Documented By: BETY Labs CBC & Chem 7: 08/01/22 05:16 08/01/22 05:16 Assessment and Plan (1) Acute on chronic kidney failure: Status: Acute (2) Hematemesis: Status: Acute (3) Alcoholic cirrhosis: Status: Acute (4) Anasarca: Status: Acute Plan 67-year-old male who is not on any prescription medications and has not seen a doctor in over 15 years, presents to the emergency department for evaluation of dyspnea and generalized swelling. found to have elevated creatinine, liver cirrhosis, severe anemia hematemesis with acute on chronic blood loss anemia s/p 4 units, prbc EGD 07/23/22 showed evidence of erosive esophagitis and atrophic gastritis Finished IV ceftriaxone now with recurrence restarting iv ppi and octreotide, monitor cbc, gi follow up YADI differential diagnosis includes hepatorenal syndrome vs Glomerulonephritis, (Hep C, IgA related) Creatinine improving since starting prednisilone, making urine Pending cryoglobin for low C3-C4 No indication for HD at this point nephrology following Monitor intake and output Anasarca 2/2 liver cirrhosis, hepatitis-C infection Negative anti mitochondrial antibodies No malignant cells identified GI input appreciated , SAAG is c/w cirrhosis, continue prednisilone 30 mg daily for total of 2 months until 09/27/2022. Restrict fluid intake Started spironolactone 25 mg daily Capacity evaluation Patient seen by psychiatrist who believe the patient has capacity to take decisions about his medical care Discussed goals of care with him as he does not want to be comfort measures at this point and would like to be treated and keep his status as DNR DNI LUE swelling Negative Doppler for DVT Stage II right buttock to pressure injury Foam dressing applied dvt prohpylaxis mechanical due to coagulopathy full code reason for continued hospitalization:?hematemesis Quality Stroke Does the patient have a stroke diagnosis?: No VTE Prior VTE?: No VTE Risk Level:: Medical - moderate - high VTE Device Contraindication: Treatment Not Indicated VTE Drug Contraindication: Treatment Not Indicated
[2022-08-02 10:19] LABS: Mean Corpuscular HGB Conc 31.7 g/dl (31.0-36.0); Mean Corpuscular Hemoglobin 29.7 pg (27.0-33.0); Mean Corpuscular Volume 93.9 fL (80.0-98.0); Mean Platelet Volume 11.5 fL (9.4-12.4); Red Blood Count 2.12 X10*6/uL (4.60-5.80); Red Cell Distribution Width 21.5 % (11.0-16.0); White Blood Count 12.4 X10*3/uL (4.8-10.8)
[2022-08-02 10:23] LABS: Platelet Count 83 X10*3/uL (160-400)
[2022-08-02 10:31] LABS: Hemoglobin 6.3 g/dl (14.0-18.0)
[2022-08-02 10:32] LABS: Hematocrit 19.9 % (42.0-52.0)
[2022-08-02 10:37] LABS: Alanine Aminotransferase 16 U/L (0-40); Albumin Level 2.6 g/dL (3.5-5.0); Alkaline Phosphatase 40 U/L (39-117); Anion Gap 12 (12-20); Aspartate Amino Transferase 23 U/L (5-37); Blood Urea Nitrogen 74 mg/dL (9-16); Calcium 8.2 mg/dL (8.4-10.2); Carbon Dioxide 27 mmol/L (22-29); Chloride 103 mmol/L (96-108); Creatinine Clr Calc Pharmacy 35.4; Estimated Glomerular Filt Rate 28; Glucose Random 93 mg/dL (60-115); Potassium 4.7 mmol/L (3.3-5.1); Sodium 137 mmol/L (135-145); Total Protein 6.6 g/dL (6.5-8.0)
--- NOTE | 2022-08-02 10:45 | PM.GIPN ---
Subjective Subjective Date of Service: 08/02/22 Interval History: coffee ground emesis overnight Critical Care Time (minutes): 0 Physical Exam Vital Signs: Vital Signs: Last Vital Signs Temp 98.0 F 08/02/22 08:00 Pulse 95 08/02/22 08:00 Resp 17 08/02/22 08:00 BP 119/56 L 08/02/22 08:00 Pulse Ox 89 L 08/02/22 08:00 O2 Del Method 08/02/22 08:00 O2 Flow Rate 2.0 08/02/22 08:00 BMI result Body Mass Index 31.6 GI: Other: abdomen is soft and nontender Objective Data Labs CBC & Chem 7: 08/02/22 10:04 08/02/22 10:04 Labs: Laboratory Results - last 24 hr 08/02/22 08/02/22 08/02/22 10:04 10:04 10:04 WBC 12.4 H RBC 2.12 L D Hgb 6.3 L* D Hct 19.9 L* D MCV 93.9 MCH 29.7 MCHC 31.7 RDW 21.5 H Plt Count 83 L MPV 11.5 Absolute Nucleated RBC 0.000 Nucleated RBC % (auto) 0.0 Sodium 137 Potassium 4.7 Chloride 103 Carbon Dioxide 27 Anion Gap 12 BUN 74 H Creatinine 2.36 H Estim Creat Clear Calc 35.4 Estimated GFR 28 Random Glucose 93 Calcium 8.2 L Total Bilirubin 2.0 H AST 23 ALT 16 Alkaline Phosphatase 40 Total Protein 6.6 Albumin 2.6 L Crossmatch See Detail Microbiology Microbiology Results: Microbiology 07/24/22 16:00 Ascites Fluid Gram Stain - Final 07/24/22 16:00 Ascites Fluid Anaerobic Culture - Final NO GROWTH AFTER 5 DAYS 07/24/22 16:00 Ascites Fluid Body Fluid Culture - Final No growth after 2 days 07/21/22 Unknown Urine clean catch - Urine rios top Urine Culture - Final Streptococcus viridans group Procedures Date of Service Date of Service: 08/02/22 Progress Note: A&P Assessment and plan (1) Hematemesis: Status: Acute Assessment and Plan: recurrent gi bleeding likely secondary to erosive esophagitis or portal hypertenisve gastropathy transfuse prbcs and ffp continue ppi repeat egd if necessary. Time Spent With Patient Time: Total time spent is greater than 50% in coordination of care (as documented) at patient's floor/unit and/or counseling patient: Quality Stroke Does the patient have a stroke diagnosis?: No VTE Prior VTE?: No VTE Risk Level:: Medical - moderate - high VTE Device Contraindication: Treatment Not Indicated VTE Drug Contraindication: Treatment Not Indicated
[2022-08-02 14:24] LABS: Creatinine Urine 118.54 mg/dL; Microalbum/Creatinine Ratio Ur 6.7 ug/mg cr
--- NOTE | 2022-08-02 17:20 | PC.NURSE ---
lose black stool x1 , 1st unit of blood infusing ,pt tolerating well
[2022-08-02] MEDS: Furosemide 20 MG/2 ML VIAL IVPUSH (19:15)
[2022-08-02] MEDS: Phytonadione (Vit K1) 10 MG in 0.9 % Sodium Chloride 50 ML 51 MG IV (23:47)
[2022-08-03] VITALS (13 sets, daily range): BP systolic 103–153; BP diastolic 56–65; PULSE 76–88; RESP 8–18; TEMP 36.1–37.1; O2SAT 95–98
[2022-08-03] MEDS: Furosemide 40 MG/4 ML VIAL IVPUSH (01:30)
[2022-08-03] MEDS: Pantoprazole Sodium 40 MG/10 ML VIAL IVPUSH ×2 (05:55→16:40)
[2022-08-03 06:17] LABS: INTERNATIONAL NORM RATIO 1.7 (0.9-1.1); Prothrombin Time 20.5 SEC (10.0-13.1)
[2022-08-03 06:30] LABS: PLT CLUMP 1
[2022-08-03 06:32] LABS: Hemoglobin 7.1 g/dl (14.0-18.0); Mean Corpuscular HGB Conc 32.3 g/dl (31.0-36.0); Mean Corpuscular Hemoglobin 29.5 pg (27.0-33.0); Mean Corpuscular Volume 91.3 fL (80.0-98.0); Mean Platelet Volume 11.2 fL (9.4-12.4); Red Blood Count 2.41 X10*6/uL (4.60-5.80); Red Cell Distribution Width 19.5 % (11.0-16.0)
[2022-08-03 06:33] LABS: Anion Gap 11 (12-20); Blood Urea Nitrogen 81 mg/dL (9-16); Calcium 8.1 mg/dL (8.4-10.2); Carbon Dioxide 25 mmol/L (22-29); Chloride 106 mmol/L (96-108); Creatinine Clr Calc Pharmacy 39.1; Estimated Glomerular Filt Rate 31; Glucose Fasting 87 mg/dL (60-99); Potassium 4.4 mmol/L (3.3-5.1); Sodium 138 mmol/L (135-145)
[2022-08-03 06:34] LABS: Platelet Count 63 X10*3/uL (160-400); White Blood Count 6.7 X10*3/uL (4.8-10.8)
--- NOTE | 2022-08-03 07:11 | PM.PNNEP ---
Subjective Subjective Date of Service: 08/03/22 Principal diagnosis: YADI/CKD and anasarca Interval history: coffee ground emesis overnight Physical Exam Vital Signs: Vital Signs: Last Vital Signs Temp 97.2 F 08/03/22 04:00 Pulse 80 08/03/22 04:00 Resp 17 08/03/22 04:00 BP 130/64 08/03/22 04:00 Pulse Ox 95 08/03/22 04:00 O2 Del Method 08/03/22 04:00 O2 Flow Rate 2 08/03/22 04:00 BMI result Body Mass Index 31.6 Const: Other: Constitutional : Awake, interactive, not in distress Neck : Normal inspection, Supple, dialysis catheter site covered with dressing Cardiovascular : RRR, no JVP, +1 lower extremity edema Respiratory :? Fair bilateral air entry,? no crackles, wheezes or rhonchi Gastrointestinal:? soft, lax, Normal bowel sounds, distended abdomen with no tenderness Skin : Warm, Dry Urology: Scrotal edema Neurological : Alert & oriented to self and place, No focal deficit General: cooperative, acute distress mild, in distress mild and respiratory and ill appearing; No confusion Nutritional Appearance: overweight and Edematous Orientation/consciousness: patient oriented x3 and No confusion Limitations: No language barrier HEENT: Head: Yes normal to inspection, Yes normocephalic and Yes atraumatic Ears: hearing grossly normal bilaterally and external ears normal General nose exam: Normal external nose present Face and sinus: Yes normal facial exam Eyes: Conjunctivae: conjunctivae normal Sclerae: sclerae normal Pupils: Equal, round and reactive pupils present EOM: EOMs intact bilaterally Neck: Neck: Yes normal visual inspection, Yes full ROM, Yes trachea midline, Yes supple and Yes JVD Chest: Chest palpation & inspection: normal inspection of the chest and no masses Resp: Effort & Inspection: abnormal respiratory effort, able to speak in complete sentences, no cough, decreased respiratory effort, labored (Slightly), no retractions and not tachypneic Auscultation: crackles, rales (Noted posteriorly), no rhonchi, no wheezes and diminished lung sounds Cardio: Jugular venous distension: JVD Rate: regular rate Rhythm: regular rhythm and abnormal rhythm irregularly irregular Heart sounds: S1 normal heart sound present, S2 normal heart sound present, no click, no gallops, no murmurs and no rubs GI: Other: abdomen is soft and nontender Inspection: Yes Abdominal wall edema and Yes distended Percussion: Yes normal to percussion Auscultation: normal bowel sounds Back/Spine/Pelvis: Cervical Spine: normal cervical lordosis and cervical ROM normal Coccyx: swelling Skin: General skin exam: no rashes or lesions noted, ecchymosis, pallor and other (Redness of the left upper extremity) Neuro: General: patient oriented x3, no focal motor deficits, No confusion and Unable to assess gait Cranial nerves: Yes CN's II-XII intact bilaterally and Yes Equal, round and reactive pupils present Cognition (Neuro): normal cognition Speech: No Abnormal speech present Gait exam (Neuro): Unable to assess gait Extrem: General: No no pedal edema, No cyanosis, Yes edema and Yes other (Generalized edema) Psych: Appearance: grossly normal Mental Status: mental status grossly normal Objective Data Labs CBC & Chem 7: 08/03/22 05:15 08/03/22 05:15 Labs: Laboratory Results - last 24 hr 08/02/22 08/02/22 08/02/22 10:04 10:04 10:04 WBC 12.4 H RBC 2.12 L D Hgb 6.3 L* D Hct 19.9 L* D MCV 93.9 MCH 29.7 MCHC 31.7 RDW 21.5 H Plt Count 83 L MPV 11.5 Absolute Nucleated RBC 0.000 Nucleated RBC % (auto) 0.0 PT INR Sodium 137 Potassium 4.7 Chloride 103 Carbon Dioxide 27 Anion Gap 12 BUN 74 H Creatinine 2.36 H Estim Creat Clear Calc 35.4 Estimated GFR 28 Random Glucose 93 Fasting Glucose Calcium 8.2 L Total Bilirubin 2.0 H AST 23 ALT 16 Alkaline Phosphatase 40 Total Protein 6.6 Albumin 2.6 L Urine Creatinine Urine Microalbumin Microalb/Creat Ratio Blood Type B Positive Antibody Screen NEGATIVE Crossmatch See Detail 08/02/22 08/03/22 08/03/22 14:00 05:15 05:15 WBC 6.7 RBC 2.41 L Hgb 7.1 L Hct 22.0 L MCV 91.3 MCH 29.5 MCHC 32.3 RDW 19.5 H Plt Count 63 L MPV 11.2 Absolute Nucleated RBC 0.000 Nucleated RBC % (auto) 0.0 PT INR Sodium 138 Potassium 4.4 Chloride 106 Carbon Dioxide 25 Anion Gap 11 L BUN 81 H Creatinine 2.14 H Estim Creat Clear Calc 39.1 Estimated GFR 31 Random Glucose Fasting Glucose 87 Calcium 8.1 L Total Bilirubin AST ALT Alkaline Phosphatase Total Protein Albumin Urine Creatinine 118.54 Urine Microalbumin 8.0 Microalb/Creat Ratio 6.7 Blood Type Antibody Screen Crossmatch 08/03/22 05:15 WBC RBC Hgb Hct MCV MCH MCHC RDW Plt Count MPV Absolute Nucleated RBC Nucleated RBC % (auto) PT 20.5 H INR 1.7 H Sodium Potassium Chloride Carbon Dioxide Anion Gap BUN Creatinine Estim Creat Clear Calc Estimated GFR Random Glucose Fasting Glucose Calcium Total Bilirubin AST ALT Alkaline Phosphatase Total Protein Albumin Urine Creatinine Urine Microalbumin Microalb/Creat Ratio Blood Type Antibody Screen Crossmatch Microbiology Microbiology Results: Microbiology 07/24/22 16:00 Ascites Fluid Gram Stain - Final 07/24/22 16:00 Ascites Fluid Anaerobic Culture - Final NO GROWTH AFTER 5 DAYS 07/24/22 16:00 Ascites Fluid Body Fluid Culture - Final No growth after 2 days 07/21/22 Unknown Urine clean catch - Urine rios top Urine Culture - Final Streptococcus viridans group Procedures Date of Service Date of Service: 08/03/22 Assessment & Plan Assessment and plan (1) Hematemesis: Status: Acute Assessment and Plan: recurrent gi bleeding likely secondary to erosive esophagitis or portal hypertenisve gastropathy transfuse prbcs and ffp continue ppi repeat egd if necessary. (2) Acute on chronic kidney failure: Status: Acute Assessment and Plan: creat on admission 2.1 peak 4.6 now improving no evidence of AGN low complements IEP wnl Cryo pending Time Spent With Patient Time: Total time spent is greater than 50% in coordination of care (as documented) at patient's floor/unit and/or counseling patient: Progress Note: Quality Stroke Does the patient have a stroke diagnosis?: No
[2022-08-03] MEDS: Tamsulosin HCL 0.4 MG CAPSULE PO (09:50)
[2022-08-03] MEDS: Spironolactone 25 MG TABLET PO (09:50)
[2022-08-03] MEDS: Folic Acid 1 MG TABLET 5 MG PO (09:50)
--- NOTE | 2022-08-03 10:52 | HO.PM.IMPN ---
Subjective Subjective Date of Service: 08/03/22 Interval History: cc: weakness, anasarca interval history:no further hematemesis Gastrointestinal Gastrointestinal: Reports no additional gastrointestinal complaints Genitourinary Genitourinary: Reports no additional male genitourinary complaints Neurologic Neurologic: Denies Abnormal speech present and Denies confusion Psychiatric Psychiatric: Denies confusion Physical Exam Vital Signs: Vital Signs: Last Vital Signs Temp 97.5 F 08/03/22 08:00 Pulse 84 08/03/22 08:00 Resp 18 08/03/22 08:00 BP 103/60 08/03/22 08:00 Pulse Ox 96 08/03/22 08:00 O2 Del Method 08/03/22 08:00 O2 Flow Rate 2.0 08/03/22 08:00 BMI result Body Mass Index 31.6 Const: Other: Constitutional : Awake, interactive, not in distress Neck : Normal inspection, Supple, dialysis catheter site covered with dressing Cardiovascular : RRR, no JVP, +1 lower extremity edema Respiratory :? Fair bilateral air entry,? no crackles, wheezes or rhonchi Gastrointestinal:? soft, lax, Normal bowel sounds, distended abdomen with no tenderness Skin : Warm, Dry Urology: Scrotal edema Neurological : Alert & oriented to self and place, No focal deficit General: cooperative, acute distress mild, in distress mild and respiratory and ill appearing; No confusion Nutritional Appearance: overweight and Edematous Orientation/consciousness: patient oriented x3 and No confusion Limitations: No language barrier HEENT: Head: Yes normal to inspection, Yes normocephalic and Yes atraumatic Ears: hearing grossly normal bilaterally and external ears normal General nose exam: Normal external nose present Face and sinus: Yes normal facial exam Eyes: Conjunctivae: conjunctivae normal Sclerae: sclerae normal Pupils: Equal, round and reactive pupils present EOM: EOMs intact bilaterally Neck: Neck: Yes normal visual inspection, Yes full ROM, Yes trachea midline, Yes supple and Yes JVD Chest: Chest palpation & inspection: normal inspection of the chest and no masses Resp: Effort & Inspection: abnormal respiratory effort, able to speak in complete sentences, no cough, decreased respiratory effort, labored (Slightly), no retractions and not tachypneic Auscultation: crackles, rales (Noted posteriorly), no rhonchi, no wheezes and diminished lung sounds Cardio: Jugular venous distension: JVD Rate: regular rate Rhythm: regular rhythm and abnormal rhythm irregularly irregular Heart sounds: S1 normal heart sound present, S2 normal heart sound present, no click, no gallops, no murmurs and no rubs GI: Other: abdomen is soft and nontender Inspection: Yes Abdominal wall edema and Yes distended Percussion: Yes normal to percussion Auscultation: normal bowel sounds Back/Spine/Pelvis: Cervical Spine: normal cervical lordosis and cervical ROM normal Coccyx: swelling Skin: General skin exam: no rashes or lesions noted, ecchymosis, pallor and other (Redness of the left upper extremity) Neuro: General: patient oriented x3, no focal motor deficits, No confusion and Unable to assess gait Cranial nerves: Yes CN's II-XII intact bilaterally and Yes Equal, round and reactive pupils present Cognition (Neuro): normal cognition Speech: No Abnormal speech present Gait exam (Neuro): Unable to assess gait Extrem: General: No no pedal edema, No cyanosis, Yes edema and Yes other (Generalized edema) Psych: Appearance: grossly normal Mental Status: mental status grossly normal Objective Data Active Medications Folic Acid (Folic Acid 1 Mg Tablet) 5 mg PO DAILY [facility] [place] Last Admin: 08/03/22 09:50 Dose: 5 mg Documented By: DARRELL Melatonin (Melatonin 3 Mg Tablet) 3 mg PO BEDTIME [facility] [place] Last Admin: 08/03/22 01:02 Dose: Not Given Documented By: JASON Non-Admin Reason: NPO Ondansetron HCl (Ondansetron Hcl 4 Mg/2 Ml Vial) 4 mg IVPUSH Q8H PRN PRN Reason: Nausea and Vomiting Last Admin: 07/30/22 16:16 Dose: 4 mg Documented By: DARRELL Pantoprazole Sodium (Pantoprazole Sodium 40 Mg/10 Ml Vial) 40 mg IVPUSH BID@0630,1630 [facility] [place] Last Admin: 08/03/22 05:55 Dose: 40 mg Documented By: JASON Prednisone (Prednisone 10 Mg Tablet) 30 mg PO DAILY [facility] [place] Sodium Chloride (0.9 % Sodium Chloride Flush 3 Ml Syringe) 3 ml IVFLUSH QSHIFT [facility] [place] Last Admin: 08/02/22 21:04 Dose: 3 ml Documented By: JASON Sodium Chloride (0.9 % Sodium Chloride Flush 10 Ml Syringe) 5 ml IVFLUSH QSHIFT [facility] [place] Last Admin: 08/03/22 09:54 Dose: Not Given Documented By: DARRELL Non-Admin Reason: n/a Spironolactone (Spironolactone 25 Mg Tablet) 25 mg PO DAILY [facility] [place]; Protocol Last Admin: 08/03/22 09:50 Dose: 25 mg Documented By: DARRELL Tamsulosin HCl (Tamsulosin Hcl 0.4 Mg Capsule) 0.4 mg PO DAILY [facility] [place] Last Admin: 08/03/22 09:50 Dose: 0.4 mg Documented By: DARRELL Labs CBC & Chem 7: 08/03/22 05:15 08/03/22 05:15 Labs: Laboratory Results - last 24 hr 08/02/22 08/02/22 08/03/22 10:04 14:00 05:15 MCV 91.3 MCH 29.5 MCHC 32.3 RDW 19.5 H Plt Count 63 L MPV 11.2 Absolute Nucleated RBC 0.000 Nucleated RBC % (auto) 0.0 PT INR Anion Gap Estim Creat Clear Calc Estimated GFR Fasting Glucose Calcium Urine Creatinine 118.54 Urine Microalbumin 8.0 Microalb/Creat Ratio 6.7 Blood Type B Positive Antibody Screen NEGATIVE Crossmatch See Detail 08/03/22 08/03/22 05:15 05:15 MCV MCH MCHC RDW Plt Count MPV Absolute Nucleated RBC Nucleated RBC % (auto) PT 20.5 H INR 1.7 H Anion Gap 11 L Estim Creat Clear Calc 39.1 Estimated GFR 31 Fasting Glucose 87 Calcium 8.1 L Urine Creatinine Urine Microalbumin Microalb/Creat Ratio Blood Type Antibody Screen Crossmatch Assessment and Plan (1) Acute on chronic kidney failure: Status: Acute (2) Hematemesis: Status: Acute (3) Alcoholic cirrhosis: Status: Acute (4) Anasarca: Status: Acute Plan 67-year-old male who is not on any prescription medications and has not seen a doctor in over 15 years, presents to the emergency department for evaluation of dyspnea and generalized swelling. found to have elevated creatinine, liver cirrhosis, severe anemia hematemesis with acute on chronic blood loss anemia s/p 6 units, prbc EGD 07/23/22 showed evidence of erosive esophagitis and atrophic gastritis Finished IV ceftriaxone will give another unit prbc today monitor continue ppi YADI differential diagnosis includes hepatorenal syndrome vs Glomerulonephritis, (Hep C, IgA related) Creatinine improving since starting prednisilone - not tolerated though so will change to prednisone, making urine Pending cryoglobin for low C3-C4 No indication for HD at this point nephrology following Monitor intake and output Anasarca 2/2 liver cirrhosis, hepatitis-C infection Negative anti mitochondrial antibodies No malignant cells identified GI input appreciated , SAAG is c/w cirrhosis, continue prednisilone 30 mg daily for total of 2 months until 09/27/2022. Restrict fluid intake Started spironolactone 25 mg daily Capacity evaluation Patient seen by psychiatrist who believe the patient has capacity to take decisions about his medical care Discussed goals of care with him as he does not want to be comfort measures at this point and would like to be treated and keep his status as DNR DNI LUE swelling Negative Doppler for DVT Stage II right buttock to pressure injury Foam dressing applied dvt prohpylaxis mechanical due to coagulopathy full code reason for continued hospitalization:?hematemesis Quality Stroke Does the patient have a stroke diagnosis?: No VTE Prior VTE?: No VTE Risk Level:: Medical - moderate - high VTE Device Contraindication: Treatment Not Indicated VTE Drug Contraindication: Treatment Not Indicated
[2022-08-03] MEDS: predniSONE 10 MG TABLET 30 MG PO (11:58)
--- NOTE | 2022-08-03 12:24 | PM.GIPN ---
Subjective Subjective Date of Service: 08/03/22 Interval History: feels ok Critical Care Time (minutes): 0 Physical Exam Vital Signs: Vital Signs: Last Vital Signs Temp 97.6 F 08/03/22 11:34 Pulse 84 08/03/22 11:34 Resp 18 08/03/22 11:34 BP 117/57 L 08/03/22 11:34 Pulse Ox 98 08/03/22 11:10 O2 Del Method 08/03/22 11:10 O2 Flow Rate 2.0 08/03/22 11:10 BMI result Body Mass Index 31.6 GI: Other: abdomen is distended with ascites, nontender Objective Data Labs CBC & Chem 7: 08/03/22 05:15 08/03/22 05:15 Labs: Laboratory Results - last 24 hr 08/02/22 08/02/22 08/03/22 10:04 14:00 05:15 WBC 6.7 RBC 2.41 L Hgb 7.1 L Hct 22.0 L MCV 91.3 MCH 29.5 MCHC 32.3 RDW 19.5 H Plt Count 63 L MPV 11.2 Absolute Nucleated RBC 0.000 Nucleated RBC % (auto) 0.0 PT INR Sodium Potassium Chloride Carbon Dioxide Anion Gap BUN Creatinine Estim Creat Clear Calc Estimated GFR Fasting Glucose Calcium Urine Creatinine 118.54 Urine Microalbumin 8.0 Microalb/Creat Ratio 6.7 Blood Type B Positive Antibody Screen NEGATIVE Crossmatch See Detail 08/03/22 08/03/22 05:15 05:15 WBC RBC Hgb Hct MCV MCH MCHC RDW Plt Count MPV Absolute Nucleated RBC Nucleated RBC % (auto) PT 20.5 H INR 1.7 H Sodium 138 Potassium 4.4 Chloride 106 Carbon Dioxide 25 Anion Gap 11 L BUN 81 H Creatinine 2.14 H Estim Creat Clear Calc 39.1 Estimated GFR 31 Fasting Glucose 87 Calcium 8.1 L Urine Creatinine Urine Microalbumin Microalb/Creat Ratio Blood Type Antibody Screen Crossmatch Microbiology Microbiology Results: Microbiology 07/24/22 16:00 Ascites Fluid Gram Stain - Final 07/24/22 16:00 Ascites Fluid Anaerobic Culture - Final NO GROWTH AFTER 5 DAYS 07/24/22 16:00 Ascites Fluid Body Fluid Culture - Final No growth after 2 days 07/21/22 Unknown Urine clean catch - Urine rios top Urine Culture - Final Streptococcus viridans group Procedures Date of Service Date of Service: 08/03/22 Progress Note: A&P Assessment and plan (1) Hematemesis: Status: Acute Assessment and Plan: bleeding appears to have stopped with ffp and vitamin k inr is better follow hematocrit Time Spent With Patient Time: Total time spent is greater than 50% in coordination of care (as documented) at patient's floor/unit and/or counseling patient: Quality Stroke Does the patient have a stroke diagnosis?: No VTE Prior VTE?: No VTE Risk Level:: Medical - moderate - high VTE Device Contraindication: Treatment Not Indicated VTE Drug Contraindication: Treatment Not Indicated
--- NOTE | 2022-08-03 13:55 | PC.NURSE ---
Pt bladder scanned for 745ml. Pt voided 200ml into urinal. Straight cath per order for 100ml. Re bladder scanned pt for 386ml. Dr Jamil made aware.
[2022-08-03] MEDS: Melatonin 3 MG TABLET PO (20:15)
[2022-08-03] MEDS: 0.9 % Sodium Chloride Flush 3 ML SYRINGE IVFLUSH (21:00)
[2022-08-04 03:45] VITALS: BP 132/60; PULSE 78; RESP 16; TEMP 36.4; O2SAT 96
[2022-08-04] MEDS: Pantoprazole Sodium 40 MG/10 ML VIAL IVPUSH (05:21)
[2022-08-04 06:17] LABS: INTERNATIONAL NORM RATIO 1.6 (0.9-1.1); Prothrombin Time 18.6 SEC (10.0-13.1)
[2022-08-04 06:26] LABS: Hematocrit 26.5 % (42.0-52.0); Hemoglobin 8.5 g/dl (14.0-18.0); Mean Corpuscular HGB Conc 32.1 g/dl (31.0-36.0); Mean Corpuscular Hemoglobin 29.9 pg (27.0-33.0); Mean Corpuscular Volume 93.3 fL (80.0-98.0); Mean Platelet Volume 11.5 fL (9.4-12.4); Red Blood Count 2.84 X10*6/uL (4.60-5.80); Red Cell Distribution Width 18.9 % (11.0-16.0); White Blood Count 7.4 X10*3/uL (4.8-10.8)
[2022-08-04 06:27] LABS: Platelet Count 71 X10*3/uL (160-400)
[2022-08-04 06:41] LABS: Alanine Aminotransferase 14 U/L (0-40); Albumin Level 2.4 g/dL (3.5-5.0); Alkaline Phosphatase 40 U/L (39-117); Anion Gap 13 (12-20); Aspartate Amino Transferase 17 U/L (5-37); Bilirubin Direct 0.7 mg/dL (0.0-0.5); Bilirubin Total 2.4 mg/dL (0.0-1.0); Blood Urea Nitrogen 77 mg/dL (9-16); Calcium 8.2 mg/dL (8.4-10.2); Carbon Dioxide 23 mmol/L (22-29); Chloride 105 mmol/L (96-108); Creatinine Clr Calc Pharmacy 40.8; Estimated Glomerular Filt Rate 32; Glucose Fasting 148 mg/dL (60-99); Magnesium 1.8 mg/dL (1.6-2.6); Potassium 4.3 mmol/L (3.3-5.1); Sodium 137 mmol/L (135-145); Total Protein 6.6 g/dL (6.5-8.0)
[2022-08-04 07:52] VITALS: BP 130/61; PULSE 79; RESP 16; TEMP 36.4; O2SAT 96
[2022-08-04] MEDS: predniSONE 10 MG TABLET 30 MG PO (08:16)
[2022-08-04] MEDS: Folic Acid 1 MG TABLET 5 MG PO (08:16)
[2022-08-04] MEDS: Tamsulosin HCL 0.4 MG CAPSULE PO (08:16)
[2022-08-04] MEDS: Spironolactone 25 MG TABLET PO (08:16)
[2022-08-04] MEDS: 0.9 % Sodium Chloride Flush 3 ML SYRINGE IVFLUSH ×2 (08:16→16:15)
--- NOTE | 2022-08-04 08:58 | P.PNNP_ITS ---
Subjective Subjective Date of Service: 08/04/22 Principal diagnosis: YADI/CKD and anasarca Interval history: feels ok Physical Exam Vital Signs: Vital Signs: Last Vital Signs Temp 97.5 F 08/04/22 07:52 Pulse 79 08/04/22 07:52 Resp 16 08/04/22 07:52 BP 130/61 08/04/22 07:52 Pulse Ox 96 08/04/22 07:52 O2 Del Method 08/04/22 07:52 O2 Flow Rate 2.0 08/04/22 07:52 BMI result Body Mass Index 31.6 Const: Other: Constitutional : Awake, interactive, not in distress Neck : Normal inspection, Supple, dialysis catheter site covered with dressing Cardiovascular : RRR, no JVP, +1 lower extremity edema Respiratory :? Fair bilateral air entry,? no crackles, wheezes or rhonchi Gastrointestinal:? soft, lax, Normal bowel sounds, distended abdomen with no tenderness Skin : Warm, Dry Urology: Scrotal edema Neurological : Alert & oriented to self and place, No focal deficit General: cooperative, acute distress mild, in distress mild and respiratory and ill appearing; No confusion Nutritional Appearance: overweight and Edematous Orientation/consciousness: patient oriented x3 and No confusion Limitations: No language barrier HEENT: Head: Yes normal to inspection, Yes normocephalic and Yes atraumatic Ears: hearing grossly normal bilaterally and external ears normal General nose exam: Normal external nose present Face and sinus: Yes normal facial exam Eyes: Conjunctivae: conjunctivae normal Sclerae: sclerae normal Pupils: Equal, round and reactive pupils present EOM: EOMs intact bilaterally Neck: Neck: Yes normal visual inspection, Yes full ROM, Yes trachea midline, Yes supple and Yes JVD Chest: Chest palpation & inspection: normal inspection of the chest and no masses Resp: Effort & Inspection: abnormal respiratory effort, able to speak in complete sentences, no cough, decreased respiratory effort, labored (Slightly), no retractions and not tachypneic Auscultation: crackles, rales (Noted posteriorly), no rhonchi, no wheezes and diminished lung sounds Cardio: Jugular venous distension: JVD Rate: regular rate Rhythm: regular rhythm and abnormal rhythm irregularly irregular Heart sounds: S1 normal heart sound present, S2 normal heart sound present, no click, no gallops, no murmurs and no rubs GI: Other: abdomen is distended with ascites, nontender Inspection: Yes Abdominal wall edema and Yes distended Percussion: Yes normal to percussion Auscultation: normal bowel sounds Back/Spine/Pelvis: Cervical Spine: normal cervical lordosis and cervical ROM normal Coccyx: swelling Skin: General skin exam: no rashes or lesions noted, ecchymosis, pallor and other (Redness of the left upper extremity) Neuro: General: patient oriented x3, no focal motor deficits, No confusion and Unable to assess gait Cranial nerves: Yes CN's II-XII intact bilaterally and Yes Equal, round and reactive pupils present Cognition (Neuro): normal cog nition Speech: No Abnormal speech present Gait exam (Neuro): Unable to assess gait Extrem: General: No no pedal edema, No cyanosis, Yes edema and Yes other (Generalized edema) Psych: Appearance: grossly normal Mental Status: mental status grossly normal Objective Data Labs CBC & Chem 7: 08/04/22 05:50 08/04/22 05:50 Labs: Laboratory Results - last 24 hr 08/02/22 08/04/22 08/04/22 10:04 05:50 05:50 WBC 7.4 RBC 2.84 L Hgb 8.5 L Hct 26.5 L D MCV 93.3 MCH 29.9 MCHC 32.1 RDW 18.9 H Plt Count 71 L MPV 11.5 Absolute Nucleated RBC 0.000 Nucleated RBC % (auto) 0.0 PT INR Sodium 137 Potassium 4.3 Chloride 105 Carbon Dioxide 23 Anion Gap 13 BUN 77 H Creatinine 2.05 H Estim Creat Clear Calc 40.8 Estimated GFR 32 Fasting Glucose 148 H Calcium 8.2 L Magnesium 1.8 Total Bilirubin 2.4 H Direct Bilirubin 0.7 H AST 17 ALT 14 Alkaline Phosphatase 40 Total Protein 6.6 Albumin 2.4 L Blood Type B Positive Antibody Screen NEGATIVE Crossmatch See Detail 08/04/22 05:50 WBC RBC Hgb Hct MCV MCH MCHC RDW Plt Count MPV Absolute Nucleated RBC Nucleated RBC % (auto) PT 18.6 H INR 1.6 H Sodium Potassium Chloride Carbon Dioxide Anion Gap BUN Creatinine Estim Creat Clear Calc Estimated GFR Fasting Glucose Calcium Magnesium Total Bilirubin Direct Bilirubin AST ALT Alkaline Phosphatase Total Protein Albumin Blood Type Antibody Screen Crossmatch Microbiology Microbiology Results: Microbiology 07/24/22 16:00 Ascites Fluid Gram Stain - Final 07/24/22 16:00 Ascites Fluid Anaerobic Culture - Final NO GROWTH AFTER 5 DAYS 07/24/22 16:00 Ascites Fluid Body Fluid Culture - Final No growth after 2 days 07/21/22 Unknown Urine clean catch - Urine rios top Urine Culture - Final Streptococcus viridans group Procedures Date of Service Date of Service: 08/04/22 Assessment & Plan Assessment and plan (1) Hematemesis: Status: Acute Assessment and Plan: bleeding appears to have stopped with ffp and vitamin k inr is better follow hematocrit (2) Acute on chronic kidney failure: Status: Acute Assessment and Plan: creat on admission 2.1 peak 4.6 now improving no evidence of AGN low complements IEP wnl Cryo pending creat continues to improve (3) Alcoholic cirrhosis: Status: Acute Progress Note: Quality Stroke Does the patient have a stroke diagnosis?: No
--- NOTE | 2022-08-04 10:12 | P.PNIM_ITS ---
Subjective Subjective Date of Service: 08/04/22 Interval History: cc: weakness, anasarca interval history:no further hematemesis Cardiovascular Cardiovascular: Reports no additional cardiovascular complaints Respiratory Respiratory: Reports no additional respiratory complaints Gastrointestinal Gastrointestinal: Reports no additional gastrointestinal complaints Genitourinary Genitourinary: Reports no additional male genitourinary complaints Neurologic Neurologic: Denies Abnormal speech present and Denies confusion Psychiatric Psychiatric: Denies confusion Physical Exam Vital Signs: Vital Signs: Last Vital Signs Temp 97.5 F 08/04/22 07:52 Pulse 79 08/04/22 07:52 Resp 16 08/04/22 07:52 BP 130/61 08/04/22 07:52 Pulse Ox 96 08/04/22 07:52 O2 Del Method 08/04/22 07:52 O2 Flow Rate 2.0 08/04/22 07:52 BMI result Body Mass Index 31.6 Const: Other: Constitutional : Awake, interactive, not in distress Neck : Normal inspection, Supple, dialysis catheter site covered with dressing Cardiovascular : RRR, no JVP, +1 lower extremity edema Respiratory :? Fair bilateral air entry,? no crackles, wheezes or rhonchi Gastrointestinal:? soft, lax, Normal bowel sounds, distended abdomen with no tenderness Skin : Warm, Dry Urology: Scrotal edema Neurological : Alert & oriented to self and place, No focal deficit General: No confusion Nutritional Appearance: overweight and Edematous Orientation/consciousness: No confusion Limitations: No language barrier HEENT: Head: Yes normal to inspection, Yes normocephalic and Yes atraumatic Ears: hearing grossly normal bilaterally and external ears normal General nose exam: Normal external nose present Face and sinus: Yes normal facial exam Eyes: Conjunctivae: conjunctivae normal Sclerae: sclerae normal Pupils: Equal, round and reactive pupils present EOM: EOMs intact bilaterally Neck: Neck: Yes normal visual inspection, Yes full ROM, Yes trachea midline, Yes supple and Yes JVD Chest: Chest palpation & inspection: normal inspection of the chest and no masses Resp: Effort & Inspection: abnormal respiratory effort, able to speak in complete sentences, no cough, decreased respiratory effort, labored (Slightly), no retractions and not tachypneic Auscultation: crackles, rales (Noted posteriorly), no rhonchi, no wheezes and diminished lung sounds Cardio: Jugular venous distension: JVD Rate: regular rate Rhythm: regular rhythm and abnormal rhythm irregularly irregular Heart sounds: S1 normal heart sound present, S2 normal heart sound present, no click, no gallops, no murmurs and no rubs GI: Other: abdomen is distended with ascites, nontender Inspection: Yes Abdominal wall edema and Yes distended Percussion: Yes normal to percussion Auscultation: normal bowel sounds Back/Spine/Pelvis: Cervical Spine: normal cervical lordosis and cervical ROM normal Coccyx: swelling Skin: General skin exam: no rashes or lesions noted, ecchymosis, pallor and other (Redness of the left upper extremity) Neuro: General: No confusion and Unable to assess gait Cranial nerves: Yes CN's II-XII intact bilaterally and Yes Equal, round and reactive pupils present Cognition (Neuro): normal cognition Speech: No Abnormal speech present Gait exam (Neuro): Unable to assess gait Extrem: General: No no pedal edema, No cyanosis, Yes edema and Yes other (Generalized edema) Psych: Appearance: grossly normal Mental Status: mental status grossly normal Objective Data Active Medications Folic Acid (Folic Acid 1 Mg Tablet) 5 mg PO DAILY [facility] Last Admin: 08/04/22 08:16 Dose: 5 mg Documented By: DARRELL Melatonin (Melatonin 3 Mg Tablet) 3 mg PO BEDTIME [facility] Last Admin: 08/03/22 20:15 Dose: 3 mg Documented By: JASON Omeprazole (Omeprazole 40 Mg Capsule.Dr) 40 mg PO BID@0630,1630 [facility] Ondansetron HCl (Ondansetron Hcl 4 Mg/2 Ml Vial) 4 mg IVPUSH Q8H PRN PRN Reason: Nausea and Vomiting Last Admin: 07/30/22 16:16 Dose: 4 mg Documented By: DARRELL Prednisone (Prednisone 10 Mg Tablet) 30 mg PO DAILY [facility] Last Admin: 08/04/22 08:16 Dose: 30 mg Documented By: DARRELL Sodium Chloride (0.9 % Sodium Chloride Flush 3 Ml Syringe) 3 ml IVFLUSH [facility] Last Admin: 08/04/22 08:16 Dose: 3 ml Documented By: DARRELL Sodium Chloride (0.9 % Sodium Chloride Flush 10 Ml Syringe) 5 ml IVFLUSH [facility] Last Admin: 08/04/22 07:07 Dose: Not Given Documented By: DARRELL Non-Admin Reason: n/a Spironolactone (Spironolactone 25 Mg Tablet) 25 mg PO DAILY [facility]; Protocol Last Admin: 08/04/22 08:16 Dose: 25 mg Documented By: DARRELL Tamsulosin HCl (Tamsulosin Hcl 0.4 Mg Capsule) 0.4 mg PO DAILY [facility] Last Admin: 08/04/22 08:16 Dose: 0.4 mg Documented By: DARRELL Labs CBC & Chem 7: 08/04/22 05:50 08/04/22 05:50 Labs: Laboratory Results - last 24 hr 08/02/22 08/04/22 08/04/22 10:04 05:50 05:50 MCV 93.3 MCH 29.9 MCHC 32.1 RDW 18.9 H Plt Count 71 L MPV 11.5 Absolute Nucleated RBC 0.000 Nucleated RBC % (auto) 0.0 PT INR Anion Gap 13 Estim Creat Clear Calc 40.8 Estimated GFR 32 Fasting Glucose 148 H Calcium 8.2 L Magnesium 1.8 Total Bilirubin 2.4 H Direct Bilirubin 0.7 H AST 17 ALT 14 Alkaline Phosphatase 40 Total Protein 6.6 Albumin 2.4 L Blood Type B Positive Antibody Screen NEGATIVE Crossmatch See Detail 08/04/22 05:50 MCV MCH MCHC RDW Plt Count MPV Absolute Nucleated RBC Nucleated RBC % (auto) PT 18.6 H INR 1.6 H Anion Gap Estim Creat Clear Calc Estimated GFR Fasting Glucose Calcium Magnesium Total Bilirubin Direct Bilirubin AST ALT Alkaline Phosphatase Total Protein Albumin Blood Type Antibody Screen Crossmatch Assessment and Plan (1) Acute on chronic kidney failure: Status: Acute (2) Hematemesis: Status: Acute (3) Alcoholic cirrhosis: Status: Acute (4) Anasarca: Status: Acute Plan 67-year-old male who is not on any prescription medications and has not seen a doctor in over 15 years, presents to the emergency department for evaluation of dyspnea and generalized swelling. found to have elevated creatinine, liver cirrhosis, severe anemia hematemesis with acute on chronic blood loss anemia s/p 7 units, prbc EGD 07/23/22 showed evidence of erosive esophagitis and atrophic gastritis Finished IV ceftriaxone monitor continue ppi - changed to po acute hypoxic respiratory failure atelectasis on cxr wean o2 as tolerated YADI differential diagnosis includes hepatorenal syndrome vs Glomerulonephritis, (Hep C, IgA related) Creatinine improving since starting prednisilone - not tolerated though so changed to prednisone, making urine Pending cryoglobin for low C3-C4 No indication for HD at this point nephrology following Monitor intake and output Anasarca 2/2 liver cirrhosis, hepatitis-C infection Negative anti mitochondrial antibodies No malignant cells identified GI input appreciated , SAAG is c/w cirrhosis, continue prednisilone 30 mg daily for total of 2 months until 09/27/2022. Restrict fluid intake Started spironolactone 25 mg daily Capacity evaluation Patient seen by psychiatrist who believe the patient has capacity to take decisions about his medical care Discussed goals of care with him as he does not want to be comfort measures at this point and would like to be treated and keep his status as DNR DNI LUE swelling Negative Doppler for DVT Stage II right buttock to pressure injury Foam dressing applied dvt prohpylaxis mechanical due to coagulopathy full code reason for continued hospitalization:?hematemesis Quality Stroke Does the patient have a stroke diagnosis?: No VTE Prior VTE?: No VTE Risk Level:: Medical - moderate - high VTE Device Contraindication: Treatment Not Indicated VTE Drug Contraindication: Treatment Not Indicated
--- NOTE | 2022-08-04 10:15 | PM.GIPN ---
Subjective Subjective Date of Service: 08/04/22 Interval History: feels better hungry Critical Care Time (minutes): 0 Physical Exam Vital Signs: Vital Signs: Last Vital Signs Temp 97.5 F 08/04/22 07:52 Pulse 79 08/04/22 07:52 Resp 16 08/04/22 07:52 BP 130/61 08/04/22 07:52 Pulse Ox 96 08/04/22 07:52 O2 Del Method 08/04/22 07:52 O2 Flow Rate 2.0 08/04/22 07:52 BMI result Body Mass Index 31.6 GI: Other: abdomen is nontender with ascites Objective Data Labs CBC & Chem 7: 08/04/22 05:50 08/04/22 05:50 Labs: Laboratory Results - last 24 hr 08/02/22 08/04/22 08/04/22 10:04 05:50 05:50 WBC 7.4 RBC 2.84 L Hgb 8.5 L Hct 26.5 L D MCV 93.3 MCH 29.9 MCHC 32.1 RDW 18.9 H Plt Count 71 L MPV 11.5 Absolute Nucleated RBC 0.000 Nucleated RBC % (auto) 0.0 PT INR Sodium 137 Potassium 4.3 Chloride 105 Carbon Dioxide 23 Anion Gap 13 BUN 77 H Creatinine 2.05 H Estim Creat Clear Calc 40.8 Estimated GFR 32 Fasting Glucose 148 H Calcium 8.2 L Magnesium 1.8 Total Bilirubin 2.4 H Direct Bilirubin 0.7 H AST 17 ALT 14 Alkaline Phosphatase 40 Total Protein 6.6 Albumin 2.4 L Blood Type B Positive Antibody Screen NEGATIVE Crossmatch See Detail 08/04/22 05:50 WBC RBC Hgb Hct MCV MCH MCHC RDW Plt Count MPV Absolute Nucleated RBC Nucleated RBC % (auto) PT 18.6 H INR 1.6 H Sodium Potassium Chloride Carbon Dioxide Anion Gap BUN Creatinine Estim Creat Clear Calc Estimated GFR Fasting Glucose Calcium Magnesium Total Bilirubin Direct Bilirubin AST ALT Alkaline Phosphatase Total Protein Albumin Blood Type Antibody Screen Crossmatch Microbiology Microbiology Results: Microbiology 07/24/22 16:00 Ascites Fluid Gram Stain - Final 07/24/22 16:00 Ascites Fluid Anaerobic Culture - Final NO GROWTH AFTER 5 DAYS 07/24/22 16:00 Ascites Fluid Body Fluid Culture - Final No growth after 2 days 07/21/22 Unknown Urine clean catch - Urine rios top Urine Culture - Final Streptococcus viridans group Procedures Date of Service Date of Service: 08/04/22 Progress Note: A&P Assessment and plan (1) Hematemesis: Status: Acute Plan no further gi bleeding hct stable inr better advance diet continue supportive care Time Spent With Patient Time: Total time spent is greater than 50% in coordination of care (as documented) at patient's floor/unit and/or counseling patient: Quality Stroke Does the patient have a stroke diagnosis?: No VTE Prior VTE?: No VTE Risk Level:: Medical - moderate - high VTE Device Contraindication: Treatment Not Indicated VTE Drug Contraindication: Treatment Not Indicated
[2022-08-04 11:14] VITALS: BP 135/60; PULSE 78; RESP 16; TEMP 36; O2SAT 97
[2022-08-04 11:50] LABS: Creatinine Urine 59.51 mg/dL; Microalbumin Urine < 5.0 mg/L
[2022-08-04 15:29] VITALS: BP 120/60; PULSE 89; RESP 16; TEMP 36.1; O2SAT 98
[2022-08-04] MEDS: Omeprazole 40 MG CAPSULE.DR PO (16:15)
[2022-08-04 19:32] VITALS: BP 139/65; PULSE 82; RESP 16; TEMP 36.6; O2SAT 98
[2022-08-04] MEDS: Melatonin 3 MG TABLET PO (20:11)
[2022-08-05] VITALS (8 sets, daily range): BP systolic 120–144; BP diastolic 56–70; PULSE 77–90; RESP 16–18; TEMP 36–36.9; O2SAT 93–99
[2022-08-05] MEDS: 0.9 % Sodium Chloride Flush 3 ML SYRINGE IVFLUSH ×3 (00:43→17:25)
[2022-08-05] MEDS: Omeprazole 40 MG CAPSULE.DR PO ×2 (05:33→17:25)
[2022-08-05 06:23] LABS: Hematocrit 25.6 % (42.0-52.0); Hemoglobin 8.3 g/dl (14.0-18.0); Mean Corpuscular HGB Conc 32.4 g/dl (31.0-36.0); Mean Corpuscular Hemoglobin 30.3 pg (27.0-33.0); Mean Corpuscular Volume 93.4 fL (80.0-98.0); Red Blood Count 2.74 X10*6/uL (4.60-5.80); Red Cell Distribution Width 19.2 % (11.0-16.0); White Blood Count 9.7 X10*3/uL (4.8-10.8)
[2022-08-05 06:27] LABS: Platelet Count 80 X10*3/uL (160-400)
[2022-08-05] MEDS: Tamsulosin HCL 0.4 MG CAPSULE PO (08:12)
[2022-08-05] MEDS: Folic Acid 1 MG TABLET 5 MG PO (08:12)
[2022-08-05] MEDS: predniSONE 10 MG TABLET 30 MG PO (08:12)
[2022-08-05] MEDS: Spironolactone 25 MG TABLET PO (08:12)
[2022-08-05 09:52] LABS: Alanine Aminotransferase 16 U/L (0-40); Albumin Level 2.3 g/dL (3.5-5.0); Alkaline Phosphatase 47 U/L (39-117); Anion Gap 10 (12-20); Aspartate Amino Transferase 21 U/L (5-37); Bilirubin Direct 0.8 mg/dL (0.0-0.5); Bilirubin Total 1.5 mg/dL (0.0-1.0); Blood Urea Nitrogen 69 mg/dL (9-16); Calcium 8.3 mg/dL (8.4-10.2); Carbon Dioxide 24 mmol/L (22-29); Chloride 106 mmol/L (96-108); Estimated Glomerular Filt Rate 35; Glucose Fasting 90 mg/dL (60-99); Potassium 4.2 mmol/L (3.3-5.1); Sodium 136 mmol/L (135-145); Total Protein 6.5 g/dL (6.5-8.0)
--- NOTE | 2022-08-05 09:54 | HO.PM.IMPN ---
Subjective Subjective Date of Service: 08/05/22 Interval History: cc: weakness, anasarca interval history:no further hematemesis Cardiovascular Cardiovascular: Reports no additional cardiovascular complaints Respiratory Respiratory: Reports no additional respiratory complaints Gastrointestinal Gastrointestinal: Reports no additional gastrointestinal complaints Genitourinary Genitourinary: Reports no additional male genitourinary complaints Neurologic Neurologic: Denies Abnormal speech present and Denies confusion Psychiatric Psychiatric: Denies confusion Physical Exam Vital Signs: Vital Signs: Last Vital Signs Temp 97.8 F 08/05/22 07:15 Pulse 81 08/05/22 07:15 Resp 18 08/05/22 07:15 BP 120/61 08/05/22 07:15 Pulse Ox 97 08/05/22 09:10 O2 Del Method 08/05/22 09:10 O2 Flow Rate 2 08/05/22 07:15 BMI result Body Mass Index 31.6 Const: Other: Constitutional : Awake, interactive, not in distress Neck : Normal inspection, Supple, dialysis catheter site covered with dressing Cardiovascular : RRR, no JVP, +1 lower extremity edema Respiratory :? Fair bilateral air entry,? no crackles, wheezes or rhonchi Gastrointestinal:? soft, lax, Normal bowel sounds, distended abdomen with no tenderness Skin : Warm, Dry Urology: Scrotal edema Neurological : Alert & oriented to self and place, No focal deficit General: No confusion Nutritional Appearance: overweight and Edematous Orientation/consciousness: No confusion Limitations: No language barrier HEENT: Head: Yes normal to inspection, Yes normocephalic and Yes atraumatic Ears: hearing grossly normal bilaterally and external ears normal General nose exam: Normal external nose present Face and sinus: Yes normal facial exam Eyes: Conjunctivae: conjunctivae normal Sclerae: sclerae normal Pupils: Equal, round and reactive pupils present EOM: EOMs intact bilaterally Neck: Neck: Yes normal visual inspection, Yes full ROM, Yes trachea midline, Yes supple and Yes JVD Chest: Chest palpation & inspection: normal inspection of the chest and no masses Resp: Effort & Inspection: abnormal respiratory effort, able to speak in complete sentences, no cough, decreased respiratory effort, labored (Slightly), no retractions and not tachypneic Auscultation: crackles, rales (Noted posteriorly), no rhonchi, no wheezes and diminished lung sounds Cardio: Jugular venous distension: JVD Rate: regular rate Rhythm: regular rhythm and abnormal rhythm irregularly irregular Heart sounds: S1 normal heart sound present, S2 normal heart sound present, no click, no gallops, no murmurs and no rubs GI: Other: abdomen is distended with ascites, nontender Inspection: Yes Abdominal wall edema and Yes distended Percussion: Yes normal to percussion Auscultation: normal bowel sounds Back/Spine/Pelvis: Cervical Spine: normal cervical lordosis and cervical ROM normal Coccyx: swelling Skin: General skin exam: no rashes or lesions noted, ecchymosis, pallor and other (Redness of the left upper extremity) Neuro: General: No confusion and Unable to assess gait Cranial nerves: Yes CN's II-XII intact bilaterally and Yes Equal, round and reactive pupils present Cognition (Neuro): normal cognition Speech: No Abnormal speech present Gait exam (Neuro): Unable to assess gait Extrem: General: No no pedal edema, No cyanosis, Yes edema and Yes other (Generalized edema) Psych: Appearance: grossly normal Mental Status: mental status grossly normal Objective Data Active Medications Folic Acid (Folic Acid 1 Mg Tablet) 5 mg PO DAILY [facility] Last Admin: 08/05/22 08:12 Dose: 5 mg Documented By: BETY Melatonin (Melatonin 3 Mg Tablet) 3 mg PO BEDTIME [facility] Last Admin: 08/04/22 20:11 Dose: 3 mg Documented By: GAVINO Omeprazole (Omeprazole 40 Mg Capsule.Dr) 40 mg PO BID@0630,1630 [facility] Last Admin: 08/05/22 05:33 Dose: 40 mg Documented By: ALEJANDRO Ondansetron HCl (Ondansetron Hcl 4 Mg/2 Ml Vial) 4 mg IVPUSH Q8H PRN PRN Reason: Nausea and Vomiting Last Admin: 07/30/22 16:16 Dose: 4 mg Documented By: DARRELL Prednisone (Prednisone 10 Mg Tablet) 30 mg PO DAILY [facility] Last Admin: 08/05/22 08:12 Dose: 30 mg Documented By: BETY Sodium Chloride (0.9 % Sodium Chloride Flush 3 Ml Syringe) 3 ml IVFLUSH QSHIFT [facility] Last Admin: 08/05/22 00:43 Dose: 3 ml Documented By: ALEJANDRO Sodium Chloride (0.9 % Sodium Chloride Flush 10 Ml Syringe) 5 ml IVFLUSH QSHIFT [facility] Last Admin: 08/05/22 00:44 Dose: Not Given Documented By: ALEJANDRO Non-Admin Reason: NO DIALYSIS CATHETER Spironolactone (Spironolactone 25 Mg Tablet) 25 mg PO DAILY [facility]; Protocol Last Admin: 08/05/22 08:12 Dose: 25 mg Documented By: BETY Tamsulosin HCl (Tamsulosin Hcl 0.4 Mg Capsule) 0.4 mg PO DAILY [facility] Last Admin: 08/05/22 08:12 Dose: 0.4 mg Documented By: BETY Labs CBC & Chem 7: 08/05/22 05:18 08/05/22 05:18 Labs: Laboratory Results - last 24 hr 08/04/22 08/05/22 08/05/22 Unknown 05:18 05:18 MCV 93.4 MCH 30.3 MCHC 32.4 RDW 19.2 H Plt Count 80 L MPV 12.0 Absolute Nucleated RBC 0.000 Nucleated RBC % (auto) 0.0 Anion Gap 10 L Estim Creat Clear Calc 44.0 Estimated GFR 35 Fasting Glucose 90 Calcium 8.3 L Magnesium 2.0 Total Bilirubin 1.5 H Direct Bilirubin 0.8 H AST 21 ALT 16 Alkaline Phosphatase 47 Total Protein 6.5 Albumin 2.3 L Urine Creatinine 59.51 Urine Microalbumin < 5.0 Microalb/Creat Ratio TNP Assessment and Plan (1) Acute on chronic kidney failure: Status: Acute (2) Hematemesis: Status: Acute (3) Alcoholic cirrhosis: Status: Acute (4) Anasarca: Status: Acute Plan 67-year-old male who is not on any prescription medications and has not seen a doctor in over 15 years, presents to the emergency department for evaluation of dyspnea and generalized swelling. found to have elevated creatinine, liver cirrhosis, severe anemia hematemesis with acute on chronic blood loss anemia s/p 7 units, prbc EGD 07/23/22 showed evidence of erosive esophagitis and atrophic gastritis Finished IV ceftriaxone monitor continue ppi - changed to po monitor cbc acute hypoxic respiratory failure atelectasis on cxr wean o2 as tolerated YADI differential diagnosis includes hepatorenal syndrome vs Glomerulonephritis, (Hep C, IgA related) Creatinine improving since starting prednisilone - not tolerated though so changed to prednisone, making urine Pending cryoglobin for low C3-C4 No indication for HD at this point nephrology following Monitor intake and output Anasarca 2/2 liver cirrhosis, hepatitis-C infection Negative anti mitochondrial antibodies No malignant cells identified GI input appreciated , SAAG is c/w cirrhosis, continue prednisilone 30 mg daily for total of 2 months until 09/27/2022. Restrict fluid intake Started spironolactone 25 mg daily Capacity evaluation Patient seen by psychiatrist who believe the patient has capacity to take decisions about his medical care Discussed goals of care with him as he does not want to be comfort measures at this point and would like to be treated and keep his status as DNR DNI LUE swelling Negative Doppler for DVT Stage II right buttock to pressure injury Foam dressing applied dvt prohpylaxis mechanical due to coagulopathy full code reason for continued hospitalization: weakness, safe dispo Quality Stroke Does the patient have a stroke diagnosis?: No VTE Prior VTE?: No VTE Risk Level:: Medical - moderate - high VTE Device Contraindication: Treatment Not Indicated VTE Drug Contraindication: Treatment Not Indicated
--- NOTE | 2022-08-05 11:53 | MHC.CM.PN ---
Addendum entered by Felisa Perera RN 08/05/22 12:18: PER INSURANCE VERIFICATION PT IS NOT IN MEDICARE SYSTEM HOWEVER RECOMMENDED CM VERIFY SS NUMBER W/PT. Addendum entered by Felisa Perera RN 08/05/22 12:10: CM MET W/PT WHO REPORTS WHEN HE TURNED 64 HE DID SIGN UP FOR MEDICARE ONLINE AND REPORTS A FRIEND HELPED HIM, PT REPORTS HE NEVER HEARD ANYTHING ELSE AND DOES NOT RECALL GETTING A MEDICARE CARD IN THE MAIL. Original Note: EMR REVIEWED, PER HOSPITALIST PT UNABLE TO RETURN HOME ALONE AND WILL NEED TO STAY OR STR, PT'S [facility] HAS NO SNF BENEFIT, CM WILL MEET W/PT TO DISCUSS DISPO.
--- NOTE | 2022-08-05 14:17 | PM.PNNEP ---
Subjective Subjective Date of Service: 08/05/22 Principal diagnosis: YADI/CKD and anasarca Interval history: cc: weakness, anasarca interval history:no further hematemesis Physical Exam Vital Signs: Vital Signs: Last Vital Signs Temp 97.6 F 08/05/22 11:22 Pulse 81 08/05/22 11:22 Resp 18 08/05/22 11:22 BP 132/56 L 08/05/22 11:22 Pulse Ox 93 08/05/22 11:22 O2 Del Method 08/05/22 11:22 O2 Flow Rate 2 08/05/22 07:15 BMI result Body Mass Index 31.6 Const: Other: Constitutional : Awake, interactive, not in distress Neck : Normal inspection, Supple, dialysis catheter site covered with dressing Cardiovascular : RRR, no JVP, +1 lower extremity edema Respiratory :? Fair bilateral air entry,? no crackles, wheezes or rhonchi Gastrointestinal:? soft, lax, Normal bowel sounds, distended abdomen with no tenderness Skin : Warm, Dry Urology: Scrotal edema Neurological : Alert & oriented to self and place, No focal deficit Objective Data Labs CBC & Chem 7: 08/05/22 05:18 08/05/22 05:18 Labs: Laboratory Results - last 24 hr 08/05/22 08/05/22 05:18 05:18 WBC 9.7 RBC 2.74 L Hgb 8.3 L Hct 25.6 L MCV 93.4 MCH 30.3 MCHC 32.4 RDW 19.2 H Plt Count 80 L MPV 12.0 Absolute Nucleated RBC 0.000 Nucleated RBC % (auto) 0.0 Sodium 136 Potassium 4.2 Chloride 106 Carbon Dioxide 24 Anion Gap 10 L BUN 69 H Creatinine 1.90 H Estim Creat Clear Calc 44.0 Estimated GFR 35 Fasting Glucose 90 Calcium 8.3 L Magnesium 2.0 Total Bilirubin 1.5 H Direct Bilirubin 0.8 H AST 21 ALT 16 Alkaline Phosphatase 47 Total Protein 6.5 Albumin 2.3 L Microbiology Microbiology Results: Microbiology 07/24/22 16:00 Ascites Fluid Gram Stain - Final 07/24/22 16:00 Ascites Fluid Anaerobic Culture - Final NO GROWTH AFTER 5 DAYS 07/24/22 16:00 Ascites Fluid Body Fluid Culture - Final No growth after 2 days 07/21/22 Unknown Urine clean catch - Urine rios top Urine Culture - Final Streptococcus viridans group Procedures Date of Service Date of Service: 08/05/22 Assessment & Plan Assessment and plan (1) Acute on chronic kidney failure: Status: Acute (2) Alcoholic cirrhosis: Status: Acute (3) Anasarca: Status: Acute Plan YADI is nonoliguric with abnormal UA; unclear this is truly HRS. He is Hep C positive. DDX includes possible GN due to hep C Await cryos May need kidney biopsy His creatinine is trending down with steroids no absolute indication for dialysis Agree with conservative management; no further IVF or albumin, avoid contrast, nephrotoxins Keep O > I Watch HCT Time Spent With Patient Time: Total time spent is greater than 50% in coordination of care (as documented) at patient's floor/unit and/or counseling patient: Progress Note: Quality Stroke Does the patient have a stroke diagnosis?: No
[2022-08-05 17:19] LABS: Cryoglobulin, Qual NONE DETECTED ((NDT))
[2022-08-05] MEDS: 0.9 % Sodium Chloride Flush 10 ML SYRINGE 5 ML IVFLUSH ×2 (17:26→20:31)
--- NOTE | 2022-08-05 18:37 | PM.GIPN ---
Subjective Subjective Date of Service: 08/05/22 Interval History: patient reports black stools no abd pain or hematemesis Critical Care Time (minutes): 0 Physical Exam Vital Signs: Vital Signs: Last Vital Signs Temp 97.4 F 08/05/22 16:00 Pulse 84 08/05/22 16:00 Resp 18 08/05/22 16:00 BP 125/58 L 08/05/22 16:00 Pulse Ox 97 08/05/22 16:00 O2 Del Method 08/05/22 16:00 O2 Flow Rate 2 08/05/22 07:15 BMI result Body Mass Index 31.6 GI: Other: abdomen is soft and nontender Objective Data Labs CBC & Chem 7: 08/05/22 05:18 08/05/22 05:18 Labs: Laboratory Results - last 24 hr 07/26/22 08/05/22 08/05/22 13:16 05:18 05:18 WBC 9.7 RBC 2.74 L Hgb 8.3 L Hct 25.6 L MCV 93.4 MCH 30.3 MCHC 32.4 RDW 19.2 H Plt Count 80 L MPV 12.0 Absolute Nucleated RBC 0.000 Nucleated RBC % (auto) 0.0 Sodium 136 Potassium 4.2 Chloride 106 Carbon Dioxide 24 Anion Gap 10 L BUN 69 H Creatinine 1.90 H Estim Creat Clear Calc 44.0 Estimated GFR 35 Fasting Glucose 90 Calcium 8.3 L Magnesium 2.0 Total Bilirubin 1.5 H Direct Bilirubin 0.8 H AST 21 ALT 16 Alkaline Phosphatase 47 Total Protein 6.5 Albumin 2.3 L Cryoglobulin NONE DETECTED Microbiology Microbiology Results: Microbiology 07/24/22 16:00 Ascites Fluid Gram Stain - Final 07/24/22 16:00 Ascites Fluid Anaerobic Culture - Final NO GROWTH AFTER 5 DAYS 07/24/22 16:00 Ascites Fluid Body Fluid Culture - Final No growth after 2 days 07/21/22 Unknown Urine clean catch - Urine rios top Urine Culture - Final Streptococcus viridans group Procedures Date of Service Date of Service: 08/05/22 Progress Note: A&P Assessment and plan (1) Hematemesis: Status: Acute Assessment and Plan: hct stable continue ppi monitor labs Time Spent With Patient Time: Total time spent is greater than 50% in coordination of care (as documented) at patient's floor/unit and/or counseling patient: Quality Stroke Does the patient have a stroke diagnosis?: No VTE Prior VTE?: No VTE Risk Level:: Medical - moderate - high VTE Device Contraindication: Treatment Not Indicated VTE Drug Contraindication: Treatment Not Indicated
[2022-08-05] MEDS: Melatonin 3 MG TABLET PO (20:29)
[2022-08-06] VITALS (7 sets, daily range): BP systolic 100–139; BP diastolic 52–96; PULSE 79–89; RESP 16–19; TEMP 36.1–37.1; O2SAT 95–99
[2022-08-06] MEDS: Omeprazole 40 MG CAPSULE.DR PO ×2 (05:22→16:35)
[2022-08-06 06:21] LABS: Hemoglobin 8.4 g/dl (14.0-18.0)
[2022-08-06 06:23] LABS: Mean Corpuscular HGB Conc 32.3 g/dl (31.0-36.0); Mean Corpuscular Hemoglobin 30.2 pg (27.0-33.0); Mean Corpuscular Volume 93.5 fL (80.0-98.0); Mean Platelet Volume 12.1 fL (9.4-12.4); Red Blood Count 2.78 X10*6/uL (4.60-5.80); Red Cell Distribution Width 19.8 % (11.0-16.0)
[2022-08-06 06:32] LABS: White Blood Count 8.7 X10*3/uL (4.8-10.8)
[2022-08-06 06:33] LABS: Platelet Count 76 X10*3/uL (160-400)
[2022-08-06 06:46] LABS: Alanine Aminotransferase 21 U/L (0-40); Albumin Level 2.3 g/dL (3.5-5.0); Alkaline Phosphatase 49 U/L (39-117); Anion Gap 9 (12-20); Aspartate Amino Transferase 27 U/L (5-37); Bilirubin Direct 0.6 mg/dL (0.0-0.5); Bilirubin Total 1.8 mg/dL (0.0-1.0); Blood Urea Nitrogen 65 mg/dL (9-16); Calcium 8.4 mg/dL (8.4-10.2); Carbon Dioxide 27 mmol/L (22-29); Chloride 105 mmol/L (96-108); Creatinine Clr Calc Pharmacy 49.2; Estimated Glomerular Filt Rate 40; Glucose Fasting 94 mg/dL (60-99); Magnesium 1.8 mg/dL (1.6-2.6); Sodium 137 mmol/L (135-145); Total Protein 6.6 g/dL (6.5-8.0)
[2022-08-06] MEDS: predniSONE 10 MG TABLET 30 MG PO (08:33)
[2022-08-06] MEDS: Spironolactone 25 MG TABLET PO (08:34)
[2022-08-06] MEDS: Folic Acid 1 MG TABLET 5 MG PO (08:34)
[2022-08-06] MEDS: Tamsulosin HCL 0.4 MG CAPSULE PO (08:34)
[2022-08-06] MEDS: 0.9 % Sodium Chloride Flush 3 ML SYRINGE IVFLUSH ×3 (08:35→19:49)
--- NOTE | 2022-08-06 10:06 | MHC.CM.PN ---
PATIENT STATES THAT HE HAS NO PCP. NO [facility] P[facility] VISITS. [facility] MADE AWARE. PATIENT HAS NO SNF BENEFIT AND NOW CANNOT GET [facility] SERVICES. PER PREVIOUS CM ATTEMPTS, PATIENT DOES NOT HAVE MEDICARE BENEFIT PATIENT AWARE OF BARRIERS.
--- NOTE | 2022-08-06 11:11 | PM.PNNEP ---
Subjective Subjective Date of Service: 08/07/22 Principal diagnosis: YADI/CKD and anasarca Interval history: Events noted Physical Exam Vital Signs: Vital Signs: Last Vital Signs Temp 96.9 F 08/06/22 11:02 Pulse 85 08/06/22 11:02 Resp 18 08/06/22 11:02 BP 122/58 L 08/06/22 11:02 Pulse Ox 95 08/06/22 11:02 O2 Del Method 08/06/22 11:02 O2 Flow Rate 2 08/05/22 07:15 BMI result Body Mass Index 31.6 Const: Other: Constitutional : Awake, interactive, not in distress Neck : Normal inspection, Supple, dialysis catheter site covered with dressing Cardiovascular : RRR, no JVP, +1 lower extremity edema Respiratory :? Fair bilateral air entry,? no crackles, wheezes or rhonchi Gastrointestinal:? soft, lax, Normal bowel sounds, distended abdomen with no tenderness Skin : Warm, Dry Urology: Scrotal edema Neurological : Alert & oriented to self and place, No focal deficit Objective Data Labs CBC & Chem 7: 08/06/22 05:21 08/06/22 05:21 Labs: Laboratory Results - last 24 hr 07/26/22 08/06/22 08/06/22 13:16 05:21 05:21 WBC 8.7 RBC 2.78 L Hgb 8.4 L Hct 26.0 L MCV 93.5 MCH 30.2 MCHC 32.3 RDW 19.8 H Plt Count 76 L MPV 12.1 Absolute Nucleated RBC 0.000 Nucleated RBC % (auto) 0.0 Sodium 137 Potassium 4.0 Chloride 105 Carbon Dioxide 27 Anion Gap 9 L BUN 65 H Creatinine 1.70 H Estim Creat Clear Calc 49.2 Estimated GFR 40 Fasting Glucose 94 Calcium 8.4 Magnesium 1.8 Total Bilirubin 1.8 H Direct Bilirubin 0.6 H AST 27 ALT 21 Alkaline Phosphatase 49 Total Protein 6.6 Albumin 2.3 L Cryoglobulin NONE DETECTED Cryoglobulin Cryocrit TNP Microbiology Microbiology Results: Microbiology 07/24/22 16:00 Ascites Fluid Gram Stain - Final 07/24/22 16:00 Ascites Fluid Anaerobic Culture - Final NO GROWTH AFTER 5 DAYS 07/24/22 16:00 Ascites Fluid Body Fluid Culture - Final No growth after 2 days 07/21/22 Unknown Urine clean catch - Urine rios top Urine Culture - Final Streptococcus viridans group Procedures Date of Service Date of Service: 08/06/22 Assessment & Plan Assessment and plan (1) Acute on chronic kidney failure: Status: Acute (2) Alcoholic cirrhosis: Status: Acute (3) Anasarca: Status: Acute Plan YADI is nonoliguric with abnormal UA; unclear this is truly HRS. He is Hep C positive. DDX includes possible GN due to hep C cryos = non detected No need for kidney biopsy at this time His creatinine is trending down with steroids no indication for dialysis Agree with currrent management; no further IVF or albumin, avoid contrast, nephrotoxins Keep O > I Watch HCT Time Spent With Patient Time: Total time spent is greater than 50% in coordination of care (as documented) at patient's floor/unit and/or counseling patient: Progress Note: Quality Stroke Does the patient have a stroke diagnosis?: No
--- NOTE | 2022-08-06 12:49 | MHC.CM.PN ---
Addendum entered by Felisa Perera RN 08/06/22 16:12: FS MET W/PT WHO REPORTED HE WOULD HAVE HIS SISTER/HCP EZ HELP HIM CALL MEDICARE AND SOCIAL SECURITY TOMORROW, CM CONTACTED EZ AT 4:10PM AT NUMBER ON FILE, EZ REPORTED PT HAD NOT REACHED OUT TO HIM HOWEVER SHE WORKS IN ENVIRONMENTAL IN ED [facility]11 AND WILL COME TOMORROW IN AM TO ASSIST. PER FS PT DOES NOT QUALIFY FOR MH UNLESS IT IS FOR LTC, CM WILL DISCUSS IDEA OF POA W/PT AND SISTER/EZ TOMORROW AT BEDSIDE. Original Note: REFERRAL FAXED TO FS PT HAS NO SNF BENEFIT AND CURRENTLY DOES NOT APPEAR TO HAVE MEDICARE.
--- NOTE | 2022-08-06 13:09 | P.PNIM_ITS ---
Subjective Subjective Date of Service: 08/06/22 Interval History: The patient was seen and evaluated this morning Feels more comfortable Creatinine trending down making more urine No reported other overnight events Review of Systems No fever, chills or weakness No chest pain, palpitation Improving shortness of breath or coughing No abdominal pain, nausea or vomiting No urinary symptoms Bilateral LE swelling Physical Exam Vital Signs: Vital Signs: Last Vital Signs Temp 96.9 F 08/06/22 11:02 Pulse 85 08/06/22 12:52 Resp 18 08/06/22 11:02 BP 122/58 L 08/06/22 12:52 Pulse Ox 95 08/06/22 12:52 O2 Del Method 08/06/22 11:02 O2 Flow Rate 2 08/05/22 07:15 BMI result Body Mass Index 31.6 Const: Other: Constitutional : Awake, interactive, not in distress Neck : Normal inspection, Supple, dialysis catheter site covered with dressing Cardiovascular : RRR, no JVP, +1 lower extremity edema Respiratory :? Fair bilateral air entry,? no crackles, wheezes or rhonchi Gastrointestinal:? soft, lax, Normal bowel sounds, distended abdomen with no tenderness Skin : Warm, Dry Urology: Scrotal edema, Neurological : Alert & oriented to self and place, No focal deficit Objective Data Active Medications Folic Acid (Folic Acid 1 Mg Tablet) 5 mg PO DAILY [facility] Last Admin: 08/06/22 08:34 Dose: 5 mg Documented By: BETY Melatonin (Melatonin 3 Mg Tablet) 3 mg PO BEDTIME [facility] Last Admin: 08/05/22 20:29 Dose: 3 mg Documented By: XU Omeprazole (Omeprazole 40 Mg Sheldon.) 40 mg PO BID@0630,1630 [facility] Last Admin: 08/06/22 05:22 Dose: 40 mg Documented By: XU Ondansetron HCl (Ondansetron Hcl 4 Mg/2 Ml Vial) 4 mg IVPUSH Q8H PRN PRN Reason: Nausea and Vomiting Last Admin: 07/30/22 16:16 Dose: 4 mg Documented By: DARRELL Prednisone (Prednisone 10 Mg Tablet) 30 mg PO DAILY [facility] Last Admin: 08/06/22 08:33 Dose: 30 mg Documented By: BETY Sodium Chloride (0.9 % Sodium Chloride Flush 3 Ml Syringe) 3 ml IVFLUSH QSHIFT [facility] Last Admin: 08/06/22 08:35 Dose: 3 ml Documented By: BETY Sodium Chloride (0.9 % Sodium Chloride Flush 10 Ml Syringe) 5 ml IVFLUSH [facility] Last Admin: 08/06/22 08:38 Dose: Not Given Documented By: BETY Non-Admin Reason: No Access Spironolactone (Spironolactone 25 Mg Tablet) 25 mg PO DAILY [facility]; Protocol Last Admin: 08/06/22 08:34 Dose: 25 mg Documented By: BETY Tamsulosin HCl (Tamsulosin Hcl 0.4 Mg Capsule) 0.4 mg PO DAILY [facility] Last Admin: 08/06/22 08:34 Dose: 0.4 mg Documented By: BETY Labs CBC & Chem 7: 08/06/22 05:21 08/06/22 05:21 Labs: Laboratory Results - last 24 hr 07/26/22 08/06/22 08/06/22 13:16 05:21 05:21 MCV 93.5 MCH 30.2 MCHC 32.3 RDW 19.8 H Plt Count 76 L MPV 12.1 Absolute Nucleated RBC 0.000 Nucleated RBC % (auto) 0.0 Anion Gap 9 L Estim Creat Clear Calc 49.2 Estimated GFR 40 Fasting Glucose 94 Calcium 8.4 Magnesium 1.8 Total Bilirubin 1.8 H Direct Bilirubin 0.6 H AST 27 ALT 21 Alkaline Phosphatase 49 Total Protein 6.6 Albumin 2.3 L Cryoglobulin NONE DETECTED Cryoglobulin Cryocrit TNP Assessment and Plan (1) Acute on chronic kidney failure: Status: Acute (2) Hematemesis: Status: Acute (3) Alcoholic cirrhosis: Status: Acute Plan 67-year-old male who is not on any prescription medications and has not seen a doctor in over 15 years, presents to the emergency department for evaluation of dyspnea and generalized swelling. found to have elevated creatinine, liver cirrhosis, severe anemia hematemesis with acute on chronic blood loss anemia s/p 7 units, prbc EGD 07/23/22 showed evidence of erosive esophagitis and atrophic gastritis Finished IV ceftriaxone monitor continue ppi - changed to po monitor cbc acute hypoxic respiratory failure atelectasis on cxr wean o2 as tolerated YADI differential diagnosis includes hepatorenal syndrome vs Glomerulonephritis, (Hep C, IgA related) Creatinine improving since starting prednisilone - not tolerated though so changed to prednisone, making urine Pending cryoglobin for low C3-C4 No indication for HD at this point nephrology following Monitor intake and output Anasarca 2/2 liver cirrhosis, hepatitis-C infection Negative anti mitochondrial antibodies No malignant cells identified GI input appreciated , SAAG is c/w cirrhosis, continue prednisilone 30 mg daily for total of 2 months until 09/27/2022. Restrict fluid intake Started spironolactone 25 mg daily Capacity evaluation Patient seen by psychiatrist who believe the patient has capacity to take decisions about his medical care Discussed goals of care with him as he does not want to be comfort measures at this point and would like to be treated and keep his status as DNR DNI LUE swelling Negative Doppler for DVT Stage II right buttock to pressure injury Foam dressing applied dvt prohpylaxis mechanical due to coagulopathy full code reason for continued hospitalization: weakness, safe dispo Quality Stroke Does the patient have a stroke diagnosis?: No VTE Prior VTE?: No VTE Risk Level:: Medical - moderate - high VTE Device Contraindication: Treatment Not Indicated VTE Drug Contraindication: Treatment Not Indicated
--- NOTE | 2022-08-06 13:48 | MHC.CLN ---
RE: CONSULT FOR SKIN REVIEW OF SKIN DOCUMENTATION SHOWS WOUND STAGE 2 TO R BUTTOCK PO INTAKE 50% DIET RX:REGULAR-APPROPRIATE WILL RE-START ENSURE CLEAR TID TO INCREASE KCALS AND PROMOTE WOUND HEALING PT REPORTED HE DISLIKES ENSURE PLUS HIGH PROTEIN SUPP SUPP TO PROVIDE 720KCALS, 24G PROTEIN CONTINUE TO MONITOR PO INTAKE CLOSELY
[2022-08-06] MEDS: Melatonin 3 MG TABLET PO (19:48)
[2022-08-07] MEDS: Omeprazole 40 MG CAPSULE.DR PO ×2 (05:32→16:11)
[2022-08-07 07:17] VITALS: BP 137/71; PULSE 83; RESP 17; TEMP 36.2; O2SAT 96
[2022-08-07] MEDS: Spironolactone 25 MG TABLET PO (08:15)
[2022-08-07] MEDS: predniSONE 10 MG TABLET 30 MG PO (08:15)
[2022-08-07] MEDS: Tamsulosin HCL 0.4 MG CAPSULE PO (08:15)
[2022-08-07] MEDS: Folic Acid 1 MG TABLET 5 MG PO (08:16)
[2022-08-07] MEDS: 0.9 % Sodium Chloride Flush 3 ML SYRINGE IVFLUSH ×2 (08:23→16:21)
--- NOTE | 2022-08-07 10:14 | MHC.CLN ---
F/U DIET=REGULAR WITH ENSURE CLEAR TID. SUPPLEMENT PROVIDES 720 KCALS, 24 G PROTEIN TO PROMOTE WOUND HEALING. SODIUM WITHIN NORMAL LIMITS AND FLUID RESTRICTION DISCONTINUED. STAGE 2 WOUND TO BUTTOCK. PO INTAKE VARIABLE WITH MOST MEALS AT LEAST 50%. CONTINUE TO MONITOR PO INTAKE CLOSELY.
[2022-08-07 11:03] VITALS: BP 108/60; PULSE 85; RESP 18; TEMP 35.7; O2SAT 98
--- NOTE | 2022-08-07 11:22 | PM.PNNEP ---
Subjective Subjective Date of Service: 08/08/22 Principal diagnosis: YADI/CKD and anasarca Interval history: Events noted Physical Exam Vital Signs: Vital Signs: Last Vital Signs Temp 96.2 F L 08/07/22 11:03 Pulse 85 08/07/22 11:03 Resp 18 08/07/22 11:03 BP 108/60 08/07/22 11:03 Pulse Ox 98 08/07/22 11:03 O2 Del Method 08/07/22 11:03 O2 Flow Rate 2 08/05/22 07:15 BMI result Body Mass Index 31.6 Const: Other: Constitutional : Awake, interactive, not in distress Neck : Normal inspection, Supple, dialysis catheter site covered with dressing Cardiovascular : RRR, no JVP, +1 lower extremity edema Respiratory :? Fair bilateral air entry,? no crackles, wheezes or rhonchi Gastrointestinal:? soft, lax, Normal bowel sounds, distended abdomen with no tenderness Skin : Warm, Dry Urology: Scrotal edema Neurological : Alert & oriented to self and place, No focal deficit Objective Data Labs CBC & Chem 7: 08/08/22 05:15 08/08/22 05:15 Microbiology Microbiology Results: Microbiology 07/24/22 16:00 Ascites Fluid Gram Stain - Final 07/24/22 16:00 Ascites Fluid Anaerobic Culture - Final NO GROWTH AFTER 5 DAYS 07/24/22 16:00 Ascites Fluid Body Fluid Culture - Final No growth after 2 days 07/21/22 Unknown Urine clean catch - Urine rios top Urine Culture - Final Streptococcus viridans group Procedures Date of Service Date of Service: 08/07/22 Assessment & Plan Assessment and plan (1) Acute on chronic kidney failure: Status: Acute (2) Alcoholic cirrhosis: Status: Acute (3) Anasarca: Status: Acute Plan YADI is nonoliguric with abnormal UA; unclear this is truly HRS. He is Hep C positive. DDX includes possible GN due to hep C cryos = non detected No need for kidney biopsy at this time His creatinine is trending down Can taper and DC steroids no indication for dialysis Agree with current management; no further IVF or albumin, avoid contrast, nephrotoxins Keep O > I Watch HCT Time Spent With Patient Time: Total time spent is greater than 50% in coordination of care (as documented) at patient's floor/unit and/or counseling patient: Progress Note: Quality Stroke Does the patient have a stroke diagnosis?: No
--- NOTE | 2022-08-07 13:04 | HO.PM.IMPN ---
Subjective Subjective Date of Service: 08/07/22 Interval History: Urinating well Leg swelling improved No pain Review of Systems Review of Systems: Yes all other systems are reviewed and are negative Physical Exam Vital Signs: Vital Signs: Last Vital Signs Temp 96.2 F L 08/07/22 11:03 Pulse 85 08/07/22 11:03 Resp 18 08/07/22 11:03 BP 108/60 08/07/22 11:03 Pulse Ox 98 08/07/22 11:03 O2 Del Method 08/07/22 11:03 O2 Flow Rate 2 08/05/22 07:15 BMI result Body Mass Index 31.6 Gen: in no acute distress HEENT: sclera anicteric, moist mucus membranes Neck: supple, dry dressing at site of prior HD catheter Lungs: clear to auscultation bilaterally Heart: regular rate and rhythm, no murmurs Abd: soft, non-tender, non-distended Ext: 1+ bilateral LE edema Skin: warm/well-perfused Neuro: alert and oriented x3, no focal findings Psych: appropriate affect Objective Data Active Medications Folic Acid (Folic Acid 1 Mg Tablet) 5 mg PO DAILY [facility] Last Admin: 08/07/22 08:16 Dose: 5 mg Documented By: BETY Melatonin (Melatonin 3 Mg Tablet) 3 mg PO BEDTIME [facility] Last Admin: 08/06/22 19:48 Dose: 3 mg Documented By: XU Omeprazole (Omeprazole 40 Mg Capsule.) 40 mg PO BID@0630,1630 [facility] Last Admin: 08/07/22 05:32 Dose: 40 mg Documented By: XU Comments: down time Ondansetron HCl (Ondansetron Hcl 4 Mg/2 Ml Vial) 4 mg IVPUSH Q8H PRN PRN Reason: Nausea and Vomiting Last Admin: 07/30/22 16:16 Dose: 4 mg Documented By: DARRELL Prednisone (Prednisone 10 Mg Tablet) 30 mg PO DAILY [facility] Last Admin: 08/07/22 08:15 Dose: 30 mg Documented By: BETY Sodium Chloride (0.9 % Sodium Chloride Flush 3 Ml Syringe) 3 ml IVFLUSH QSHIFT [facility] Last Admin: 08/07/22 08:23 Dose: 3 ml Documented By: BETY Sodium Chloride (0.9 % Sodium Chloride Flush 10 Ml Syringe) 5 ml IVFLUSH QSHIFT [facility] Last Admin: 08/07/22 09:34 Dose: Not Given Documented By: BETY Non-Admin Reason: No Access Spironolactone (Spironolactone 25 Mg Tablet) 25 mg PO DAILY [facility]; Protocol Last Admin: 08/07/22 08:15 Dose: 25 mg Documented By: BETY Tamsulosin HCl (Tamsulosin Hcl 0.4 Mg Capsule) 0.4 mg PO DAILY [facility] Last Admin: 08/07/22 08:15 Dose: 0.4 mg Documented By: BETY Labs CBC & Chem 7: 08/06/22 05:21 08/06/22 05:21 Assessment and Plan (1) Acute on chronic kidney failure: Status: Acute (2) Hematemesis: Status: Acute (3) Alcoholic cirrhosis: Status: Acute Plan hospital d#19 67yo M without medical care for prior 15 yr presenting with dyspnea and edema, found to have cirrhosis of the liver, YADI, and severe anemia # hematemesis with acute-chronic blood loss anemia - Hb stable s/p 7u pRBCs - EGD 07/23/22 with erosive esophagitis + atrophic gastritis - completed IV ceftriaxone for SBP ppx - continue PPI # acute hypoxic resp failure - resolved; weaned off O2 # YADI - hepatorenal syndrome vs. glomerulonephritis? - cryoglobulins negative - SCr improved; continue to monitor; outpt Nephrology f/u # EtOH cirrhosis with ascites # EtOH hepatitis - paracentesis 07/24/22 with removal of 4.9L of ascites, no malignant cells, SAAG consistent with cirrhosis - continue spironolactone 25 mg daily - prednisone 07/28/22-09/27/22 - will need GI follow-up # capacity evaluation - per psychiatry, able to make decisions about his medical care - per prior goals of care discussion, DNR/DNI status # LUE swelling - Doppler US negative for DVT # stage 2 pressure injury R buttock - foam dressing # VTE ppx: SCDs due to coagulopathy # dispo: anticipate home, insurance will not cover SNF or VNA In my clinical judgment, the patient requires continued inpatient hospitalization for the following reasons: YADI Quality Stroke Does the patient have a stroke diagnosis?: No VTE Prior VTE?: No VTE Risk Level:: Medical - moderate - high VTE Device Contraindication: Treatment Not Indicated VTE Drug Contraindication: Treatment Not Indicated
--- NOTE | 2022-08-07 15:28 | MHC.CM.PN ---
Addendum entered by Felisa Perera RN 08/07/22 15:31: PER PT, PT ONLY ABLE TO WALK SHORT DISTANCES AND WILL NEED A SCRIPT FOR A WALKER UPON D/C. Original Note: CM RECEIVED MESSAGE FROM FS WHO REPORT SINCE PT DOES NOT WANT TO GO TO LTC THAT SHE WILL ASSIST PT/SISTER W/A FRAIL ELDER WAIVER. FS WILL REACH OUT TO PT'S SISTER EZ [phone]. CM WILL CONT TO FOLLOW D/C NEEDS
[2022-08-07 16:00] VITALS: BP 131/61; PULSE 77; RESP 18; TEMP 37; O2SAT 95
[2022-08-07] MEDS: 0.9 % Sodium Chloride Flush 10 ML SYRINGE 5 ML IVFLUSH (16:11)
[2022-08-07] MEDS: Melatonin 3 MG TABLET PO (19:49)
[2022-08-07 20:00] VITALS: BP 127/63; PULSE 90; RESP 18; TEMP 37; O2SAT 97
[2022-08-08] VITALS (8 sets, daily range): BP systolic 126–143; BP diastolic 59–78; PULSE 80–105; RESP 16–18; TEMP 36.1–36.6; O2SAT 94–98
[2022-08-08] MEDS: Omeprazole 40 MG CAPSULE.DR PO ×2 (06:10→16:06)
[2022-08-08 06:19] LABS: Hematocrit 26.4 % (42.0-52.0); Hemoglobin 8.6 g/dl (14.0-18.0); Mean Corpuscular HGB Conc 32.6 g/dl (31.0-36.0); Mean Corpuscular Volume 95.3 fL (80.0-98.0); Mean Platelet Volume 12.2 fL (9.4-12.4); Red Blood Count 2.77 X10*6/uL (4.60-5.80); Red Cell Distribution Width 21.1 % (11.0-16.0); White Blood Count 7.5 X10*3/uL (4.8-10.8)
[2022-08-08 06:23] LABS: Platelet Count 79 X10*3/uL (160-400)
[2022-08-08 07:10] LABS: Alanine Aminotransferase 27 U/L (0-40); Albumin Level 2.4 g/dL (3.5-5.0); Alkaline Phosphatase 53 U/L (39-117); Aspartate Amino Transferase 30 U/L (5-37); Bilirubin Total 1.9 mg/dL (0.0-1.0); Blood Urea Nitrogen 55 mg/dL (9-16); Calcium 8.4 mg/dL (8.4-10.2); Creatinine Clr Calc Pharmacy 54.7; Estimated Glomerular Filt Rate 45; Glucose Random 102 mg/dL (60-115); Magnesium 1.9 mg/dL (1.6-2.6); Total Protein 6.9 g/dL (6.5-8.0)
[2022-08-08 07:27] LABS: Anion Gap 11 (12-20); Carbon Dioxide 23 mmol/L (22-29); Chloride 103 mmol/L (96-108); Potassium 4.1 mmol/L (3.3-5.1); Sodium 133 mmol/L (135-145)
[2022-08-08] MEDS: predniSONE 10 MG TABLET 30 MG PO (08:08)
[2022-08-08] MEDS: 0.9 % Sodium Chloride Flush 3 ML SYRINGE IVFLUSH ×4 (08:08→22:23)
[2022-08-08] MEDS: Folic Acid 1 MG TABLET 5 MG PO (08:08)
[2022-08-08] MEDS: Tamsulosin HCL 0.4 MG CAPSULE PO (08:08)
[2022-08-08] MEDS: Spironolactone 25 MG TABLET PO (08:08)
--- NOTE | 2022-08-08 11:14 | PM.PNNEP ---
Subjective Subjective Date of Service: 08/19/22 Principal diagnosis: YADI/CKD and anasarca Interval history: Events noted Feeling better Physical Exam Vital Signs: Vital Signs: Last Vital Signs Temp 97.6 F 08/08/22 07:42 Pulse 84 08/08/22 07:42 Resp 17 08/08/22 07:42 BP 132/61 08/08/22 07:42 Pulse Ox 94 08/08/22 07:42 O2 Del Method 08/08/22 07:42 O2 Flow Rate 2 08/05/22 07:15 BMI result Body Mass Index 31.6 Const: Other: Constitutional : Awake, interactive, not in distress Neck : Normal inspection, Supple, dialysis catheter site covered with dressing Cardiovascular : RRR, no JVP, +1 lower extremity edema Respiratory :? Fair bilateral air entry,? no crackles, wheezes or rhonchi Gastrointestinal:? soft, lax, Normal bowel sounds, distended abdomen with no tenderness Skin : Warm, Dry Urology: Scrotal edema Neurological : Alert & oriented to self and place, No focal deficit Objective Data Labs CBC & Chem 7: 08/08/22 05:15 08/08/22 05:15 Labs: Laboratory Results - last 24 hr 08/08/22 08/08/22 05:15 05:15 WBC 7.5 RBC 2.77 L Hgb 8.6 L Hct 26.4 L MCV 95.3 MCH 31.0 MCHC 32.6 RDW 21.1 H Plt Count 79 L MPV 12.2 Absolute Nucleated RBC 0.000 Nucleated RBC % (auto) 0.0 Sodium 133 L Potassium 4.1 Chloride 103 Carbon Dioxide 23 Anion Gap 11 L BUN 55 H Creatinine 1.53 H Estim Creat Clear Calc 54.7 Estimated GFR 45 Random Glucose 102 Calcium 8.4 Magnesium 1.9 Total Bilirubin 1.9 H AST 30 ALT 27 Alkaline Phosphatase 53 Total Protein 6.9 Albumin 2.4 L Microbiology Microbiology Results: Microbiology 07/24/22 16:00 Ascites Fluid Gram Stain - Final 07/24/22 16:00 Ascites Fluid Anaerobic Culture - Final NO GROWTH AFTER 5 DAYS 07/24/22 16:00 Ascites Fluid Body Fluid Culture - Final No growth after 2 days 07/21/22 Unknown Urine clean catch - Urine rios top Urine Culture - Final Streptococcus viridans group Procedures Date of Service Date of Service: 08/08/22 Assessment & Plan Assessment and plan (1) Acute on chronic kidney failure: Status: Inactive (2) Alcoholic cirrhosis: Status: Acute (3) Anasarca: Status: Inactive (4) Debility: Status: Inactive Plan YADI is nonoliguric with abnormal UA; unclear this is truly HRS. He is Hep C positive. DDX includes possible GN due to hep C cryos = non detected No need for kidney biopsy at this time His creatinine is trending down Can taper and DC steroids no indication for dialysis Agree with current management; no further IVF or albumin, avoid contrast, nephrotoxins Keep O > I Watch HCT Time Spent With Patient Time: Total time spent is greater than 50% in coordination of care (as documented) at patient's floor/unit and/or counseling patient: Progress Note: Quality Stroke Does the patient have a stroke diagnosis?: No
--- NOTE | 2022-08-08 13:32 | PM.DS ---
DS: Providers Provider Date of Service: 08/08/22 Date of admission: 07/20/22 23:58 Primary care physician: None Physician Consults: 07/21/22 07:31 Consult to Gastroenterology Routine Consulting Provider: Ellito Malik Reason for consultation: liver failure, anemia Has provider been notified: No 07/21/22 08:09 Consult to Cardiology Routine Consulting Provider: Nain Griffin Reason for consultation: heart failure Has provider been notified: No 07/22/22 07:46 Consult to Nephrology Routine Consulting Provider: Peng Montano Reason for consultation: kidney failure 07/27/22 12:33 Consult to Psychiatry Routine Consulting Provider: Psych Covering Reason for consultation: Capacity eval, needs to decide on Dialysis vs CMP DS: Diagnosis Discharge Diagnosis (1) Acute on chronic kidney failure: Status: Acute (2) Alcoholic cirrhosis: Status: Acute (3) Anasarca: Status: Acute DS: Summary Hospital Course Hospital Course: HPI: This is a 67-year-old male who is not on any prescription medications and has not seen a doctor in over 15 years, presents to the emergency department for evaluation of dyspnea and generalized swelling.? Patient states he does not know of any significant medical history and was never on any prescription medications.? He presents today for dyspnea, worse with exertion and progressive in onset.? He states he feels short of breath after walking for short distance.? He has also noticed progressively worse swelling of his bilateral upper and lower extremities. Patient denies fever, chills, chest discomfort, palpitations, abdominal pain, changes in urinary or bowel habits.? He denies hematemesis, hematuria, melena or hematochezia.? States this has never happened to him before.? Denies history of hypertension, diabetes, cancer, stroke, CHF or any other pertinent past medical history.? He does have orthopnea and PND. Does have history of alcoholism but has been sober for over a month. Hospital course: Patient was admitted for anasarca and anemia. Workup revealed liver cirrhosis. Also found to hematemesis and acute on chronic blood loss anemia. EGD revealed erosive esophagitis and atrophic gastritis. Nephrology was consulted for acute kidney injury on CKD. Patient eventually received 7 unit PRBC during hospital course. Also received IV Rocephin for SBP prophylaxis. Creatinine improved throughout hospital course with differentials being possible GN due to hep C versus SIRS. Cryoglobulin negative. Patient also underwent paracentesis for ethanol cirrhosis with ascites, removal of 4.9 L of ascites. Sac consistent with cirrhosis. Patient was initiated on prednisolone 30 mg for 2 months, stop date: 09/27/2022. Also noted to have stage II pressure injury right buttock for which form dressing was applied. Status at Discharge Overall status at discharge: patient is progressing back to baseline Time Spent with Patient Time attestation: Total time spent providing and/or coordinating discharge services: Discharge coordination time: Greater than 30 minutes Quality: Safe Use of Opioids Does Pt have an Active Cancer Diagnosis on the Problem List?: No Quality: Stroke Does the patient have a stroke diagnosis?: No Physical Exam Vital Signs: Vital Signs: Last Vital Signs Temp 97.1 F 08/08/22 11:14 Pulse 105 H 08/08/22 13:08 Resp 18 08/08/22 11:14 BP 131/78 08/08/22 11:14 Pulse Ox 95 08/08/22 13:08 O2 Del Method 08/08/22 11:14 O2 Flow Rate 2 08/05/22 07:15 BMI result Body Mass Index 31.6 Gen: in no acute distress HEENT: sclera anicteric, moist mucus membranes Neck: supple, dry dressing at site of prior HD catheter Lungs: clear to auscultation bilaterally Heart: regular rate and rhythm, no murmurs Abd: soft, non-tender, non-distended Ext: 1+ bilateral LE edema Skin: warm/well-perfused Neuro: alert and oriented x3, no focal findings Psych: appropriate affect DS: Data Data Completed and Pending Completed studies during hospitalization [Text1]: Pending at discharge 07/24/22 15:05 Cytology [PTH] Routine Labs on day of discharge: Laboratory Results - last 24 hr 08/08/22 08/08/22 05:15 05:15 WBC 7.5 RBC 2.77 L Hgb 8.6 L Hct 26.4 L MCV 95.3 MCH 31.0 MCHC 32.6 RDW 21.1 H Plt Count 79 L MPV 12.2 Absolute Nucleated RBC 0.000 Nucleated RBC % (auto) 0.0 Sodium 133 L Potassium 4.1 Chloride 103 Carbon Dioxide 23 Anion Gap 11 L BUN 55 H Creatinine 1.53 H Estim Creat Clear Calc 54.7 Estimated GFR 45 Random Glucose 102 Calcium 8.4 Magnesium 1.9 Total Bilirubin 1.9 H AST 30 ALT 27 Alkaline Phosphatase 53 Total Protein 6.9 Albumin 2.4 L Imaging Chest x-ray: Radiologist's impression: ITS Impressions Chest X-Ray 07/20/22 18:00 IMPRESSION: Pleural thickening on the right possibly small pleural effusion. Abdomen Ultrasound 07/21/22 01:15 IMPRESSION: 1. Cirrhotic morphology of the liver with moderate to large volume of ascites. 2. Gallbladder sludge with nonspecific gallbladder wall thickening and pericholecystic free fluid in the setting of cirrhosis and ascites. Negative Meier's sign. 3. Partially imaged right-sided pleural effusion. Venous Duplex 07/23/22 12:26 IMPRESSION: No DVT demonstrated in the left upper extremity. Paracentesis Ultrasound 07/24/22 16:30 IMPRESSION: Ultrasound-guided paracentesis. Insertion Non-Tunneled Catheter 07/25/22 12:54 IMPRESSION: Placement of right internal jugular temporary dialysis catheter as described. Fluoroscopy Time: 0.3 minutes. Number of Images: 2. DAP: 54 cGy-cm2. Chest X-Ray 08/04/22 09:20 IMPRESSION: Mild bibasilar atelectasis. Trace pleural effusions versus pleural parenchymal scarring at the costophrenic sulci. No pulmonary edema. No acute pulmonary findings. Discharge Plan Discharge Anticipated Discharge Date/Time: 08/08/22 15:41 Patient Disposition: Home, Self-Care Discharge Diagnosis: Liver cirrhosis Referrals: Physician,None [Primary Care Provider] - 1 Week Discharge Medications: New tamsulosin 0.4 mg Capsule 0.4 mg PO DAILY Qty: 14 0RF spironolactone 25 mg Tablet 25 mg PO DAILY Qty: 14 0RF Protocol: Hold for SBP< HOLD for SBP < : 90 omeprazole 40 mg Capsule,Delayed Release(Dr/Ec) 40 mg PO BID@0630,1630 Qty: 14 0RF prednisolone 5 mg (21 tabs) tablets,dose pack 30 mg PO DAILY Qty: 30 0RF Discontinued Aleve PM 220-25 mg Tablet 1 tab PO BEDTIME PRN (Reason: Pain (Scale Score 1-3)) Discharge Orders: Discharge Order (Routine); Ordered 08/08/22 Ordered By: Kyle Kendall Diet: Low salt diet Activity on Discharge: As tolerated Stand Alone Forms: Patient Portal Discharge page Care Plan Goals: Follow up with nephrology and GI Health Concerns: Liver cirrhosis Acute on chronic blood loss anemia due to hematemesis CKD Stage 2 pressure injury Plan of Treatment: Prednisolone 30mg daily, Stop date : 09/27/2022 Spironolactone 25mg daily Assessment: per summary
--- NOTE | 2022-08-08 14:20 | MHC.CM.PN ---
PT TO DC HOME TODAY WITH NO SERVICES FAMILY TO TRANSPORT
--- NOTE | 2022-08-08 15:26 | P.EN_ITS ---
Event Note Date of Service: 08/08/22 Event Note: Had planned to discharge the patient today. Discussed with Nephrology regarding discharge plans. Refer to discharge summary. Patient states he cannot go home today as he does not have transport and his ryan is coming to help him get up his stairs tomorrow. Also his sister is bringing groceries tomorrow. Patient states he had planned for discharge tomorrow. Spoke to mattress spring encaser regarding options, and it was deemed that it is easier to keep him here in the hospital today and discharge tomorrow as it will delay his discharge further if he plans to appeal his discharge. Dispo: Dischage tomorrow.
[2022-08-08] MEDS: Melatonin 3 MG TABLET PO (19:56)
[2022-08-09 04:00] VITALS: BP 125/68; PULSE 78; RESP 18; TEMP 36.2; O2SAT 97
[2022-08-09] MEDS: Omeprazole 40 MG CAPSULE.DR PO (05:43)
[2022-08-09 07:25] VITALS: BP 119/67; PULSE 75; RESP 18; TEMP 36.6; O2SAT 99
[2022-08-09] MEDS: Tamsulosin HCL 0.4 MG CAPSULE PO (07:50)
[2022-08-09] MEDS: Folic Acid 1 MG TABLET 5 MG PO (07:50)
[2022-08-09] MEDS: predniSONE 10 MG TABLET 30 MG PO (07:50)
[2022-08-09] MEDS: Spironolactone 25 MG TABLET PO (07:50)
[2022-08-09] MEDS: 0.9 % Sodium Chloride Flush 3 ML SYRINGE IVFLUSH (07:53)
--- NOTE | 2022-08-09 11:55 | MHC.CM.PN ---
PT WILL DC HOME TODAY AND SAYS HE HAS FAMILY AND FRIENDS WHO WILL BE AVAILABLE TO ASSIST HIM HE DOES NOT HAVE A PCP, A LIST OF PROVIDERS WAS GIVEN AND PT WAS ENCOURAGED TO CONNECT WITH ONE SOON POSSIBLE PT WILL DC HOME [facility] NO SERVICES FAMILY TO TRANSPORT
[2022-08-10 13:29] LABS: HCV Log PCR 5.26 Log IU/mL (NOT DETECTED); HepC Viral Load 180000 IU/mL (NOT DETECTED)
== END 2022-08-09 12:32 | disposition home or self-care (01) | DRG 280 ==
LOC: HO.ED 18:20 → HO.EDOVER 07-21 01:14 → HO.S3 07-21 16:01
PROVIDERS: Family Medicine; Internal Medicine; Internal Medicine Gastroenterology; Internal Medicine Nephrology; Physician Assistant Medical; Radiology Diagnostic Radiology; Student in an Organized Health Care Education/Training Program; Admitting Provider Student in an Organized Health Care Education/Training Program; Emergency Provider Emergency Medicine; Visit Provider Family Medicine
PROC: 0DJ08ZZ Inspection of Upper Intestinal Tract, Via Natural or Artificial Opening Endoscopic (ICD-10-PCS; principal; 2022-07-23 12:30)
PROC: 02HV33Z Insertion of Infusion Device into Superior Vena Cava, Percutaneous Approach (ICD-10-PCS; principal; 2022-07-25 11:50)
DX: K70.31 Alcoholic cirrhosis of liver with ascites (principal); J96.01 Acute respiratory failure with hypoxia; K76.7 Hepatorenal syndrome; N17.9 Acute kidney failure, unspecified; K22.11 Ulcer of esophagus with bleeding; L89.312 Pressure ulcer of right buttock, stage 2; K76.6 Portal hypertension; N18.4 Chronic kidney disease, stage 4 (severe); D69.59 Other secondary thrombocytopenia; I48.91 Unspecified atrial fibrillation; Z66 Do not resuscitate; T82.838A Hemorrhage due to vascular prosthetic devices, implants and grafts, initial encounter; K29.41 Chronic atrophic gastritis with bleeding; Y82.8 Other medical devices associated with adverse incidents; I50.810 Right heart failure, unspecified; K44.9 Diaphragmatic hernia without obstruction or gangrene; K31.89 Other diseases of stomach and duodenum; F10.10 Alcohol abuse, uncomplicated; D50.9 Iron deficiency anemia, unspecified; D63.1 Anemia in chronic kidney disease; B19.20 Unspecified viral hepatitis C without hepatic coma; Z20.822 Contact with and (suspected) exposure to COVID-19
CPT/HCPCS: 36415; 36556; 49083; 71045; 71046; 76700; 80048; 80053; 80076; 80307; 81001; 82042; 82043; 82077; 82550; 82570; 82595; 82607; 82746; 82784; 83010; 83540; 83615; 83690; 83735; 83880; 83970; 84156; 84165; 84166; 84300; 84443; 84484; 85014; 85018; 85025; 85027; 85045; 85610; 86015; 86021; 86038; 86039; 86160; 86255; 86256; 86334; 86335; 86704; 86706; 86803; 86850; 86880; 86900; 86901; 86923; 87070; 87073; 87086; 87205; 87340; 87522; 87635; 88112; 88305; 89051; 92950; 93005; 93306; 93971; 97110; 97116; 97162; 97530; 99285; C1752; C1758; C1769; J0171; J0696; J1940; J2354; J2405; J2597; J3010; J3430; P9016; P9017; P9047; P9073; Q9957